=== PATIENT | male | born 1970 | race Caucasian/White ===

== ENCOUNTER 2023-01-18 18:29 | Outpatient (RCR) | payer OTHER, SELFPAY | END 2023-02-11 23:59 | disposition home or self-care (01) | LOC: MM 18:29 | PROVIDERS: PCP Internal Medicine; Visit Provider Internal Medicine | DX: Z51.81 Encounter for therapeutic drug level monitoring (principal); Z79.01 Long term (current) use of anticoagulants ==

== ENCOUNTER 2023-01-21 16:21 | Emergency (ER) | payer OTHER, SELFPAY ==
[2023-01-21 16:26] VITALS: BP 132/73; PULSE 80; RESP 20; TEMP 37.2; O2SAT 100; BMI 31.7
--- NOTE | 2023-01-21 16:44 | XR_ITS ---
The [address] [address] Patient Name: DAVID GRAVES MRN: [id number] date: 1970 Sex: M Assigned Patient Location: ER Current Patient Location: Accession/Order Number: [id number] Exam Date: 01/21/2023 16:50 Report Date: 01/21/2023 18:10 At the request of: RD SHELTON Procedure: XR chest 2V EXAM: XR chest 2V HISTORY: cough COMPARISON: None. TECHNIQUE: Chest X-ray, 2 views FINDINGS: Support devices: Median sternotomy wires are in place. Lungs/pleura: No consolidation, effusion, or pneumothorax. Heart and mediastinum: Normal contours. Aortic valve replacement. Bones: No acute abnormality identified. Impression: No radiographic evidence of acute cardiopulmonary process. Electronically authenticated by: ABBEY CLARK Date: 01/21/2023 18:10
[2023-01-21 16:59] LABS: Internal Control Within Normal Limits; Strep A Antigen Screen Positive
[2023-01-21] MEDS: IPRATROPIUM/ALBUTEROL SULFATE 3 ML AMPUL.NEB IH (17:12)
[2023-01-21 17:13] VITALS: O2SAT 95
[2023-01-21] MEDS: PREDNISONE 20 MG TABLET 60 MG PO (17:22)
--- NOTE | 2023-01-21 17:32 | ED.GENADUL1 ---
Documented by User: Juliane Morales 01/21/23 17:39 HPI - General Adult General Chief complaint: Upper Respiratory Infection Stated complaint: sore throat Time Seen by Provider: 01/21/23 16:44 Source: patient Mode of arrival: walk-in Limitations: no limitations History of Present Illness HPI narrative: 52-year-old male percents are chief complaint of sore throat cough congestion. He states his symptoms began yesterday. States is difficulty swallowing due to pain. Patient does not have hot potato voice. She will speak full sentences. Swallowing secretions well. He does have scattered expiratory wheezing. States she has a history of asthma and his asthma has been agitated over last several days. He does have an inhaler at home. Related Data Previous Rx's Medication Instructions Recorded albuterol sulfate 90 mcg/actuation 2 inh inhalation Q4H PRN shortness 01/21/23 aerosol inhaler of breath or wheezing #8.5 grams penicillin V potassium 500 mg 500 mg PO Q12H 10 days #20 tabs 01/21/23 tablet prednisone 50 mg tablet 50 mg PO DAILY #20 tabs 01/21/23 Allergies Allergy/AdvReac Type Severity Reaction Status Date / Time No Known Drug Allergies Allergy Verified 01/21/23 16:25 Review of Systems ROS Narrative All Systems are negative except as noted/marked.All systems reviewed and otherwise negative PFSH PFSH Social History Smoking status: Former smoker Exam Narrative Exam Narrative: P Nurses note and vital signs reviewed and patient is not hypoxic. General: The patient appears well and in no apparent distress. Patient is resting comfortably on cart. Skin: Warm, dry, no pallor noted. There is no rash noted. Head: Normocephalic, atraumatic Eye: Normal conjunctiva, no drainage, EOMI. PERRL Ears, Nose, Mouth, and Throat: oral mucosa is moist posterior oropharynx is red, no swelling, no peritonsillar abscess,. Nares patent. Mouth without vesicles. Ear canals patent. Tm's without Erythema Cardiovascular: Regular Rate and Rhythm Respiratory: Scattered expiratory wheezing Patient is in no distress, no accessory muscle use, no rales or rhonchi Back: non-tender, no CVA tenderness bilaterally to percussion. Musculoskeletal: The patient has no evidence of calf tenderness, no pitting edema, symmetrical pulses noted bilaterally Neurological: A&O x4, normal speech Psychiatric: Cooperative Constitutional Vital Signs - 24 hr 01/21/23 16:26 01/21/23 17:13 01/21/23 17:39 Temperature 98.9 F Pulse Rate [Monitor] 80 64 Respiratory Rate 20 20 Blood Pressure [Left Arm] 132/73 H 131/83 H Pulse Oximetry 100 95 94 L Oxygen Delivery Method Room Air Room Air Oxygen Delivery Flow Rate 79 Course Vital Signs Vital signs: Vital Signs Temperature 98.9 F 01/21/23 16:26 Pulse Rate 80 01/21/23 16:26 Respiratory Rate 20 01/21/23 16:26 Blood Pressure 132/73 H 01/21/23 16:26 Pulse Oximetry 100 01/21/23 16:26 Temperature 98.9 F 01/21/23 16:26 Pulse Rate 64 01/21/23 17:39 Respiratory Rate 20 01/21/23 17:39 Blood Pressure 131/83 H 01/21/23 17:39 Pulse Oximetry 94 L 01/21/23 17:39 Oxygen Delivery Method Room Air 01/21/23 17:39 Oxygen Delivery Flow Rate 79 01/21/23 17:13 Medical Decision Making MDM Narrative Medical decision making narrative: Patient presents with a chief complaint of cough congestion sore throat. Patient is positive for strep. Lab Data Labs: Lab Results 01/21/23 Range/Units 16:28 Streptococcus Screen Positive A Discharge Plan Discharge Chief Complaint: Upper Respiratory Infection Clinical Impression: Strep pharyngitis Patient Disposition: Home, Self-Care Time of Disposition Decision: 17:28 Condition: Good Prescriptions / Home Meds: New penicillin V potassium 500 mg tablet 500 mg PO Q12H 10 Days Qty: 20 0RF prednisone 50 mg tablet 50 mg PO DAILY Qty: 20 0RF albuterol sulfate 90 mcg/actuation HFA aerosol inhaler 2 inh inhalation Q4H PRN (Reason: shortness of breath or wheezing) Qty: 8.5 0RF Instructions: Strep Throat (ED) Stand Alone Forms: Portal Instructions Referrals: Shaikh Jeter MD [Primary Care Provider] - 1 week Discharge Date/Time: 01/21/23 17:41 Documented by User: Jarred Urban MD 01/21/23 19:41 HPI - General Adult General Chief complaint: Upper Respiratory Infection Stated complaint: sore throat Time Seen by Provider: 01/21/23 16:44 Related Data Previous Rx's Medication Instructions Recorded albuterol sulfate 90 mcg/actuation 2 inh inhalation Q4H PRN shortness 01/21/23 aerosol inhaler of breath or wheezing #8.5 grams penicillin V potassium 500 mg 500 mg PO Q12H 10 days #20 tabs 01/21/23 tablet prednisone 50 mg tablet 50 mg PO DAILY #20 tabs 01/21/23 Allergies Allergy/AdvReac Type Severity Reaction Status Date / Time No Known Drug Allergies Allergy Verified 01/21/23 16:25 PFSH PFSH Social History Smoking status: Former smoker Exam Constitutional Vital Signs - 24 hr 01/21/23 16:26 01/21/23 17:13 01/21/23 17:39 Temperature 98.9 F Pulse Rate [Monitor] 80 64 Respiratory Rate 20 20 Blood Pressure [Left Arm] 132/73 H 131/83 H Pulse Oximetry 100 95 94 L Oxygen Delivery Method Room Air Room Air Oxygen Delivery Flow Rate 79 Course Vital Signs Vital signs: Vital Signs Temperature 98.9 F 01/21/23 16:26 Pulse Rate 80 01/21/23 16:26 Respiratory Rate 20 01/21/23 16:26 Blood Pressure 132/73 H 01/21/23 16:26 Pulse Oximetry 100 01/21/23 16:26 Temperature 98.9 F 01/21/23 16:26 Pulse Rate 64 01/21/23 17:39 Respiratory Rate 20 01/21/23 17:39 Blood Pressure 131/83 H 01/21/23 17:39 Pulse Oximetry 94 L 01/21/23 17:39 Oxygen Delivery Method Room Air 01/21/23 17:39 Oxygen Delivery Flow Rate 79 01/21/23 17:13 Medical Decision Making Medical Records Medical records narrative: Chest x-ray shows no acute cardiopulmonary disease, no infiltrate, no effusion. Lab Data Labs: Lab Results 01/21/23 Range/Units 16:28 Streptococcus Screen Positive A Critical Care Time Critical Care Time Attestation: IDr Urban, have reviewed the above progress note and course of action in the ER; agree with the above. I have personally seen and evaluated this patient, gone over history and physical, and discussed disposition and treatment plan with the patient. Discharge Plan Discharge Chief Complaint: Upper Respiratory Infection Clinical Impression: Strep pharyngitis Patient Disposition: Home, Self-Care Time of Disposition Decision: 17:28 Condition: Good Prescriptions / Home Meds: New penicillin V potassium 500 mg tablet 500 mg PO Q12H 10 Days Qty: 20 0RF prednisone 50 mg tablet 50 mg PO DAILY Qty: 20 0RF albuterol sulfate 90 mcg/actuation HFA aerosol inhaler 2 inh inhalation Q4H PRN (Reason: shortness of breath or wheezing) Qty: 8.5 0RF Instructions: Strep Throat (ED) Stand Alone Forms: Portal Instructions Referrals: Shaikh Jeter MD [Primary Care Provider] - 1 week Discharge Date/Time: 01/21/23 17:41
[2023-01-21 17:39] VITALS: BP 131/83; PULSE 64; RESP 20; O2SAT 94
== END 2023-01-21 17:41 | disposition home or self-care (01) ==
PROVIDERS: Emergency Provider Emergency Medicine; PCP Internal Medicine
DX: J02.0 Streptococcal pharyngitis (principal)
CPT/HCPCS: 71046; 87880; 94640; 99284

== ENCOUNTER 2023-06-23 12:41 | Emergency (ER) | payer SELFPAY ==
[2023-06-23] VITALS (13 sets, daily range): BP systolic 124–154; BP diastolic 68–80; PULSE 86–108; RESP 12–24; TEMP 36.6; O2SAT 98–100; BMI 30.3
--- NOTE | 2023-06-23 13:00 | ECG_ITS ---
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
--- NOTE | 2023-06-23 13:00 | XR_ITS ---
The [address] [address] Patient Name: DAVID GRAVES MRN: [id number] date: 1970 Sex: M Assigned Patient Location: ER Current Patient Location: ED.MAIN Accession/Order Number: [id number] Exam Date: 06/23/2023 13:15 Report Date: 06/23/2023 13:52 At the request of: SANDHYA COTTON Procedure: XR chest 1V EXAMINATION: XR chest 1V 06/23/2023 10:48 AM PST HISTORY: cough, chest pain TECHNIQUE: Single frontal view of the chest acquired. COMPARISONS: Chest x-ray 01/21/2023. FINDINGS: Lines/tubes/other: None. Heart and mediastinum: Stable. Bones: No acute osseous abnormality. Lungs: The lungs are clear. There is no evidence of pneumonia or pulmonary edema. Pleura: There is no significant pleural effusion or pneumothorax. Other: None. XR/XR chest 1V IMPRESSION: No acute cardiopulmonary abnormality. Electronically authenticated by: HIEN OLIVEROS Date: 06/23/2023 13:52
--- NOTE | 2023-06-23 13:03 | ED_ITS ---
HPI - Chest Pain General Chief Complaint: Chest Pain Stated Complaint: CHEST PAIN Time Seen by Provider: 06/23/23 12:55 Source: patient Mode of arrival: walk-in History of Present Illness HPI narrative: 53-year-old male presents for two days of chest pain. He's had a dry cough for a week. He had been lifting some heavy items before this pain started and he points to the lateral pectoral area to indicate area of pain, just medial to the axilla. He didn't fall. No direct trauma. Cough is nonproductive and there is no hemoptysis and he has not had a fever. Related Data Previous Rx's Medication Instructions Recorded albuterol sulfate 90 mcg/actuation 2 inh inhalation Q4H PRN shortness 01/21/23 aerosol inhaler of breath or wheezing #8.5 grams penicillin V potassium 500 mg 500 mg PO Q12H 10 days #20 tabs 01/21/23 tablet prednisone 50 mg tablet 50 mg PO DAILY #20 tabs 01/21/23 Allergies Allergy/AdvReac Type Severity Reaction Status Date / Time No Known Drug Allergies Allergy Verified 01/21/23 16:25 Review of Systems ROS Narrative A ten point review of systems is negative except as noted above. PFSH PFSH Social History Smoking status: Former smoker Exam Narrative Exam Narrative: Nurses note and vital signs reviewed and patient is not hypoxic. General: The patient appears well and in no apparent distress. Patient is resting comfortably on cart. Skin: Warm, dry, no pallor noted. There is no rash noted. Head: Normocephalic, atraumatic Eye: Normal conjunctiva, no drainage Ears, Nose, Mouth, and Throat: oral mucosa is moist. Nares patent. Cardiovascular: Regular Rate and Rhythm Respiratory: Patient is in no distress, no accessory muscle use, lungs are clear to auscultation, no wheezing, rales or rhonchi Back: non-tender GI: soft and nontender Musculoskeletal: chest wall has no crepitus bruise or abrasions or rash. Neurological: A&O, normal speech Psychiatric: Cooperative Constitutional Vital Signs, click to edit/add: Last Vital Signs Temp 98 F 06/23/23 12:46 Pulse 88 06/23/23 14:20 Resp 15 06/23/23 14:20 BP 124/68 06/23/23 14:00 Pulse Ox 98 06/23/23 13:00 O2 Del Method Room Air 06/23/23 12:46 Course Vital Signs Vital signs: Vital Signs Temperature 98 F 06/23/23 12:46 Pulse Rate 106 H 06/23/23 12:46 Respiratory Rate 16 06/23/23 12:46 Blood Pressure 154/80 H 06/23/23 12:46 Pulse Oximetry 100 06/23/23 12:46 Oxygen Delivery Method Room Air 06/23/23 12:46 Temperature 98 F 06/23/23 12:46 Pulse Rate 88 06/23/23 14:20 Respiratory Rate 15 06/23/23 14:20 Blood Pressure 124/68 06/23/23 14:00 Pulse Oximetry 98 06/23/23 13:00 Oxygen Delivery Method Room Air 06/23/23 12:46 MDM - Chest Pain MDM Narrative Medical decision making narrative: the patient's workup including d-dimer and two troponins is negative. He has not had his INR checked in over a year and today at 2.25. He was encouraged to have his INR checked regularly and he'll follow-up with his family doctor. At this point I do not suspect acute coronary syndrome and the patient will be discharged home. No evidence of pulmonary embolism or pneumothorax. Treatment diagnosis and follow-up were discussed with the patient. Differential Diagnosis Differential diagnosis: Likely pneumothorax, unstable angina pectoris, atypical chest pain, st elevation myocardial infarction, costochondritis and chest pain Lab Data Attestation: I reviewed the patient's lab results. Labs: Lab Results 06/23/23 06/23/23 06/23/23 Range/Units 13:06 13:07 13:50 WBC 11.5 H (4.0-11.0) 10^3/uL RBC 4.39 L (4.70-6.10) 10^6/uL Hgb 13.2 L (14.0-18.0) g/dL Hct 40.7 L (42.0-54.0) % MCV 92.7 (80.0-94.0) fL MCH 30.1 (25.9-34.0) pg MCHC 32.4 (29.9-35.2) g/dL RDW 12.6 (11.0-15.0) % Plt Count 206 (150-450) 10^3/uL MPV 9.9 (9.5-13.5) fL Neut % (Auto) 71.4 (43.0-75.0) % Lymph % (Auto) 16.7 L (20.5-60.0) % [place] % (Auto) 6.8 (1.7-12.0) % Eos % (Auto) 4.1 (0.9-7.0) % Baso % (Auto) 0.7 (0.2-2.0) % Neut # (Auto) 8.2 H (1.4-6.5) 10^3/uL Lymph # (Auto) 1.9 (1.2-3.8) 10^3/uL [place] # (Auto) 0.8 (0.3-0.8) 10^3/uL Eos # (Auto) 0.5 (0.0-0.7) 10^3/uL Baso # (Auto) 0.1 (0.0-0.1) 10^3/uL Abs Immat Gran (auto) 0.04 H (0.00-0.03) 10^3/uL Imm/Tot Granulo (auto) 0.3 (0.0-0.5) % PT 22.8 H (9.0-11.6) sec INR 2.25 D-Dimer 0.50 (<=0.59) mg/L FEU Sodium 136 (136-145) mmol/L Potassium 3.9 (3.5-5.1) mmol/L Chloride 103 (98-107) mmol/L Carbon Dioxide 30.6 (21.0-32.0) mmol/L Anion Gap 6.3 BUN 17.0 (7.0-18.0) mg/dL Creatinine 0.98 (0.70-1.30) mg/dL Est GFR ( Amer) >60 (>=60) Est GFR (Non-Af Amer) >60 (>=60) BUN/Creatinine Ratio 17.3 Glucose 134 H (74-106) mg/dL Calcium 8.4 L (8.5-10.1) mg/dL Troponin I High Sens 6.2 6.5 (4.0-76.1) pg/mL SARS-CoV-2 (PCR) Negative (NEGATIVE) Imaging Data Chest x-ray: Radiologist's impression: Procedure: XR chest 1V EXAMINATION: XR chest 1V 06/23/2023 10:48 AM PST HISTORY: cough, chest pain TECHNIQUE: Single frontal view of the chest acquired. COMPARISONS: Chest x-ray 01/21/2023. FINDINGS: Lines/tubes/other: None. Heart and mediastinum: Stable. Bones: No acute osseous abnormality. Lungs: The lungs are clear. There is no evidence of pneumonia or pulmonary edema. Pleura: There is no significant pleural effusion or pneumothorax. Other: None. IMPRESSION: No acute cardiopulmonary abnormality. Electronically authenticated by: HIEN OLIVEROS Date: 06/23/2023 13 ECG Data Attestation: I personally reviewed and interpreted this ECG as follows: (EKG on my interpretation shows no acute findings) Heart Score History: Moderately Suspicious ECG: Normal Age: >45-<65 years Risk Factors: 1 or 2 Risk Factors Troponin: <Normal Limit Total Heart Score Recommendations & Risks:: 3 Discharge Plan Discharge Chief Complaint: Chest Pain Clinical Impression: Chest wall pain Patient Disposition: Home, Self-Care Time of Disposition Decision: 14:34 Condition: Good Mode of Transportation: Private Vehicle Prescriptions / Home Meds: No Action penicillin V potassium 500 mg tablet 500 mg PO Q12H 10 Days Qty: 20 0RF prednisone 50 mg tablet 50 mg PO DAILY Qty: 20 0RF albuterol sulfate 90 mcg/actuation HFA aerosol inhaler 2 inh inhalation Q4H PRN (Reason: shortness of breath or wheezing) Qty: 8.5 0RF Instructions: Chest Wall Pain (ED) Stand Alone Forms: Portal Instructions Referrals: Rod Peña MD [Primary Care Provider] - 1 week
[2023-06-23 13:15] LABS: Basophils Absolute Auto 0.1 10^3/uL (0.0-0.1); Basophils Percent Auto 0.7 % (0.2-2.0); Eosinophils Absolute Auto 0.5 10^3/uL (0.0-0.7); Eosinophils Percent Auto 4.1 % (0.9-7.0); Hematocrit 40.7 % (42.0-54.0); Hemoglobin 13.2 g/dL (14.0-18.0); Immature Granulocytes Abs Auto 0.04 10^3/uL (0.00-0.03); Immature Granulocytes Pct Auto 0.3 % (0.0-0.5); Lymphocytes Absolute Auto 1.9 10^3/uL (1.2-3.8); Lymphocytes Percent Auto 16.7 % (20.5-60.0); Mean Corpuscular HGB Conc 32.4 g/dL (29.9-35.2); Mean Corpuscular Hemoglobin 30.1 pg (25.9-34.0); Mean Corpuscular Volume 92.7 fL (80.0-94.0); Mean Platelet Volume 9.9 fL (9.5-13.5); Monocytes Absolute Auto 0.8 10^3/uL (0.3-0.8); Monocytes Percent Auto 6.8 % (1.7-12.0); Neutrophils Absolute Auto 8.2 10^3/uL (1.4-6.5); Neutrophils Percent Auto 71.4 % (43.0-75.0); Platelet Count 206 10^3/uL (150-450); Red Blood Count 4.39 10^6/uL (4.70-6.10); Red Cell Distribution Width 12.6 % (11.0-15.0); White Blood Count 11.5 10^3/uL (4.0-11.0)
[2023-06-23 13:26] LABS: SARS-CoV-2 Ag NEGATIVE (NEGATIVE)
[2023-06-23 13:35] LABS: Anion Gap 6.3; BUN Creatinine Ratio 17.3; Calcium 8.4 mg/dL (8.5-10.1); Carbon Dioxide 30.6 mmol/L (21.0-32.0); Chloride 103 mmol/L (98-107); Estimated GFR (African America >60 (>=60); Estimated GFR (Non-African Ame >60 (>=60); Glucose 134 mg/dL (74-106); Potassium 3.9 mmol/L (3.5-5.1); Sodium 136 mmol/L (136-145); Troponin I High Sensitivity 6.2 pg/mL (4.0-76.1)
[2023-06-23] MEDS: MORPHINE SULFATE 4 MG/ML VIAL IV (13:51)
[2023-06-23 13:58] LABS: INR 2.25; Prothrombin Time 22.8 sec (9.0-11.6)
[2023-06-23 14:14] LABS: Troponin I High Sensitivity 6.5 pg/mL (4.0-76.1)
[2023-06-23 15:29] LABS: SARS-CoV-2 NAA NOT DETECTED (NOT DETECTE)
== END 2023-06-23 14:42 | disposition home or self-care (01) ==
PROVIDERS: Emergency Provider Emergency Medicine; PCP Family Medicine
DX: R07.89 Other chest pain (principal); Z87.891 Personal history of nicotine dependence; Z20.822 Contact with and (suspected) exposure to COVID-19
CPT/HCPCS: 36415; 71045; 80048; 84484; 85025; 85378; 85610; 87635; 87811; 93005; 96374; 99285

== ENCOUNTER 2023-08-29 08:59 | Observation (INO) | payer SELFPAY ==
[2023-08-29] VITALS (24 sets, daily range): BP systolic 126–154; BP diastolic 80–99; PULSE 120–126; RESP 13–28; TEMP 36.4–36.7; O2SAT 92–99; BMI 31.7; BMI 33.2
--- NOTE | 2023-08-29 09:06 | ECG_ITS ---
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
--- NOTE | 2023-08-29 09:06 | XR_ITS ---
The [address] [address] Patient Name: DAVID GRAVES MRN: [id number] date: 1970 Sex: M Assigned Patient Location: ER Current Patient Location: ER Accession/Order Number: [id number] Exam Date: 08/29/2023 09:18 Report Date: 08/29/2023 09:33 At the request of: KARTHIK PERLA Procedure: XR chest 1V EXAM: XR chest 1V HISTORY: shortness of breath COMPARISON: None. TECHNIQUE: AP view of the chest. FINDINGS: The cardiomediastinal silhouette is enlarged. The lungs are clear. There is no pneumothorax. No pleural effusion is noted. The osseous structures are intact. XR/XR chest 1V IMPRESSION: Cardiomegaly without failure. Electronically authenticated by: HARVINDER VALDOVINOS Date: 08/29/2023 09:33
--- NOTE | 2023-08-29 09:06 | US_ITS ---
The [address] [address] Patient Name: DAVID GRAVES MRN: [id number] date: 1970 Sex: M Assigned Patient Location: ER Current Patient Location: ER Accession/Order Number: [id number] Exam Date: 08/29/2023 09:45 Report Date: 08/29/2023 10:17 At the request of: KARTHIK PERLA Procedure: US venous doppler LE LT EXAM: US venous doppler LE LT HISTORY: left LE swelling COMPARISON: Venous ultrasound study of the lower extremities dated 08/04/2021 TECHNIQUE: Utilizing color-flow duplex scanning and Doppler flow analysis, deep venous system of the left leg was evaluated. FINDINGS: There is normal compressibility seen throughout. There is gross patency identified. Augmentation is seen. There is no evidence of focal area of increased echogenicity within the deep venous system to suggest thrombosis. Visualized portions of the greater saphenous vein and lesser saphenous vein of the superficial venous system appear unremarkable. US/US venous doppler LE LT IMPRESSION: Grossly unremarkable imaging study of the deep venous system of the left leg as described, no definite evidence of deep venous thrombosis can be identified. Electronically authenticated by: PAULA ACUÑA Date: 08/29/2023 10:17
--- OUTSIDE RECORDS SUMMARY | 2023-08-29 09:07 | XMS_ITS | CCD ---
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 Rod Benitez Primary Care Ovidio Judge Referring Unavailable Evelyn, Ovidio Attending Unavailable Unavailable Unavailable Ovidio Rivas Attending Unavailable Neymarerepete, Dr. Rod Dao Primary Care Manda JUARESWWAD, FRY H Attending Unavailable NADERER, DR ROD Prater Primary Care Unavailable FAWWAD, FRY H Admitting Unavailable FAWWAD, FRY H Attending Unavailable NADERER, DR ROD Prater Primary Care Unavailable FAWWAD, FRY H Admitting Unavailable FAWWAD, FRY H Attending Unavailable NADERER, DR ROD Prater Primary Care Unavailable FAWWAD, FRY H Admitting Unavailable FAWWAD, FRY H Attending Unavailable NADERER, DR ROD Prater Primary Care Unavailable FAWWAD, FRY H Admitting Unavailable FAWWAD, FRY H Attending Unavailable NADERER, DR ROD Prater Primary Care Unavailable FAWWAD, FRY H Admitting Unavailable MANISH ., DR DURHAM Admitting Unavailable MANISH ., DR DURHAM Attending Unavailable NADERER, DR ROD Prater Primary Care Unavailable FAWWAD, FRY H Attending Unavailable NADERER, DR ROD Prater Primary Care Unavailable FAWWAD, FRY H Admitting Unavailable FAWWAD, FRY H Admitting Unavailable NADEREPete, DR ROD Prater Primary Care Unavailable FAWWAD, FRY H Attending Unavailable NADERER, DR ROD Prater Primary Care Unavailable FAWWAD, FRY H Admitting Unavailable FAWWAD, FRY H Attending Unavailable DR ROD BENITEZ Primary Care Unavailable SHAIKH Adrian PENA Attending Unavailable SHAIKH Adrian PENA Admitting Unavailable DR ROD BENITEZ Primary Care Unavailable SHAIKH Adrian EPNA Attending Unavailable SHAIKH Adrian PENA Admitting Unavailable Allergies Allergy Classification Reported Allergen(s) Allergy Type Date of Onset Reaction(s) Facility (12 sources) olmesartan; Translations: [Benicar] Drug Allergy Cough [facility] [employer] 250 DO Work Phone: (12 sources) Ramipril; Translations: [Altace CAPS] Drug Allergy Cough [facility] [employer] 250 DO Work Phone: Medications Completed/Discontinued Medications Medication Drug Class(es) Dates Sig (Normalized) Sig (Original) levothyroxine sodium 0.2 mg oral tablet (11 sources) l-Thyroxine Start: 10-23-2021 take 1 tablet by mouth once daily Levothyroxine Sodium 200 MCG Oral Tablet Take 1 tablet daily Quantity: 90 Refills: 3 Ordered: 25-Oct-2022 Ovidio Rivas MD Start : 23-Oct-2021 Active losartan potassium 50 mg oral tablet (9 sources) Angiotensin 2 Receptor La Start: 03-16-2021 take 1 tablet by mouth once daily Losartan Potassium 50 MG Oral Tablet Take 1 tablet daily Quantity: 90 Refills: 1 Ordered: 30-Mar-2023 Ovidio Rivas MD Start : 16-Mar-2021 Active metoprolol tartrate 100 mg oral tablet (7 sources) beta-Adrenergic La Start: 09-22-2022 take 1 tablet by mouth once daily Metoprolol Tartrate 100 MG Oral Tablet TAKE 1 TABLET EVERY 12 HOURS DAILY. Quantity: 180 Refills: 3 Ordered: 22-Sep-2022 Ovidio Rivas MD Start : 22-Sep-2022 Active 24 hr pramipexole dihydrochloride 1.5 mg extended release oral tablet (7 sources) Nonergot Dopamine Agonist take 1 tablet by mouth at bedtime Pramipexole Dihydrochloride ER 1.5 MG Oral Tablet Extended Release 24 Hour TAKE 1 TABLET Bedtime Quantity: 0 Refills: 0 Ordered: 22-Sep-2022 DO Active simvastatin 20 mg oral tablet (7 sources) HMG-CoA Reductase Inhibitor Start: 04-26-2022 take 1 tablet by mouth once daily Simvastatin 20 MG Oral Tablet Take 1 tablet daily Quantity: 90 Refills: 1 Ordered: 03-May-2023 Ovidio Rivas MD Start : 26-Apr-2022 Active spironolactone 25 mg oral tablet (7 sources) Aldosterone Antagonist Start: 04-26-2022 take 1 tablet by mouth once daily Spironolactone 25 MG Oral Tablet Take 1 tablet daily Quantity: 90 Refills: 1 Ordered: 03-May-2023 Ovidio Rivas MD Start : 26-Apr-2022 Active warfarin sodium 5 mg oral tablet (7 sources) Vitamin K Antagonist Warfarin Sodium 5 MG Oral Tablet TAKE 1 TABLET DAILY- Managed by [facility] Quantity: 30 Refills: 0 Ordered: 22-Sep-2022 DO Active Problems Problem Classification Problem Date Documented Da te Episodic/Chronic Aortic; peripheral; and visceral artery aneurysms (13 sources) Dissection of aorta; Translations: [Dissection of aorta, unspecified site] Onset: 07-16-2022 Chronic Disorders of lipid metabolism (12 sources) Hyperlipidemia; Translations: [Other and unspecified hyperlipidemia] Chronic Essential hypertension (12 sources) Hypertensive disorder; Translations: [Unspecified essential hypertension] Chronic Heart valve disorders (12 sources) History of aortic valve replacement; Translations: [Heart valve replaced by other means] Chronic Other aftercare (20 sources) Drug therapy finding; Translations: [Long-term (current) use of anticoagulants] Episodic Other aftercare (4 sources) Encounter for therapeutic drug level monitoring; Translations: [ENC THERAPEUTC DRUG LEVL MONITORING] Onset: 12-13-2022 Episodic Other aftercare (1 source) 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; Translations: [FDC CURRNT USE ANTICOAGULANTS] Onset: 01-12-2023 Episodic Other nutritional; endocrine; and metabolic disorders (10 sources) Body mass index 30+ - obesity; Translations: [Body Mass Index 30.0-30.9, adult] Chronic Other nutritional; endocrine; and metabolic disorders (7 sources) Obesity; Translations: [Obesity, unspecified] Chronic Other nutritional; endocrine; and metabolic disorders (5 sources) Overweight; Translations: [Overweight] Episodic Screening and history of mental health and substance abuse codes (12 sources) Ex-smoker; Translations: [Personal history of tobacco use] Episodic Comment on above: Quit 2006; Thyroid disorders (12 sources) Hypothyroidism; Translations: [Unspecified acquired hypothyroidism] Chronic Results Test Name Value Interpretation Reference Range Facil ity Office Visit (Cardiology)on 09-22-2022 Follow-up visit Diagnoses/Problems Assessed Dissecting aortic aneurysm (441.00) (I71.00) History of aortic valve replacement (V43.3) (Z95.2) HTN (hypertension) (401.9) (I10) Hyperlipemia (272.4) (E78.5) Hypothyroidism (244.9) (E03.9) Former smoker (V15.82) (Z87.891) Quit 2006 Class 1 obesity with body mass index (BMI) of 31.0 to 31.9 in adult (278.00,V85.31) (E66.9,Z68.31) High risk medication use (V58.69) (Z79.899) Orders Class 1 obesity with body mass index (BMI) of 31.0 to 31.9 in adult Healthy Weight Tips; Status:Complete; Done: 22Sep2022 Some eating tips that can help you lose weight.; Status:Complete; Done: 22Sep2022 Dissecting aortic aneurysm, History of aortic valve replacement Echocardiogram; Status:Hold For - Scheduling; Requested for:22Sep2022; HTN (hypertension), Hyperlipemia Start: Metoprolol Tartrate 100 MG Oral Tablet; TAKE 1 TABLET EVERY 12 HOURS DAILY ALT - Alanine Aminotransferase, Serum; Status:Active; Requested for:22Sep2022; AST; Status:Active; Requested for:22Sep2022; Basic Metabolic Panel; Status:Active; Requested for:22Sep2022; Complete Blood Count; Status:Active; Requested for:22Sep2022; Lipid Panel; Status:Active; Requested for:22Sep2022; TSH - Thyroid Stimulating Hormone, Serum; Status:Active; Requested for:22Sep2022; SocHx: Former smoker Tobacco Use Screening; Status:Complete; Done: 22Sep2022 Patient Instructions Please bring all medicines, vitamins, and herbal supplements with you when you come to the office. Prescriptions will not be filled unless you are compliant with your follow up appointments or have a follow up appointment scheduled as per instruction of your physician. Refills should be requested at the time of your visit. Follow up in 1 year. Chief Complaint DAVID GRAVES is being seen for an annual follow-up of. Patient is in the office for follow-up for the problems noted below. He was last seen in the office year and a half ago. In the interim he did not have any cardiac events. He ran out of his metoprolol recently and because of this his heart rate slightly increased. He has no dyspnea or chest pain and no syncope. He has not had any blood work that was done through his PCP. His examination is only remarkable for the normal clicking sound of mechanical aortic valve along with obesity. ASSESSMENT AND PLAN: 1. Mechanical aortic valve prosthesis paced in 2006. He is due for echocardiogram which is scheduled. Endocarditis prophylaxis for dental and GI procedures was discussed with the patient. 2. Ascending aortic aneurysm dissection repaired surgically and with no recurrences. 3. Chronic Coumadin therapy managed by the [facility] without any bleeding complications or thromboembolic events. CBC is ordered 4. Hypothyroidism, on replacement therapy thyroid testing is ordered. 5. Hyperlipidemia, on statin therapy. Lipid profile and liver function tests were ordered 6. Hypertension, presently under control. Basic metabolic profile is ordered. 7. Obesity, encouraged the patient continue to lose weight to bring his weight down to 170 pounds Ovidio Rivas MD, [facility] Surgical History Problems History of Aortic valve replacement Denied: History of Complete colonoscopy History of Coronary artery bypass graft Current Meds Medication NameInstruction Levothyroxine Sodium 200 MCG Oral Tablettake 1 tablet by mouth once daily Losartan Potassium 50 MG Oral Tablettake 1 tablet by mouth once daily Pramipexole Dihydrochloride ER 1.5 MG Oral Tablet Extended Release 24 HourTAKE 1 TABLET Bedtime Simvastatin 20 MG Oral Tablettake 1 tablet by mouth once daily Spironolactone 25 MG Oral Tablettake 1 tablet by mouth once daily Warfarin Sodium 5 MG Oral TabletTAKE 1 TABLET DAILY- Managed by [facility] Allergies Medication Altace CAPS Adverse Reaction; Cough; Recorded By: Ariella Estrada; 05/11/2021 11:06:39 AM Benicar Adverse Reaction; Cough; Recorded By: Ariella Estrada; 05/11/2021 11:06:39 AM Social History Problems Daily caffeine consumption, 4-5 servings a day Former smoker (V15.82) (Z87.891) Quit 2006 No illicit drug use Rarely consumes alcohol (V49.89) (Z78.9) Review of Systems Constitutional: not feeling tired. Cardiovascular: no intermittent leg claudication and as noted in HPI. Respiratory: no cough and no shortness of breath. Gastrointestinal: no change in bowel habits and no blood in stools. Integumentary: no skin rashes. Neurological: no seizures and no frequent falls. All other systems have been reviewed and are negative for complaint. Vitals Vital Signs Recorded: 22Sep2022 11:17AM Heart Rate88, L Radial Swkyytji904, LUE, Sitting Ohischqsp64, LUE, Sitting Height5 ft 9 in Hfsscu910 lb BMI Slfurenomn22.75 kg/m2 BSA Calculated2.13 Tobacco Useb) No PHQ-2 #1. Over the last 2 weeks have you felt down, depressed or hopeless? (If yes, answer PHQ-9 below)No PHQ-2 #2. Over the last 2 weeks have you felt little i (more content not included)... Normal [facility] Tobacco Screening.on 023 Adult depression screening assessment [facility] [employer] [facility] Work Phone: Fall risk assessment c) Not medically indicated [facility] [employer] DO Work Phone: Tobacco use status [facility]PH[facility] b) No [facility] [employer] 250 DO Work Phone: Vital Signs Date Time Vital Sign Value Performing Clinician Latosha maxwell 09-22-2022 11:17-0500 Body height 175.26 cm Rod Moi Chaser Work Phone: [facility] [employer] 250 DO Work Phone: 09-22-2022 11:17-0500 Body mass index (BMI) [Ratio] 31.75 kg/m2 Rod Prater Neymarerer Work Phone: [facility] [employer] 250 DO Work Phone: 09-22-2022 11:17-0500 Body surface area Derived from formula 2.13 m2 Rod Prater Neymarerer Work Phone: [facility] 250 DO Work Phone: 09-22-2022 11:17-0500 Body weight 97.52 kg Rod Benitez Work Phone: [facility] 250 DO Work Phone: 09-22-2022 11:17-0500 Diastolic blood pressure 82 mm[Hg] Rod Benitez Work Phone: [facility] 250 DO Work Phone: 09-22-2022 11:17-0500 Heart rate 88 /min Rod Benitez Work Phone: [facility] 250 DO Work Phone: 09-22-2022 11:17-0500 Systolic blood pressure 120 mm[Hg] [facility] Work Phone: Encounters Encounter Date Encounter Type Care Provider Facility Start: 05-02-2023 Rx Renewal Rod Benitez Work Phone: [facility] 250 DO Work Phone: Start: 03-28-2023 Rx Renewal [facility] Work Phone: Start: 12-13-2022 End: 01-12-[address] ROD BENITEZ Facility:[facility]1 Start: 11-15-2022 End: 12-10-[address] ROD BENITEZ Facility:[facility] Start: 11-10-2022 ambulatory Ovidio Rivas Facility :[id number] Start: 10-25-2022 Rx Renewal [facility] Work Phone: Start: 10-13-2022 End: 11-12-2022 ambulatory FRY H FAWWAD Facility:[facility]1 Start: 09-22-2022 Office outpatient vi sit 25 minutes Rod Benitez Work Phone: [facility] 250 DO Work Phone: Start: 09-22-[address] Rod Benitez Facility: Start: 09-15-2022 End: 10-13-2022 ambulatory FRY H FAWWAD Facility:H1 Start: 08-16-2022 End: 09-15-2022 ambulatory FRY H FAWWAD Facility:[facility]1 Start: 07-15-2022 End: 08-15-2022 ambulatory FRY H FAWWAD Facility:H1 Start: 06-15-2022 End: 07-14-2022 ambulatory FRY H FAWWAD Facility:[facility]1 Start: 05-16-2022 End: 06-14-[address] HERMINIO HAMMOND . Facility:[facility]1 Start: 04-26-2022 Rx Renewal Rod Benitez Work Phone: [place] [address] DO Work Phone: Start: 04-15-2022 End: 05-15-2022 ambulatory FRY FAWWAD Facility:H1 Start: 03-16-2022 AUDIT Rod Benitez Work Phone: [place] [address] DO Work Phone: Start: 03-15-2022 End: 04-14-2022 ambulatory FRY FAWWAD Facility:[facility]1 Start: 02-12-2022 End: 03-12-[address] ROD BENITEZ Facility:[facility]1 Start: 10-23-2021 Rx Renewal Rod Benitez Work Phone: [facility] 250 DO Work Phone: Procedures Date Procedure Procedure Detail Performing Clinician Coronary artery bypa ss graft Rod Benitez Work Phone: Replacement of aorti c valve Rod Benitez Work Phone: NEGATED: Highlighted row has not occurred! Total colonoscopy Rod Benitez Work Phone: Plan of Treatment Date Care Activity Detail Author Start: 09-22-2023 FUV, Provider: Ovidio Rivas, Status: Pen, Time: 10:00 AM FUV, Provider: Ovidio Rivas, Status: Pen, Time: 10:00 AM [facility] 250 DO Work Phone: Start: 11-10-2022 ECHO, Provider: SHVIANI GR [facility] ULTRASOUND 01,[id number], Status: Pen, Time: 10:45 AM ECHO, Provider: KIRSTY [facility] ULTRASOUND 01,[id number], Status: Pen, Time: 10:45 AM [facility] 250 DO Work Phone: Start: 09-22-2022 FUV, Provider: Ovidio Rivas, Status: Pen, Time: 10:50 AM FUV, Provider: Ovidio Rivas, Status: Pen, Time: 10:50 AM [facility] 250 DO Work Phone: Start: 03-16-2022 FUV, Provider: Ovidio Rivas, Status: Pen, Time: 8:50 AM FUV, Provider: Ovidio Rivas, Status: Pen, Time: 8:50 AM [facility] 250 DO Work Phone: Immunizations Immunization Date Immunization Notes Care Provider Stacie frances 08-15-2010 influenza virus vaccine, unspecified formulation Rod Stoner Work Phone: [facility] 250 DO Work Phone: influenza virus vaccine, unspecified formulation Rod Stoner Work Phone: [facility] 250 DO Work Phone: Comment on above: 2009 Payers Date Payer Category Payer Unknown [id number] [id number] 1969 Unknown [id number] 2.16.8 [id number] 1969 Unknown [id number] 2.16.84 [id number] 1969 Unknown [id number] 2.16.84 [id number] 1969 Unknown [id number] 2.16.84 [id number] 1969 Unknown [id number] 2.16.84 [id number] 1969 Unknown [id number] 2.16.84 [id number] 1969 Unknown [id number] 2.16.84 [id number] 1969 Unknown [id number] 2.16.84 [id number] 1969 Unknown [id number] 2.16.84 [id number] 1969 Unknown [id number] 2.16.84 [id number] 1969 Unknown [id number] 2.16.84 [id number] 1969 Unknown [id number] 2.16.84 [id number] 1959 Unknown [id number] 1959 Unknown [id number] 1959 Unknown [id number] Unknown Social History Date Type Detail Facility No illicit drug use No illicit drug use [place] [address] DO Work Phone: Comment on above: Quit 2006; Family History Unknown Family Member Name Dates Details Family history of arterioscl erotic cardiovascular disease: Mother, Father(V17.49, Z82.49) Status:Active Unknown Family Member Name Dates Details Family history of arterioscl erotic cardiovascular disease: Mother, Father(V17.49, Z82.49) Status:Active Unknown Family Member Name Dates Details Family history of arterioscl erotic cardiovascular disease: Mother, Father(V17.49, Z82.49) Status:Active Unknown Family Member Name Dates Details Family history of arterioscl erotic cardiovascular disease: Mother, Father(V17.49, Z82.49) Status:Active Unknown Family Member Name Dates Details Family history of arterioscl erotic cardiovascular disease: Mother, Father(V17.49, Z82.49) Status:Active Unknown Family Member Name Dates Details Family history of arterioscl erotic cardiovascular disease: Mother, Father(V17.49, Z82.49) Status:Active Unknown Family Member Name Dates Details Family history of arterioscl erotic cardiovascular disease: Mother, Father(V17.49, Z82.49) Status:Active Unknown Family Member Name Dates Details Family history of arterioscl erotic cardiovascular disease: Mother, Father(V17.49, Z82.49) Status:Active Unknown Family Member Name Dates Details Family history of arterioscl erotic cardiovascular disease: Mother, Father(V17.49, Z82.49) Status:Active Unknown Family Member Name Dates Details Family history of arterioscl erotic cardiovascular disease: Mother, Father(V17.49, Z82.49) Status:Active Unknown Family Member Name Dates Details Family history of arterioscl erotic cardiovascular disease: Mother, Father(V17.49, Z82.49) Status:Active Chief Complaint * DAVID GRAVES is being seen for an annual follow-up of. * Patient is in the office for follow-up for the problems noted below. He was last seen in the officeyear and a half ago. In the interim he did not have any cardiac events. He ran out of his metoprolol recently and because of this his heart rate slightly increased. He has no dyspnea or chest pain and no syncope. He has not had any blood work that was done through his PCP. His examination is only remarkable for the normal clicking sound of mechanical aortic valve along with obesity. * ASSESSMENT AND PLAN: * 1. Mechanical aortic valve prosthesis paced in 2006. He is due for echocardiogram which is scheduled. Endocarditis prophylaxis for dental and GI procedures was discussed with the patient. * 2. Ascending aortic aneurysm dissection repaired surgically and with no recurrences. * 3. Chronic Coumadin therapy managed by the [facility] without any bleeding complications or thromboembolic events. CBC is ordered * 4. Hypothyroidism, on replacement therapy thyroid testing is ordered. * 5. Hyperlipidemia, on statin therapy. Lipid profile and liver function tests were ordered * 6. Hypertension, presently under control. Basic metabolic profile is ordered. * 7. Obesity, encouraged the patient continue to lose weight to bring his weight down to 170 pounds * Ovidio Rivas MD, FACC * DAVID GRAVES is being seen for an annual follow-up of. * Patient is in the office for follow-up for the problems noted below. He was last seen in the officeyear and a half ago. In the interim he did not have any cardiac events. He ran out of his metoprolol recently and because of this his heart rate slightly increased. He has no dyspnea or chest pain and no syncope. He has not had any blood work that was done through his PCP. His examination is only remarkable for the normal clicking sound of mechanical aortic valve along with obesity. * ASSESSMENT AND PLAN: * 1. Mechanical aortic valve prosthesis paced in 2006. He is due for echocardiogram which is scheduled. Endocarditis prophylaxis for dental and GI procedures was discussed with the patient. * 2. Ascending aortic aneurysm dissection repaired surgically and with no recurrences. * 3. Chronic Coumadin therapy managed by the [facility] without any bleeding complications or thromboembolic events. CBC is ordered * 4. Hypothyroidism, on replacement therapy thyroid testing is ordered. * 5. Hyperlipidemia, on statin therapy. Lipid profile and liver function tests were ordered * 6. Hypertension, presently under control. Basic metabolic profile is ordered. * 7. Obesity, encouraged the patient continue to lose weight to bring his weight down to 170 pounds * Ovidio Rivas MD, FACC Summary Purpose Advance Directives No Advanced Directives Records FoundNo Advanced Directives Records FoundNo Advanced Directives Records FoundNo Advanced Directives Records Found Additional Source Comments (unrecognized sect ion and content) No Status Records FoundNo Status Records FoundNo Status Records FoundNo Status Records Found INFORMATION SOURCE (unrecogn ized section and content) DATE CREATED AUTHOR 09/23/2022 [facility] DATE CREATED AUTHOR AUTHOR'S ORGANIZ ATION 11/07/2022 [facility] DATE CREATED AUTHOR AUTHOR'S ORGANIZ ATION 11/14/2022 [facility] DATE CREATED AUTHOR AUTHOR'S ORGANJACKELIN ATION 01/21/2023 [facility] FOR RECORDS PERTAINING TO PATIENTS WHO ARE OR HAVE BEEN ENROLLED IN A CHEMICAL DEPENDENCY/SUBSTANCEABUSE PROGRAM, SOME INFORMATION MAY BE OMITTED. This clinical summary was aggregated from multiple sources. Caution should be exercised in using it in the provision of clinical care. This summary normalizes information from multiple sources, and as a consequence, information in this document may materially change the coding, format and clinical context of patient data. In addition, data may be omitted in some cases. CLINICAL DECISIONS SHOULD BE BASED ON THE PRIMARY CLINICAL RECORDS. [facility] [employer] [facility]. provides no warranty or guarantee of the accuracy or completeness of information in this document.
--- NOTE | 2023-08-29 09:15 | ED_ITS ---
HPI - SOB/Dyspnea General Chief Complaint: Shortness of Breath/Dyspnea Stated Complaint: SOB/COUGH Time Seen by Provider: 08/29/23 09:01 Source: patient Mode of arrival: walk-in Limitations: no limitations History of Present Illness HPI Narrative: Cough and shortness of breath started one week ago. He has asthma but has not noted any improvement despite using his albuterol MDI and steroids. Became concerned when he developed left leg swelling. No prior history of DVT or PE. PMHx includes asthma and chronic aortic dissection with prior aortic repair or descending aorta. Related Data Previous Rx's Medication Instructions Recorded albuterol sulfate 90 mcg/actuation 2 inh inhalation Q4H PRN shortness 01/21/23 aerosol inhaler of breath or wheezing #8.5 grams penicillin V potassium 500 mg 500 mg PO Q12H 10 days #20 tabs 01/21/23 tablet prednisone 50 mg tablet 50 mg PO DAILY #20 tabs 01/21/23 Allergies Allergy/AdvReac Type Severity Reaction Status Date / Time No Known Drug Allergies Allergy Verified 08/29/23 09:06 [facility] Social History Smoking status: Former smoker Exam Narrative Exam Narrative: Nurses notes and vital signs reviewed and patient is not hypoxic. afebrile General: Well-appearing and in no apparent distress. Skin: Warm, dry, no pallor noted. Head: Normocephalic, atraumatic. Neck: Supple, non-tender. Eye: Pupils are equal, round and EOMI. No scleral icterus. Cardiovascular: Tachcyardia. Respiratory: No accessory muscle use or respiratory distress. Lungs are clear to auscultation, no wheezing, rales or rhonchi Musculoskeletal: normal ROM, no calf or popliteal tenderness. Left LE slightly swollen when compared to the right. There is a shallow abrasion to the anterior left lower leg but no surrounding erythema and no drainage. GI: Abdomen is soft, non-distended. Normal bowel sounds. No tenderness to palpation. No rebound, guarding, or rigidity noted. Neurological: A&O x4. No cranial nerve dysfunction observed. No truncal ataxia. Moves all extremities. Sensation intact. Psychiatric: Cooperative and interactive. Normal mood and affect. Constitutional Vital Signs, click to edit/add: Last Vital Signs Temp 97.5 F L 08/29/23 09:03 Pulse 121 H 08/29/23 10:44 Resp 13 08/29/23 10:44 BP 141/99 H 08/29/23 10:30 Pulse Ox 97 08/29/23 10:30 O2 Del Method Room Air 08/29/23 09:03 Course Vital Signs Vital signs: Vital Signs Temperature 97.5 F L 08/29/23 09:03 Pulse Rate 123 H 08/29/23 09:03 Respiratory Rate 20 08/29/23 09:03 Blood Pressure 134/94 H 08/29/23 09:03 Pulse Oximetry 98 08/29/23 09:03 Oxygen Delivery Method Room Air 08/29/23 09:03 Temperature 97.5 F L 08/29/23 09:03 Pulse Rate 121 H 08/29/23 10:44 Respiratory Rate 13 08/29/23 10:44 Blood Pressure 141/99 H 08/29/23 10:30 Pulse Oximetry 97 08/29/23 10:30 Oxygen Delivery Method Room Air 08/29/23 09:03 MDM - SOB/Dyspnea MDM Narrative Medical decision making narrative: Patient was placed on monitoring tech and EKG obtained. Blood drawn and sent for evaluation. Chest x-ray ordered to be obtained. Ultrasound left lower extremity ordered to be obtained. Swabs for covid and influenza were negative. CXR revealed cardiomegaly but no sign of CHF. CBC unremarkable. BMP normal except Na 131. Troponin normal but BNP elevated at 2266. Left LE US = negative for DVT. Patient remains tachycardic with shortness of breath - was sent for CT angio chest, which was negative for PE and showed chronic tpe A aortic dissection with prior repair of descending aortic dissection. He remains tachcyardic and has asthma exacerbation with no improvement despite home treatment. Dr billings and i discussed the case and he agreed to admit the patient, observation, medsurg. Lab Data Attestation: I reviewed the patient's lab results. Labs: Lab Results 08/29/23 08/29/23 Range/Units 09:10 09:16 WBC 10.6 (4.0-11.0) 10^3/uL RBC 4.07 L (4.70-6.10) 10^6/uL Hgb 12.4 L (14.0-18.0) g/dL Hct 39.1 L (42.0-54.0) % MCV 96.1 H (80.0-94.0) fL MCH 30.5 (25.9-34.0) pg MCHC 31.7 (29.9-35.2) g/dL RDW 14.7 (11.0-15.0) % Plt Count 222 (150-450) 10^3/uL MPV 9.9 (9.5-13.5) fL Neut % (Auto) 73.5 (43.0-75.0) % Lymph % (Auto) 13.5 L (20.5-60.0) % [place] % (Auto) 10.2 (1.7-12.0) % Eos % (Auto) 1.3 (0.9-7.0) % Baso % (Auto) 0.7 (0.2-2.0) % Neut # (Auto) 7.8 H (1.4-6.5) 10^3/uL Lymph # (Auto) 1.4 (1.2-3.8) 10^3/uL [place] # (Auto) 1.1 H (0.3-0.8) 10^3/uL Eos # (Auto) 0.1 (0.0-0.7) 10^3/uL Baso # (Auto) 0.1 (0.0-0.1) 10^3/uL Abs Immat Gran (auto) 0.09 H (0.00-0.03) 10^3/uL Imm/Tot Granulo (auto) 0.8 H (0.0-0.5) % Sodium 131 L (136-145) mmol/L Potassium 5.0 (3.5-5.1) mmol/L Chloride 100 (98-107) mmol/L Carbon Dioxide 28.1 (21.0-32.0) mmol/L Anion Gap 7.9 BUN 20.0 H (7.0-18.0) mg/dL Creatinine 1.26 (0.70-1.30) mg/dL Est GFR ( Amer) >60 (>=60) Est GFR (Non-Af Amer) 60 (>=60) BUN/Creatinine Ratio 15.9 Glucose 102 (74-106) mg/dL Calcium 8.1 L (8.5-10.1) mg/dL Troponin I High Sens 14.2 (4.0-76.1) pg/mL NT-Pro-B Natriuret Pep 2266.0 H* (<=900.0) pg/mL Influenza Type A Ag Negative Influenza Type B Ag Negative SARS-CoV-2 Ag (CV2AG) Negative (NEGATIVE) Imaging Data Chest x-ray: Radiologist's impression: ITS Impressions Chest X-Ray 08/29/23 09:06 IMPRESSION: Cardiomegaly without failure. Electronically authenticated by: HARVINDER VALDOVINOS Date: 08/29/2023 09:33 Venous Doppler Study 08/29/23 09:06 IMPRESSION: Grossly unremarkable imaging study of the deep venous system of the left leg as described, no definite evidence of deep venous thrombosis can be identified. Electronically authenticated by: PAULA ACUÑA Date: 08/29/2023 10:17 Chest CTA 08/29/23 10:43 IMPRESSION: 1. No pulmonary embolus identified. 2. Chronic type-A dissection of the thoracic aorta. 3. Postoperative changes of a prosthetic aortic valve and possible proximal ascending aortic graft. Electronically authenticated by: PORSHA LANGE Date: 08/29/2023 11:13 CT scan - chest: Radiologist's impression: ITS Impressions Chest X-Ray 08/29/23 09:06 IMPRESSION: Cardiomegaly without failure. Electronically authenticated by: HARVINDER VALDOVINOS Date: 08/29/2023 09:33 Venous Doppler Study 08/29/23 09:06 IMPRESSION: Grossly unremarkable imaging study of the deep venous system of the left leg as described, no definite evidence of deep venous thrombosis can be identified. Electronically authenticated by: PAULA ACUÑA Date: 08/29/2023 10:17 Chest CTA 08/29/23 10:43 IMPRESSION: 1. No pulmonary embolus identified. 2. Chronic type-A dissection of the thoracic aorta. 3. Postoperative changes of a prosthetic aortic valve and possible proximal ascending aortic graft. Electronically authenticated by: PORSHA LANGE Date: 08/29/2023 11:13 Exam Date: 08/29/2023 10:37 Report Date: 08/29/2023 11:13 At the request of: KARTHIK PERLA Procedure: CT angio chest Cardiovascular: The heart is normal in size. Mild coronary artery calcifications are present. There is a prosthetic aortic valve and a possible graft of the ascending thoracic aorta. A chronic type-A dissection of the thoracic aorta is present with the proximal dissection flap originating just proximal to the origin of the brachiocephalic artery and the distal dissection flap extending beyond the field of view into the abdomen. The false and true lumens are opacified with contrast. Pericardium: No effusion. Mediastinum: Unremarkable. Lymph Nodes: No lymph node enlargement by CT size criteria. Bones: No acute osseous abnormality. Median sternotomy wires are present. Soft tissues: Unremarkable. Upper Abdomen: There is a small fat-containing hernia at the midline anterior upper abdominal wall. IMPRESSION: 1. No pulmonary embolus identified. 2. Chronic type-A dissection of the thoracic aorta. 3. Postoperative changes of a prosthetic aortic valve and possible proximal ascending aortic graft. ECG Data Attestation: I personally reviewed and interpreted this ECG as follows: Interpretation: EKG interpretation: Emergency Department physician interpretation. Rapid rhythm at 124bpm. Indeterminate axis, incomplete RBBB and non-specific ST changes without ST segment elevation or depression. No change from comparison EKG on 04/25/23 Discharge Plan Discharge Chief Complaint: Shortness of Breath/Dyspnea Clinical Impression: Asthma with acute exacerbation Patient Disposition: Admitted as Observation Time of Disposition Decision: 11:31 Prescriptions / Home Meds: No Action penicillin V potassium 500 mg tablet 500 mg PO Q12H 10 Days Qty: 20 0RF prednisone 50 mg tablet 50 mg PO DAILY Qty: 20 0RF albuterol sulfate 90 mcg/actuation HFA aerosol inhaler 2 inh inhalation Q4H PRN (Reason: shortness of breath or wheezing) Qty: 8.5 0RF Additional Instructions: anayeli morgan, dr billings Referrals: Rod Peña MD [Primary Care Provider] - 1 week
[2023-08-29 09:25] LABS: Basophils Absolute Auto 0.1 10^3/uL (0.0-0.1); Basophils Percent Auto 0.7 % (0.2-2.0); Eosinophils Absolute Auto 0.1 10^3/uL (0.0-0.7); Eosinophils Percent Auto 1.3 % (0.9-7.0); Hematocrit 39.1 % (42.0-54.0); Hemoglobin 12.4 g/dL (14.0-18.0); Immature Granulocytes Abs Auto 0.09 10^3/uL (0.00-0.03); Immature Granulocytes Pct Auto 0.8 % (0.0-0.5); Lymphocytes Absolute Auto 1.4 10^3/uL (1.2-3.8); Lymphocytes Percent Auto 13.5 % (20.5-60.0); Mean Corpuscular HGB Conc 31.7 g/dL (29.9-35.2); Mean Corpuscular Hemoglobin 30.5 pg (25.9-34.0); Mean Corpuscular Volume 96.1 fL (80.0-94.0); Mean Platelet Volume 9.9 fL (9.5-13.5); Monocytes Absolute Auto 1.1 10^3/uL (0.3-0.8); Monocytes Percent Auto 10.2 % (1.7-12.0); Neutrophils Absolute Auto 7.8 10^3/uL (1.4-6.5); Neutrophils Percent Auto 73.5 % (43.0-75.0); Platelet Count 222 10^3/uL (150-450); Red Blood Count 4.07 10^6/uL (4.70-6.10); Red Cell Distribution Width 14.7 % (11.0-15.0); White Blood Count 10.6 10^3/uL (4.0-11.0)
[2023-08-29 09:38] LABS: Influenza Virus A Antigen Negative; Influenza Virus B Antigen Negative; Internal Control Within Normal Limits; SARS-CoV-2 Ag NEGATIVE (NEGATIVE)
[2023-08-29 09:43] LABS: Anion Gap 7.9; BUN Creatinine Ratio 15.9; Calcium 8.1 mg/dL (8.5-10.1); Carbon Dioxide 28.1 mmol/L (21.0-32.0); Chloride 100 mmol/L (98-107); Estimated GFR (African America >60 (>=60); Estimated GFR (Non-African Ame 60 (>=60); Glucose 102 mg/dL (74-106); Sodium 131 mmol/L (136-145); Troponin I High Sensitivity 14.2 pg/mL (4.0-76.1)
[2023-08-29] MEDS: 0.9 % SODIUM CHLORIDE 1,000 ML 1000 ML IV (09:44)
[2023-08-29] MEDS: METHYLPREDNISOLONE SOD SUCC PF 125 MG/2 ML VIAL IVP (10:30)
--- NOTE | 2023-08-29 10:43 | CT_ITS ---
[address] [address] Patient Name: DAVID GRAVES MRN: [id number] date: 1970 Sex: M Assigned Patient Location: ER Current Patient Location: Accession/Order Number: [id number] Exam Date: 08/29/2023 10:37 Report Date: 08/29/2023 11:13 At the request of: KARTHIK PERLA Procedure: CT angio chest EXAM: CT angio chest HISTORY: shortness of breath COMPARISON: 03/16/2009 TECHNIQUE: Axial CT images were obtained of the chest with intravenous contrast in the pulmonary arterial phase. Multiplanar,MIP and 3D reconstructions were performed. CHEST FINDINGS: Lungs/Pleura: The lungs are clear. No pleural effusion or pneumothorax. Pulmonary Arteries: No evidence of pulmonary embolus. Cardiovascular: The heart is normal in size. Mild coronary artery calcifications are present. There is a prosthetic aortic valve and a possible graft of the ascending thoracic aorta. A chronic type-A dissection of the thoracic aorta is present with the proximal dissection flap originating just proximal to the origin of the brachiocephalic artery and the distal dissection flap extending beyond the field of view into the abdomen. The false and true lumens are opacified with contrast. Pericardium: No effusion. Mediastinum: Unremarkable. Lymph Nodes: No lymph node enlargement by CT size criteria. Bones: No acute osseous abnormality. Median sternotomy wires are present. Soft tissues: Unremarkable. Upper Abdomen: There is a small fat-containing hernia at the midline anterior upper abdominal wall. CT/CT angio chest IMPRESSION: 1. No pulmonary embolus identified. 2. Chronic type-A dissection of the thoracic aorta. 3. Postoperative changes of a prosthetic aortic valve and possible proximal ascending aortic graft. Electronically authenticated by: PORSHA LANGE Date: 08/29/2023 11:13
[2023-08-29] MEDS: LORAZEPAM 0.5 MG TABLET PO (11:14)
--- NOTE | 2023-08-29 11:25 | PC.NURSE ---
pulses present bilat pedal pulses
--- OUTSIDE RECORDS SUMMARY | 2023-08-29 11:43 | XMS_ITS | CCD ---
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 Over the last 2 weeks have you felt down, depressed or hopeless? (If yes, answer PHQ-9 below)No PHQ-2 #2. Over the last 2 weeks have you felt little i (more content not included)... Normal [employer] Tobacco Screening.on 023 Adult depression screening assessment No [facility] [employer] DO Work Phone: Fall risk assessment c) Not medically indicated [facility] [employer] DO Work Phone: Tobacco use status [facility]PH[facility] b) No [facility] [email or web address] 250 DO Work Phone: Vital Signs Date Time Vital Sign Value Performing Clinician Latosha maxwell 09-22-2022 11:17-0500 Body height 175.26 cm Rod Moi Chaser Work Phone: [facility] [email or web address] 250 DO Work Phone: 09-22-2022 11:17-0500 Body mass index (BMI) [Ratio] 31.75 kg/m2 Rod Prater Neymarerer Work Phone: [facility] [email or web address] 250 DO Work Phone: 09-22-2022 11:17-0500 Body surface area Derived from formula 2.13 m2 Rod Prater Neymarerer Work Phone: [facility] 250 DO Work Phone: 09-22-2022 11:17-0500 Body weight 97.52 kg Rod Benitez Work Phone: [facility] 250 DO Work Phone: 09-22-2022 11:17-0500 Diastolic blood pressure 82 mm[Hg] Rod eBnitez Work Phone: [facility] 250 DO Work Phone: 09-22-2022 11:17-0500 Heart rate 88 /min Rod Benitez Work Phone: [facility] 250 DO Work Phone: 09-22-2022 11:17-0500 Systolic blood pressure 120 mm[Hg] [facility]z [facility] Phone: [facility] Work Phone: Encounters Encounter Date Encounter Type Care Provider Facility Start: 05-02-2023 Rx Renewal Rod Benitez Work Phone: [facility] 250 DO Work Phone: Start: 03-28-2023 Rx Renewal [facility]itez [facility] Work Phone: Start: 12-13-2022 End: 01-12-[address] ROD BENITEZ Facility:[facility]1 Start: 11-15-2022 End: 12-10-[address] ROD BENITEZ Facility:[facility] Start: 11-10-2022 ambulatory Ovidio Rivas Facility :[id number] Start: 10-25-2022 Rx Renewal [facility] Benitez [facility] Work Phone: Start: 10-13-2022 End: 11-12-2022 ambulatory FRY H FAWWAD Facility:[facility]1 Start: 09-22-2022 Office outpatient vi sit 25 minutes Rod Benitez Work Phone: [facility] 250 DO Work Phone: Start: 09-22-2022 ambulatory [...] 04-26-2022 Rx Renewal Rod Benitez Work Phone: [place] [address] DO Work Phone: Start: 04-15-2022 End: 05-15-2022 ambulatory FRY FAWWAD Facility:[facility]1 Start: 03-16-2022 AUDIT Rod Benitez Work Phone: [place] [address] DO Work Phone: Start: 03-15-2022 End: 04-14-2022 ambulatory FRY FAWWAD Facility:[facility]1 Start: 02-12-2022 End: 03-12-[address] ROD BENITEZ Facility:[facility]1 Start: 10-23-2021 Rx Renewal Rod Benitez Work Phone: [facility] 250 DO Work Phone: Procedures Date Procedure [...] Ovidio Rivas, Status: Pen, Time: 10:00 AM [facility] 250 DO Work Phone: Start: 11-10-2022 ECHO, Provider: SHIVANI GR [facility] ULTRASOUND 01,[id number], Status: Pen, Time: 10:45 AM ECHO, Provider: KIRSTY [facility] ULTRASOUND 01,[id number], Status: Pen, Time: 10:45 AM [facility] 250 DO Work Phone: Start: 09-22-2022 FUV, Provider: Ovidio Rivas, Status: Pen, Time: 10:50 AM FUV, Provider: Ovidio Rivas, Status: Pen, Time: 10:50 AM [facility] DO Work Phone: Start: 03-16-2022 FUV, Provider: Ovidio Rivas, Status: Pen, Time: 8:50 AM FUV, Provider: Ovidio Rivas, Status: Pen, Time: 8:50 AM [facility] 250 DO Work Phone: Immunizations Immunization Date Immunization Notes Care Provider Stacie frances 08-15-2010 influenza virus vaccine, unspecified formulation Rod Stoner Work Phone: [facility] 250 DO Work Phone: influenza virus vaccine, unspecified formulation Rod Stoner Work Phone: [facility] 250 DO Work Phone: Comment on above: 2009 Payers Date Payer Category Payer Unknown [id number] [id number] 1970 Unknown [id number] 2.16.8 [id number] 1970 Unknown [id number] 2.16.84 [id number] 1970 Unknown [id number] 2.16.84 [id number] 1970 Unknown [id number] 2.16.84 [id number] 1969 Unknown [id number] 2.16.84 [id number] 1969 Unknown [id number] 2.16.84 [id number] 1969 Unknown [id number] 2.16.84 [id number] 1969 Unknown [id number] 2.16.84 [id number] 1970 Unknown [id number] 2.16.84 [id number] 1969 Unknown [id number] 2.16.84 [id number] 1969 Unknown [id number] 2.16.84 [id number] 1969 Unknown [id number] 2.16.84 [id number] 1959 Unknown [id number] 1959 Unknown [id number] 1960 Unknown [id number] Unknown Social History Date Type Detail Facility No illicit drug use No illicit drug use [place] [address] DO Work Phone: Comment on above: Quit [...] section and content) DATE CREATED AUTHOR 09/23/2022 [employer] DATE CREATED AUTHOR AUTHOR'S ORGANIZ ATION 11/07/2022 [facility] DATE CREATED AUTHOR AUTHOR'S ORGANIZ ATION 11/14/2022 [facility] DATE CREATED AUTHOR AUTHOR'S ORGANJACKELIN ATION 01/21/2023 [...] BE BASED ON THE PRIMARY CLINICAL RECORDS. [facility]. provides no warranty or guarantee of the accuracy or completeness of information in this document.
[2023-08-29] MEDS: IPRATROPIUM/ALBUTEROL SULFATE 3 ML AMPUL.NEB IH (11:53)
[2023-08-29] MEDS: LOSARTAN POTASSIUM 50 MG TABLET PO (14:53)
[2023-08-29] MEDS: METOPROLOL SUCCINATE 100 MG TAB.ER.24H PO (14:54)
[2023-08-29] MEDS: LEVOTHYROXINE SODIUM 100 MCG TABLET 200 MCG PO (14:54)
[2023-08-29] MEDS: SPIRONOLACTONE 25 MG TABLET PO (14:54)
[2023-08-29] MEDS: PRAMIPEXOLE 1 MG TABLET 1.5 MG PO (14:54)
[2023-08-29] MEDS: ATORVASTATIN CALCIUM 10 MG TABLET PO (14:54)
--- NOTE | 2023-08-29 15:26 | P.HP_ITS ---
<Statement entered by Shaikh Steffany MD - 08/29/23 19:25> This documentation has been reviewed and approved. Patient seen and examined. Presents with SOB, cough - likely from asthma exacerbation Exam: Laying in bed. was using neb treatment. Normal RR, appears bronchospastic with wheezing on expiration. No resp distress Assessment and Plan Asthma exacerbation Sinus tachycardia Chronic aortic dissection HTN Patient admitted for observation for asthma exacerbation. On IV steroids, inhaled bronchodilators. Monitor closely. H&P: HPI History of Present Illness Chief complaint: SOB/COUGH Narrative: 08/29/23 4845 This is a 53-year-old male patient with a past medical history as outlined below including chronic well-controlled asthma, hyperlipidemia, hypertension, restless leg syndrome, hypothyroidism, and history of mechanical aortic valve replacement and repair of thoracic aortic dissection; who presented to the ED today complaining of worsening shortness of breath over the last 3 days. The patient reports that he has never had an asthma exacerbation but has been wheezing more more over the last few days. He was prescribed an albuterol inhaler about 10 days ago and his nearly used it all because he has been using his albuterol so frequently. He is noted his shortness of breath is worse with bending over or with walking moderate distances. In addition he has noticed increased left lower extremity swelling. Workup in the ED revealed mild hyponatremia (131), poorly controlled hypertension and sinus tachycardia with heart rates from 120-145. Physical exam in the ED revealed significant wheezing and increased work of breathing. BNP was elevated (2266), but a chest x-ray revealed cardiomegaly without signs of heart failure. A CTA of the chest was also obtained due to the patient's aortic dissection history. No PE was noted. Chronic type a thoracic aortic dissection with repair was noted along with a prosthetic aortic valve. A venous Doppler study of the left lower extremity was negative for DVT. He was treated with DuoNebs and high-dose IV push steroid and admitted to observation to the hospitalist service. At the time of my exam the patient was resting comfortably in bed visiting with his family. He is able to complete 5 word sentences but is frequently coughing and clearing his throat and increased work of breathing is noted. He is unaware of any triggers for his acute asthma exacerbation. He does note that he was off his blood pressure medications for about 3 weeks but he has resumed taking all of them in the last 10 days. He reports taking his thyroid medication as prescribed but a TSH obtained in the ED reveals subtherapeutic control (TSH 20.64). Will not increase his levothyroxine at this time due to his sinus tachycardia but will defer this to his PCP after discharge. His lung sounds still reveal significant wheezing and very tight lung sounds w/ poor air exchange. He is being admitted to observation as he does not evidence hypoxia, but we have low threshold to change to a full admission pending clinical course. Review of Systems ROS Status of ROS 10 or more systems reviewed and unremark able except as noted in history and below [facility] Medical History (Updated 08/29/23 @ 17:05 by Mariana Parra NP) Restless leg syndrome ?G25.81 - Restless legs syndrome (ICD-10) Anticoagulant long-term use ?Z79.01 - sales closer (current) use of anticoagulants (ICD-10) Asthma ?J45.909 - Unspecified asthma, uncomplicated (ICD-10) Hypothyroid ?E03.9 - Hypothyroidism, unspecified (ICD-10) HTN (hypertension) ?I10 - Essential (primary) hypertension (ICD-10) Chronic thoracic aortic dissection ?I71.019 - Dissection of thoracic aorta, unspecified (ICD-10) Surgical History (Updated 08/29/23 @ 13:34 by Annabelle Almanzar LPN) History of ear surgery ?Z98.890 - Other specified postprocedural states (ICD-10) History of aortic valve replacement ?Z95.2 - Presence of prosthetic heart valve (ICD-10) Family History (Updated 08/29/23 @ 13:35 by Annabelle Almanzar LPN) Mother Family history of diabetes mellitus Family history of hypertension Father Family history of diabetes mellitus Family history of hypertension Social History (Updated 08/29/23 @ 13:37 by Annabelle Almanzar LPN) Within the past year, how often did you have a drink containing alcohol: monthly or less Within the past year, how often did you have six or more drinks on one occasion: never Smoking status: Former smoker Second hand tobacco smoke exposure: No Non-prescribed substance use: denies use Previous occupational history: [employer] in [place] Known occupational exposures/hazards: No Highest level of school completed/degree received: high school graduate Do you want help with school or training: No Are you now , , , , never or living with a partner: In a typical week, how many times do you talk on the telephone with family, friends, or neighbors: 3 or more times per week How often do you get together with friends or relatives: 3 or more times per week How often do you attend sabianism or pentecostalism services: never Do you belong to any clubs or organizations such as sabianism groups unions, [employer] or athletic groups, or school groups: no Total score: 2 Score interpretation: A score of greater than or equal to 2 indicates the lowest level of social isolation. Little interest or pleasure in doing things: not at all Feeling down, depressed, or hopeless: not at all Feel stressed/tense/nervous/anxious/difficulty sleeping: not at all Due to disability, difficulty making decisions: No Do you think of yourself as: straight/heterosexual Gender Identity: male Meds Home Medications and Allergies Home Medications Medication Instructions Recorded Confirmed Type albuterol sulfate 90 mcg/actuation 2 inh inhalation Q4H PRN shortness 01/21/23 08/29/23 Rx aerosol inhaler of breath or wheezing #8.5 grams levothyroxine 200 mcg tablet 200 mcg PO DAILY 08/29/23 08/29/23 History losartan 50 mg tablet 50 mg PO DAILY 08/29/23 08/29/23 History metoprolol tartrate 100 mg tablet 100 mg PO DAILY 08/29/23 08/29/23 History pramipexole 1.5 mg tablet 1.5 mg PO DAILY 08/29/23 08/29/23 History simvastatin 20 mg tablet 20 mg PO DAILY 08/29/23 08/29/23 History spironolactone 25 mg tablet 25 mg PO DAILY 08/29/23 08/29/23 History warfarin 5 mg tablet 5 mg PO DAILY 08/29/23 08/29/23 History Allergies Allergy/AdvReac Type Severity Reaction Status Date / Time No Known Drug Allergies Allergy Verified 08/29/23 09:06 Exam Constitutional Vital Signs, click to edit/add: Last Vital Signs Temp 97.5 F L 08/29/23 11:49 Pulse 123 H 08/29/23 14:00 Resp 18 08/29/23 11:49 BP 154/80 H 08/29/23 11:49 Pulse Ox 98 08/29/23 11:56 O2 Del Method Room Air 08/29/23 11:56 Common normals: no apparent distress, oriented x3, alert and well nourished General appearance: cooperative Orientation/consciousness: Yes awake HENMT Common normals: normocephalic, head/scalp atraumatic, hearing grossly normal bilaterally, external nose normal and moist oral mucous membranes Eye Common normals: PERRL, EOMs intact bilaterally, conjunctivae normal and no scleral icterus Alignment: alignment normal Eyelid: eyelids normal Neck & C-Spine Common normals: full ROM, supple and no JVD Chest Common normals: inspection of chest normal Chest: symmetrical chest wall rise Respiratory Common normals: no retractions Effort & inspection: actively coughing Auscultation: wheezes (I&E throughout. Very tight/diminished BLL) Cardio Common normals: no JVD, regular rhythm, S1 normal heart sound, no gallops, no m urmurs, no rub and peripheral pulses 2+ throughout Rate: tachycardic (regular) Heart sounds: S2 abnormal (Mechanical click) GI Common normals: Normal to inspection, nondistended, normoactive bowel sounds present, soft to palpation, non-tender, no hepatosplenomegaly, no masses and no bruits Bladder/kidney exam: bladder normal to palpation Back & Pelvis Common normals: thoracic and lumbar spine normal to inspection Extremity Common normals: normal capillary refill General: normal exam except as noted and edema (LLE Tr-1+ knees to insteps); no clubbing and no cyanosis Neuro Verna Coma Scale: GCS not evaluated Common normals: CN's II-XII intact bilaterally, moves all extremities, no focal motor deficits and no sensory deficits noted Speech: speech normal Motor exam: strength 5/5 throughout Psych Common normals: mental status grossly normal, thought process normal, affect normal and activity/motor behavior normal Mood and affect: anxious Results Labs Labs: Short CBC 08/29/23 Range/Units 09:10 WBC 10.6 (4.0-11.0) 10^3/uL Hgb 12.4 L (14.0-18.0) g/dL Hct 39.1 L (42.0-54.0) % Plt Count 222 (150-450) 10^3/uL BMP 08/29/23 09:10 Sodium 131 L Potassium 5.0 Chloride 100 Carbon Dioxide 28.1 BUN 20.0 H Creatinine 1.26 Glucose 102 Calcium 8.1 L Pulse Oximetry Attestation: I have reviewed the pertinent pulse oximetry results. ECG Interpretation: Rapid atrial rhythm Junctional ST depression, probably normal Indeterminate axis Abnormal rhythm ECG Compared to ECG 06/23/2023 at 12:[address] (T wave) deviation now present Indeterminate axis now present Sinus tachycardia no longer present Incomplete right bundle branch block no longer present Right axis deviation no longer present Imaging Chest x-ray: Attestation: I have reviewed the pertinent imaging results. Radiologist's impression: IMPRESSION: Cardiomegaly without failure. Venous US: Attestation: I have reviewed the pertinent imaging results. Radiologist's impression: IMPRESSION: Grossly unremarkable imaging study of the deep venous system of the left leg as described, no definite evidence of deep venous thrombosis can be identified. CTA Chest: Attestation: I have reviewed the pertinent imaging results. Radiologist's impression: IMPRESSION: 1. No pulmonary embolus identified. 2. Chronic type-A dissection of the thoracic aorta. 3. Postoperative changes of a prosthetic aortic valve and possible proximal ascending aortic graft. Assessment and Plan Assessment and Plan (1) Asthma with acute exacerbation: Assessment and Plan: ACUTE * Adm observation * Significant wheezing and increased work of breathing but no hypoxia * Low threshold to change to inpatient pending clinical course or if acute respiratory failure develops * Solumedrol 125 mg IVP x 1 in ED, continue with 40 mg q8h * Duonebs given in ED * Change to Xopenex/Ipratropium d/t persistent tachycardia scheduled q6h and PRN * Mag Sulfate 2gm IVPB x 1 for bronchial smooth muscle relaxation * No indication for antibiotics at this time * CBC, CMP, Mag lvl in AM (2) Sinus tachycardia: Assessment and Plan: ACUTE * Unclear etiology * Possibly d/t very frequent albuterol administration and concurrent anxiety about health * Pt also stopped taking his home metoprolol for about 3 weeks, but has resumed it about 10 days ago. Possible rebound tachycardia from abrupt BB cessation * Continue home metoprolol but switch to succinate as the pt was only taking it once daily * Low threshold to increase dose tomorrow pending clinical course * Tele monitoring * PRN IVP Lopressor for HR sustained above 120 * Monitor electrolytes daily (3) HTN (hypertension): Assessment and Plan: CHRONIC * Continue home metoprolol, change to succinate as pt will only take once daily * Consider increasing to 200 mg daily for improved HR and BP control pending clinical course * Continue home losartan and spironolactone (4) Hypothyroid: Assessment and Plan: CHRONIC * Pt reports taking levothyroxine daily as prescribed * TSH elevated at 20.64 in ED * Defer to PCP for med titration. Avoid increasing dose while tachycardic (5) History of aortic valve replacement: Assessment and Plan: CHRONIC * Continue home warfarin * Daily INR (6) Chronic thoracic aortic dissection: Assessment and Plan: CHRONIC * Apparently stable chronic dissection after repair per CTA report * No chest or abdominal pain noted (7) Restless leg syndrome: Assessment and Plan: CHRONIC * Continue home pramipexole
[2023-08-29] MEDS: IPRATROPIUM BROMIDE 0.5 MG/2.5 ML VIAL.NEB IH ×2 (16:34→22:51)
[2023-08-29] MEDS: LEVALBUTEROL HCL 1.25 MG/3 ML VIAL NEB IH ×2 (16:34→22:51)
[2023-08-29] MEDS: WARFARIN SODIUM 5 MG TABLET PO (17:04)
[2023-08-29] MEDS: MAGNESIUM SULFATE IN WATER 2 GM/50 ML PREMIX IV (17:04)
[2023-08-29] MEDS: METHYLPREDNISOLONE SOD SUCC PF 40 MG/ML VIAL IVP (17:04)
[2023-08-29] MEDS: METOPROLOL TARTRATE 5 MG/5 ML VIAL IVP (19:52)
[2023-08-30] VITALS (13 sets, daily range): BP systolic 128–145; BP diastolic 80–84; PULSE 122–129; RESP 18–22; TEMP 36.5–36.6; O2SAT 92–96
[2023-08-30] MEDS: METHYLPREDNISOLONE SOD SUCC PF 40 MG/ML VIAL IVP ×2 (01:09→10:41)
[2023-08-30] MEDS: LEVALBUTEROL HCL 1.25 MG/3 ML VIAL NEB IH ×2 (04:21→10:47)
[2023-08-30] MEDS: IPRATROPIUM BROMIDE 0.5 MG/2.5 ML VIAL.NEB IH ×2 (04:21→10:46)
[2023-08-30] MEDS: METOPROLOL TARTRATE 5 MG/5 ML VIAL IVP (04:52)
[2023-08-30 05:47] LABS: Basophils Percent Auto 0.1 % (0.2-2.0); Hematocrit 38.3 % (42.0-54.0); Hemoglobin 11.8 g/dL (14.0-18.0); Immature Granulocytes Abs Auto 0.05 10^3/uL (0.00-0.03); Immature Granulocytes Pct Auto 0.5 % (0.0-0.5); Lymphocytes Absolute Auto 0.9 10^3/uL (1.2-3.8); Lymphocytes Percent Auto 8.8 % (20.5-60.0); Mean Corpuscular HGB Conc 30.8 g/dL (29.9-35.2); Mean Corpuscular Hemoglobin 29.8 pg (25.9-34.0); Mean Corpuscular Volume 96.7 fL (80.0-94.0); Mean Platelet Volume 10.6 fL (9.5-13.5); Monocytes Absolute Auto 0.4 10^3/uL (0.3-0.8); Monocytes Percent Auto 3.6 % (1.7-12.0); Neutrophils Absolute Auto 8.5 10^3/uL (1.4-6.5); Platelet Count 211 10^3/uL (150-450); Red Blood Count 3.96 10^6/uL (4.70-6.10); Red Cell Distribution Width 14.7 % (11.0-15.0); White Blood Count 9.8 10^3/uL (4.0-11.0)
[2023-08-30 05:54] LABS: INR 2.57; Prothrombin Time 25.8 sec (9.0-11.6)
[2023-08-30 06:20] LABS: Alanine Aminotransferase 63 U/L (16-63); Albumin Globulin Ratio 0.9; Albumin Level 3.1 g/dL (3.4-5.0); Alkaline Phosphatase 109 U/L (46-116); Anion Gap 14.1; Aspartate Amino Transferase 38 U/L (15-37); BUN Creatinine Ratio 20.7; Bilirubin Total 0.6 mg/dL (0.2-1.0); Calcium 8.1 mg/dL (8.5-10.1); Chloride 100 mmol/L (98-107); Estimated GFR (African America >60 (>=60); Estimated GFR (Non-African Ame >60 (>=60); Globulin 3.5 g/dL; Glucose 155 mg/dL (74-106); Magnesium 2.3 mg/dL (1.8-2.4); Potassium 5.1 mmol/L (3.5-5.1); Sodium 137 mmol/L (136-145); Total Protein 6.6 g/dL (6.4-8.2)
--- NOTE | 2023-08-30 08:20 | CM.NOTE ---
Discussed with pt about insurance, pt is self pay. Notified Umm Nash (financial counselor), they will bring paperwork up for pt.
--- NOTE | 2023-08-30 10:15 | CM.NOTE ---
Rounds made with Dr. Jeter, pt to discharge to home today. No discharge needs identified.
--- NOTE | 2023-08-30 12:52 | P.DS_ITS ---
<Statement entered by Shaikh Steffany MD - 08/30/23 17:24> This documentation has been reviewed and approved. Seen and examined. Doing well. Breathing is better. Denies cough and SOB Exam; Laying in bed, comfortable Normal RR, Faint exp wheezing, improved air entry, no resp distress tachycardic, no murmur noted Assessment and plan Asthma exacerbation sinus tachycardia chronic aortic dissection on coumadin for ac s/p avr Stable for discharge on Prednisone taper. Patient asked to follow up with PCP in week. Increased Toprol to 200 mg daily. DS: Providers Provider Date of admission: 08/29/23 11:40 Primary care physician: Rod Peña MD Discharging clinician: Mariana Parra DS: Diagnosis Discharge Diagnosis (1) Asthma with acute exacerbation: (2) Sinus tachycardia: (3) HTN (hypertension): (4) Hypothyroid: (5) History of aortic valve replacement: (6) Chronic thoracic aortic dissection: (7) Restless leg syndrome: DS: Summary Hospital Course Hospital Course: The pt was admitted to observation with an acute asthma exacerbation with significant wheezing and increased WOB and cough, and an incidental finding of sinus tachycardia. He was not hypoxic during this admission. He was treated with high dose IVP solu-medrol, scheduled breathing treatments, and a one-time dose of magnesium sulfate IVPB. His symptoms significantly improved with these measures. His home metoprolol tartrate was prescribed at 100mg BID, but the pt had only been taking it once daily in error. This underdosing, in addition to repeated albuterol administration, was thought to be the source of his tachycardia. He remains asymptomatic of his HR in the low 120s. After education with the pt, he is agreeable to taking his metoprolol twice daily and this will be resumed at discharge. A Holter monitor was initially prescribed at discharge to continue close monitoring of his HR. Unfortunately, the pt is uninsured and cannot afford this test. We have instructed him to monitor his pulse twice daily and record the results and take that record to his next PCP appt for review. He was also found to be hypothyroid despite taking his levothyroxine as prescribed. We deferred increasing his levothyroxine dose to his PCP once his HR is better controlled. He is being discharged home in stable condition with prescriptions for a long prednisone taper, Advair discus, and Singulair. His home ventolin HFA inhaler was renewed as well. He should follow up with his PCP in 3-5 days. Time Spent with Patient Time attestation: Total time spent providing and/or coordinating discharge services: Time spent: greater than 30 minutes Specific discharge activities: Physical exam, discussion of discharge plan, questions answered. Exam Constitutional Vital Signs, click to edit/add: Last Vital Signs Temp 97.7 F 08/30/23 04:53 Pulse 126 H 08/30/23 10:48 Resp 22 08/30/23 04:53 BP 145/84 H 08/30/23 04:53 Pulse Ox 93 L 08/30/23 10:48 O2 Del Method Room Air 08/30/23 04:53 Common normals: no apparent distress, oriented x3 and alert General appearance: cooperative Orientation/consciousness: Yes awake HENMT Common normals: normocephalic and head/scalp atraumatic Eye Common normals: PERRL, EOMs intact bilaterally, conjunctivae normal and no scl eral icterus Respiratory Common normals: normal respiratory effort and no use of accessory muscles Effort & inspection: able to speak in complete sentences and symmetric chest movement Auscultation: wheezes (Faint EE. Much improved) Cardio Common normals: no JVD, regular rhythm, S1 normal heart sound, no murmurs and peripheral pulses 2+ throughout Rate: tachycardic (HR around 120) Heart sounds: click (S2) GI Common normals: Normal to inspection, nondistended, normoactive bowel sounds present, soft to palpation and non-tender Bladder/kidney exam: bladder normal to palpation Extremity Common normals: normal to inspection, full ROM, normal capillary refill and no pedal edema General: no clubbing and no cyanosis Neuro Common normals: moves all extremities, no focal motor deficits and no sensory deficits noted Speech: speech normal Psych Common normals: mental status grossly normal and activity/motor behavior normal DS: Data Data Completed and Pending Labs on day of discharge: Labs from last 24 hours 08/30/23 04:01 WBC 9.8 RBC 3.96 L Hgb 11.8 L Hct 38.3 L MCV 96.7 H MCH 29.8 MCHC 30.8 RDW 14.7 Plt Count 211 MPV 10.6 Neut % (Auto) 87.0 H Lymph % (Auto) 8.8 L [place] % (Auto) 3.6 Eos % (Auto) 0.0 L Baso % (Auto) 0.1 L Neut # (Auto) 8.5 H Lymph # (Auto) 0.9 L [place] # (Auto) 0.4 Eos # (Auto) 0.0 Baso # (Auto) 0.0 Abs Immat Gran (auto) 0.05 H Imm/Tot Granulo (auto) 0.5 PT 25.8 H INR 2.57 Sodium 137 Potassium 5.1 Chloride 100 Carbon Dioxide 28.0 Anion Gap 14.1 BUN 24.0 H Creatinine 1.16 Est GFR ( Amer) >60 Est GFR (Non-Af Amer) >60 BUN/Creatinine Ratio 20.7 Glucose 155 H Calcium 8.1 L Magnesium 2.3 Total Bilirubin 0.6 AST 38 H ALT 63 Alkaline Phosphatase 109 Total Protein 6.6 Albumin 3.1 L Globulin 3.5 Albumin/Globulin Ratio 0.9 Discharge Plan Discharge Disposition: Home, Self-Care Discharge Medications: New prednisone 10 mg tablet See Rx Instructions .ROUTE .COMPLEX 12 Days Qty: 42 0RF Rx Instructions: 6 tabs x 2 days, then 5 tabs x 2 days, then 4 tabs x 2 days, then 3 tabs x 2 days, then 2 tabs x 2 days, then 1 tab x 2 days, then STOP albuterol sulfate [Ventolin HFA] 90 mcg/actuation HFA aerosol inhaler 2 inh inhalation Q4H PRN (Reason: shortness of breath or wheezing) Qty: 8.5 0RF montelukast [Singulair] 10 mg tablet 10 mg PO DAILY Qty: 30 0RF fluticasone propion-salmeterol [Advair Diskus] 250-50 mcg/dose blister with device 1 inh inhalation BID Qty: 60 0RF Continued levothyroxine 200 mcg tablet 200 mcg PO DAILY losartan 50 mg tablet 50 mg PO DAILY pramipexole 1.5 mg tablet 1.5 mg PO DAILY simvastatin 20 mg tablet 20 mg PO DAILY spironolactone 25 mg tablet 25 mg PO DAILY warfarin 5 mg tablet 5 mg PO DAILY Changed metoprolol tartrate 100 mg tablet 100 mg PO BID Qty: 0 0RF Discontinued albuterol sulfate 90 mcg/actuation HFA aerosol inhaler 2 inh inhalation Q4H PRN (Reason: shortness of breath or wheezing) Qty: 8.5 0RF Diet: advance to your usual diet Activity Restrictions/Additional Instructions: - Discuss levothyroxine increase at next PCP visit - Discuss BP/HR management at next PCP visit - start taking metoprolol tartrate BID - Take your pulse twice daily and record. Bring that record to your next Dr appt Forms: Portal Instructions Follow Up Appointments: @ 11:30am with Dr. Peña [phone] *previous appt. for 09/08 has been cancelled*
--- NOTE | 2023-08-30 13:23 | CM.NOTE ---
Talked with KATHY Peña regarding Holter monitor and pt being self pay. KATHY Peña states pt can check pulse 2xday and record for f/u appt if refusing out of pocket cost for Holter. Discussed options with pt and pt would like to check pulse 2xday and record for f/u appt and not pay for Holter monitor.
[2023-08-30] MEDS: LEVOTHYROXINE SODIUM 100 MCG TABLET 200 MCG PO (15:01)
[2023-08-30] MEDS: METOPROLOL SUCCINATE 100 MG TAB.ER.24H 200 MG PO (15:02)
[2023-08-30] MEDS: WARFARIN SODIUM 5 MG TABLET PO (15:02)
[2023-08-30] MEDS: PRAMIPEXOLE 1 MG TABLET 1.5 MG PO (15:02)
[2023-08-30] MEDS: ATORVASTATIN CALCIUM 10 MG TABLET PO (15:02)
[2023-08-30] MEDS: LOSARTAN POTASSIUM 50 MG TABLET PO (15:02)
[2023-08-30] MEDS: SPIRONOLACTONE 25 MG TABLET PO (15:02)
--- NOTE | 2023-08-31 13:40 | CM.DCFOLLOWU ---
Person spoke with: patient How are you feeling? well How is your pain? no pain Did you understand your discharge instructions? yes Do you have any questions about your discharge instructions? no Were you given any prescriptions at discharge? yes Were you able to get your prescriptions filled? yes Do you understand how to take your medications as ordered? yes Do you have any questions about your follow up appointment and do you plan to keep your follow up appointment? no questions, follow up 09/01/23 Is there anything else that you would like to discuss? no Questions/Comments/Concerns/Other:
== END 2023-08-30 15:55 | disposition home or self-care (01) ==
LOC: ER 11:31 → MS 11:40
PROVIDERS: Admitting Provider Internal Medicine; Emergency Provider Emergency Medicine; PCP Family Medicine; Visit Provider Nurse Practitioner
DX: J45.901 Unspecified asthma with (acute) exacerbation (principal); R00.0 Tachycardia, unspecified; I10 Essential (primary) hypertension; E03.9 Hypothyroidism, unspecified; I71.019 Dissection of thoracic aorta, unspecified; G25.81 Restless legs syndrome; Z95.2 Presence of prosthetic heart valve; E78.5 Hyperlipidemia, unspecified; Z20.822 Contact with and (suspected) exposure to COVID-19; Z79.01 Long term (current) use of anticoagulants; Z98.890 Other specified postprocedural states; Z87.891 Personal history of nicotine dependence; Z79.899 Other long term (current) drug therapy; Z79.890 Hormone replacement therapy
CPT/HCPCS: 36415; 71045; 71275; 80048; 80053; 83735; 83880; 84443; 84484; 85025; 85610; 87635; 87804; 87811; 93005; 93971; 94640; 94761; 96365; 96375; 96376; 99285; G0378; J2920; J2930; J3475; Q9967

== ENCOUNTER 2023-09-01 16:24 | Emergency (ER) | payer SELFPAY ==
[2023-09-01 16:27] VITALS: BP 124/97; PULSE 133; RESP 24; TEMP 36.6; O2SAT 97; BMI 32.5
--- OUTSIDE RECORDS SUMMARY | 2023-09-01 16:32 | XMS_ITS | CCD ---
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 Rod Benitez Primary Care Ovidio Judge Referring Unavailable Evelyn, Ovidio Attending Unavailable Unavailable Unavailable Ovidio Rivas Attending Unavailable Casey, Dr. Rod Dao Primary Care Manda JUARESWWAD, FRY H Attending Unavailable NADEREPete, DR ROD Prater Primary Care [...] sources) olmesartan; Translations: [Benicar] Drug Allergy Cough [facility] [employer] 250 DO Work Phone: (12 sources) Ramipril; Translations: [Altace CAPS] Drug Allergy Cough [facility] [employer] 250 DO Work Phone: Medications Completed/Discontinued Medications [...] Tablet TAKE 1 TABLET DAILY- Managed by [facility] Quantity: 30 Refills: 0 Ordered: [...] Onset: 12-13-2022 Episodic Other aftercare (1 source) roasterman (current) use of anticoagulants; Translations: [PRISON CURRNT USE ANTICOAGULANTS] Onset: 01-12-2023 Episodic Other [...] down to 170 pounds Ovidio Rivas MD, [facility] Surgical History Problems History of Aortic valve [...] Oral TabletTAKE 1 TABLET DAILY- Managed by [facility] Allergies Medication Altace CAPS Adverse [...] Recorded: 22Sep2022 11:17AM Heart Rate88, L Radial Srdwnhin367, LUE, Sitting Ditesdvuv62, LUE, Sitting Height5 ft 9 in Vcbtte978 lb BMI Kejufjumgg20.75 kg/m2 BSA Calculated2.13 Tobacco Useb) No PHQ-2 #1. Over the last 2 weeks have you felt down, depressed or hopeless? (If yes, answer PHQ-9 below)No PHQ-2 #2. Over the last 2 weeks have you felt little i (more content not included)... Normal [facility] Tobacco Screening.on 023 Adult depression screening assessment No [facility] Work Phone: Fall risk assessment c) Not medically indicated [facility] Plivo DO Work Phone: Tobacco use status [facility]PHS b) No [facility] [employer] 250 DO Work Phone: Vital Signs Date Time Vital Sign Value Performing Clinician Latosha maxwell 09-22-2022 11:17-0500 Body height 175.26 cm Rod Moi Chaser Work Phone: [facility] [employer] 250 DO Work Phone: 09-22-2022 11:17-0500 Body mass index (BMI) [Ratio] 31.75 kg/m2 Rod Prater Neymarerer Work Phone: [facility] [employer] 250 DO Work Phone: 09-22-2022 11:17-0500 Body surface area Derived from formula 2.13 m2 Rod Prater Neymarerer Work Phone: [facility] 250 DO Work Phone: 09-22-2022 11:17-0500 Body weight 97.52 kg Rod Benitez Work Phone: [facility] 250 DO Work Phone: 09-22-2022 11:17-0500 Diastolic blood pressure 82 mm[Hg] Rod Benitez Work Phone: [facility] 250 DO Work Phone: 09-22-2022 11:17-0500 Heart rate 88 /min Rod Benitez Work Phone: [facility] 250 DO Work Phone: 09-22-2022 11:17-0500 Systolic blood pressure 120 mm[Hg] [facility] Work Phone: Encounters Encounter Date Encounter Type Care Provider Facility Start: 05-02-2023 Rx Renewal Rod Benitez Work Phone: [facility] 250 DO Work Phone: Start: 03-28-2023 Rx [facility] Work Phone: Start: 12-13-2022 End: 01-12-[address] ROD BENITEZ Facility:[facility]1 Start: 11-15-2022 End: 12-10-[address] ROD BENITEZ Facility:[facility] Start: 11-10-2022 ambulatory Ovidio Rivas Facility :[id number] Start: 10-25-2022 Rx [facility] Work Phone: Start: 10-13-2022 End: 11-12-2022 ambulatory FRY H FAWWAD Facility:[facility]1 Start: 09-22-2022 Office outpatient vi sit 25 minutes Rod Benitez Work Phone: [employer] 250 DO Work Phone: Start: 09-22-2022 ambulatory [...] 04-26-2022 Rx Renewal Rod Benitez Work Phone: [place] [address] DO Work Phone: Start: 04-15-2022 End: 05-15-2022 ambulatory FRY FAWWAD Facility:[facility]1 Start: 03-16-2022 AUDIT Rod Benitez Work Phone: [place] [address] DO Work Phone: Start: 03-15-2022 End: 04-14-2022 ambulatory FRY FAWWAD Facility:[facility]1 Start: 02-12-2022 End: 03-12-[address] ROD BENITEZ Facility:[facility]1 Start: 10-23-2021 Rx Renewal Rod Benitez Work Phone: [employer] 250 DO Work Phone: Procedures Date Procedure [...] Ovidio Rivas, Status: Pen, Time: 10:00 AM [facility] 250 DO Work Phone: Start: 11-10-2022 ECHO, Provider: SHIVANI GR [facility] 01,[id number], Status: Pen, Time: 10:45 AM ECHO, Provider: KIRSTY [facility] 01,[id number], Status: Pen, Time: 10:45 AM [facility] 250 DO Work Phone: Start: 09-22-2022 FUV, Provider: Ovidio Rivas, Status: Pen, Time: 10:50 AM FUV, Provider: Ovidio Rivas, Status: Pen, Time: 10:50 AM [facility] 250 DO Work Phone: Start: 03-16-2022 FUV, Provider: Ovidio Rivas, Status: Pen, Time: 8:50 AM FUV, Provider: Ovidio Rivas, Status: Pen, Time: 8:50 AM [facility] 250 DO Work Phone: Immunizations Immunization Date Immunization Notes Care Provider Stacie frances 08-15-2010 influenza virus vaccine, unspecified formulation Rod Stoner Work Phone: [facility] 250 DO Work Phone: influenza virus vaccine, unspecified formulation Rod Stoner Work Phone: [facility] 250 DO Work Phone: Comment on above: 2009 Payers Date Payer Category Payer Unknown [id number] 1970 Unknown [id number] 2.16.8 [id number] 1970 Unknown [id number] 2.16.84 [id number] 1969 Unknown [id number] 2.16.84 [id number] 1969 Unknown [id number] 2.16.84 [id number] 1969 Unknown [id number] 2.16.84 [id number] 1969 Unknown [id number] 2.16.84 [id number] 1969 Unknown [id number] 2.16.84 [id number] 1969 Unknown [id number] 2.16.84 [id number] 1969 Unknown [id number] 2.16.84 [id number] 1969 Unknown [id number] 2.16.84 [id number] 1969 Unknown [id number] 2.16.84 [id number] 1969 Unknown [id number] 2.16.84 [id number] 1959 Unknown [id number] 1959 Unknown [id number] 1959 Unknown [id number] Unknown Social History Date Type Detail Facility No illicit drug use No illicit drug use [place] [address] DO Work Phone: Comment on above: Quit [...] section and content) DATE CREATED AUTHOR 09/23/2022 [employer] DATE CREATED AUTHOR AUTHOR'S ORGANIZ ATION 11/07/2022 [facility] DATE CREATED AUTHOR AUTHOR'S ORGANIZ ATION 11/14/2022 [facility] DATE CREATED AUTHOR AUTHOR'S ORGANJACKELIN ATION [...] BE BASED ON THE PRIMARY CLINICAL RECORDS. [facility] [employer] [facility]. provides no warranty or guarantee of the accuracy or completeness of information in this document.
--- NOTE | 2023-09-01 16:35 | XR_ITS ---
The [address] [address] Patient Name: DAVID GRAVES MRN: [id number] date: 1970 Sex: M Assigned Patient Location: ER Current Patient Location: ER Accession/Order Number: [id number] Exam Date: 09/01/2023 16:38 Report Date: 09/01/2023 16:59 At the request of: KARTHIK PERLA Procedure: XR hand LT min 3V EXAM: XR hand LT min 3V HISTORY: c/o pain and swelling after injury. COMPARISON: None. TECHNIQUE: Three views of the left hand. FINDINGS: Suspected acute nondisplaced fracture of the neck of the fifth metacarpal, which is only visualized on one of the views. Mild subcutaneous tissue edema is present. Vascular calcifications are noted. XR/XR hand LT min 3V IMPRESSION: 1. Questionable nondisplaced fracture of the neck of the fifth metacarpal. Clinical correlation with point tenderness is necessary. A follow-up radiograph can be considered in one week. Electronically authenticated by: PORSHA LANGE Date: 09/01/2023 16:59
--- NOTE | 2023-09-01 17:05 | ED_ITS ---
HPI - Extremity Injury (Upper) General Chief Complaint: Extremity Injury, Upper Stated Complaint: Upper Extremity Injury Time Seen by Provider: 09/01/23 16:29 Source: patient Mode of arrival: walk-in Limitations: no limitations History of Present Illness HPI narrative: Patient was hitting wood in the garage with his son just screwing around when he was struck along the edge of the left hand - at the 5th metacarpal. This occurred around 11am. Pain and swelling worsened so he came to the ED for evaluation. Nothing taken for pain at home. Related Data Home Medications Medication Instructions Recorded Confirmed levothyroxine 200 mcg tablet 200 mcg PO DAILY 08/29/23 08/29/23 losartan 50 mg tablet 50 mg PO DAILY 08/29/23 08/29/23 pramipexole 1.5 mg tablet 1.5 mg PO DAILY 08/29/23 08/29/23 simvastatin 20 mg tablet 20 mg PO DAILY 08/29/23 08/29/23 spironolactone 25 mg tablet 25 mg PO DAILY 08/29/23 08/29/23 warfarin 5 mg tablet 5 mg PO DAILY 08/29/23 08/29/23 Previous Rx's Medication Instructions Recorded albuterol sulfate 90 mcg/actuation 2 inh inhalation Q4H PRN shortness 08/30/23 aerosol inhaler (Ventolin HFA) of breath or wheezing #8.5 grams fluticasone 250 mcg-salmeterol 50 1 inh inhalation BID #60 ea 08/30/23 mcg/dose blistr powdr for inhalation (Advair Diskus) metoprolol tartrate 100 mg tablet 100 mg PO BID #0 tabs 08/30/23 montelukast 10 mg tablet 10 mg PO DAILY #30 tabs 08/30/23 (Singulair) prednisone 10 mg tablet See Rx Instructions .Route 08/30/23 .COMPLEX 12 days #42 tabs hydrocodone 5 mg-acetaminophen 325 1 tab PO Q6H PRN pain 3 days #10 09/01/23 mg tablet tabs Allergies Allergy/AdvReac Type Severity Reaction Status Date / Time No Known Drug Allergies Allergy Verified 08/29/23 09:06 [facility] Medical History (Updated 09/01/23 @ 17:17 by You Sheikh) Restless leg syndrome ?G25.81 - Restless legs syndrome (ICD-10) Anticoagulant long-term use ?Z79.01 - intermediate (current) use of anticoagulants (ICD-10) Asthma ?J45.909 - Unspecified asthma, uncomplicated (ICD-10) Hypothyroid ?E03.9 - Hypothyroidism, unspecified (ICD-10) HTN (hypertension) ?I10 - Essential (primary) hypertension (ICD-10) Chronic thoracic aortic dissection ?I71.019 - Dissection of thoracic aorta, unspecified (ICD-10) Surgical History (Updated 08/29/23 @ 13:34 by Annabelle Almanzar LPN) History of ear surgery ?Z98.890 - Other specified postprocedural states (ICD-10) History of aortic valve replacement ?Z95.2 - Presence of prosthetic heart valve (ICD-10) Family History (Updated 08/29/23 @ 13:35 by Annabelle Almanzar LPN) Mother Family history of diabetes mellitus Family history of hypertension Father Family history of diabetes mellitus Family history of hypertension Social History (Updated 08/29/23 @ 13:37 by Annabelle Almanzar LPN) Within the past year, how often did you have a drink containing alcohol: monthly or less Within the past year, how often did you have six or more drinks on one occasion: never Smoking status: Former smoker Second hand tobacco smoke exposure: No Non-prescribed substance use: denies use 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 [place] Known occupational exposures/hazards: No Highest level of school completed/degree received: high school graduate Do you want help with school or training: No Are you now , , , , never or living with a partner: In a typical week, how many times do you talk on the telephone with family, friends, or neighbors: 3 or more times per week How often do you get together with friends or relatives: 3 or more times per we ek How often do you attend scientology or spiritism services: never Do you belong to any clubs or organizations such as scientology groups unions, fra terMomail or athletic groups, or school groups: no Total score: 2 Score interpretation: A score of greater than or equal to 2 indicates the lowest level of social isolation. Little interest or pleasure in doing things: not at all Feeling down, depressed, or hopeless: not at all Feel stressed/tense/nervous/anxious/difficulty sleeping: not at all Due to disability, difficulty making decisions: No Do you think of yourself as: straight/heterosexual Gender Identity: male Exam Narrative Exam Narrative: Nurses notes and vital signs reviewed and patient is not hypoxic. afebrile General: Well-appearing and in no apparent distress. Skin: Warm, dry, no pallor noted. Cardiovascular: Normal peripheral perfusion. Respiratory: No accessory muscle use or respiratory distress. Musculoskeletal: Soft tissue and bony tenderness along the left fifth metacarpal. He is able to move the fingers of the left hand with normal ROM. no left wrist or forearm tenderness, no upper extremity edema/swelling Neurological: A&O x4. No cranial nerve dysfunction observed. No truncal ataxia. Moves all extremities. Sensation intact. Psychiatric: Cooperative and interactive. Normal mood and affect. Constitutional Vital Signs, click to edit/add: Last Vital Signs Temp 97.9 F 09/01/23 16:27 Pulse 112 H 09/01/23 17:10 Resp 20 09/01/23 17:10 BP 129/92 H 09/01/23 17:10 Pulse Ox 95 09/01/23 17:10 O2 Del Method Room Air 09/01/23 16:27 Course Vital Signs Vital signs: Vital Signs Temperature 97.9 F 09/01/23 16:27 Pulse Rate 133 H 09/01/23 16:27 Respiratory Rate 24 09/01/23 16:27 Blood Pressure 124/97 H 09/01/23 16:27 Pulse Oximetry 97 09/01/23 16:27 Oxygen Delivery Method Room Air 09/01/23 16:27 Temperature 97.9 F 09/01/23 16:27 Pulse Rate 112 H 09/01/23 17:10 Respiratory Rate 20 09/01/23 17:10 Blood Pressure 129/92 H 09/01/23 17:10 Pulse Oximetry 95 09/01/23 17:10 Oxygen Delivery Method Room Air 09/01/23 16:27 MDM - Extremity Injury (Upper) MDM Narrative Medical decision making narrative: Xrays reveal fractured 5th metacarpal. I applied an ulnar gutter splint to the patient's left hand - he was neurovascularly intact distally afterward. he was given referral info for Dr Wagner to be seen this Tuesday at 9am. Discharged home with prescription for [place]. Imaging Data xr hand: Radiologist's impression: ITS Impressions Hand X-Ray 09/01/23 16:35 IMPRESSION: 1. Questionable nondisplaced fracture of the neck of the fifth metacarpal. Clinical correlation with point tenderness is necessary. A follow-up radiograph can be considered in one week. Electronically authenticated by: PORSHAAdrian DURANANISA Date: 09/01/2023 16:59 Discharge Plan Discharge Chief Complaint: Extremity Injury, Upper Clinical Impression: Fracture of fifth metacarpal bone of left hand Patient Disposition: Home, Self-Care Time of Disposition Decision: 17:17 Prescriptions / Home Meds: New hydrocodone-acetaminophen 5-325 mg tablet 1 tab PO Q6H PRN (Reason: pain) 3 Days Qty: 10 0RF Rx Instructions: ICD 10 S62 No Action levothyroxine 200 mcg tablet 200 mcg PO DAILY losartan 50 mg tablet 50 mg PO DAILY pramipexole 1.5 mg tablet 1.5 mg PO DAILY simvastatin 20 mg tablet 20 mg PO DAILY spironolactone 25 mg tablet 25 mg PO DAILY warfarin 5 mg tablet 5 mg PO DAILY prednisone 10 mg tablet See Rx Instructions .ROUTE .COMPLEX 12 Days Qty: 42 0RF Rx Instructions: 6 tabs x 2 days, then 5 tabs x 2 days, then 4 tabs x 2 days, then 3 tabs x 2 days, then 2 tabs x 2 days, then 1 tab x 2 days, then STOP albuterol sulfate [Ventolin HFA] 90 mcg/actuation HFA aerosol inhaler 2 inh inhalation Q4H PRN (Reason: shortness of breath or wheezing) Qty: 8.5 0RF montelukast [Singulair] 10 mg tablet 10 mg PO DAILY Qty: 30 0RF fluticasone propion-salmeterol [Advair Diskus] 250-50 mcg/dose blister with device 1 inh inhalation BID Qty: 60 0RF metoprolol tartrate 100 mg tablet 100 mg PO BID Qty: 0 0RF Instructions: Hand Fracture (ED) Stand Alone Forms: Portal Instructions Referrals: Larry Wagner MD [Physician] - 09/05/23 9:00 am
[2023-09-01 17:10] VITALS: BP 129/92; PULSE 112; RESP 20; O2SAT 95
--- NOTE | 2023-09-01 17:11 | PC.NURSE ---
Pain and swelling to left hand, skin pink and warm, pulses present, ice applied to site.
== END 2023-09-01 17:44 | disposition home or self-care (01) ==
PROVIDERS: Emergency Provider Emergency Medicine; PCP Family Medicine
DX: S62.367A Nondisplaced fracture of neck of fifth metacarpal bone, left hand, initial encounter for closed fracture (principal); W22.8XXA Striking against or struck by other objects, initial encounter; Z79.01 Long term (current) use of anticoagulants; Z79.899 Other long term (current) drug therapy; Z79.890 Hormone replacement therapy; G25.81 Restless legs syndrome; J45.909 Unspecified asthma, uncomplicated; E03.9 Hypothyroidism, unspecified; I10 Essential (primary) hypertension; I71.019 Dissection of thoracic aorta, unspecified; Z95.2 Presence of prosthetic heart valve; Z98.890 Other specified postprocedural states; Z87.891 Personal history of nicotine dependence
CPT/HCPCS: 29125; 73130; 99283

== ENCOUNTER 2023-09-19 11:37 | Outpatient (OUT) | payer SELFPAY ==
--- NOTE | 2023-09-19 | XR_ITS ---
The [address] [address] Patient Name: DAVID GRAVES MRN: [id number] date: 1970 Sex: M Assigned Patient Location: [facility] Current Patient Location: Accession/Order Number: [id number] Exam Date: 09/19/2023 12:09 Report Date: 09/20/2023 06:36 At the request of: LEO VILLA Procedure: XR hand LT min 3V PROCEDURE: XR hand LT min 3V HISTORY: LEFT HAND PAIN COMPARISON: XR hand left 09/01/2023 FINDINGS: BONES:Minimally displaced fracture involving the neck of the 5th metacarpal; no appreciable intra-articular extension or abnormal angulation. SOFT TISSUES:Mild dorsal medial soft tissue swelling. EFFUSION:None visible. OTHER: Negative. XR/XR hand LT min 3V IMPRESSION: 1. Left 5th metacarpal neck acute fracture with minimal displacement; more visible than on prior study. Electronically authenticated by: LEO GARRIDO Date: 09/20/2023 06:36
== END 2023-09-19 11:38 | disposition home or self-care (01) ==
LOC: RAD 11:37
PROVIDERS: PCP Family Medicine; Visit Provider Orthopaedic Surgery
DX: S62.367D Nondisplaced fracture of neck of fifth metacarpal bone, left hand, subsequent encounter for fracture with routine healing (principal)
CPT/HCPCS: 73130

== ENCOUNTER 2023-10-18 14:42 | Outpatient (RCR) | payer SELFPAY | END 2023-11-11 13:59 | disposition home or self-care (01) | LOC: MM 14:42 | PROVIDERS: PCP Family Medicine; Visit Provider Internal Medicine | DX: Z51.81 Encounter for therapeutic drug level monitoring (principal); Z79.01 Long term (current) use of anticoagulants; Z95.2 Presence of prosthetic heart valve | CPT/HCPCS: 85610; G0463 ==

== ENCOUNTER 2023-11-14 03:18 | Outpatient (RCR) | payer SELFPAY | END 2023-12-13 18:12 | disposition home or self-care (01) | LOC: MM 03:18 | PROVIDERS: PCP Family Medicine; Visit Provider Internal Medicine | DX: Z51.81 Encounter for therapeutic drug level monitoring (principal); Z79.01 Long term (current) use of anticoagulants; Z95.2 Presence of prosthetic heart valve ==

== ENCOUNTER 2023-12-14 00:28 | Outpatient (RCR) | payer SELFPAY | END 2024-01-13 11:29 | disposition home or self-care (01) | LOC: MM 00:28 | PROVIDERS: PCP Family Medicine; Visit Provider Internal Medicine | DX: Z51.81 Encounter for therapeutic drug level monitoring (principal); Z79.01 Long term (current) use of anticoagulants; Z95.2 Presence of prosthetic heart valve ==

== ENCOUNTER 2024-01-16 03:27 | Outpatient (RCR) | payer SELFPAY | END 2024-02-10 10:55 | disposition home or self-care (01) | LOC: MM 03:27 | PROVIDERS: PCP Family Medicine; Visit Provider Internal Medicine | DX: Z51.81 Encounter for therapeutic drug level monitoring (principal); Z79.01 Long term (current) use of anticoagulants; Z95.2 Presence of prosthetic heart valve ==

== ENCOUNTER 2024-02-13 00:34 | Outpatient (RCR) | payer SELFPAY | END 2024-03-14 10:16 | disposition home or self-care (01) | LOC: MM 00:34 | PROVIDERS: PCP Family Medicine; Visit Provider Internal Medicine | DX: Z51.81 Encounter for therapeutic drug level monitoring (principal); Z79.01 Long term (current) use of anticoagulants; Z95.2 Presence of prosthetic heart valve ==

== ENCOUNTER 2024-03-15 00:26 | Outpatient (RCR) | payer SELFPAY | END 2024-04-13 10:21 | disposition home or self-care (01) | LOC: MM 00:26 | PROVIDERS: PCP Family Medicine; Visit Provider Internal Medicine | DX: Z51.81 Encounter for therapeutic drug level monitoring (principal); Z79.01 Long term (current) use of anticoagulants; Z95.2 Presence of prosthetic heart valve ==

== ENCOUNTER 2024-04-16 01:47 | Outpatient (RCR) | payer SELFPAY | END 2024-05-14 23:59 | disposition home or self-care (01) | LOC: MM 01:47 | PROVIDERS: PCP Family Medicine; Visit Provider Internal Medicine | DX: Z51.81 Encounter for therapeutic drug level monitoring (principal); Z79.01 Long term (current) use of anticoagulants; Z95.2 Presence of prosthetic heart valve ==

== ENCOUNTER 2024-05-15 10:20 | Outpatient (RCR) | payer SELFPAY | END 2024-06-14 23:48 | disposition home or self-care (01) | LOC: MM 10:20 | PROVIDERS: PCP Family Medicine; Visit Provider Internal Medicine | DX: Z51.81 Encounter for therapeutic drug level monitoring (principal); Z79.01 Long term (current) use of anticoagulants; Z95.2 Presence of prosthetic heart valve | CPT/HCPCS: 85610; G0463 ==

== ENCOUNTER 2024-06-15 13:37 | Outpatient (RCR) | payer OTHER, SELFPAY | END 2024-07-14 23:59 | disposition home or self-care (01) | LOC: MM 13:37 | PROVIDERS: PCP Family Medicine; Visit Provider Internal Medicine | DX: Z51.81 Encounter for therapeutic drug level monitoring (principal); Z79.01 Long term (current) use of anticoagulants; Z95.2 Presence of prosthetic heart valve | CPT/HCPCS: 85610; G0463 ==

== ENCOUNTER 2024-07-16 06:19 | Outpatient (RCR) | payer OTHER, SELFPAY | END 2024-08-14 09:02 | disposition home or self-care (01) | LOC: MM 06:19 | PROVIDERS: PCP Family Medicine; Visit Provider Internal Medicine | DX: Z51.81 Encounter for therapeutic drug level monitoring (principal); Z79.01 Long term (current) use of anticoagulants; Z95.2 Presence of prosthetic heart valve ==

== ENCOUNTER 2024-08-16 01:55 | Outpatient (RCR) | payer OTHER, SELFPAY | END 2024-09-14 14:26 | disposition home or self-care (01) | LOC: MM 01:55 | PROVIDERS: PCP Family Medicine; Visit Provider Internal Medicine | DX: Z51.81 Encounter for therapeutic drug level monitoring (principal); Z79.01 Long term (current) use of anticoagulants; Z95.2 Presence of prosthetic heart valve ==

== ENCOUNTER 2024-09-15 20:44 | Emergency (ER) | payer OTHER, SELFPAY ==
[2024-09-15 20:46] VITALS: BP 106/79; PULSE 69; TEMP 36.7; O2SAT 96; BMI 36.3
--- OUTSIDE RECORDS SUMMARY | 2024-09-15 20:50 | XMS_ITS | CCD ---
Author Organization [facility] CliniSyin Care Team Providers Care Shuttle Buggy Operator Name Role Phone Rod Benitez Unavailable Unavailable Unavailable Dr. Rod Benitez Primary Care Ovidio Judge Referring Unavailable Ovidio Licona Attending Unavailable Unavailable Unavailable Ovidio Licona Attending Unavailable Dr. Rod Benitez Primary Care Manda watkinsle FAWWAD, FRY H Attending Unavailable NADEREPete, DR ROD Prater Primary Care Unavailable FAWWAD, FRY H Admitting Unavailable FAWWAD, FRY H Attending Unavailable NADERER, DR ROD Prater Primary Care Unavailable FAWWAD, FRY H Admitting Unavailable FAWWAD, FRY H Attending Unavailable NADEREPete, DR ROD [...] Admitting Unavailable FAWWAD, FRY H Admitting Unavailable NADERER, DR ROD Prater Primary Care Unavailable FAWWAD, FRY H Attending Unavailable NADERER, DR ROD Prater Primary Care Unavailable FAWWAD, FRY H Admitting Unavailable FAWWAD, FRY H Attending Unavailable NADERER, ROD A Primary Care Unavailable SHAIKH Adrian PENA Attending Unavailable SHAIKH Adrian PENA Admitting Unavailable DR ROD BENITEZ Primary Care Unavailable SHAIKH Adrian PENA Attending Unavailable SHAIKH Adrian PENA Admitting Unavailable Rod Benitez MD Primary Care Provider MD Ovidio Licona Attending Provider MD Rod Benitez Primary Care Provider MD Ovidio Licona Referring Provider Chelsea OPERATIONS TECH, Fabiola A Unavailable Rod Benitez MD Primary Care Provider MD Ovidio Licona Attending Provider MD Rod Benitez Primary Care Provider MD Ovidio Licona Referring Provider Rod Benitez MD Primary Care Provider MD Rod Benitez Primary Care Provider MD Ovidio Licona Attending Provider DO Shanel Steele Emergency Provider OVIDIO LICONA Referring Unavailable ROD BENITEZ Primary Care Unavailabl MD Rod Zuniga Primary Care Provider [phone] MD Rod Benitez Primary Care Provider MD Karla Shoemaker Attending Provider MD Rufino Kee Emergency Provider DO Rafa Mendez Admit Provider [phone] DO Rafa Mendez Attending Provider ROD BENITEZ Attending Unavailable ROD BENITEZ Attending Unavailable ROD BENITEZ Attending Unavailable ROD BENITEZ Primary Care Physician Nhung Pino Attending Unavailable KARLA SHOEMAKER Referring Unavailable Rod Benitez MD Primary Care Provider OVIDIO LICONA Referring Unavailable ELIROD JENNIFER Primary Care Unavailabl e LICONA, OVIDIO Barrett Attending Unavailable ROD BENITEZONY Primary Care Unavailabl e LICONA, OVIDIO M Referring Unavailable NADEREPeteROD JENNIFER Primary Care Unavailabl e LICONA, OVIDIO M Attending Unavailable LICONA, OVIDIO M Referring [facility]available [facility] JENN[facility] Primary Care Unavailabl e LICONA, OVIDIO M Attending Unavailable LICONA, OVIDIO M Referring Unavailable NADEREPeteROD JENNIFER Primary Care Unavailabl e LICONA, OVIDIO M Attending Unavailable NADEREPete ROD JENNIFER Primary Care Unavailabl e LICONA, OVIDIO M Referring Unavailable LICONA, OVIDIO Barrett Attending Unavailable ROD BENITEZ JENNIFER Primary Care Unavailabl e Eli GONCALVES, Rod Primary Care Provider [phone] Ovidio Licona MD Attending Provider Ovidio Licona Admitting Unavailable Rod Benitez [facility] Care Unavailable Ovidio Licona Attending Unavailable Rafa Mendez Attending Unavailable Rod Benitez Primary Care Unavailable Rafa Mendez Admitting Unavailable Mariana Leo Consulting Unavailable Kristen Sterling Consulting Unavailable Evelyn, Ovidio Consulting Unavailable Jacek Lopez Consulting Unavail able Liseth Carlson Consulting Unavailable Stevenson Ortiz Consulting Unavailab Laurie Morgan Consulting Unavailable Valerie Coronado Consulting Unavailable [place], Vanessa Mariano Consulting Unavailab Juancarlos Messer Consulting Unavailable Rowena Lizama Consulting Unavailable Licona, Nolan Admitting Unavailable Rod Benitez Primary Care Unavailable LiconaOvidio Attending Unavailable Karla Shoemaker Attending Unavailable Rod Benitez Primary Care Unavailable Karla Shoemaker Admitting Unavailable Licona, Ovidio Referring Unavailable Rod Benitez [facility] Care Unavailable Licona, Ovidio Admitting Unavailable Licona, Ovidio Attending Unavailable Shanel Steele Attending Unavailable Rod Benitez Primary Care Unavailable Shanel Steele Admitting Unavailable Rod Benitez Primary Care Unavailable Licona, Ovidio Admitting Unavailable Licona, Ovidio Attending Unavailable Licona, Ovidio Attending Unavailable Rod Benitez Primary Care Unavailable Ovidio Licona Admitting Unavailable Ovidio Licona Admitting Unavailable Rod Benitez Primary Care Unavailable Ovidio Licona Attending Unavailable Ovidio Licona Admitting Unavailable Rod Benitez Primary Care Unavailable Ovidio Licona Attending Unavailable Allergies Allergy Classification Reported Allergen(s) Allergy Type Date of Onset Reaction(s) Facility (19 sources) olmesartan; Translations: [Benicar] Drug Allergy 08-25-2023 [facility] (19 sources) Ramipril; Translations: [Altace CAPS] Drug Allergy 08-25-2023 [facility] 250 DO Work Phone: (2 sources) olmesartan; Translations: [OLMESARTAN] Drug Allergy 08-25-2023 [facility] (2 sources) Ramipril; Translations: [RAMIPRIL] Drug Allergy 08-25-2023 [facility] Medications Current Medications Medication Drug Class(es) Dates Sig (Normalized) Sig (Original) [id number] 200 actuat albuterol 0.09 mg/actuat metered dose inhaler (20 sources) beta2-Adrenergic Agonist Start: 04-19-2024 take 2 puff(s) by inhalation every four hours for wheezing albuterol HFA 90 mcg/act inhaler Indications: Mild intermittent asthma without complication (CMS/HCC) Inhale 2 puffs every 4 (four) hours if needed for wheezing 18 g 3 04/19/2024 Active Start: 09-28-2023 Albuterol Sulf ate 90 mcg/actuation HFA aerosol inhaler Active 1 INH INHALATION EVERY 4-6 HOURS as needed for wheezing September 28, 2023 12:00am albuterol sulfat e (Proair Digihaler) 90 mcg/actuation aero powdr breath act w/sensor inhaler Inhale. As [id number] Active albuterol sulfat e (Proair Digihaler) 90 mcg/actuation aero powdr breath act w/sensor inhaler Inhale. As [id number] 0 Active take 2 puff(s) by in halation every four hours for wheezing albuterol HFA 90 mcg/act inhaler Inhale 2 puffs every 4 (four) hours if needed for wheezing 0 Active amiodarone hydrochloride 200 mg oral tablet (20 sources) Antiarrhythmic Start: 06-15-2024 End: 06-15-2025 take 1.5 tablets by mouth once daily amiodarone (Pacerone) 200 mg tablet Indications: Persistent atrial fibrillation (Multi) Take 1.5 tablets (300 mg) by mouth once daily. 135 tablet 3 06/15/2024 06/15/2025 Active Start: 09-28-2023 End: 09-29-2023 take 1 tablet by mouth once daily Amiodarone 200 mg tablet Discontinued 200 MG PO Daily September 28, 2023 12:00am September 29, 2023 9:48am Start: 09-07-2023 End: 09-06-2024 take 1 tablet by mouth twice daily Amiodarone 200 mg tablet Active 200 MG PO Twice daily May 18, 2024 11:00pm Start: 09-07-2023 End: 05-19-2024 take 1 tablet by mouth every eight hours Amiodarone 200 mg tablet Discontinued 200 MG PO Every 8 hours 90 30 September 29, 2023 12:00am May 19, 2024 10:17pm hydrALAZINE hydrochloride 25 mg oral tablet (5 sources) Arteriolar Vasodilator Start: 05-22-2024 take 2 tablets by mouth in the morning hydrALAZINE (Apresoline) 25 MG tablet Take 50 mg by mouth in the morning and 50 mg before bedtime. 05/22/2024 Active Start: 05-22-2024 take 1 tablet by martina twice daily Hydralazine 25 mg tablet Active 25 MG PO Twice daily 60 May 21, 2024 11:00pm levothyroxine sodium 0.2 mg oral tablet (20 sources) l-Thyroxine Start: 10-23-2021 take 1 tablet by mouth once daily at bedtime Levothyroxine 200 mcg tablet Active 200 MCG PO Daily at bedtime September 28, 2023 12:00am LORazepam 0.5 mg oral tablet (8 sources) Benzodiazepine Start: 06-07-2024 take 1 tablet by mouth twice daily as needed Lorazepam 0.5 mg tablet Active 0.5 MG PO Twice daily as needed June 06, 2024 11:00pm Start: 09-01-2023 End: 06-19-2024 take 1 tablet by mouth three times daily as needed for anxiety LORazepam (Ativan) 0.5 MG tablet Indications: RANDELL (generalized anxiety disorder) ([facility]) Take 1 tablet (0.5 mg) by mouth 3 (three) times a day as needed for anxiety for up to 20 days 60 tablet 05/30/2024 06/19/2024 Active losartan potassium 50 mg oral tablet (20 sources) Angiotensin 2 Receptor Allie Start: 03-16-2021 End: 06-11-2025 take 1 tablet by mouth once daily losartan (Cozaar) 50 mg tablet Indications: Essential hypertension, benign Take 1 tablet (50 mg) by mouth once daily. 90 tablet 3 06/11/2024 06/11/2025 Active 24 hr metoprolol succinate 100 mg extended release oral tablet (20 sources) beta-Adrenergic Allie Start: 05-22-2024 take 1 tablet by mouth once daily Metoprolol Succinate 100 mg Tablet Extended Release 24 Hr Active 100 MG PO Daily May 21, 2024 11:00pm Start: 11-09-2023 take 1 tablet by martina th every twelve hours metoprolol tartrate (Lopressor) 100 mg tablet Indications: Typical atrial flutter (Multi) take 1 tablet by mouth every 12 hours 180 tablet 3 11/09/2023 Active Start: 09-28-2023 End: 05-22-2024 take 1 tablet by mouth twice daily Metoprolol Tartrate 100 mg tablet Discontinued 100 MG PO Twice daily September 28, 2023 12:00am May 22, 2024 2:39pm Start: 09-22-2022 take 1 tablet by martina once daily Metoprolol Tartrate 100 MG Oral Tablet TAKE 1 TABLET EVERY 12 HOURS DAILY. Quantity: 180 Refills: 3 Ordered: 22-Sep-2022 Ovidio Licona MD Start : 22-Sep-2022 Active potassium chloride 20 meq powder for oral solution (20 sources) Start: 10-03-2023 End: 10-02-2024 take 40 mEq by mouth once daily potassium chloride (Klor-Con) 20 mEq packet Indications: Essential hypertension, benign Take 40 mEq by mouth once daily. 180 packet 3 10/03/2023 10/12/2023 Discontinued (Dose adjustment) Start: 09-29-2023 End: 01-06-2024 take 1 tablet by mouth twice daily Potassium Chloride 20 mEq tablet extended release Discontinued 20 MEQ PO Twice daily 60 30 September 29, 2023 12:00am January 06, 2024 4:48pm Start: 09-28-2023 End: 09-29-2023 take 20 mEq by mouth once daily Potassium Chloride 20 mEq packet Discontinued 20 MEQ PO Daily September 28, 2023 12:00am September 29, 2023 9:48am Start: 09-22-2023 End: 10-03-2023 take 1 tablet by mouth once daily potassium chloride CR (Klor-Con M20) 20 mEq ER tablet Indications: Localized edema Take 1 tablet (20 mEq) by mouth once daily. Do not crush or chew. 90 tablet 3 09/22/2023 10/03/2023 Discontinued (Dose adjustment) take 1 tablet by martina th three times daily potassium chloride CR 20 mEq ER tablet Take 1 tablet (20 mEq) by mouth 3 times a day. Do not crush or chew. 0 Active rOPINIRole 3 mg oral tablet (4 sources) Nonergot Dopamine Agonist Start: 06-07-2024 take 1 tablet by mouth once daily at bedtime Ropinirole 3 mg tablet Active 3 MG PO Daily at bedtime June 06, 2024 11:00pm Start: 05-30-2024 take 1 tablet by martina th at bedtime rOPINIRole (Requip) 3 MG tablet Indications: RLS (restless legs syndrome) Take 1 tablet (3 mg) by mouth at bedtime 30 tablet 3 05/30/2024 Active Start: 05-30-2024 take 1 tablet by martina th at bedtime rOPINIRole (Requip) 3 MG tablet Indications: RLS (restless legs syndrome) Take 1 tablet (3 mg) by mouth at bedtime 30 tablet 3 05/30/2024 Active rosuvastatin 20 mg oral capsule (19 sources) HMG-CoA Reductase Inhibitor Start: 09-28-2023 take 1 capsule by mouth once daily at bedtime Rosuvastatin 20 mg capsule, sprinkle Active 20 MG PO Daily at bedtime September 28, 2023 12:00am Start: 09-22-2023 End: 09-21-2024 take 1 tablet by mouth once daily rosuvastatin (Crestor) 20 mg tablet Indications: Mixed hyperlipidemia Take 1 tablet (20 mg) by mouth once daily. 90 tablet 3 09/22/2023 09/21/2024 Active simvastatin 20 mg oral tablet (16 sources) HMG-CoA Reductase Inhibitor Start: 04-26-2022 End: 08-14-2024 take 1 tablet by mouth once daily simvastatin (Zocor) 20 mg tablet Indications: Mixed hyperlipidemia take 1 tablet by mouth once daily 90 tablet 3 11/09/2023 08/14/2024 Discontinued (Discontinued by another clinician) spironolactone 25 mg oral tablet (20 sources) Aldosterone Antagonist Start: 10-26-2023 End: 05-22-2025 take 0.5 tablet by mouth once daily spironolactone (Aldactone) 25 mg tablet Indications: Localized edema Take 0.5 tablets (12.5 mg) by mouth once daily. 45 tablet 3 05/22/2024 05/22/2025 Active Start: 04-26-2022 End: 05-22-2024 take 1 tablet by mouth once daily Spironolactone 25 mg tablet Discontinued 25 MG PO Daily September 28, 2023 12:00am May 22, 2024 2:38pm torsemide 20 mg oral tablet (20 sources) Loop Diuretic Start: 10-03-2023 End: 10-12-2023 take 1 tablet by mouth once daily torsemide 40 mg tablet Indications: Essential hypertension, benign Take 40 mg by mouth once daily. 90 tablet 3 10/03/2023 10/12/2023 Discontinued (Dose adjustment) Start: 10-03-2023 End: 10-02-2024 take 1 tablet by mouth once daily torsemide 40 mg tablet Indications: Essential hypertension, benign Take 40 mg by mouth once daily. 90 tablet 3 10/03/2023 10/02/2024 Active Start: 09-29-2023 End: 11-07-2024 take 2 tablets by mouth once daily torsemide (Demadex) 20 mg tablet Indications: Essential hypertension, benign , Localized edema Take 2 tablets (40 mg) by mouth once daily. 180 tablet 3 11/08/2023 11/07/2024 Active Start: 09-29-2023 take 40 mg by mouth once daily in the morning Torsemide Active 40 MG PO Every morning 60 September 29, 2023 1:00am Start: 09-22-2023 End: 10-03-2023 take 1 tablet by mouth once daily Torsemide 20 mg tablet Discontinued 20 MG PO Daily September 28, 2023 12:00am September 29, 2023 9:49am take 1 tablet by martina th once daily torsemide 60 mg tablet Take 60 mg by mouth once daily. 0 Active warfarin sodium 3 mg oral tablet (20 sources) Vitamin K Antagonist Start: 10-19-2023 End: 10-18-2024 take 1 tablet by mouth once daily warfarin (Coumadin) 5 MG tablet Indications: H/O aortic valve replacement Take 1 tablet (5 mg) by mouth 1 (one) time each day Take as directed per After Visit Summary. 30 tablet 5 10/19/2023 10/18/2024 Active Start: 09-26-2023 End: 05-22-2024 take 1 tablet by mouth once daily at bedtime Warfarin 3 mg tablet Discontinued 3 MG PO Daily at bedtime September 28, 2023 12:00am May 22, 2024 2:38pm take 1 tablet by martina th once daily warfarin (Coumadin) 5 MG tablet Take 5 mg by mouth 1 (one) time each day Take as directed per After Visit Summary. 0 Active take 1 tablet by martina th once daily warfarin (Coumadin) 4 mg tablet Take 1 tablet (4 mg) by mouth once daily. 0 Active Completed/Discontinued Medications Medication Drug Class(es) Dates Sig (Normalized) Sig (Original) 24 hr dilTIAZem hydrochloride 180 mg extended release oral capsule (14 sources) Calcium Channel Allie Start: 09-22-2023 End: 05-30-2024 take 1 capsule by mouth once daily, then take 1 capsule by mouth every twenty-four hours Diltiazem Hcl (Cardizem Cd) 180 mg capsule,extended release 24hr Discontinued 180 MG PO Daily September 28, 2023 12:00am January 06, 2024 4:48pm montelukast 10 mg oral tablet (14 sources) Leukotriene Receptor Antagonist Start: 09-28-2023 End: 01-06-2024 take 1 tablet by mouth once daily at bedtime Montelukast 10 mg tablet Discontinued 10 MG PO Daily at bedtime September 28, 2023 12:00am January 06, 2024 4:48pm perflutren protein A microsphere (Optison) injection 0.5 mL (1 source) Start: 02-15-2024 End: 02-15-2024 0.5 mL, intravenous, Once, On Tue02/15/24 at 1330, For 1 dose pramipexole dihydrochloride 1.5 mg oral tablet (20 sources) Nonergot Dopamine Agonist Start: 09-28-2023 End: 11-01-2024 take 1 tablet by mouth once daily at bedtime Pramipexole 1.5 mg tablet Discontinued 1.5 MG PO Daily at bedtime September 28, 2023 12:00am June 07, 2024 10:17am take 3 tablets by mo ut once daily at bedtime pramipexole (Mirapex) 0.5 mg tablet Take 3 tablets (1.5 mg) by mouth once daily at bedtime. Active take 1 tablet by mouth at bedtim e Pramipexole Dihydrochloride ER 1.5 MG Oral Tablet Extended Release 24 Hour TAKE 1 TABLET Bedtime Quantity: 0 Refills: 0 Ordered: 22-Sep-2022 DO Active Problems Active Problems Problem Classification Problem Date Documented Date Episodic/Chronic Anxiety disorders (6 sources) Generalized anxiety disorder; Translations: [Generalized anxiety disorder] Onset: 4 09-01-2023 Chronic Aortic; peripheral; and visceral artery aneurysms (20 sources) Dissection of aorta; Translations: [Dissection of aorta, unspecified site] Onset: 2 08-25-2023 Chronic Asthma (8 sources) Mild intermittent asthma; Translations: [Mild intermittent asthma, uncomplicated] Onset: 4 09-01-2023 Chronic Cardiac dysrhythmias (20 sources) Persistent atrial fibrillation; Translations: [Other persistent atrial fibrillation] Onset: 4 09-14-2023 Chronic Chronic kidney disease (20 sources) Chronic kidney disease stage 4; Translations: [Chronic kidney disease, stage 4 (severe)] Onset: 4 01-19-2024 Chronic Chronic kidney disease (3 sources) Chronic kidney disease; Translations: [Chronic kidney disease, stage 3a (Multi)] Onset: Congestive heart failure; nonhypertensive (20 sources) Heart failure with reduced ejection fraction; Translations: [Unspecified systolic (congestive) heart failure] Onset: 4 02-20-2024 Chronic Disorders of lipid metabolism (20 sources) Hyperlipidemia; Translations: [Other and unspecified hyperlipidemia] Onset: 4 Resolved: 4 08-25-2023 Chronic Essential hypertension (20 sources) Hypertensive disorder; Translations: [Unspecified essential hypertension] Onset: 4 Resolved: 4 09-07-2023 Chronic Heart valve disorders (20 sources) History of aortic valve replacement; Translations: [Heart valve replaced by other means] Onset: 4 08-25-2023 Chronic Hyperplasia of prostate (2 sources) Benign prostatic hyperplasia; Translations: [Benign prostatic hyperplasia without lower urinary tract symptoms] 06-07-2024 Chronic Hypertension with complications and secondary hypertension (13 sources) Chronic kidney disease due to hypertension; Translations: [Hypertensive chronic kidney disease with stage 1 through stage 4 chronic kidney disease, or unspecified chronic kidney disease] Onset: 4 02-20-2024 Chronic Malaise and fatigue (3 sources) Fatigue; Translations: [Other fatigue] Onset: 4 08-14-2024 Episodic Other aftercare (4 sources) Encounter for therapeutic drug level monitoring; Translations: [ENC THERAPEUTC DRUG LEVL MONITORING] Onset: 3 Episodic Other aftercare (10 sources) Taking high risk medication; Translations: [Other terminal system operator (current) drug therapy] Onset: 4 09-22-2023 Episodic Other diseases of kidney and ureters (8 sources) Secondary hyperparathyroidism; Translations: [Secondary hyperparathyroidism of renal origin] Onset: 4 02-20-2024 Chronic Other diseases of kidney and ureters (7 sources) Secondary hyperparathyroidism of renal origin; Translations: [Secondary hyperparathyroidism (of renal origin)] Onset: 4 03-08-2024 Chronic Other hereditary and degenerative nervous system conditions (6 sources) Restless legs; Translations: [Restless legs syndrome] Onset: 4 09-01-2023 Chronic Other male genital disorders (4 sources) Secondary erectile dysfunction; Translations: [Male erectile dysfunction, unspecified] Onset: 4 09-01-2023 Chronic Other nutritional; endocrine; and metabolic disorders (18 sources) Body mass index 30+ - obesity; Translations: [Body Mass Index 30.0-30.9, adult] Onset: 4 09-22-2023 Chronic Other nutritional; endocrine; and metabolic disorders (7 sources) Obesity; Translations: [Obesity, unspecified] Chronic Other nutritional; endocrine; and metabolic disorders (1 source) Obese class I; Translations: [Obesity, unspecified] 01-19-2024 Chronic Other nutritional; endocrine; and metabolic disorders (2 sources) Body mass index (BMI) 34.0-34.9, adult; Translations: [Body mass index (BMI) 34.0-34.9, adult] Onset: 4 Chronic Other nutritional; endocrine; and metabolic disorders (2 sources) Obesity, unspecified; Translations: [Obesity, unspecified] Onset: 4 Chronic Citlaly-; endo-; and myocarditis; cardiomyopathy (except that caused by tuberculosis or sexually transmitted disease) (2 sources) Cardiomyopathy; Translations: [Other cardiomyopathies] Onset: 4 01-19-2024 Chronic Residual codes; unclassified (4 sources) Hypersomnia; Translations: [Hypersomnia, unspecified] Onset: 4 05-30-2024 Chronic Residual codes; unclassified (1 source) Frequent night waking 08-14-2024 Chronic Residual codes; unclassified (1 source) Obstructive sleep apnea syndrome; Translations: [Obstructive sleep apnea (adult) (pediatric)] 08-14-2024 Chronic Residual codes; unclassified (2 sources) Obstructive sleep apnea (adult) (pediatric); Translations: [Obstructive sleep apnea (adult) (pediatric)] Onset: 4 Chronic Residual codes; unclassified (2 sources) Frequent night waking; Translations: [Insomnia, unspecified] Onset: 4 08-14-2024 Episodic Residual codes; unclassified (2 sources) Insomnia, unspecified; Translations: [Insomnia, unspecified] Onset: 4 Episodic Thyroid disorders (20 sources) Hypothyroidism; Translations: [Unspecified acquired hypothyroidism] Onset: 4 08-25-2023 Chronic Unclassified (2 sources) Other persistent atrial fibrillation; Translations: [Other persistent atrial fibrillation (CMS/HCC)] Onset: 4 Unclassified (1 source) Typical atrial flutter; Translations: [Typical atrial flutter] Onset: 4 Unclassified (1 source) Other terminal system operator (current) drug therapy; Translations: [Other terminal system operator (current) drug therapy] Onset: 4 Past or Other Problems Problem Classification Problem Date Documented Da te Episodic/Chronic Abdominal hernia (3 sources) Hernia of anterior abdominal wall; Translations: [Ventral hernia without obstruction or gangrene] Onset: 01-17-2024 01-17-2024 Episodic Abdominal pain (9 sources) Abdominal pain; Translations: [Unspecified abdominal pain] Onset: 01-06-2024 01-06-2024 Episodic Cardiac dysrhythmias (4 sources) Sinus tachycardia; Translations: [Tachycardia, unspecified] Onset: 09-01-2023 09-01-2023 Episodic Other aftercare (20 sources) Drug therapy finding; Translations: [Long-term (current) use of anticoagulants] Onset: 09-07-2023 Resolved: 01-19-2024 09-07-2023 Episodic Other aftercare (3 sources) terminal gauger supervisor (current) use of anticoagulants; Translations: [ORDER FILLER CURRNT USE ANTICOAGULANTS] Onset: 01-12-2023 Episodic Other aftercare (2 sources) Other residential (current) drug therapy; Translations: [Other residential (current) drug therapy] Onset: 09-22-2023 Episodic Other nutritional; endocrine; and metabolic disorders (12 sources) Overweight; Translations: [Overweight] Onset: 08-25-2023 Resolved: 09-22-2023 08-25-2023 Episodic Residual codes; unclassified (7 sources) Localized edema; Translations: [Localized edema] Onset: 09-22-2023 09-22-2023 Episodic Residual codes; unclassified (3 sources) Edema of lower extremity; Translations: [Localized edema] Onset: 01-17-2024 01-17-2024 Episodic Residual codes; unclassified (2 sources) Localized edema; Translations: [Localized edema] Onset: 09-22-2023 Episodic Screening and history of mental health and substance abuse codes (19 sources) Ex-smoker; Translations: [Personal history of tobacco use] Onset: 01-19-2024 01-19-2024 Episodic Comment on above: Quit 2006; Varicose veins of lower extremity (3 sources) Varicose veins of lower extremity; Translations: [Asymptomatic varicose veins of left lower extremity] Onset: 01-17-2024 01-17-2024 Episodic Results Test Name Value Interpretation Reference Range Facility ECG 12 [place] 08-14-2024 ECG revealed normal sinus rhythm with sinus bradycardia, first-degree AV block, right bundle branch block, abnormal ECG. [facility] Work Phone: Basic Metabolic Panelon Creatinine Clr Calc Pharmacy 75.57 Normal [facility] Comment on above: Performed By: #### C BC, HEPATIC, BMP, LIPASE #### [facility] [address] [place] [address] [place] GFR/1.73 sq M.predicted MDRD (S/P/Bld) [Vol rate/Area] mL/min/{1.73_m2} Normal [facility] [facility] Comment on above: Performed By: #### C BC, HEPATIC, BMP, LIPASE #### [facility] [address] [place] [address] [place] Calcium [Mass/volume] in Ser um or PlasmaOrdered By: Rafa Mendez on 05-22-2024 Calcium [Mass/Vol] 8.3 mg/dL Low 8.6-10.3 [facility] Comment on above: Performed By: #### C BC, HEPATIC, BMP, LIPASE #### [facility] [address] [place] [address] [place] Carbon dioxide, total [Moles /volume] in Serum or PlasmaOrdered By: Rafa Mendez on 05-22-2024 CO2 [Moles/Vol] 36.6 mmol/L High 21.0-31.0 [facility] Comment on above: Performed By: #### C BC, HEPATIC, BMP, LIPASE #### [facility] [address] [place] [id number] [place] Chloride [Moles/volume] in S avis or PlasmaOrdered By: Rafa Mendez on 05-22-2024 Chloride [Moles/Vol] 100 mmol/L Normal 98-107 [facility] Comment on above: Performed By: #### C BC, HEPATIC, BMP, LIPASE #### [facility] [address] [place] [id number] [place] Creatinine [Mass/volume] in Serum or PlasmaOrdered By: Rafa Mendez on 05-22-2024 Creatinine [Mass/Vol] 1.36 mg/dL High 0.70-1.30 [facility] Comment on above: Performed By: #### C BC, HEPATIC, BMP, LIPASE #### [facility] [address] [place] [id number] [place] Glucose [Mass/volume] in Ser um or PlasmaOrdered By: Rafa Mendez on 05-22-2024 Glucose [Mass/Vol] 101 mg/dL High 70-100 [facility] Comment on above: ADA recommended refe rence rangeRandom Glucose Reference Range is dependent on time and content of last meal. Glucose of more than 200 mg/dL in a nonstressed, ambulatory subject supports the diagnosis of Diabetes Mellitus. Result Comment: [place] Glucose Reference Range is dependent on time and content of last meal. Glucose of more than 200 mg/dL in a nonstressed, ambulatory subject supports the diagnosis of Diabetes Mellitus. ADA recommended reference range Performed By: #### C BC, HEPATIC, BMP, LIPASE #### [facility] [address] [place] [address] [place] INR in Platelet poor plasma by Coagulation assayOrdered By: Rafa Mendez on 05-22-2024 INR Coag (PPP) [Relative time] 2.8 {INR} Normal [facility] Comment on above: INR Therapeutic Rang e A) Pre- and Peroperative OAT started two weeks before surgery. NOT HIP SURGERY: 1.5 - 2.5 HIP SURGERY: 2 - 3B) Primary and secondary prevention of venous THROMBOSIS: 2 - 3C) Active venous thrombosis, pulmonary embolismand prevention of recurrent venous thrombosis: 2 - 3D) Prevention of arterial thromboembolismincluding patients with mechanical heart valves: 3 - 4.5 Result Comment: INR Therapeutic Range A) Pre- and Peroperative OAT started two weeks before surgery. NOT HIP SURGERY: 1.5 - 2.5 HIP SURGERY: 2 - 3 B) Primary and secondary prevention of venous THROMBOSIS: 2 - 3 C) Active venous thrombosis, pulmonary embolism and prevention of recurrent venous thrombosis: 2 - 3 D) Prevention of arterial thromboembolism including patients with mechanical heart valves: 3 - 4.5 PERFORMED BY: [place] [address] PATHOLOGIST [employer] CHING PAREDES M.D. Performed By: #### C BC, HEPATIC, BMP, LIPASE #### [address] Magnesium [Mass/volume] in S avis or PlasmaOrdered By: Rafa Mendez on 05-22-2024 Magnesium [Mass/Vol] 2.3 mg/dL Normal 1.9-2.7 [facility] Comment on above: Result Comment: PERF ORMED BY: [place] [address] PATHOLOGIST [employer] CHING PAREDES M.D. Performed By: #### C BC, HEPATIC, BMP, LIPASE #### [address] No Panel InformationOrdered By: Rafa Mendez on 05-22-2024 Estimated GFR (CKD-EPI) > 60.0 mL/Min [facility] Creatinine Clearance (Chem 75.57 [facility] Potassium [Moles/volume] in Serum or PlasmaOrdered By: Rafa Mendez on 05-22-2024 Potassium [Moles/Vol] 4.0 mmol/L Normal 3.5-5.1 [facility] Comment on above: Performed By: #### C BC, HEPATIC, BMP, LIPASE #### [facility] [address] [place] [address] Prothrombin time (PT)Ordered By: Rafa Mendez on 05-22-2024 PT Coag (PPP) [Time] 31.9 s High 9.0-12.9 [facility] Comment on above: A hematocrit value g reater than 55% may lead to inaccurate results in coagulation testing. Patients having hematocrit values >55% require a special collection tube for coagulation studies. Please contact the laboratory at [phone] for redraw instructions. Result Comment: A he matocrit value greater than 55% may lead to inaccurate results in coagulation testing. Patients having hematocrit values >55% require a special collection tube for coagulation studies. Please contact the laboratory at [phone] for redraw instructions. Performed By: #### C BC, HEPATIC, BMP, LIPASE #### [address] Serum or plasma anion gap de terminationOrdered By: Rafa Mendez on 05-22-2024 Anion gap [Moles/Vol] 7.4 mmol/L Normal 6.0-15.0 [facility] Comment on above: Performed By: #### C BC, HEPATIC, BMP, LIPASE #### [place] [address] [place] Sodium [Moles/volume] in Ser um or PlasmaOrdered By: Rafa Mendez on 05-22-2024 Sodium [Moles/Vol] 140 mmol/L Normal 136-145 [facility] Comment on above: Performed By: #### C BC, HEPATIC, BMP, LIPASE #### [address] Urea nitrogen [Mass/volume] in Serum or PlasmaOrdered By: Rafa Mendez on 05-22-2024 Urea nitrogen [Mass/Vol] 25 mg/dL Normal 7-25 [facility] Comment on above: Performed By: #### C BC, HEPATIC, BMP, LIPASE #### [address] XR chest 1V portableon 05-22 XR chest 1V portable [facility] [place] [address] [place] [address] XRay Report Signed Patient: Rehan Graves MR#: [id number] : 1970 Acct:[id number] Age/Sex: 54 / M ADM Date: 05/19/24 Loc: Room: [address] [place] [address] Type: ADM IN Attending Dr: Rafa Mendez DO Copies to: Rafa Mendez DO Ordering Provider: Rafa Mendez DO Date of Service: 05/22/24 XR/XR chest 1V portable: dyspnea Plain film chest Single view HISTORY: Dyspnea COMPARISON: 05/19/24 FINDINGS: SUPPORT DEVICES: None POSTSURGICAL CHANGES: Sternotomy. HEART: Within normal limits PULMONARY IAN: Within normal limits MEDIASTINUM: Unremarkable LUNGS AND PLEURA: No acute lung process, pleural effusion or pneumothorax identified. BONY STRUCTURES: Intact ADDITIONAL FINDINGS None XR/XR chest 1V portable IMPRESSION: No acute process. Impression dictated by: Jarred Anguiano M.D.05/22/2024 6:16 AM Dictation Location: [place] [address] Transcribed By: [facility] 05/22/24615 Dictated By: Jarred Anguiano DO 05/22/24614 Signed By: 05/22/24615 Normal [facility] Basic Metabolic Panelon Anion gap [Moles/Vol] 8.5 mmol/L Normal 6.0-15.0 [facility] Comment on above: Performed By: #### C BC, HEPATIC, BMP, LIPASE #### [facility] [address] [place] [id number] [place] Calcium [Mass/Vol] 8.6 mg/dL Normal 8.6-10.3 [facility] Comment on above: Performed By: #### C BC, HEPATIC, BMP, LIPASE #### [facility] [address] [place] [id number] [place] Chloride [Moles/Vol] 98 mmol/L Normal 98-107 [facility] Comment on above: Performed By: #### C BC, HEPATIC, BMP, LIPASE #### [facility] [address] [place] [address] [place] CO2 [Moles/Vol] 36.2 mmol/L High 21.0-31.0 [facility] Comment on above: Performed By: #### C BC, HEPATIC, BMP, LIPASE #### [facility] [address] [place] [address] [place] Creatinine [Mass/Vol] 1.57 mg/dL High 0.70-1.30 [facility] Comment on above: Performed By: #### C BC, HEPATIC, BMP, LIPASE #### [facility] [address] [place] [id number] [place] Creatinine Clr Calc Pharmacy 65.89 Normal [facility] Comment on above: Performed By: #### C BC, HEPATIC, BMP, LIPASE #### [facility] [address] [place] [address] [place] GFR/1.73 sq M.predicted MDRD (S/P/Bld) [Vol rate/Area] 51.729 mL/min/{1.73_m2} Normal [facility] Comment on above: Performed By: #### C BC, HEPATIC, BMP, LIPASE #### [facility] [address] Glucose [Mass/Vol] 99 mg/dL Normal 70-100 [facility] Comment on above: Result Comment: [facility] Glucose Reference Range is dependent on time and content of last meal. Glucose of more than 200 mg/dL in a nonstressed, ambulatory subject supports the diagnosis of Diabetes Mellitus. ADA recommended reference range Performed By: #### C BC, HEPATIC, BMP, LIPASE #### [facility] [address] Potassium [Moles/Vol] 3.7 mmol/L Normal 3.5-5.1 [facility] Comment on above: Performed By: #### C BC, HEPATIC, BMP, LIPASE #### [facility] [address] [place] [address] [place] Sodium [Moles/Vol] 139 mmol/L Normal 136-145 [facility] Comment on above: Performed By: #### C BC, HEPATIC, BMP, LIPASE #### [facility] [address] [place] [address] [place] Urea nitrogen [Mass/Vol] 31 mg/dL High 7-25 [facility] Comment on above: Performed By: #### C BC, HEPATIC, BMP, LIPASE #### [facility] [address] [facility] echo transthoracicon [facility] echo transthoracic [facility] [place] [address] [place] [address] Echocardiogram Signed Patient: Rehan Graves MR#: [id number] : 1970 Acct:[id number] Age/Sex: 54 / M ADM Date: 05/19/24 Loc: Room: [address] [place] [address] Type: ADM IN Attending Dr: Rafa Mendez DO Ordering Provider: Rafa Mendez DO Date of Service: 05/21/2403/07/2119 [facility] echo transthoracic: Shortness of Breath/Dyspnea Copies to: MD Rafa Landers DO BSA: 2.2 m2 BP: 140/71 mmHg HR: 57 Reason For Study: Shortness of Breath/Dyspnea History: AVR, HTN, former smoker asthma Interpretation Summary Ejection Fraction = 60-65%. Mild concentric left ventricular hypertrophy. There is mild tricuspid regurgitation. A variety of Doppler measurements indicate pseudonormalized left ventricular relaxation, which is associated with grade II/IV or mild to moderate diastolic dysfunction. Normal prosthetic aortic valve gradient. Mechanical prosthetic aortic valve. Septal bounce is seen. There is trace mitral regurgitation. The right atrium is severely dilated. The left atrium appears moderately dilated. Right ventricular systolic pressure is elevated at 40-50mmHg. Compared to the previous echo, LV function has improved. Procedure/Quality: A two-dimensional transthoracic echocardiogram with color flow, Doppler and injection of contrast agent Definity was performed. A two- dimensional transthoracic echocardiogram with color flow and Doppler was performed. The study was technically good in quality. Left Ventricle: The left ventricular size is normal. Mild concentric left ventricular hypertrophy. Ejection Fraction = 60-65%. A variety of Doppler measurements indicate pseudonormalized left ventricular relaxation, which is associated with grade II/IV or mild to moderate diastolic dysfunction. Septal bounce is seen. Left Atrium: The left atrium appears moderately dilated. Right Atrium: The right atrium is severely dilated. Right Ventricle: The right ventricle is normal size. The right ventricular systolic function is moderately reduced. Aortic Valve: Mechanical prosthetic aortic valve. Normal prosthetic aortic valve gradient. Mechanical aortic valve not well visualized due to acoustic shadowing. No prosthetic aortic valve insufficiency. Mitral Valve: There is moderate mitral annular calcification. No significant mitral valve stenosis. There is trace mitral regurgitation. Tricuspid Valve: The tricuspid valve is normal in structure. There is mild tricuspid regurgitation. Right ventricular systolic pressure is elevated at 40-50mmHg. Pulmonic Valve: The pulmonic valve is not well visualized. No significant pulmonic regurgitation. Arteries: The aortic root is normal size. Pericardium/Pleura: No pericardial effusion seen. There is no pleural effusion. IVC/Hepatic Veins: The IVC is dialted with an abnormal collapsibility index, this suggestive of increased right atrial pressure. Measurements with Normals IVSd: 1.5 cm (0.7-1.1 cm)LVIDd: 5.8 cm (3.7-5.4 cm) LVPWd: 1.3 cm (0.7-1.1 cm)LVIDs: 3.8 cm (2.3-3.6 cm) LA dimension: 5.0 cm (2.3-4.0 cm)Ao root diam: 3.0 cm(2.0-3.6 cm) asc Aorta Diam: 3.2 cm(2.1-3.4cm) Doppler with Normals RVSP(TR): 43.8 mmHg (18-35mmHg) LV V1 max: 99.4 cm/sec (0.7-1.7m/s)MV E max alicia: 113.0 cm/sec(0.8-1.3m/s) MV A max alicia: 81.9 cm/sec(0.0-0.0m/s) MV E/A: 1.4 (<1.5) MMode/2D Measurements Calculations RVDd: 3.6 cm FS: 34.5 % Ao root area: LVOT diam: 2.0 cm TAPSE: 1.6 cm EDV(Teich): 7.1 cm2 LVOT area: 3.1 cm2 RV S Alicia: 166.6 ml 6.9 cm/sec ESV(Teich): 62.0 ml EF(Teich): 62.8 % __ LVLd ap4: 7.4 cm SV(MOD-sp4): LAV(MOD-sp4): LA A2 area: 17.5 cm2 EDV(MOD-sp4): 54.9 ml 62.0 ml 86.7 ml LAV(MOD-sp2): LA A4 area: 22.2 cm2 LVLs ap4: 6.3 cm 42.3 ml LA length (vol): ESV(MOD-sp4): 6.3 cm 31.8 ml LA vol: 52.4 ml EF(MOD-sp4): 63.3 % LA vol index: 23.3 ml/m2 Doppler Measurements Calculations MV dec time: E/E' lat: 9.0 MV dec slope: Ao V2 max: 0.15 sec E/E' med: 19.3 218.0 cm/sec 729.0 cm/sec2 Ao max P.0 mmHg Ao mean P.0 mmHg Ao V2 mean: 154.0 cm/sec Ao V2 VTI: 49.3 cm KALEB(I,D): 1.5 cm2 KALEB(V,D): 1.4 cm2 __ LV V1 max PG: TV max PG: TR max alicia: 4.0 mmHg 36.0 mmHg 299.0 cm/sec LV V1 mean PG: TR max P.8 mmHg 2.0 mmHg RAP systole: 8.0 mmHg LV V1 mean: 73.9 cm/sec LV V1 VTI: 22.8 cm LV dP/dt: 757.0 mmHg/s Transcribed By: KEE Performed At: 05/21/24 1101 Signed By: Emelia Deshpande MD 05/21/24 2100 Normal [facility] Magnesiumon 05-21-2024 Magnesium [Mass/Vol] 2.3 mg/dL Normal 1.9-2.7 [facility] Comment on above: Result Comment: PERF ORMED BY: [place] [address] PATHOLOGIST [employer] CHING PAREDES M.D. Performed By: #### C BC, HEPATIC, BMP, LIPASE #### [address] Prothrombin Time INRon 05-21 INR Coag (PPP) [Relative time] 3.1 {INR} Normal [facility] Comment on above: Result Comment: INR Therapeutic Range A) Pre- and Peroperative OAT started two weeks before surgery. NOT HIP SURGERY: 1.5 - 2.5 HIP SURGERY: 2 - 3 B) Primary and secondary prevention of venous THROMBOSIS: 2 - 3 C) Active venous thrombosis, pulmonary embolism and prevention of recurrent venous thrombosis: 2 - 3 D) Prevention of arterial thromboembolism including patients with mechanical heart valves: 3 - 4.5 PERFORMED BY: [place] [address] PATHOLOGIST [employer] CHING PAREDES M.D. Performed By: #### C BC, HEPATIC, BMP, LIPASE #### [facility] [address] [place] [address] PT Coag (PPP) [Time] 35.1 s High 9.0-12.9 [facility] Comment on above: Result Comment: A he matocrit value greater than 55% may lead to inaccurate results in coagulation testing. Patients having hematocrit values >55% require a special collection tube for coagulation studies. Please contact the laboratory at [phone] for redraw instructions. Performed By: #### C BC, HEPATIC, BMP, LIPASE #### [facility] [address] [place] [address] Activated partial thrombopla stin time (aPTT) in platelet poor plasma by coagulation aOrdered By: Rafa Mendez on 05-20-2024 aPTT Coag (PPP) [Time] 35.5 s 25.1-36.[address] [facility] Comment on above: A hematocrit value g reater than 55% may lead to inaccurate results in coagulation testing. Patients having hematocrit values >55% require a special collection tube for coagulation studies. Please contact the laboratory at [phone] for redraw instructions. Automated basophil %Ordered By: Rafa Mendez on 05-20-2024 Basophils/100 WBC (Bld) 0.7 % Normal . [facility] Comment on above: Performed By: #### C BC, HEPATIC, BMP, LIPASE #### [facility] [address] [place] [address] Automated basophil countOrde red By: Rafa Mendez on 05-20-2024 Basophils (Bld) [#/Vol] 0.1 10*3/uL Normal 0.0-0.2 [facility] Comment on above: Result Comment: PERF ORMED BY: [place] [address] PATHOLOGIST [employer] CHING PAREDES M.D. Performed By: #### C BC, HEPATIC, BMP, LIPASE #### [address] Automated blood monocyte cou ntOrdered By: Rafa Mendez on 05-20-2024 Monocytes (Bld) [#/Vol] 0.8 10*3/uL Normal 0.0-0.8 [facility] Comment on above: Performed By: #### C BC, HEPATIC, BMP, LIPASE #### [address] Automated eosinophil %Ordere d By: Rafa Mendez on 05-20-2024 Eosinophils/100 WBC (Bld) 2.0 % Normal . [facility] Comment on above: Performed By: #### C BC, HEPATIC, BMP, LIPASE #### [address] Automated eosinophil countOr dered By: Rafa Mendez on 05-20-2024 Eosinophils (Bld) [#/Vol] 0.2 10*3/uL Normal 0.0-0.45 [facility] Comment on above: Performed By: #### C BC, HEPATIC, BMP, LIPASE #### [address] Automated monocyte %Ordered By: Rafa Mendez on 05-20-2024 Monocytes/100 WBC (Bld) 10.0 % Normal . [facility] Comment on above: Performed By: #### C BC, HEPATIC, BMP, LIPASE #### [address] Automated neutrophil %Ordere d By: Rafa Mendez on 05-20-2024 Neutrophils/100 WBC (Bld) 74.8 % Normal . [facility] Comment on above: Performed By: #### C BC, HEPATIC, BMP, LIPASE #### [address] Basic Metabolic Panelon 10-0 Anion gap [Moles/Vol] 9.2 mmol/L Normal 6.0-15.0 [facility] Comment on above: Performed By: #### C BC, HEPATIC, BMP, LIPASE #### [address] Calcium [Mass/Vol] 8.0 mg/dL Low 8.6-10.3 [facility] Comment on above: Performed By: #### C BC, HEPATIC, BMP, LIPASE #### [address] Chloride [Moles/Vol] 100 mmol/L Normal 98-107 [facility] Comment on above: Performed By: #### C BC, HEPATIC, BMP, LIPASE #### [address] CO2 [Moles/Vol] 34.3 mmol/L High 21.0-31.0 [facility] Comment on above: Performed By: #### C BC, HEPATIC, BMP, LIPASE #### [address] Creatinine [Mass/Vol] 1.53 mg/dL High 0.70-1.30 [facility] Comment on above: Performed By: #### C BC, HEPATIC, BMP, LIPASE #### [address] Creatinine Clr Calc Pharmacy 67.61 Normal [facility] Comment on above: Performed By: #### C BC, HEPATIC, BMP, LIPASE #### [address] GFR/1.73 sq M.predicted MDRD (S/P/Bld) [Vol rate/Area] 53.357 mL/min/{1.73_m2} Normal [facility] Comment on above: Performed By: #### C BC, HEPATIC, BMP, LIPASE #### [address] Glucose [Mass/Vol] 95 mg/dL Normal 70-100 [facility] Comment on above: Result Comment: [place] Glucose Reference Range is dependent on time and content of last meal. Glucose of more than 200 mg/dL in a nonstressed, ambulatory subject supports the diagnosis of Diabetes Mellitus. ADA recommended reference range Performed By: #### C BC, HEPATIC, BMP, LIPASE #### [address] Potassium [Moles/Vol] 3.5 mmol/L Normal 3.5-5.1 [facility] Comment on above: Performed By: #### C BC, HEPATIC, BMP, LIPASE #### [address] Sodium [Moles/Vol] 140 mmol/L Normal 136-145 [facility] Comment on above: Performed By: #### C BC, HEPATIC, BMP, LIPASE #### [address] Urea nitrogen [Mass/Vol] 38 mg/dL High 7-25 [facility] Comment on above: Performed By: #### C BC, HEPATIC, BMP, LIPASE #### [address] Complete Blood Count Auto Di ffon 05-20-2024 Mean Corpuscular HGB Conc 33.4 g/dL Normal 32.5-35.6 [facility] Comment on above: Performed By: #### C BC, HEPATIC, BMP, LIPASE #### [address] NRBC% 0.1 /100{WBC} Normal 0-0.5 [facility] Comment on above: Performed By: #### C BC, HEPATIC, BMP, LIPASE #### [address] Erythrocyte distribution wid th [Ratio] by Automated countOrdered By: Rafa Mendez on 05-20-2024 Erythrocyte distribution width (RBC) [Ratio] 14.4 % Normal 12.0-14.8 [facility] Comment on above: Performed By: #### C BC, HEPATIC, BMP, LIPASE #### [address] Erythrocytes [#/volume] in B lood by Automated countOrdered By: Rafa Mendez on 05-20-2024 RBC (Bld) [#/Vol] 3.59 10*6/uL Low 3.90-5.60 [facility] Comment on above: Performed By: #### C BC, HEPATIC, BMP, LIPASE #### [address] Hematocrit [Volume Fraction] of Blood by Automated countOrdered By: Rafa Mendez on 05-20-2024 Hematocrit (Bld) [Volume fraction] 34.2 % Low 38.8-50.0 [facility] Comment on above: Performed By: #### C BC, HEPATIC, BMP, LIPASE #### [address] Hemoglobin [Mass/volume] in BloodOrdered By: Rafa Mendez on 05-20-2024 Hemoglobin (Bld) [Mass/Vol] 11.4 g/dL Low 13.0-17.0 [facility] Comment on above: Performed By: #### C BC, HEPATIC, BMP, LIPASE #### [address] Leukocytes [#/volume] correc shayy for nucleated erythrocytes in Blood by Automated counOrdered By: Rafa Mendez on 05-20-2024 WBC corrected for nucl RBC Auto (Bld) [#/Vol] 7.7 10*3/uL 4.1-10.5 [facility] Leukocytes [#/volume] in Blo od by Automated countOrdered By: Rafa Mendez on 05-20-2024 WBC (Bld) [#/Vol] 7.7 10*3/uL Normal 4.1-10.5 [facility] Comment on above: Performed By: #### C BC, HEPATIC, BMP, LIPASE #### [address] Lymphocytes [#/volume] in Bl ood by Automated countOrdered By: Rafa Mendez on 05-20-2024 Lymphocytes (Bld) [#/Vol] 1.0 10*3/uL Normal 1.00-4.8 [facility] Comment on above: Performed By: #### C BC, HEPATIC, BMP, LIPASE #### [address] Lymphocytes/100 leukocytes i n Blood by Automated countOrdered By: Rafa Mendez on 05-20-2024 Lymphocytes/100 WBC (Bld) 12.5 % Normal . [facility] Comment on above: Performed By: #### C BC, HEPATIC, BMP, LIPASE #### [address] MCH [Entitic mass] by Automa shayy countOrdered By: Rafa Mendez on 05-20-2024 MCH (RBC) [Entitic mass] 31.8 pg Normal 27.5-35.2 [facility] Comment on above: Performed By: #### C BC, HEPATIC, BMP, LIPASE #### [address] MCHC Auto (RBC) [Mass/Vol]Or dered By: Rafa Mendez on 05-20-2024 MCHC (RBC) [Mass/Vol] 33.4 g/dL 32.5-35.6 [facility] MCV [Entitic volume] by Auto mated countOrdered By: Rafa Mendez on 05-20-2024 MCV (RBC) [Entitic vol] 95.2 fL Normal 83.5-101 [facility] Comment on above: Performed By: #### C BC, HEPATIC, BMP, LIPASE #### [address] Magnesiumon 05-20-2024 Magnesium [Mass/Vol] 2.2 mg/dL Normal 1.9-2.7 [facility] Comment on above: Result Comment: PERF ORMED BY: [place] [address] PATHOLOGIST [employer] CHING PAREDES M.D. Performed By: #### C BC, HEPATIC, BMP, LIPASE #### [address] Neutrophils [#/volume] in Bl ood by Automated countOrdered By: Rafa Mendez on 05-20-2024 Neutrophils (Bld) [#/Vol] 5.8 10*3/uL Normal 1.8-7.7 [facility] Comment on above: Performed By: #### C BC, HEPATIC, BMP, LIPASE #### [address] Nucleated erythrocytes [Pres ence] in Blood by Automated countOrdered By: Rafa Mendez on 05-20-2024 Nucleated RBC Auto Ql (Bld) 0.1 /100{WBC} 0-0.5 [facility] Partial Thromboplastin Timeo n 05-20-2024 aPTT Coag (Bld) [Time] 35.5 s Normal 25.1-36.5 [facility] Comment on above: Result Comment: A he matocrit value greater than 55% may lead to inaccurate results in coagulation testing. Patients having hematocrit values >55% require a special collection tube for coagulation studies. Please contact the laboratory at [phone] for redraw instructions. PERFORMED BY: [place] [address] PATHOLOGIST [employer] CHING PAREDES M.D. Performed By: #### C BC, HEPATIC, BMP, LIPASE #### [address] Platelet mean volume [Entiti c volume] in Blood by Automated countOrdered By: Rafa Mendez on 05-20-2024 Platelet mean volume (Bld) [Entitic vol] 8.8 fL Normal 6.6-10.1 [facility] Comment on above: Performed By: #### C BC, HEPATIC, BMP, LIPASE #### [address] Platelets [#/volume] in Bloo d by Automated countOrdered By: Rafa Mendez on 05-20-2024 Platelets (Bld) [#/Vol] 132 10*3/uL Low 150-450 [facility] Comment on above: Performed By: #### C BC, HEPATIC, BMP, LIPASE #### [address] Prothrombin Time INRon 05-20 INR Coag (PPP) [Relative time] 3.9 {INR} Normal [facility] Comment on above: Result Comment: INR Therapeutic Range A) Pre- and Peroperative OAT started two weeks before surgery. NOT HIP SURGERY: 1.5 - 2.5 HIP SURGERY: 2 - 3 B) Primary and secondary prevention of venous THROMBOSIS: 2 - 3 C) Active venous thrombosis, pulmonary embolism and prevention of recurrent venous thrombosis: 2 - 3 D) Prevention of arterial thromboembolism including patients with mechanical heart valves: 3 - 4.5 Performed By: #### C BC, HEPATIC, BMP, LIPASE #### [address] PT Coag (PPP) [Time] 43.8 s High 9.0-12.9 [facility] Comment on above: Result Comment: A he matocrit value greater than 55% may lead to inaccurate results in coagulation testing. Patients having hematocrit values >55% require a special collection tube for coagulation studies. Please contact the laboratory at [phone] for redraw instructions. Performed By: #### C BC, HEPATIC, BMP, LIPASE #### [facility] [address] [place] [address] Alanine aminotransferase [En zymatic activity/volume] in Serum or PlasmaOrdered By: Rufino Kee on 05-19-2024 ALT [Catalytic activity/Vol] 62 U/L High 7-52 [facility] Comment on above: Performed By: #### C BC, HEPATIC, BMP, LIPASE #### [facility] [address] [place] [address] [place] Albumin [Mass/volume] in Ser um or Plasma by Bromocresol green (BCG) dye binding methoOrdered By: Rufino Kee on 05-19-2024 Albumin BCG dye [Mass/Vol] 4.2 g/dL 3.5-5.7 [facility] Alkaline phosphatase [Enzyma tic activity/volume] in Serum or PlasmaOrdered By: Rufino Kee on 05-19-2024 ALP [Catalytic activity/Vol] 124 U/L High 34-104 [facility] Comment on above: Performed By: #### C BC, HEPATIC, BMP, LIPASE #### [facility] [address] [place] [address] Aspartate aminotransferase [ Enzymatic activity/volume] in Serum or PlasmaOrdered By: Rufino Kee on 05-19-2024 AST [Catalytic activity/Vol] 47 U/L High 13-39 [facility] Comment on above: Performed By: #### C BC, HEPATIC, BMP, LIPASE #### [address] Automated basophil %Ordered By: Rufino Kee on 05-19-2024 Basophils/100 WBC (Bld) 0.8 % Normal . [facility] Comment on above: Performed By: #### C BC, HEPATIC, BMP, LIPASE #### [address] Automated basophil countOrde red By: Rufino Kee on 05-19-2024 Basophils (Bld) [#/Vol] 0.1 10*3/uL Normal 0.0-0.2 [facility] Comment on above: Result Comment: PERF ORMED BY: [place] [address] PATHOLOGIST [employer] CHING PAREDES M.D. Performed By: #### C BC, HEPATIC, BMP, LIPASE #### [address] Automated blood monocyte cou ntOrdered By: Rufino Kee on 05-19-2024 Monocytes (Bld) [#/Vol] 1.0 10*3/uL High 0.0-0.8 [facility] Comment on above: Performed By: #### C BC, HEPATIC, BMP, LIPASE #### [address] Automated eosinophil %Ordere d By: Rufino Kee on 05-19-2024 Eosinophils/100 WBC (Bld) 2.1 % Normal . [facility] Comment on above: Performed By: #### C BC, HEPATIC, BMP, LIPASE #### [address] Automated eosinophil countOr dered By: Rufino Kee on 05-19-2024 Eosinophils (Bld) [#/Vol] 0.3 10*3/uL Normal 0.0-0.45 [facility] Comment on above: Performed By: #### C BC, HEPATIC, BMP, LIPASE #### [address] Automated monocyte %Ordered By: Rufino Kee on 05-19-2024 Monocytes/100 WBC (Bld) 8.5 % Normal . [facility] Comment on above: Performed By: #### C BC, HEPATIC, BMP, LIPASE #### [address] Automated neutrophil %Ordere d By: Rufino Kee on 05-19-2024 Neutrophils/100 WBC (Bld) 76.9 % Normal . [facility] Comment on above: Performed By: #### C BC, HEPATIC, BMP, LIPASE #### [address] BNP ser/plasOrdered By: Rufino Kee on 05-19-2024 Natriuretic peptide B (Bld) [Mass/Vol] 635.0 pg/mL High 5-100 [facility] Comment on above: Result Comment: PERF ORMED BY: [place] [address] PATHOLOGIST [employer] CHING PAREDES M.D. Performed By: #### C BC, HEPATIC, BMP, LIPASE #### [address] Bilirubin.total [Mass/volume ] in Serum or PlasmaOrdered By: Rufino Kee on 05-19-2024 Bilirubin [Mass/Vol] 1.2 mg/dL High 0.3-1.0 [facility] Comment on above: Performed By: #### C BC, HEPATIC, BMP, LIPASE #### [address] Calcium [Mass/volume] in Ser um or PlasmaOrdered By: Rufino Kee on 05-19-2024 Calcium [Mass/Vol] 8.9 mg/dL Normal 8.6-10.3 [facility] Comment on above: Performed By: #### C BC, HEPATIC, BMP, LIPASE #### [address] Carbon dioxide, total [Moles /volume] in Serum or PlasmaOrdered By: Rufino Kee on 05-19-2024 CO2 [Moles/Vol] 34.0 mmol/L High 21.0-31.0 [facility] Comment on above: Performed By: #### C BC, HEPATIC, BMP, LIPASE #### [address] Chloride [Moles/volume] in S avis or PlasmaOrdered By: Rufino Kee on 05-19-2024 Chloride [Moles/Vol] 100 mmol/L Normal 98-107 [facility] Comment on above: Performed By: #### C BC, HEPATIC, BMP, LIPASE #### [address] Complete Blood Count Auto Di ffon 05-19-2024 Mean Corpuscular HGB Conc 33.2 g/dL Normal 32.5-35.6 [facility] Comment on above: Performed By: #### C BC, HEPATIC, BMP, LIPASE #### [address] Monocytes/100 WBC (Bld) 17.72 % Normal 0.00-20.00 [facility] Comment on above: Performed By: #### C BC, HEPATIC, BMP, LIPASE #### [address] NRBC% 0.0 /100{WBC} Normal 0-0.5 [facility] Comment on above: Performed By: #### C BC, HEPATIC, BMP, LIPASE #### [address] Comprehensive Metabolic Pane brennan 05-19-2024 Albumin [Mass/Vol] 4.2 g/dL Normal 3.5-5.7 [facility] Comment on above: Performed By: #### C BC, HEPATIC, BMP, LIPASE #### [address] Creatinine Clr Calc Pharmacy 56.28 Normal [facility] Comment on above: Result Comment: PERF ORMED BY: [place] [address] PATHOLOGIST [employer] CHING PAREDES M.D. Performed By: #### C BC, HEPATIC, BMP, LIPASE #### [address] GFR/1.73 sq M.predicted MDRD (S/P/Bld) [Vol rate/Area] 44.496 mL/min/{1.73_m2} Normal [facility] Comment on above: Performed By: #### C BC, HEPATIC, BMP, LIPASE #### [address] Creatine kinase [Enzymatic a ctivity/volume] in Serum or PlasmaOrdered By: Rufino Kee on 05-19-2024 CK [Catalytic activity/Vol] 188 U/L Normal 30-223 [facility] Comment on above: Performed By: #### C BC, HEPATIC, BMP, LIPASE #### [address] Creatinine [Mass/volume] in Serum or PlasmaOrdered By: Rufino Kee on 05-19-2024 Creatinine [Mass/Vol] 1.78 mg/dL High 0.70-1.30 [facility] Comment on above: Performed By: #### C BC, HEPATIC, BMP, LIPASE #### [address] ECG 12 lead ECGon 05-19-2024 ECG 12 lead ECG [facility] [place] [address] Electrocardiograph Report Signed Patient: Rehan Graves MR#: [id number] : 1970 Acct:[id number] Age/Sex: 54 / M ADM Date: 05/19/24 Loc: Room: [address] [place] [address] Type: ADM IN Attending Dr: Rafa Mendez DO Ordering Provider: Rufino Kee MD Date of Service: 05/19/2401/06/1840 ECG/ECG 12 lead ECG: Shortness of Breath/Dyspnea Copies to: Test Reason : Blood Pressure : */* mmHG Vent. Rate : 60 BPM Atrial Rate : 60 BPM P-R Int : 190 ms QRS Dur : 130 ms QT Int : 518 ms P-R-T Axes : 61 95 49 degrees QTcB Int : 518 ms Normal sinus rhythm Right bundle branch block Abnormal ECG When compared with ECG of 19-May-2024 16:55, (Unconfirmed) No significant change was found Confirmed by RUFINO KEE MD ([id number]) on 05/19/2024 10:47:11 PM Referred By: Electronically Signed By: RUFINO KEE MD Transcribed By: MUS Signed By Rufino Kee MD 05/19/242246 Normal [facility] ECG 12 lead ECG [facility] [place] [address] [place] [address] Electrocardiograph Report Signed Patient: Rehan Graves MR#: [id number] : 1970 Acct:[id number] Age/Sex: 54 / M ADM Date: 05/19/24 Loc: Room: [address] [place] [address] Type: ADM IN Attending Dr: Rafa Mendez DO Ordering Provider: Rufino Kee MD Date of Service: 05/19/2401/06/1652 ECG/ECG 12 lead ECG: Shortness of Breath/Dyspnea Copies to: Test Reason : Blood Pressure : 179/81 mmHG Vent. Rate : 62 BPM Atrial Rate : 62 BPM P-R Int : 186 ms QRS Dur : 132 ms QT Int : 500 ms P-R-T Axes : 60 90 53 degrees QTcB Int : 507 ms Normal sinus rhythm Right bundle branch block Abnormal ECG When compared with ECG of 06-Jan-2024 16:30, No significant change was found Confirmed by RUFINO KEE MD ([id number]) on 05/19/2024 10:47:12 PM Referred By: Electronically Signed By: RUFINO KEE MD Transcribed By: MUS Signed By Rufino Kee MD 05/19/242246 Normal [facility] Erythrocyte distribution wid th [Ratio] by Automated countOrdered By: Rufino Kee on 05-19-2024 Erythrocyte distribution width (RBC) [Ratio] 14.7 % Normal 12.0-14.8 [facility] Comment on above: Performed By: #### C BC, HEPATIC, BMP, LIPASE #### [address] [place] [address] [place] Erythrocytes [#/volume] in B lood by Automated countOrdered By: Rufino Kee on 05-19-2024 RBC (Bld) [#/Vol] 4.10 10*6/uL Normal 3.90-5.60 [facility] Comment on above: Performed By: #### C BC, HEPATIC, BMP, LIPASE #### [address] Glucose [Mass/volume] in Ser um or PlasmaOrdered By: Rufino Kee on 05-19-2024 Glucose [Mass/Vol] 100 mg/dL Normal 70-100 [facility] Comment on above: ADA recommended refe rence rangeRandom Glucose Reference Range is dependent on time and content of last meal. Glucose of more than 200 mg/dL in a nonstressed, ambulatory subject supports the diagnosis of Diabetes Mellitus. Result Comment: [place] om Glucose Reference Range is dependent on time and content of last meal. Glucose of more than 200 mg/dL in a nonstressed, ambulatory subject supports the diagnosis of Diabetes Mellitus. ADA recommended reference range Performed By: #### C BC, HEPATIC, BMP, LIPASE #### [address] Hematocrit [Volume Fraction] of Blood by Automated countOrdered By: Rufino Kee on 05-19-2024 Hematocrit (Bld) [Volume fraction] 38.6 % Low 38.8-50.0 [facility] Comment on above: Performed By: #### C BC, HEPATIC, BMP, LIPASE #### [address] Hemoglobin [Mass/volume] in BloodOrdered By: Rufino Kee on 05-19-2024 Hemoglobin (Bld) [Mass/Vol] 12.8 g/dL Low 13.0-17.0 [facility] Comment on above: Performed By: #### C BC, HEPATIC, BMP, LIPASE #### [address] INR in Platelet poor plasma by Coagulation assayOrdered By: Rufino Kee on 05-19-2024 INR Coag (PPP) [Relative time] 4.1 {INR} Normal [facility] Comment on above: INR Therapeutic Rang e A) Pre- and Peroperative OAT started two weeks before surgery. NOT HIP SURGERY: 1.5 - 2.5 HIP SURGERY: 2 - 3B) Primary and secondary prevention of venous THROMBOSIS: 2 - 3C) Active venous thrombosis, pulmonary embolismand prevention of recurrent venous thrombosis: 2 - 3D) Prevention of arterial thromboembolismincluding patients with mechanical heart valves: 3 - 4.5 Result Comment: INR Therapeutic Range A) Pre- and Peroperative OAT started two weeks before surgery. NOT HIP SURGERY: 1.5 - 2.5 HIP SURGERY: 2 - 3 B) Primary and secondary prevention of venous THROMBOSIS: 2 - 3 C) Active venous thrombosis, pulmonary embolism and prevention of recurrent venous thrombosis: 2 - 3 D) Prevention of arterial thromboembolism including patients with mechanical heart valves: 3 - 4.5 PERFORMED BY: [place] [address] PATHOLOGIST [employer] CHING PAREDES M.D. Performed By: #### P T #### [address] Leukocytes [#/volume] correc shayy for nucleated erythrocytes in Blood by Automated counOrdered By: Rufino Kee on 05-19-2024 WBC corrected for nucl RBC Auto (Bld) [#/Vol] 11.9 10*3/uL High 4.1-10.5 [facility] Leukocytes [#/volume] in Blo od by Automated countOrdered By: Rufino Kee on 05-19-2024 WBC (Bld) [#/Vol] 11.9 10*3/uL High 4.1-10.5 [facility] Comment on above: Performed By: #### C BC, HEPATIC, BMP, LIPASE #### [address] Lymphocytes [#/volume] in Bl ood by Automated countOrdered By: Rufino Kee on 05-19-2024 Lymphocytes (Bld) [#/Vol] 1.4 10*3/uL Normal 1.00-4.8 [facility] Comment on above: Performed By: #### C BC, HEPATIC, BMP, LIPASE #### [address] Lymphocytes/100 leukocytes i n Blood by Automated countOrdered By: Rufino Kee on 05-19-2024 Lymphocytes/100 WBC (Bld) 11.7 % Normal . [facility] Comment on above: Performed By: #### C BC, HEPATIC, BMP, LIPASE #### [address] MCH [Entitic mass] by Automa shayy countOrdered By: Rufino Kee on 05-19-2024 MCH (RBC) [Entitic mass] 31.3 pg Normal 27.5-35.2 [facility] Comment on above: Performed By: #### C BC, HEPATIC, BMP, LIPASE #### [address] MCHC Auto (RBC) [Mass/Vol]Or dered By: Rufino Kee on 05-19-2024 MCHC (RBC) [Mass/Vol] 33.2 g/dL 32.5-35.6 [facility] MCV [Entitic volume] by Auto mated countOrdered By: Rufino Kee on 05-19-2024 MCV (RBC) [Entitic vol] 94.1 fL Normal 83.5-101 [facility] Comment on above: Performed By: #### C BC, HEPATIC, BMP, LIPASE #### [address] Monocyte distribution width [Entitic volume] in Blood by AutomatedOrdered By: Rufino Kee on 05-19-2024 Monocyte distribution width Auto (Bld) [Entitic vol] 17.72 % 0.00-20.00 [facility] Neutrophils [#/volume] in Bl ood by Automated countOrdered By: Rufino Kee on 05-19-2024 Neutrophils (Bld) [#/Vol] 9.1 10*3/uL High 1.8-7.7 [facility] Comment on above: Performed By: #### C BC, HEPATIC, BMP, LIPASE #### [address] No Panel InformationOrdered By: Rufino Kee on 05-19-2024 Estimated GFR (CKD-EPI) 44.496 mL/Min [facility] Creatinine Clearance (Chem 56.28 [facility] Nucleated erythrocytes [Pres ence] in Blood by Automated countOrdered By: Rufino Kee on 05-19-2024 Nucleated RBC Auto Ql (Bld) 0.0 /100{WBC} 0-0.5 [facility] Platelet mean volume [Entiti c volume] in Blood by Automated countOrdered By: Rufino Kee on 05-19-2024 Platelet mean volume (Bld) [Entitic vol] 8.3 fL Normal 6.6-10.1 [facility] Comment on above: Performed By: #### C BC, HEPATIC, BMP, LIPASE #### [facility] [address] [place] [address] Platelets [#/volume] in Bloo d by Automated countOrdered By: Rufino Kee on 05-19-2024 Platelets (Bld) [#/Vol] 173 10*3/uL Normal 150-450 [facility] Comment on above: Performed By: #### C BC, HEPATIC, BMP, LIPASE #### [address] Potassium [Moles/volume] in Serum or PlasmaOrdered By: Rufino Kee on 05-19-2024 Potassium [Moles/Vol] 3.7 mmol/L Normal 3.5-5.1 [facility] Comment on above: Performed By: #### C BC, HEPATIC, BMP, LIPASE #### [facility] [address] [place] [address] [place] Protein [Mass/volume] in Ser um or PlasmaOrdered By: Rufino Kee on 05-19-2024 Protein [Mass/Vol] 7.6 g/dL Normal 6.4-8.9 [facility] Comment on above: Performed By: #### C BC, HEPATIC, BMP, LIPASE #### [address] Prothrombin time (PT)Ordered By: Rufino Kee on 05-19-2024 PT Coag (PPP) [Time] 45.9 s High 9.0-12.9 [facility] Comment on above: A hematocrit value g reater than 55% may lead to inaccurate results in coagulation testing. Patients having hematocrit values >55% require a special collection tube for coagulation studies. Please contact the laboratory at [phone] for redraw instructions. Result Comment: A he matocrit value greater than 55% may lead to inaccurate results in coagulation testing. Patients having hematocrit values >55% require a special collection tube for coagulation studies. Please contact the laboratory at [phone] for redraw instructions. Performed By: #### P T #### [address] Serum globulin measurement b y calculation (mass/volume)Ordered By: Rufino Kee on 05-19-2024 Globulin (S) [Mass/Vol] 3.4 g/dL [facility] Comment on above: Performed By: #### C BC, HEPATIC, BMP, LIPASE #### [address] Serum or plasma albumin/glob ulin mass ratioOrdered By: Rufino Kee on 05-19-2024 Albumin/Globulin [Mass ratio] 1.2 {ratio} [facility] Comment on above: Performed By: #### C BC, HEPATIC, BMP, LIPASE #### [address] Serum or plasma anion gap de terminationOrdered By: Rufino Kee on 05-19-2024 Anion gap [Moles/Vol] 6.7 mmol/L Normal 6.0-15.0 [facility] Comment on above: Performed By: #### C BC, HEPATIC, BMP, LIPASE #### [address] Sodium [Moles/volume] in Ser um or PlasmaOrdered By: Rufino Kee on 05-19-2024 Sodium [Moles/Vol] 137 mmol/L Normal 136-145 [facility] Comment on above: Performed By: #### C BC, HEPATIC, BMP, LIPASE #### [address] Troponin I High Sensitivityo n 05-19-2024 Troponin I High Sensitivity 12.1 pg/mL Normal 0.0-20.0 [facility] Comment on above: Result Comment: PERF ORMED BY: [place] [address] PATHOLOGIST [employer] CHING PAREDES M.D. Performed By: #### C BC, HEPATIC, BMP, LIPASE #### [facility] [address] [place] [address] Troponin I.cardiac [Mass/vol ume] in Serum or Plasma by Detection limit <= 0.01 ng/Ordered By: Rufino Kee on 05-19-2024 Troponin I.cardiac DL <= 0.01 ng/mL [Mass/Vol] 12.1 pg/mL 0.0-20.0 [facility] Urea nitrogen [Mass/volume] in Serum or PlasmaOrdered By: Rufino Kee on 05-19-2024 Urea nitrogen [Mass/Vol] 40 mg/dL High 7-25 [facility] Comment on above: Performed By: #### C BC, HEPATIC, BMP, LIPASE #### [address] XR chest 1V portableon 05-19 XR chest 1V portable [facility] [place] [address] [place] [address] XRay Report Signed Patient: Rehan Graves MR#: [id number] : 1970 Acct:[id number] Age/Sex: 54 / M ADM Date: 05/19/24 Loc: ER Room: Type: [facility] ER Attending Dr: Copies to: Rufino Kee MD Ordering Provider: Rufino Kee MD Date of Service: 05/19/24 XR/XR chest 1V portable: Shortness of Breath/Dyspnea SINGLE VIEW CHEST CLINICAL HISTORY: Leg swelling dizziness weight gain for 2 weeks. Shortness of breath for 2 days COMPARISON: Chest 10/14/2023 FINDINGS: Sternotomy wires are noted. Heart is normal in size. The lung consolidation pneumothorax pleural effusion or free air. XR/XR chest 1V portable IMPRESSION: NO ACUTE FINDINGS Impression dictated by: Sam Ling Jr., D.OMychal05/19/2024 8:36 PM Dictation Location: [facility]-15 Transcribed By: LETICIA 05/19/242035 Dictated By: Sam Ling Jr, 05/19/242035 Signed By: 05/19/242035 Normal [facility] US renal BIon 05-10-2024 US renal BI [facility] [place] [address] Ultrasound Report Signed Patient: Rehan Graves MR#: [id number] : 1970 Acct:[id number] Age/Sex: 54 / M ADM Date: 05/10/24 Loc: Room: Type: [facility] Attending Dr: Karla Shoemaker MD Ordering Provider: Karla Shoemaker MD Date of Service: 05/10/24 US/US renal BI: I50.20 - Unspecified systolic (congestive) heart failure Copies to: Karla Shoemaker MD BILATERAL RENAL AND BLADDER ULTRASOUND CLINICAL HISTORY: Chronic kidney disease and heart failure COMPARISON: None Evaluation is limited on the left by body habitus and bowel gas. Estimation of renal size is approximately 7.8 cm on the right and 11.4 cm on the left. No shadowing calculi or hydronephrosis are identified. There is a potential cysts at the superior pole on the left measuring 2.2 x 1.6 x 2.2 cm.. There is no perinephric fluid. The urinary bladder is partially distended with a volume of 240 mL. There is a hypoechoic area projecting at the bladder trigone measuring 1.2 x 1.0 x 2.0 cm. It might be extension of an enlarged prostate. Bilateral ureteral jets are visualized. The post void bladder residual is 38 mL US/US renal BI IMPRESSION: NO OBSTRUCTIVE UROPATHY. POSSIBLE LEFT RENAL CYST. PROBABLE PROSTATE HYPERTROPHY WITH MASS EFFECT AT THE BLADDER TRIGONE THOUGH CLINICAL CORRELATION IS SUGGESTED TO EXCLUDE ANY POSSIBILITY OF BLADDER MASS. Impression dictated by: Kelsey Price M.D.05/10/2024 7:54 PM Dictation Location: [facility] Tech: Elisabet Shaikh Transcribed By: LETICIA 05/10/241953 Dictated By: Kelsey Price MD 05/10/241949 Signed By: 05/10/241953 Normal [facility] TRANSTHORACIC ECHO (TTE) JULIO ITED[place] 02-15-2024 TRANSTHORACIC ECHO (TTE) LIMITED [facility] [address] [place] [address], [address], [place] [address] TRANSTHORACIC ECHOCARDIOGRAM REPORT Patient Name: REHAN GRAVES Reading Physician: [id number] Ovidio Licona MD, [facility] Study Date: 02/15/2024 Ordering Provider: [id number] OVIDIO LICONA MRN/PID: [id number] Fellow: Nurse: Niki Gr RN Date of /Age: 6 1970 / 54 years Mainframe Analyst: Delores Beasley RD, T Gender: M Additional Staff: Height: 175.26 cm Admit Date: Weight: 106.14 kg Admission Status: BSA / BMI: 2.21 m2 / 34.56 kg/m2 Department Location: [facility] Blood Pressure: 114 /76 mmHg Study Type: TRANSTHORACIC ECHO (TTE) LIMITED Diagnosis/ICD: 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 Aortic Valve Replacement-2006, Atrial Fibrillation, Dyspnea, Edema, HTN, Hyperlipidemia, Obesity CPT Codes: Echo Limited-38919 Study Detail: The following Echo studies were performed: 2D and M-Mode. Optison used as a contrast agent for endocardial border definition. Total contrast used for this procedure was 0.5 mL via IV push. PHYSICIAN INTERPRETATION: Left Ventricle: The left ventricular systolic function is normal, with a visually estimated ejection fraction of 55%. There are no regional wall motion abnormalities. The left ventricular cavity size is normal. Left ventricular diastolic filling was not assessed. Left Atrium: The left atrium is mildly dilated. Right Ventricle: The right ventricle is normal in size. There is normal right ventricular global systolic function. Right Atrium: The right atrium is normal in size. Aortic Valve: The aortic valve appears abnormal. Aortic valve regurgitation was not assessed. Mechanical valve in the aortic position, the valve was not well visualized. Mitral Valve: The mitral valve is mildly thickened. Mitral valve regurgitation was not assessed. Tricuspid Valve: The tricuspid valve is structurally normal. Tricuspid regurgitation was not assessed. Pulmonic Valve: The pulmonic valve is not well visualized. The pulmonic valve regurgitation was not assessed. Pericardium: There is no pericardial effusion noted. Aorta: The aortic root is normal. Systemic Veins: The inferior vena cava appears to be of normal size. CONCLUSIONS: 1. The left ventricular systolic function is normal, with a visually estimated ejection fraction of 55%. 2. There is normal right ventricular global systolic function. 3. Aortic valve appears abnormal. 4. Mechanical valve in the aortic position, the valve was not well visualized. QUANTITATIVE DATA SUMMARY: 2D MEASUREMENTS: Normal Ranges: Ao Root d: 3.00 cm (2.0-3.7cm) LAs: 4.70 cm (2.7-4.0cm) RVIDd: 3.07 cm (0.9-3.6cm) IVSd: 1.45 cm (0.6-1.1cm) LVPWd: 1.22 cm (0.6-1.1cm) LVIDd: 5.79 cm (3.9-5.9cm) LVIDs: 4.57 cm LV Mass Index: 155.3 g/m2 LV % FS 21.1 % LV SYSTOLIC FUNCTION BY 2D PLANIMETRY (MOD): Normal Ranges: EF-A4C View: 44 % (>=55%) EF-A2C View: 52 % EF-Biplane: 49 % EF-Visual: 55 % LV EF Reported: 55 % AORTIC VALVE: Normal Ranges: LVOT Diameter: 2.30 cm (1.8-2.4cm) [id number] Ovidio Licona MD, [facility] Electronically signed on 02/16/2024 at 4:36:46 PM Final [facility] Activated partial thrombopla stin time (aPTT) in platelet poor plasma by coagulation aOrdered By: Shanel Steele on 01-06-2024 aPTT Coag (PPP) [Time] 37.1 s High 25.1-36.[address] [facility] Comment on above: A hematocrit value g reater than 55% may lead to inaccurate results in coagulation testing. Patients having hematocrit values >55% require a special collection tube for coagulation studies. Please contact the laboratory at [phone] for redraw instructions. Alanine aminotransferase [En zymatic activity/volume] in Serum or PlasmaOrdered By: Shanel Steele on 01-06-2024 ALT [Catalytic activity/Vol] 36 U/L Normal 7-52 [facility] Comment on above: Performed By: #### C BC, HEPATIC, BMP, LIPASE #### [address] Albumin [Mass/volume] in Ser um or Plasma by Bromocresol green (BCG) dye binding methoOrdered By: Shanel Steele on 01-06-2024 Albumin BCG dye [Mass/Vol] 4.3 g/dL 3.5-5.7 [facility] Alkaline phosphatase [Enzyma tic activity/volume] in Serum or PlasmaOrdered By: Shanel Steele on 01-06-2024 ALP [Catalytic activity/Vol] 77 U/L Normal 34-104 [facility] Comment on above: Performed By: #### C BC, HEPATIC, BMP, LIPASE #### [address] Aspartate aminotransferase [ Enzymatic activity/volume] in Serum or PlasmaOrdered By: Shanel Steele on 01-06-2024 AST [Catalytic activity/Vol] 29 U/L Normal 13-39 [facility] Comment on above: Performed By: #### C BC, HEPATIC, BMP, LIPASE #### [address] Automated basophil %Ordered By: Shanel Steele on 01-06-2024 Basophils/100 WBC (Bld) 0.9 % Normal . [facility] Comment on above: Performed By: #### C BC, HEPATIC, BMP, LIPASE #### [address] Automated basophil countOrde red By: Shanel Steele on 01-06-2024 Basophils (Bld) [#/Vol] 0.1 10*3/uL Normal 0.0-0.2 [facility] Comment on above: Result Comment: PERF ORMED BY: [place] [address] PATHOLOGIST [employer] CHING PAREDES M.D. Performed By: #### C BC, HEPATIC, BMP, LIPASE #### [address] Automated blood monocyte cou ntOrdered By: Shanel Steele on 01-06-2024 Monocytes (Bld) [#/Vol] 0.8 10*3/uL Normal 0.0-0.8 [facility] Comment on above: Performed By: #### C BC, HEPATIC, BMP, LIPASE #### [address] Automated eosinophil %Ordere d By: Shanel Steele on 01-06-2024 Eosinophils/100 WBC (Bld) 2.2 % Normal . [facility] Comment on above: Performed By: #### C BC, HEPATIC, BMP, LIPASE #### [address] Automated eosinophil countOr dered By: Shanel Steele on 01-06-2024 Eosinophils (Bld) [#/Vol] 0.2 10*3/uL Normal 0.0-0.45 [facility] Comment on above: Performed By: #### C BC, HEPATIC, BMP, LIPASE #### [address] Automated monocyte %Ordered By: Shanel Steele on 01-06-2024 Monocytes/100 WBC (Bld) 8.0 % Normal . [facility] Comment on above: Performed By: #### C BC, HEPATIC, BMP, LIPASE #### [address] Automated neutrophil %Ordere d By: Shanel Steele on 01-06-2024 Neutrophils/100 WBC (Bld) 71.5 % Normal . [facility] Comment on above: Performed By: #### C BC, HEPATIC, BMP, LIPASE #### [address] BNP ser/plasOrdered By: Nicanor Steele on 01-06-2024 Natriuretic peptide B (Bld) [Mass/Vol] 374.0 pg/mL High 5-100 [facility] Comment on above: Result Comment: PERF ORMED BY: [address] [place] [address] PATHOLOGIST [employer] CHING PAREDES M.D. Performed By: #### U A #### [address] Basic Metabolic Panelon 12-14 Creatinine Clr Calc Pharmacy 52.49 Normal [facility] Comment on above: Performed By: #### C BC, HEPATIC, BMP, LIPASE #### [address] GFR/1.73 sq M.predicted MDRD (S/P/Bld) [Vol rate/Area] 41.142 mL/min/{1.73_m2} Normal [facility] Comment on above: Performed By: #### C BC, HEPATIC, BMP, LIPASE #### [address] Bilirubin Test strip Ql (U)O rdered By: Shanel Steele on 01-06-2024 Bilirubin Ql (U) Negative Negative [facility] Bilirubin.direct [Mass/volum e] in Serum or PlasmaOrdered By: Shanel Steele on 01-06-2024 Bilirubin.direct [Mass/Vol] 0.20 mg/dL High 0.03-0.18 [facility] Bilirubin.total [Mass/volume ] in Serum or PlasmaOrdered By: Shanel Steele on 01-06-2024 Bilirubin [Mass/Vol] 1.1 mg/dL High 0.3-1.0 [facility] Comment on above: Performed By: #### C BC, HEPATIC, BMP, LIPASE #### [address] Calcium [Mass/volume] in Ser um or PlasmaOrdered By: Shanel Steele on 01-06-2024 Calcium [Mass/Vol] 9.0 mg/dL Normal 8.6-10.3 [facility] Comment on above: Performed By: #### C BC, HEPATIC, BMP, LIPASE #### [address] Carbon dioxide, total [Moles /volume] in Serum or PlasmaOrdered By: Shanel Steele on 01-06-2024 CO2 [Moles/Vol] 35.6 mmol/L High 21.0-31.0 [facility] Comment on above: Performed By: #### C BC, HEPATIC, BMP, LIPASE #### [address] Chloride [Moles/volume] in S avis or PlasmaOrdered By: Shanel Steele on 01-06-2024 Chloride [Moles/Vol] 95 mmol/L Low 98-107 [facility] Comment on above: Performed By: #### C BC, HEPATIC, BMP, LIPASE #### [address] Color of Urine by AutoOrdere d By: Shanel Steele on 01-06-2024 Color (U) Yellow Normal Yellow [facility] Comment on above: Order Comment: Name Collection Type:: Clean-Voided Midstream Performed By: #### U A #### [address] Complete Blood Count Auto Di ffon 01-06-2024 Mean Corpuscular HGB Conc 33.9 g/dL Normal 32.5-35.6 [facility] Comment on above: Performed By: #### C BC, HEPATIC, BMP, LIPASE #### [place] [address] [place] Monocytes/100 WBC (Bld) 18.32 % Normal 0.00-20.00 [facility] Comment on above: Performed By: #### C BC, HEPATIC, BMP, LIPASE #### [address] NRBC% 0.2 /100{WBC} Normal 0-0.5 [facility] Comment on above: Performed By: #### C BC, HEPATIC, BMP, LIPASE #### [address] Creatinine [Mass/volume] in Serum or PlasmaOrdered By: Shanel Steele on 01-06-2024 Creatinine [Mass/Vol] 1.91 mg/dL High 0.70-1.30 [facility] Comment on above: Performed By: #### C BC, HEPATIC, BMP, LIPASE #### [facility] [address] ECG 12 lead ECGon 01-06-2024 ECG 12 lead ECG [facility] [address] [place] [address] [place] [address] Electrocardiograph Report Signed Patient: Rehan Graves MR#: [id number] : 1970 Acct:[id number] Age/Sex: 53 / M ADM Date: 01/06/24 Loc: ER Room: Type: [facility] ER Attending Dr: Ordering Provider: Shanel Steele DO Date of Service: 01/06/24 ECG/ECG 12 lead ECG: Abdominal Pain Copies to: Test Reason : Blood Pressure : / mmHG Vent. Rate : 068 BPM Atrial Rate : 068 BPM P-R Int : 180 ms QRS Dur : 130 ms QT Int : 484 ms P-R-T Axes : 059 100 030 degrees QTc Int : 514 ms Normal sinus rhythm Rightward axis Nonspecific intraventricular block Abnormal ECG When compared with ECG of 29-SEP-2023 09:42, premature atrial complexes are no longer present QRS duration has increased Confirmed by SHANEL STEELE DO ([id number]) on 01/06/2024 7:20:32 PM Referred By: Electronically Signed By:SHANEL STEELE DO Transcribed By: MUS Signed By Shanel Steele DO 1919 Normal [facility] Erythrocyte distribution wid th [Ratio] by Automated countOrdered By: Shanel Steele on 01-06-2024 Erythrocyte distribution width (RBC) [Ratio] 15.3 % High 12.0-14.8 [facility] Comment on above: Performed By: #### C BC, HEPATIC, BMP, LIPASE #### [facility] [address] Erythrocytes [#/volume] in B lood by Automated countOrdered By: Shanel Steele on 01-06-2024 RBC (Bld) [#/Vol] 4.19 10*6/uL Normal 3.90-5.60 [facility] Comment on above: Performed By: #### C BC, HEPATIC, BMP, LIPASE #### [facility] [address] Glucose [Mass/volume] in Ser um or PlasmaOrdered By: Shanel Steele on 01-06-2024 Glucose [Mass/Vol] 99 mg/dL Normal 70-100 [facility] Comment on above: ADA recommended refe rence rangeRandom Glucose Reference Range is dependent on time and content of last meal. Glucose of more than 200 mg/dL in a nonstressed, ambulatory subject supports the diagnosis of Diabetes Mellitus. Result Comment: [place] Glucose Reference Range is dependent on time and content of last meal. Glucose of more than 200 mg/dL in a nonstressed, ambulatory subject supports the diagnosis of Diabetes Mellitus. ADA recommended reference range Performed By: #### C BC, HEPATIC, BMP, LIPASE #### [facility] [address] Hematocrit [Volume Fraction] of Blood by Automated countOrdered By: Shanel Steele on 01-06-2024 Hematocrit (Bld) [Volume fraction] 38.4 % Low 38.8-50.0 [facility] Comment on above: Performed By: #### C BC, HEPATIC, BMP, LIPASE #### [facility] [address] Hemoglobin [Mass/volume] in BloodOrdered By: Shanel Steele on 01-06-2024 Hemoglobin (Bld) [Mass/Vol] 13.0 g/dL Normal 13.0-17.0 [facility] Comment on above: Performed By: #### C BC, HEPATIC, BMP, LIPASE #### [facility] [address] Hepatic Panelon 01-06-2024 Albumin [Mass/Vol] 4.3 g/dL Normal 3.5-5.7 [facility] Comment on above: Performed By: #### C BC, HEPATIC, BMP, LIPASE #### [facility] [address] Bilirubin,Indirect 0.9 mg/dL Normal [facility] Comment on above: Performed By: #### C BC, HEPATIC, BMP, LIPASE #### [facility] [address] [place] [address] [place] Bilirubin.indirect [Mass/Vol] 0.20 mg/dL High 0.03-0.18 [facility] Comment on above: Performed By: #### C BC, HEPATIC, BMP, LIPASE #### [facility] [address] [place] [address] [place] INR in Platelet poor plasma by Coagulation assayOrdered By: Shanel Steele on 01-06-2024 INR Coag (PPP) [Relative time] 3.9 {INR} Normal [facility] Comment on above: INR Therapeutic Rang e A) Pre- and Peroperative OAT started two weeks before surgery. NOT HIP SURGERY: 1.5 - 2.5 HIP SURGERY: 2 - 3B) Primary and secondary prevention of venous THROMBOSIS: 2 - 3C) Active venous thrombosis, pulmonary embolismand prevention of recurrent venous thrombosis: 2 - 3D) Prevention of arterial thromboembolismincluding patients with mechanical heart valves: 3 - 4.5 Result Comment: INR Therapeutic Range A) Pre- and Peroperative OAT started two weeks before surgery. NOT HIP SURGERY: 1.5 - 2.5 HIP SURGERY: 2 - 3 B) Primary and secondary prevention of venous THROMBOSIS: 2 - 3 C) Active venous thrombosis, pulmonary embolism and prevention of recurrent venous thrombosis: 2 - 3 D) Prevention of arterial thromboembolism including patients with mechanical heart valves: 3 - 4.5 Performed By: #### C BC, HEPATIC, BMP, LIPASE #### [facility] [address] Ketones Auto test strip (U) [Mass/Vol]Ordered By: Shanel Steele on 01-06-2024 Ketones (U) [Mass/Vol] Negative Negative [facility] Leukocytes [#/volume] correc shayy for nucleated erythrocytes in Blood by Automated counOrdered By: Shanel Steele on 01-06-2024 WBC corrected for nucl RBC Auto (Bld) [#/Vol] 10.5 10*3/uL 4.1-10.5 [facility] Leukocytes [#/volume] in Blo od by Automated countOrdered By: Shanel Steele on 01-06-2024 WBC (Bld) [#/Vol] 10.5 10*3/uL Normal 4.1-10.5 [facility] Comment on above: Performed By: #### C BC, HEPATIC, BMP, LIPASE #### [address] Lipase [Enzymatic activity/v olume] in Serum or PlasmaOrdered By: Shanel Steele on 01-06-2024 Lipase [Catalytic activity/Vol] 9.0 U/L Low 11.0-82.0 [facility] Comment on above: Result Comment: PERF ORMED BY: [place] [address] PATHOLOGIST [employer] CHING PAREDES M.D. Performed By: #### C BC, HEPATIC, BMP, LIPASE #### [address] Lymphocytes [#/volume] in Bl ood by Automated countOrdered By: Shanel Steele on 01-06-2024 Lymphocytes (Bld) [#/Vol] 1.8 10*3/uL Normal 1.00-4.8 [facility] Comment on above: Performed By: #### C BC, HEPATIC, BMP, LIPASE #### [address] Lymphocytes/100 leukocytes i n Blood by Automated countOrdered By: Shanel Steele on 01-06-2024 Lymphocytes/100 WBC (Bld) 17.4 % Normal . [facility] Comment on above: Performed By: #### C BC, HEPATIC, BMP, LIPASE #### [address] MCH [Entitic mass] by Automa shayy countOrdered By: Shanel Steele on 01-06-2024 MCH (RBC) [Entitic mass] 31.1 pg Normal 27.5-35.2 [facility] Comment on above: Performed By: #### C BC, HEPATIC, BMP, LIPASE #### [address] MCHC Auto (RBC) [Mass/Vol]Or dered By: Shanel Steele on 01-06-2024 MCHC (RBC) [Mass/Vol] 33.9 g/dL 32.5-35.6 [facility] MCV [Entitic volume] by Auto mated countOrdered By: Shanel Steele on 01-06-2024 MCV (RBC) [Entitic vol] 91.8 fL Normal 83.5-101 [facility] Comment on above: Performed By: #### C BC, HEPATIC, BMP, LIPASE #### [facility] [address] Monocyte distribution width [Entitic volume] in Blood by AutomatedOrdered By: Shanel Steele on 01-06-2024 Monocyte distribution width Auto (Bld) [Entitic vol] 18.32 % 0.00-20.00 [facility] Neutrophils [#/volume] in Bl ood by Automated countOrdered By: Shanel Steele on 01-06-2024 Neutrophils (Bld) [#/Vol] 7.5 10*3/uL Normal 1.8-7.7 [facility] Comment on above: Performed By: #### C BC, HEPATIC, BMP, LIPASE #### [facility] [address] Nitrite Test strip Ql (U)Ord ered By: Shanel Steele on 01-06-2024 Nitrite Ql (U) Negative Negative [facility] No Panel InformationOrdered By: Shanel Steele on 01-06-2024 Estimated GFR (CKD-EPI) 41.142 mL/Min [facility] Creatinine Clearance (Chem 52.49 [facility] Nucleated erythrocytes [Pres ence] in Blood by Automated countOrdered By: Shanel Steele on 01-06-2024 Nucleated RBC Auto Ql (Bld) 0.2 /100{WBC} 0-0.5 [facility] Partial Thromboplastin Timeo n 01-06-2024 aPTT Coag (Bld) [Time] 37.1 s High 25.1-36.5 [facility] Comment on above: Result Comment: A he matocrit value greater than 55% may lead to inaccurate results in coagulation testing. Patients having hematocrit values >55% require a special collection tube for coagulation studies. Please contact the laboratory at [phone] for redraw instructions. PERFORMED BY: [place] [address] PATHOLOGIST [employer] CHING PAREDES M.D. Performed By: #### C BC, HEPATIC, BMP, LIPASE #### [address] Platelet mean volume [Entiti c volume] in Blood by Automated countOrdered By: Shanel Steele on 01-06-2024 Platelet mean volume (Bld) [Entitic vol] 8.3 fL Normal 6.6-10.1 [facility] Comment on above: Performed By: #### C BC, HEPATIC, BMP, LIPASE #### [address] Platelets [#/volume] in Bloo d by Automated countOrdered By: Shanel Steele on 01-06-2024 Platelets (Bld) [#/Vol] 196 10*3/uL Normal 150-450 [facility] Comment on above: Performed By: #### C BC, HEPATIC, BMP, LIPASE #### [address] Potassium [Moles/volume] in Serum or PlasmaOrdered By: Shanel Steele on 01-06-2024 Potassium [Moles/Vol] 3.7 mmol/L Normal 3.5-5.1 [facility] Comment on above: Performed By: #### C BC, HEPATIC, BMP, LIPASE #### [address] Protein Auto test strip (U) [Mass/Vol]Ordered By: Shanel Steele on 01-06-2024 Protein (U) [Mass/Vol] Negative Negative [facility] Protein [Mass/volume] in Ser um or PlasmaOrdered By: Shanel Steele on 01-06-2024 Protein [Mass/Vol] 7.3 g/dL Normal 6.4-8.9 [facility] Comment on above: Performed By: #### C BC, HEPATIC, BMP, LIPASE #### [address] Prothrombin time (PT)Ordered By: Shanel Steele on 01-06-2024 PT Coag (PPP) [Time] 42.3 s High 9.0-12.9 [facility] Comment on above: A hematocrit value g reater than 55% may lead to inaccurate results in coagulation testing. Patients having hematocrit values >55% require a special collection tube for coagulation studies. Please contact the laboratory at [phone] for redraw instructions. Result Comment: A he matocrit value greater than 55% may lead to inaccurate results in coagulation testing. Patients having hematocrit values >55% require a special collection tube for coagulation studies. Please contact the laboratory at [phone] for redraw instructions. Performed By: #### C BC, HEPATIC, BMP, LIPASE #### [address] Serum globulin measurement b y calculation (mass/volume)Ordered By: Shanel Steele on 01-06-2024 Globulin (S) [Mass/Vol] 3.0 g/dL [facility] Comment on above: Performed By: #### C BC, HEPATIC, BMP, LIPASE #### [address] Serum or plasma albumin/glob ulin mass ratioOrdered By: Shanel Steele on 01-06-2024 Albumin/Globulin [Mass ratio] 1.4 {ratio} [facility] Comment on above: Performed By: #### C BC, HEPATIC, BMP, LIPASE #### [address] Serum or plasma anion gap de terminationOrdered By: Shanel Steele on 01-06-2024 Anion gap [Moles/Vol] 10.1 mmol/L Normal 6.0-15.[address] [facility] Comment on above: Performed By: #### C BC, HEPATIC, BMP, LIPASE #### [address] Serum or plasma non-glucuron idated bilirubin measurement (mass/volume)Ordered By: Shanel Steele on 01-06-2024 Bilirubin.indirect [Mass/Vol] 0.9 mg/dL [facility] Sodium [Moles/volume] in Ser um or PlasmaOrdered By: Shanel Steele on 01-06-2024 Sodium [Moles/Vol] 137 mmol/L Normal 136-145 [facility] Comment on above: Performed By: #### C BC, HEPATIC, BMP, LIPASE #### [facility] [address] Specific gravity Auto test s trip (U) [Rel density]Ordered By: Shanel Steele on 01-06-2024 Specific gravity (U) [Rel density] 1.007 1.001-1.030 [facility] Troponin I High Sensitivityo n 01-06-2024 Troponin I High Sensitivity 6.6 pg/mL Normal 0.0-20.0 [facility] Comment on above: Result Comment: PERF ORMED BY: [address] [place] [address] PATHOLOGIST [employer] CHING PAREDES M.D. Performed By: #### C BC, HEPATIC, BMP, LIPASE #### [facility] [address] [place] [address] Troponin I.cardiac [Mass/vol ume] in Serum or Plasma by Detection limit <= 0.01 ng/Ordered By: Shanel Steele on 01-06-2024 Troponin I.cardiac DL <= 0.01 ng/mL [Mass/Vol] 6.6 pg/mL 0.0-20.0 [facility] US gall bladderon 01-06-2024 US gall bladder [facility] [place] [address] Ultrasound Report Signed Patient: Rehan Graves MR#: [id number] : 1970 Acct:[id number] Age/Sex: 53 / M ADM Date: 01/06/24 Loc: ER Room: Type: [facility] ER Attending Dr: Ordering Provider: Shanel Steele DO Date of Service: 01/06/24 US/US gall bladder: ruq pain Copies to: Shanel M Tupa, DO LIMITED ABDOMINAL ULTRASOUND: CLINICAL HISTORY: Right upper quadrant pain, shortness of breath. COMPARISON: None TECHNIQUE: Grayscale and color Doppler images of the right upper quadrant organs were obtained. FINDINGS: Pancreas: Visualized portions appear unremarkable. Liver: No focal mass or intrahepatic bile duct dilatation. Hepatopedal flow is seen within the portal vein. Gallbladder: Visualized portions are normal. CBD: 2.1 mm US/US gall bladder IMPRESSION: NO ACUTE PROCESS. . Impression dictated by: Sam Ling Jr., D.OMychal01/06/2024 6:44 PM Dictation Location: [place] [address] Tech: Elisabet Shaikh Transcribed By: [facility] 01/06/241843 Dictated By: Sam Ling Jr, DO 01/06/241841 Signed By: 01/06/241843 Normal [facility] Urea nitrogen [Mass/volume] in Serum or PlasmaOrdered By: Shanel Steele on 01-06-2024 Urea nitrogen [Mass/Vol] 38 mg/dL High 7-25 [facility] Comment on above: Performed By: #### C BC, HEPATIC, BMP, LIPASE #### [place] [address] [place] Urinalysison 01-06-2024 Appearance (U) Clear Normal Clear [facility] Comment on above: Order Comment: Name Collection Type:: Clean-Voided Midstream Performed By: #### U A #### [place] [id number] [place] Bilirubin,Urine Negative Normal Negative [facility] Comment on above: Order Comment: Name Collection Type:: Clean-Voided Midstream Performed By: #### U A #### [place] [id number] [place] Glucose Ql (U) Normal Normal Normal [facility] Comment on above: Order Comment: Name Collection Type:: Clean-Voided Midstream Performed By: #### U A #### [place] [id number] [place] Ketones Ql (U) Negative Normal Negative [facility] Comment on above: Order Comment: Name Collection Type:: Clean-Voided Midstream Performed By: #### U A #### [address] Leukocyte esterase Test strip Ql (U) Negative Normal Negative [facility] Comment on above: Order Comment: Name Collection Type:: Clean-Voided Midstream Performed By: #### U A #### [address] Nitrite,Urine Negative Normal Negative [facility] Comment on above: Order Comment: Name Collection Type:: Clean-Voided Midstream Performed By: #### U A #### [address] Occult Blood,Urine Negative Normal Negative [facility] Comment on above: Order Comment: Name Collection Type:: Clean-Voided Midstream Result Comment: PERF ORMED BY: [place] [address] PATHOLOGIST [employer] CHING PAREDES M.D. Performed By: #### U A #### [address] Protein,Urine Negative Normal Negative [facility] Comment on above: Order Comment: Name Collection Type:: Clean-Voided Midstream Performed By: #### U A #### [address] Specificy Bowlus,Urine 1.007 Normal 1.001-1.030 [facility] Comment on above: Order Comment: Name Collection Type:: Clean-Voided Midstream Performed By: #### U A #### [address] Urobilinogen,Urine Normal Normal Normal [facility] Comment on above: Order Comment: Name Collection Type:: Clean-Voided Midstream Performed By: #### U A #### [address] Urine clarity by refractomet ry automatedOrdered By: Shanel Steele on 01-06-2024 Clarity Refractometry automated (U) Clear Clear [facility] Urine glucose measurement by automated test strip (mass/volume)Ordered By: Shanel Steele on 01-06-2024 Glucose Auto test strip (U) [Mass/Vol] Normal mg/dL Normal [facility] Urine hemoglobin detection b y automated test stripOrdered By: Shanel Steele on 01-06-2024 Hemoglobin Auto test strip Ql (U) Negative Negative [facility] Urine leukocyte esterase det ection by automated test stripOrdered By: Shanel Steele on 01-06-2024 Leukocyte esterase Auto test strip Ql (U) Negative Negative [facility] Urine pH measurement by auto mated test stripOrdered By: Shanel Steele on 01-06-2024 pH (U) 6.0 [pH] Normal 5.0-9.0 [facility] Comment on above: Order Comment: Name Collection Type:: Clean-Voided Midstream Performed By: #### U A #### [address] Urobilinogen Auto test strip (U) [Mass/Vol]Ordered By: Shanel Steele on 01-06-2024 Urobilinogen (U) [Mass/Vol] Normal mg/dL Normal [facility] Basic Metabolic Panelon 10-13 GFR/1.73 sq M.predicted MDRD (S/P/Bld) [Vol rate/Area] mL/min/{1.73_m2} Normal [facility] Comment on above: Performed By: #### B MP #### [address] Calcium [Mass/volume] in Ser um or PlasmaOrdered By: Ovidio Licona on 10-31-2023 Calcium [Mass/Vol] 9.2 mg/dL Normal 8.6-10.3 [facility] Comment on above: Result Comment: PERF ORMED BY: [place] [address] PATHOLOGIST [employer] CHING PAREDES M.D. Performed By: #### B MP #### [address] Carbon dioxide, total [Moles /volume] in Serum or PlasmaOrdered By: Ovidio Licona on 10-31-2023 CO2 [Moles/Vol] 37.0 mmol/L High 21.0-31.0 [facility] Comment on above: Performed By: #### B MP #### [facility] [address] [place] [address] [place] Chloride [Moles/volume] in S avis or PlasmaOrdered By: Ovidio Licona on 10-31-2023 Chloride [Moles/Vol] 99 mmol/L Normal 98-107 [facility] Comment on above: Performed By: #### B MP #### [facility] [address] Creatinine [Mass/volume] in Serum or PlasmaOrdered By: Ovidio Licona on 10-31-2023 Creatinine [Mass/Vol] 1.33 mg/dL High 0.70-1.30 [facility] Comment on above: Performed By: #### B MP #### [facility] [address] [place] [address] [place] Glucose [Mass/volume] in Ser um or PlasmaOrdered By: Ovidio Licona on 10-31-2023 Glucose [Mass/Vol] 86 mg/dL Normal 70-100 [facility] Comment on above: ADA recommended refe rence rangeRandom Glucose Reference Range is dependent on time and content of last meal. Glucose of more than 200 mg/dL in a nonstressed, ambulatory subject supports the diagnosis of Diabetes Mellitus. Result Comment: [place] Glucose Reference Range is dependent on time and content of last meal. Glucose of more than 200 mg/dL in a nonstressed, ambulatory subject supports the diagnosis of Diabetes Mellitus. ADA recommended reference range Performed By: #### B MP #### [facility] [address] No Panel InformationOrdered By: Ovidio Licona on 10-31-2023 Estimated GFR (CKD-EPI) > 60.0 mL/Min [facility] Creatinine Clearance (Chem N/A [facility] Potassium [Moles/volume] in Serum or PlasmaOrdered By: Ovidio Licona on 10-31-2023 Potassium [Moles/Vol] 3.9 mmol/L Normal 3.5-5.1 [facility] Comment on above: Performed By: #### B MP #### [address] Serum or plasma anion gap de terminationOrdered By: Ovidio Licona on 10-31-2023 Anion gap [Moles/Vol] 7.9 mmol/L Normal 6.0-15.0 [facility] Comment on above: Performed By: #### B MP #### [address] Sodium [Moles/volume] in Ser um or PlasmaOrdered By: Ovidio Licona on 10-31-2023 Sodium [Moles/Vol] 140 mmol/L Normal 136-145 [facility] Comment on above: Performed By: #### B MP #### [address] Urea nitrogen [Mass/volume] in Serum or PlasmaOrdered By: Ovidio Licona on 10-31-2023 Urea nitrogen [Mass/Vol] 25 mg/dL Normal 7-25 [facility] Comment on above: Performed By: #### B MP #### [address] Alanine aminotransferase [En zymatic activity/volume] in Serum or PlasmaOrdered By: Ovidio Licona on 10-14-2023 ALT [Catalytic activity/Vol] 46 U/L Normal 7-52 [facility] Comment on above: Performed By: #### U A #### [address] Aspartate aminotransferase [ Enzymatic activity/volume] in Serum or PlasmaOrdered By: Ovidio Licona on 10-14-2023 AST [Catalytic activity/Vol] 28 U/L Normal 13-39 [facility] Comment on above: Performed By: #### U A #### [address] Basic Metabolic Panelon GFR/1.73 sq M.predicted MDRD (S/P/Bld) [Vol rate/Area] 34.914 mL/min/{1.73_m2} Normal [facility] Comment on above: Performed By: #### U A #### [facility] [address] [place] [address] [place] Calcium [Mass/volume] in Ser um or PlasmaOrdered By: Ovidio Licona on 10-14-2023 Calcium [Mass/Vol] 9.0 mg/dL Normal 8.6-10.3 [facility] Comment on above: Performed By: #### U A #### [place] [address] [place] Carbon dioxide, total [Moles /volume] in Serum or PlasmaOrdered By: Ovidio Licona on 10-14-2023 CO2 [Moles/Vol] 32.6 mmol/L High 21.0-31.0 [facility] Comment on above: Performed By: #### U A #### [facility] [address] [place] [address] [place] Chloride [Moles/volume] in S avis or PlasmaOrdered By: Ovidio Licona on 10-14-2023 Chloride [Moles/Vol] 98 mmol/L Normal 98-107 [facility] Comment on above: Performed By: #### U A #### [place] [address] [place] Creatinine [Mass/volume] in Serum or PlasmaOrdered By: Ovidio Licona on 10-14-2023 Creatinine [Mass/Vol] 2.19 mg/dL High 0.70-1.30 [facility] Comment on above: Performed By: #### U A #### [place] [address] [place] Glucose [Mass/volume] in Ser um or PlasmaOrdered By: Ovidio Licona on 10-14-2023 Glucose [Mass/Vol] 91 mg/dL Normal 70-100 [facility] Comment on above: ADA recommended refe rence rangeRandom Glucose Reference Range is dependent on time and content of last meal. Glucose of more than 200 mg/dL in a nonstressed, ambulatory subject supports the diagnosis of Diabetes Mellitus. Result Comment: [place] om Glucose Reference Range is dependent on time and content of last meal. Glucose of more than 200 mg/dL in a nonstressed, ambulatory subject supports the diagnosis of Diabetes Mellitus. ADA recommended reference range Performed By: #### U A #### [address] No Panel InformationOrdered By: Ovidio Licona on 10-14-2023 Estimated GFR (CKD-EPI) 34.914 mL/Min [facility] Creatinine Clearance (Chem N/A [facility] Potassium [Moles/volume] in Serum or PlasmaOrdered By: Ovidio Licona on 10-14-2023 Potassium [Moles/Vol] 5.2 mmol/L High 3.5-5.1 [facility] Comment on above: Performed By: #### U A #### [address] Serum or plasma anion gap de terminationOrdered By: Ovidio Licona on 10-14-2023 Anion gap [Moles/Vol] 9.6 mmol/L Normal 6.0-15.0 [facility] Comment on above: Performed By: #### U A #### [address] Sodium [Moles/volume] in Ser um or PlasmaOrdered By: Ovidio Licona on 10-14-2023 Sodium [Moles/Vol] 135 mmol/L Low 136-145 [facility] Comment on above: Performed By: #### U A #### [address] Thyrotropin [Units/volume] i n Serum or PlasmaOrdered By: Ovidio Licona on 10-14-2023 TSH Qn 4.69 m[IU]/L Normal 0.45-5.33 [facility] Comment on above: Result Comment: PERF ORMED BY: [place] [address] PATHOLOGIST [employer] CHING PAREDES M.D. Performed By: #### U A #### [place] [id number] [place] Urea nitrogen [Mass/volume] in Serum or PlasmaOrdered By: Ovidio Licona on 10-14-2023 Urea nitrogen [Mass/Vol] 58 mg/dL High 7 [facility] Comment on above: Performed By: #### U A #### [address] XR chest 2V*on 10-14-2023 XR chest 2V* [facility] [place] [address] [place] [address] XRay Report Signed Patient: Rehan Graves MR#: [id number] : 1970 Acct:[id number] Age/Sex: 53 / M ADM Date: 10/14/23 Loc: RT Room: Type: [facility] Attending Dr: Ovidio Licona MD Copies to: Ovidio Licona MD, [facility] Ordering Provider: Ovidio Licona MD, [facility] Date of Service: 10/14/23 XR/XR chest 2V*: Z79.899 Plain film chest 2 view HISTORY: Routine checkup for long-term medication usage COMPARISON: 09/22/23 FINDINGS: SUPPORT DEVICES: None POSTSURGICAL CHANGES: Aortic valve replacement. Sternal wires. RIGHT surgical clips. HEART: Within normal limits PULMONARY IAN: Within normal limits MEDIASTINUM: Unremarkable LUNGS AND PLEURA: No acute lung process, pleural effusion or pneumothorax identified. BONY STRUCTURES: Thoracic spondylosis ADDITIONAL FINDINGS None XR/XR chest 2V* IMPRESSION: No acute process. Impression dictated by: Jarred Anguiano M.D.10/14/2023 4:17 PM Dictation Location: [place] [address] Transcribed By: [facility] 10/14/23 1617 Dictated By: Jarred Anguiano DO 10/14/23 161 Signed By: 10/14/23 1617 Normal [facility] Basic Metabolic Panelon 09-15 GFR/1.73 sq M.predicted MDRD (S/P/Bld) [Vol rate/Area] 46.982 mL/min/{1.73_m2} Normal [facility] Comment on above: Performed By: #### B MP #### [facility] [address] Calcium [Mass/volume] in Ser um or PlasmaOrdered By: Ovidio Licona on 10-03-2023 Calcium [Mass/Vol] 9.0 mg/dL Normal 8.6-10.3 [facility] Comment on above: Result Comment: PERF ORMED BY: [place] [address] PATHOLOGIST [employer] CHING PAREDES M.D. Performed By: #### B MP #### [address] Carbon dioxide, total [Moles /volume] in Serum or PlasmaOrdered By: Ovidio Licona on 10-03-2023 CO2 [Moles/Vol] 38.4 mmol/L High 21.0-31.0 [facility] Comment on above: Performed By: #### B MP #### [address] Chloride [Moles/volume] in S avis or PlasmaOrdered By: Ovidio Licona on 10-03-2023 Chloride [Moles/Vol] 95 mmol/L Low 98-107 [facility] Comment on above: Performed By: #### B MP #### [address] Creatinine [Mass/volume] in Serum or PlasmaOrdered By: Ovidio Licona on 10-03-2023 Creatinine [Mass/Vol] 1.71 mg/dL High 0.70-1.30 [facility] Comment on above: Performed By: #### B MP #### [address] ECG 12 Leadon 10-03-2023 ECG revealed normal sinus rhythm with right bundle branch block [facility] Work Phone: [facility] Work Phone: Glucose [Mass/volume] in Ser um or PlasmaOrdered By: Ovidio Licona on 10-03-2023 Glucose [Mass/Vol] 109 mg/dL High 70-100 [facility] Comment on above: ADA recommended refe rence rangeRandom Glucose Reference Range is dependent on time and content of last meal. Glucose of more than 200 mg/dL in a nonstressed, ambulatory subject supports the diagnosis of Diabetes Mellitus. Result Comment: [place] om Glucose Reference Range is dependent on time and content of last meal. Glucose of more than 200 mg/dL in a nonstressed, ambulatory subject supports the diagnosis of Diabetes Mellitus. ADA recommended reference range Performed By: #### B MP #### [facility] [address] [place] [address] INR in Platelet poor plasma by Coagulation assayOrdered By: Ovidio Licona on 10-03-2023 INR Coag (PPP) [Relative time] 2.0 {INR} Normal [facility] Comment on above: INR Therapeutic Rang e A) Pre- and Peroperative OAT started two weeks before surgery. NOT HIP SURGERY: 1.5 - 2.5 HIP SURGERY: 2 - 3B) Primary and secondary prevention of venous THROMBOSIS: 2 - 3C) Active venous thrombosis, pulmonary embolismand prevention of recurrent venous thrombosis: 2 - 3D) Prevention of arterial thromboembolismincluding patients with mechanical heart valves: 3 - 4.5 Order Comment: List the anticoagulant: COUMADIN/WARFARIN Result Comment: INR Therapeutic Range A) Pre- and Peroperative OAT started two weeks before surgery. NOT HIP SURGERY: 1.5 - 2.5 HIP SURGERY: 2 - 3 B) Primary and secondary prevention of venous THROMBOSIS: 2 - 3 C) Active venous thrombosis, pulmonary embolism and prevention of recurrent venous thrombosis: 2 - 3 D) Prevention of arterial thromboembolism including patients with mechanical heart valves: 3 - 4.5 PERFORMED BY: [place] [address] PATHOLOGIST [employer] CHING PAREDES M.D. Performed By: #### B MP #### [facility] [address] [place] [address] No Panel InformationOrdered By: Ovidio Licona on 10-03-2023 Estimated GFR (CKD-EPI) 46.982 mL/Min [facility] Creatinine Clearance (Chem N/A [facility] Potassium [Moles/volume] in Serum or PlasmaOrdered By: Ovidio Licona on 10-03-2023 Potassium [Moles/Vol] 4.9 mmol/L Normal 3.5-5.1 [facility] Comment on above: Performed By: #### B MP #### [address] Prothrombin time (PT)Ordered By: Ovidio Licona on 10-03-2023 PT Coag (PPP) [Time] 23.1 s High 9.0-12.9 [facility] Comment on above: A hematocrit value g reater than 55% may lead to inaccurate results in coagulation testing. Patients having hematocrit values >55% require a special collection tube for coagulation studies. Please contact the laboratory at [phone] for redraw instructions. Order Comment: List the anticoagulant: COUMADIN/WARFARIN Result Comment: A he matocrit value greater than 55% may lead to inaccurate results in coagulation testing. Patients having hematocrit values >55% require a special collection tube for coagulation studies. Please contact the laboratory at [phone] for redraw instructions. Performed By: #### B MP #### [address] Serum or plasma anion gap de terminationOrdered By: Ovidio Licona on 10-03-2023 Anion gap [Moles/Vol] 9.5 mmol/L Normal 6.0-15.0 [facility] Comment on above: Performed By: #### B MP #### [place] [address] [place] Sodium [Moles/volume] in Ser um or PlasmaOrdered By: Ovidio Licona on 10-03-2023 Sodium [Moles/Vol] 138 mmol/L Normal 136-145 [facility] Comment on above: Performed By: #### B MP #### [place] [address] [place] Urea nitrogen [Mass/volume] in Serum or PlasmaOrdered By: Ovidio Licona on 10-03-2023 Urea nitrogen [Mass/Vol] 25 mg/dL Normal 7-25 [facility] Comment on above: Performed By: #### B MP #### [address] Carbon dioxide, total [Moles /volume] in Serum or PlasmaOrdered By: Ovidio Licona on 09-29-2023 CO2 [Moles/Vol] 34.3 mmol/L High 21.0-31.0 [facility] Comment on above: Performed By: #### L YTES #### [address] Chloride [Moles/volume] in S avis or PlasmaOrdered By: Ovidio Licona on 09-29-2023 Chloride [Moles/Vol] 99 mmol/L Normal 98-107 [facility] Comment on above: Performed By: #### L YTES #### [address] ECG 12 lead ECGon 09-29-2023 ECG 12 lead ECG [facility] [place] [address] Electrocardiograph Report Signed Patient: Rehan Graves MR#: [id number] : 1970 Acct:[id number] Age/Sex: 53 / M ADM Date: 09/29/23 Loc: Room: Type: [facility] Attending Dr: Ovidio Licona MD Ordering Provider: Ovidio Licona MD, [facility] Date of Service: 09/29/23 ECG/ECG 12 lead ECG: Pre-cardioversion rhythm assessment Copies to: Test Reason : Blood Pressure : / mmHG Vent. Rate : 109 BPM Atrial Rate : 109 BPM P-R Int : 198 ms QRS Dur : 122 ms QT Int : 348 ms P-R-T Axes : 110 074 050 degrees QTc Int : 468 ms Sinus tachycardia Indeterminate axis Right bundle branch block Abnormal ECG When compared with ECG of 02-FEB-2010 15:25, Right bundle branch block has replaced Incomplete right bundle branch block Confirmed by Frank Saba ([id number]) on 09/30/2023 6:31:19 PM Referred By: Ovidio Licona Electronically Signed By:Frank Saba Transcribed By: MAGDA Signed By Frank Saba MD 09/30/23 1831 Normal [facility] ECG post procedureon 024 ECG post procedure [facility] [place] [address] Electrocardiograph Report Signed Patient: Rehan Graves MR#: [id number] : 1970 Acct:[id number] Age/Sex: 53 / M ADM Date: 09/29/23 Loc: Room: Type: [facility] Attending Dr: Ovidio Licona MD Ordering Provider: Ovidio Licona MD, [facility] Date of Service: 09/29/23/ ECG/ECG post procedure: cv Copies to: Test Reason : Blood Pressure : 155/084 mmHG Vent. Rate : 081 BPM Atrial Rate : 081 BPM P-R Int : 200 ms QRS Dur : 106 ms QT Int : 410 ms P-R-T Axes : 066 073 057 degrees QTc Int : 476 ms Sinus rhythm with premature atrial complexes Incomplete right bundle branch block Borderline ECG When compared with ECG of 29-SEP-2023 07:55, (Unconfirmed) premature atrial complexes are now present Confirmed by Frank Saba ([id number]) on 09/30/2023 6:31:48 PM Referred By: Ovidio Licona Electronically Signed By:Frank Saba Transcribed By: MAGDA Signed By Frank Saba MD 09/30/23 1831 Normal [facility] INR in Platelet poor plasma by Coagulation assayOrdered By: Rod Benitez on 09-29-2023 INR Coag (PPP) [Relative time] 2.4 {INR} Normal [facility] Comment on above: INR Therapeutic Rang e A) Pre- and Peroperative OAT started two weeks before surgery. NOT HIP SURGERY: 1.5 - 2.5 HIP SURGERY: 2 - 3B) Primary and secondary prevention of venous THROMBOSIS: 2 - 3C) Active venous thrombosis, pulmonary embolismand prevention of recurrent venous thrombosis: 2 - 3D) Prevention of arterial thromboembolismincluding patients with mechanical heart valves: 3 - 4.5 Order Comment: REDRA W Result Comment: INR Therapeutic Range A) Pre- and Peroperative OAT started two weeks before surgery. NOT HIP SURGERY: 1.5 - 2.5 HIP SURGERY: 2 - 3 B) Primary and secondary prevention of venous THROMBOSIS: 2 - 3 C) Active venous thrombosis, pulmonary embolism and prevention of recurrent venous thrombosis: 2 - 3 D) Prevention of arterial thromboembolism including patients with mechanical heart valves: 3 - 4.5 PERFORMED BY: [place] [address] PATHOLOGIST [employer] CHING PAREDES M.D. Performed By: #### P T #### [facility] [address] [place], [place] [id number] [facility] PT Coag (Bld) [Time]on 09-29 INR Coag (PPP) [Relative time] 2.4 {INR} [facility] Comment on above: INR Therapeutic Rang e A) Pre- and Peroperative OAT started two weeks before surgery. NOT HIP SURGERY: 1.5 - 2.5 HIP SURGERY: 2 - 3 B) Primary and secondary prevention of venous THROMBOSIS: 2 - 3 C) Active venous thrombosis, pulmonary embolism and prevention of recurrent venous thrombosis: 2 - 3 D) Prevention of arterial thromboembolism including patients with mechanical heart valves: 3 - 4.5 Interpretation and review of laboratory results Abnormal [facility] PT Coag (PPP) [Time] 26.6 s High 9.0 - 1 2.9 s [facility] Comment on above: A hematocrit value g reater than 55% may lead to inaccurate results in coagulation testing. Patients having hematocrit values >55% require a special collection tube for coagulation studies. Please contact the laboratory at [phone] for redraw instructions. REDRAW [facility] Potassium [Moles/volume] in Serum or PlasmaOrdered By: Ovidio Licona on 09-29-2023 Potassium [Moles/Vol] 4.7 mmol/L Normal 3.5-5.1 [facility] Comment on above: Performed By: #### L YTES #### [facility] [address] [place] [address] [place] Prothrombin time (PT)Ordered By: Rod Benitez on 09-29-2023 PT Coag (PPP) [Time] 26.6 s High 9.0-12.9 [facility] Comment on above: A hematocrit value g reater than 55% may lead to inaccurate results in coagulation testing. Patients having hematocrit values >55% require a special collection tube for coagulation studies. Please contact the laboratory at [phone] for redraw instructions. Order Comment: REDRA W Result Comment: A he matocrit value greater than 55% may lead to inaccurate results in coagulation testing. Patients having hematocrit values >55% require a special collection tube for coagulation studies. Please contact the laboratory at [phone] for redraw instructions. Performed By: #### P T #### [address] Serum or plasma anion gap de terminationOrdered By: Ovidio Licona on 09-29-2023 Anion gap [Moles/Vol] 10.4 mmol/L Normal 6.0-15.[address] [facility] Comment on above: Result Comment: PERF ORMED BY: [place] [address] PATHOLOGIST [employer] CHING PAREDES M.D. Performed By: #### L YTES #### [address] Sodium [Moles/volume] in Ser um or PlasmaOrdered By: Ovidio Licona on 09-29-2023 Sodium [Moles/Vol] 139 mmol/L Normal 136-145 [facility] Comment on above: Performed By: #### L YTES #### [place] [address] [place] INR in Platelet poor plasma by Coagulation assayOrdered By: Ovidio Licona on 09-26-2023 INR Coag (PPP) [Relative time] 2.1 {INR} Normal [facility] Comment on above: INR Therapeutic Rang e A) Pre- and Peroperative OAT started two weeks before surgery. NOT HIP SURGERY: 1.5 - 2.5 HIP SURGERY: 2 - 3B) Primary and secondary prevention of venous THROMBOSIS: 2 - 3C) Active venous thrombosis, pulmonary embolismand prevention of recurrent venous thrombosis: 2 - 3D) Prevention of arterial thromboembolismincluding patients with mechanical heart valves: 3 - 4.5 Order Comment: List the anticoagulant: COUMADIN/WARFARIN Result Comment: INR Therapeutic Range A) Pre- and Peroperative OAT started two weeks before surgery. NOT HIP SURGERY: 1.5 - 2.5 HIP SURGERY: 2 - 3 B) Primary and secondary prevention of venous THROMBOSIS: 2 - 3 C) Active venous thrombosis, pulmonary embolism and prevention of recurrent venous thrombosis: 2 - 3 D) Prevention of arterial thromboembolism including patients with mechanical heart valves: 3 - 4.5 PERFORMED BY: [place] [address] PATHOLOGIST [employer] CHING PAREDES M.D. Performed By: #### P T #### [address] Prothrombin time (PT)Ordered By: Ovidio Licona on 09-26-2023 PT Coag (PPP) [Time] 24.1 s High 9.0-12.9 [facility] Comment on above: A hematocrit value g reater than 55% may lead to inaccurate results in coagulation testing. Patients having hematocrit values >55% require a special collection tube for coagulation studies. Please contact the laboratory at [phone] for redraw instructions. Order Comment: List the anticoagulant: COUMADIN/WARFARIN Result Comment: A he matocrit value greater than 55% may lead to inaccurate results in coagulation testing. Patients having hematocrit values >55% require a special collection tube for coagulation studies. Please contact the laboratory at [phone] for redraw instructions. Performed By: #### P T #### [address] Automated basophil %Ordered By: Ovidio Licona on 09-22-2023 Basophils/100 WBC (Bld) 0.5 % Normal . [facility] Comment on above: Performed By: #### C BC, HEPATIC, BMP, LIPASE #### [address] Automated basophil countOrde red By: Ovidio Licona on 09-22-2023 Basophils (Bld) [#/Vol] 0.1 10*3/uL Normal 0.0-0.2 [facility] Comment on above: Result Comment: PERF ORMED BY: [place] [address] PATHOLOGIST [employer] CHING PAREDES M.D. Performed By: #### C BC, HEPATIC, BMP, LIPASE #### [address] Automated blood monocyte cou ntOrdered By: Ovidio Licona on 09-22-2023 Monocytes (Bld) [#/Vol] 1.0 10*3/uL High 0.0-0.8 [facility] Comment on above: Performed By: #### C BC, HEPATIC, BMP, LIPASE #### [address] Automated eosinophil %Ordere d By: Ovidio Licona on 09-22-2023 Eosinophils/100 WBC (Bld) 1.2 % Normal . [facility] Comment on above: Performed By: #### C BC, HEPATIC, BMP, LIPASE #### [address] Automated eosinophil countOr dered By: Ovidio Licona on 09-22-2023 Eosinophils (Bld) [#/Vol] 0.1 10*3/uL Normal 0.0-0.45 [facility] Comment on above: Performed By: #### C BC, HEPATIC, BMP, LIPASE #### [address] Automated monocyte %Ordered By: Ovidio Licona on 09-22-2023 Monocytes/100 WBC (Bld) 8.5 % Normal . [facility] Comment on above: Performed By: #### C BC, HEPATIC, BMP, LIPASE #### [address] Automated neutrophil %Ordere d By: Ovidio Licona on 09-22-2023 Neutrophils/100 WBC (Bld) 79.9 % Normal . [facility] Comment on above: Performed By: #### C BC, HEPATIC, BMP, LIPASE #### [address] Basic Metabolic Panelon GFR/1.73 sq M.predicted MDRD (S/P/Bld) [Vol rate/Area] mL/min/{1.73_m2} Normal [facility] Comment on above: Performed By: #### C BC, HEPATIC, BMP, LIPASE #### [address] Calcium [Mass/volume] in Ser um or PlasmaOrdered By: Ovidio Licona on 09-22-2023 Calcium [Mass/Vol] 7.9 mg/dL Low 8.6-10.3 [facility] Comment on above: Result Comment: PERF ORMED BY: [place] [address] PATHOLOGIST [employer] CHING PAREDES M.D. Performed By: #### C BC, HEPATIC, BMP, LIPASE #### [address] Carbon dioxide, total [Moles /volume] in Serum or PlasmaOrdered By: Ovidio Licona on 09-22-2023 CO2 [Moles/Vol] 29.1 mmol/L Normal 21.0-31.0 [facility] Comment on above: Performed By: #### C BC, HEPATIC, BMP, LIPASE #### [address] Chloride [Moles/volume] in S avis or PlasmaOrdered By: Ovidio Licona on 09-22-2023 Chloride [Moles/Vol] 107 mmol/L Normal 98-107 [facility] Comment on above: Performed By: #### C BC, HEPATIC, BMP, LIPASE #### [address] Complete Blood Count Auto Di ffon 09-22-2023 Mean Corpuscular HGB Conc 32.6 g/dL Normal 32.5-35.6 [facility] Comment on above: Performed By: #### C BC, HEPATIC, BMP, LIPASE #### [address] NRBC% 0.2 /100{WBC} Normal 0-0.5 [facility] Comment on above: Performed By: #### C BC, HEPATIC, BMP, LIPASE #### [facility] [address] Creatinine [Mass/volume] in Serum or PlasmaOrdered By: Ovidio Licona on 09-22-2023 Creatinine [Mass/Vol] 1.17 mg/dL Normal 0.70-1.30 [facility] Comment on above: Performed By: #### C BC, HEPATIC, BMP, LIPASE #### [facility] [address] echo transthoracicon [facility] echo transthoracic [facility] Main [place] [address] [place] [address] Echocardiogram Signed Patient: Rehan Graves MR#: [id number] : 1970 Acct:[id number] Age/Sex: 53 / M ADM Date: 09/22/23 Loc: Room: Type: [facility] Attending Dr: Ovidio Licona MD Ordering Provider: Ovidio Licona MD, [facility] Date of Service: 09/22/23/ ECH/ECH echo transthoracic: AFLUTTER,HISTORY OF AVR, HTN Copies to: Ovidio Licona MD, [facility] Liseth Carlson MD Weight: 240 lb Performed By: Holly Amos [facility] BSA: 2.2 m2 BP: 139/93 mmHg HR: 119 Reason For Study: AFLUTTER,HISTORY OF AVR, HTN History: AVR, HTN, former smoker asthma Interpretation Summary Mild concentric left ventricular hypertrophy. Difficult to assess LV systolic function. Patient was in atrial flutter with rapid ventricular rate throughout the study. LV systolic dysfunction appeared depressed and in the range of 35-40% The left atrium appears moderately dilated. The right atrium is moderately dilated. The right ventricular systolic function is moderately reduced. Mechanical aortic valve. Not well-seen due to requesting shadowing Normal prosthetic aortic valve gradient. There is mild mitral regurgitation. There is mild tricuspid regurgitation. Right ventricular systolic pressure is elevated at 40-50mmHg. Right ventricular systolic pressure is consistent with moderate pulmonary hypertension. Patient in atrial flutter with rapid ventricular rate throughout the study The aortic root has increase echogenicity and appears borderline dilated. 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 Procedure/Quality: A two-dimensional transthoracic echocardiogram with color flow, Doppler and injection of contrast agent Definity was performed. A two- dimensional transthoracic echocardiogram with color flow and Doppler was performed. The study was technically fair in quality. Left Ventricle: The left ventricular size is normal. Mild concentric left ventricular hypertrophy. Difficult to assess LV systolic function. Patient was in atrial flutter with rapid ventricular rate throughout the study. LV systolic dysfunction appeared depressed and in the range of 35-40%. Left Atrium: The left atrium appears moderately dilated. Right Atrium: The right atrium is moderately dilated. Right Ventricle: The right ventricle is normal size. The right ventricular systolic function is moderately reduced. Aortic Valve: Mechanical aortic valve. Not well-seen due to requesting shadowing. Normal prosthetic aortic valve gradient. No aortic regurgitation is present. Mitral Valve: The mitral valve is normal in structure and function. There is mild mitral regurgitation. Tricuspid Valve: The tricuspid valve is normal in structure and function. There is mild tricuspid regurgitation. Right ventricular systolic pressure is elevated at 40-50mmHg. Right ventricular systolic pressure is consistent with moderate pulmonary hypertension. Pulmonic Valve: The pulmonic valve is normal in structure and function. Arteries: The aortic root has increase echogenicity and appears borderline dilated. I suspect post aortic root repair. Pericardium/Pleura: No pericardial effusion seen. There is no pleural effusion. IVC/Hepatic Veins: The inferior vena cava is normal in size, with a normal collapsibility index. Miscellaneous: Patient in atrial flutter with rapid ventricular rate throughout the study. Measurements with Normals IVSd: 1.4 cm (0.7-1.1 cm)LVIDd: 5.3 cm (3.7-5.4 cm) LVPWd: 1.4 cm (0.7-1.1 cm)LVIDs: 4.3 cm (2.3-3.6 cm) LA dimension: 5.1 cm (2.3-4.0 cm)Ao root diam: 3.6 cm(2.0-3.6 cm) asc Aorta Diam: 3.7 cm(2.1-3.4cm) Doppler with Normals RVSP(TR): 45.5 mmHg (18-35mmHg) LV V1 max: 89.2 cm/sec(0.7-1.7m/s)MV E max alicia: 162.0 cm/sec(0.8-1.3m/s) MMode/2D Measurements Calculations TAPSE: 1.6 cm FS: 18.6 % Ao root area: LVOT diam: 2.1 cm RV S Alicia: EDV(Teich): 10.3 cm2 LVOT area: 3.4 cm2 7.9 cm/sec 135.7 ml ESV(Teich): 83.9 ml EF(Teich): 38.2 % __ LVLd ap4: 7.9 cm SV(MOD-sp4): LAV(MOD-sp4): LA A2 area: 15.6 cm2 EDV(MOD-sp4): 57.3 ml 38.6 ml 118.0 ml LAV(MOD-sp2): LA A4 area: 16.4 cm2 LVLs ap4: 6.8 cm 37.1 ml LA length (vol): ESV(MOD-sp4): 5.5 cm 60.7 ml LA vol: 39.8 ml EF(MOD-sp4): 48.6 % LA vol index: 17.9 ml/m2 Doppler Measurements Calculations MV dec time: MV max PG: MV dec slope: Ao V2 max: 0.12 sec 69.0 mmHg 164.1 cm/sec 1366 cm/sec2 Ao max P.8 mmHg Ao mean P.7 mmHg Ao V2 mean: 123.5 cm/sec Ao V2 VTI: 23.5 cm KALEB(I,D): 2.1 cm2 KALEB(V,D): 1.8 cm2 __ LV V1 max PG: MR max alicia: TV max P.0 mmHg TR max alicia: 3.2 mmHg 414.5 cm/sec 276.0 cm/sec LV V1 mean PG: MR max PG: TR max P.0 mmHg 70.2 mmHg 30.5 mmHg LV V1 mean: RAP systole: 68.2 cm/sec 15.0 mmHg LV V1 VTI: 14.4 cm (more content not included)... Normal [facility] Erythrocyte distribution wid th [Ratio] by Automated countOrdered By: Ovidio Licona on 09-22-2023 Erythrocyte distribution width (RBC) [Ratio] 15.6 % High 12.0-14.8 [facility] Comment on above: Performed By: #### C BC, HEPATIC, BMP, LIPASE #### [facility] [address] Erythrocytes [#/volume] in B lood by Automated countOrdered By: Ovidio Licona on 09-22-2023 RBC (Bld) [#/Vol] 3.98 10*6/uL Normal 3.90-5.60 [facility] Comment on above: Performed By: #### C BC, HEPATIC, BMP, LIPASE #### [facility] [address] Glucose [Mass/volume] in Ser um or PlasmaOrdered By: Ovidio Licona on 09-22-2023 Glucose [Mass/Vol] 98 mg/dL Normal 70-100 [facility] Comment on above: ADA recommended refe rence rangeRandom Glucose Reference Range is dependent on time and content of last meal. Glucose of more than 200 mg/dL in a nonstressed, ambulatory subject supports the diagnosis of Diabetes Mellitus. Result Comment: [place] om Glucose Reference Range is dependent on time and content of last meal. Glucose of more than 200 mg/dL in a nonstressed, ambulatory subject supports the diagnosis of Diabetes Mellitus. ADA recommended reference range Performed By: #### C BC, HEPATIC, BMP, LIPASE #### [facility] [address] Hematocrit [Volume Fraction] of Blood by Automated countOrdered By: Ovidio Licona on 09-22-2023 Hematocrit (Bld) [Volume fraction] 37.0 % Low 38.8-50.0 [facility] Comment on above: Performed By: #### C BC, HEPATIC, BMP, LIPASE #### [facility] [address] Hemoglobin [Mass/volume] in BloodOrdered By: Ovidio Licona on 09-22-2023 Hemoglobin (Bld) [Mass/Vol] 12.1 g/dL Low 13.0-17.0 [facility] Comment on above: Performed By: #### C BC, HEPATIC, BMP, LIPASE #### [facility] [address] INR in Platelet poor plasma by Coagulation assayOrdered By: Ovidio Licona on 09-22-2023 INR Coag (PPP) [Relative time] 13.1 {INR} Off scale high [facility] Comment on above: Critical valueresult calledat 1635 on 09/22/23INR Therapeutic Range A) Pre- and Peroperative OAT started two weeks before surgery. NOT HIP SURGERY: 1.5 - 2.5 HIP SURGERY: 2 - 3B) Primary and secondary prevention of venous THROMBOSIS: 2 - 3C) Active venous thrombosis, pulmonary embolismand prevention of recurrent venous thrombosis: 2 - 3D) Prevention of arterial thromboembolismincluding patients with mechanical heart valves: 3 - 4.5 Order Comment: List the anticoagulant: COUMADIN/WARFARIN Result Comment: Crit ical value result called at 1635 on 09/22/23 INR Therapeutic Range A) Pre- and Peroperative OAT started two weeks before surgery. NOT HIP SURGERY: 1.5 - 2.5 HIP SURGERY: 2 - 3 B) Primary and secondary prevention of venous THROMBOSIS: 2 - 3 C) Active venous thrombosis, pulmonary embolism and prevention of recurrent venous thrombosis: 2 - 3 D) Prevention of arterial thromboembolism including patients with mechanical heart valves: 3 - 4.5 PERFORMED BY: [place] [address] PATHOLOGIST [employer] CHING PAREDES M.D. Performed By: #### C BC, HEPATIC, BMP, LIPASE #### [facility] [address] [place] [address] Leukocytes [#/volume] correc shayy for nucleated erythrocytes in Blood by Automated counOrdered By: Ovidio Licona on 09-22-2023 WBC corrected for nucl RBC Auto (Bld) [#/Vol] 11.9 10*3/uL 4.1-10.5 [facility] Leukocytes [#/volume] in Blo od by Automated countOrdered By: Ovidio Licona on 09-22-2023 WBC (Bld) [#/Vol] 11.9 10*3/uL [facility] 4.1-10.5 [facility] Comment on above: Performed By: #### C BC, HEPATIC, BMP, LIPASE #### [facility] [address] Lymphocytes [#/volume] in Bl ood by Automated countOrdered By: Ovidio Licona on 09-22-2023 Lymphocytes (Bld) [#/Vol] 1.2 10*3/uL Normal 1.00-4.8 [facility] Comment on above: Performed By: #### C BC, HEPATIC, BMP, LIPASE #### [address] Lymphocytes/100 leukocytes i n Blood by Automated countOrdered By: Ovidio Licona on 09-22-2023 Lymphocytes/100 WBC (Bld) 9.9 % Normal . [facility] Comment on above: Performed By: #### C BC, HEPATIC, BMP, LIPASE #### [address] MCH [Entitic mass] by Automa shayy countOrdered By: Ovidio Licona on 09-22-2023 MCH (RBC) [Entitic mass] 30.3 pg Normal 27.5-35.2 [facility] Comment on above: Performed By: #### C BC, HEPATIC, BMP, LIPASE #### [address] MCHC Auto (RBC) [Mass/Vol]Or dered By: Ovidio Licona on 09-22-2023 MCHC (RBC) [Mass/Vol] 32.6 g/dL 32.5-35.6 [facility] MCV [Entitic volume] by Auto mated countOrdered By: Ovidio Licona on 09-22-2023 MCV (RBC) [Entitic vol] 93.0 fL Normal 83.5-101 [facility] Comment on above: Performed By: #### C BC, HEPATIC, BMP, LIPASE #### [address] Neutrophils [#/volume] in Bl ood by Automated countOrdered By: Ovidio Licona on 09-22-2023 Neutrophils (Bld) [#/Vol] 9.5 10*3/uL High 1.8-7.7 [facility] Comment on above: Performed By: #### C BC, HEPATIC, BMP, LIPASE #### [facility] [address] [place] [address] No Panel InformationOrdered By: Ovidio Licona on 09-22-2023 Estimated GFR (CKD-EPI) > 60.0 mL/Min [facility] Creatinine Clearance (Chem N/A [facility] Nucleated erythrocytes [Pres ence] in Blood by Automated countOrdered By: Ovidio Licona on 09-22-2023 Nucleated RBC Auto Ql (Bld) 0.2 /100{WBC} 0-0.5 [facility] Platelet mean volume [Entiti c volume] in Blood by Automated countOrdered By: Ovidio Licona on 09-22-2023 Platelet mean volume (Bld) [Entitic vol] 8.7 fL Normal 6.6-10.1 [facility] Comment on above: Performed By: #### C BC, HEPATIC, BMP, LIPASE #### [facility] [address] [place] [address] Platelets [#/volume] in Bloo d by Automated countOrdered By: Ovidio Licona on 09-22-2023 Platelets (Bld) [#/Vol] 203 10*3/uL Normal 150-450 [facility] Comment on above: Performed By: #### C BC, HEPATIC, BMP, LIPASE #### [facility] [address] [place] [address] Potassium [Moles/volume] in Serum or PlasmaOrdered By: Ovidio Licona on 09-22-2023 Potassium [Moles/Vol] 4.0 mmol/L Normal 3.5-5.1 [facility] Comment on above: Performed By: #### C BC, HEPATIC, BMP, LIPASE #### [facility] [address] [place] [address] Prothrombin time (PT)Ordered By: Ovidio Licona on 09-22-2023 PT Coag (PPP) [Time] 141.5 s High 9.0-12.9 [facility] Comment on above: A hematocrit value g reater than 55% may lead to inaccurate results in coagulation testing. Patients having hematocrit values >55% require a special collection tube for coagulation studies. Please contact the laboratory at [phone] for redraw instructions. Order Comment: List the anticoagulant: COUMADIN/WARFARIN Result Comment: A he matocrit value greater than 55% may lead to inaccurate results in coagulation testing. Patients having hematocrit values >55% require a special collection tube for coagulation studies. Please contact the laboratory at [phone] for redraw instructions. Performed By: #### C BC, HEPATIC, BMP, LIPASE #### [address] Serum or plasma anion gap de terminationOrdered By: Ovidio Licona on 09-22-2023 Anion gap [Moles/Vol] 5.9 mmol/L Low 6.0-15.0 [facility] Comment on above: Performed By: #### C BC, HEPATIC, BMP, LIPASE #### [address] Sodium [Moles/volume] in Ser um or PlasmaOrdered By: Ovidio Licona on 09-22-2023 Sodium [Moles/Vol] 138 mmol/L Normal 136-145 [facility] Comment on above: Performed By: #### C BC, HEPATIC, BMP, LIPASE #### [place] [id number] [facility] Urea nitrogen [Mass/volume] in Serum or PlasmaOrdered By: Ovidio Licona on 09-22-2023 Urea nitrogen [Mass/Vol] 21 mg/dL Normal 7-25 [facility] Comment on above: Performed By: #### C BC, HEPATIC, BMP, LIPASE #### [place] [id number] [place] XR chest 2V*on 09-22-2023 XR chest 2V* [facility] Main [place] [address] [place] [address] XRay Report Signed Patient: Rehan Graves MR#: [id number] : 1970 Acct:[id number] Age/Sex: 53 / M ADM Date: 09/22/23 Loc: Room: Type: [facility] Attending Dr: Ovidio Licona MD Copies to: Ovidio Licona MD, [facility] Ordering Provider: Ovidio Licona MD, [facility] Date of Service: 09/22/23 XR/XR chest 2V*: I48.3,Z79.899,R60.0 PA AND LATERAL CHEST: CLINICAL HISTORY: High risk medication for atrial fibrillation COMPARISON: CT 09/19/2012 Median sternotomy wires and a prosthetic heart valve are visualized. No parenchymal consolidation is present though there could be minimal basilar atelectasis or scarring. There is blunting of the left posterior costophrenic angle which is new. It could be pleural fluid however pleural thickening or focal consolidation is also possible. There is no pneumothorax. The heart is borderline prominent. There is no vascular congestion. There is endplate spurring at the spine. Hemostasis clips are noted at the right axilla. XR/XR chest 2V* IMPRESSION: BORDERLINE CARDIOMEGALY. MILD PLEURAL AND/OR PARENCHYMAL CHANGE AT THE POSTERIOR LEFT BASE. NO ADDITIONAL ACUTE FINDINGS. Impression dictated by: Kelsey Price M.D.09/22/2023 4:15 PM Dictation Location: [place] [address] Transcribed By: [facility] 09/22/23 1615 Dictated By: Kelsey Price MD 09/22/23 1611 Signed By: 09/22/23 1615 Normal [facility] Office Visit (Cardiology)on 09-22-2022 Follow-up visit Diagnoses/Problems [...] Follow up in 1 year. Chief Complaint REHAN GRAVES is being seen for an annual [...] his weight down to 170 pounds Ovidio Licona MD, [facility] Surgical History Problems History of Aortic valve [...] Oral TabletTAKE 1 TABLET DAILY- Managed by [facility] Allergies Medication Altace CAPS Adverse [...] negative for complaint. Vitals Vital Signs Recorded: [id number] 11:17AM Heart Rate88, L Radial Cctodymh600, LUE, Sitting Fztekiemi11, LUE, Sitting Height5 ft 9 in Qoxuhg288 lb BMI Smzgykhfpg17.75 kg/m2 BSA Calculated2.13 Tobacco Useb) No PHQ-2 #1. Over the last 2 weeks have you felt down, depressed or hopeless? (If yes, answer PHQ-9 below)No PHQ-2 #2. Over the last 2 weeks have you felt little i (more content not included)... Normal [facility] Tobacco Screening.on 023 Adult depression screening assessment No [facility] [employer] 250 DO Work Phone: Fall risk assessment c) Not medically indicated [facility] [employer] 250 DO Work Phone: Tobacco use status [facility] b) No [facility] [employer] 250 DO Work Phone: Vital Signs Date Time Vital Sign Value Performing Clinician Facility 08-14-2024 11:16-0500 Body height 175.3 cm Ovidio Licona MD Work Phone: [facility] 08-14-2024 11:16-0500 Body mass index (BMI) [Ratio] 34.56 kg/m2 Ovidio Licona MD Work Phone: [facility] 08-14-2024 11:16-0500 Body weight 106.14 kg Ovidio Licona MD Work Phone: [facility] 08-14-2024 11:16-0500 Diastolic blood pressure 60 mm[Hg] Ovidio Licona MD Work Phone: [facility] 08-14-2024 11:16-0500 Heart rate 60 /min Ovidio Licona MD Work Phone: [facility] 08-14-2024 11:16-0500 Systolic blood pressure 108 mm[Hg] Ovidio Licona MD Work Phone: [facility] 06-07-2024 09:29-0400 Body height 175.26 cm MD Rod Benitez Work Phone: [facility] 06-07-2024 09:29-0400 Body mass index (BMI) [Ratio] 36.3 kg/m2 MD Rod Benitez Work Phone: [facility] 06-07-2024 09:29-0400 Body temperature 97.2 [degF] MD Rod Benitez Work Phone: [facility] 06-07-2024 09:29-0400 Body weight 111.58 kg MD Rod Benitez Work Phone: [facility] 06-07-2024 09:29-0400 Diastolic blood pressure 59 mm[Hg] MD Rod Benitez Work Phone: [facility] 06-07-2024 09:29-0400 Heart rate 58 /min MD Rod Benitez Work Phone: [facility] 06-07-2024 09:29-0400 Respiratory rate 16 /min MD Rod Benitez Work Phone: [facility] 06-07-2024 09:29-0400 SaO2% (BldA) [Mass fraction] 99 % MD Rod Benitez Work Phone: [facility] 06-07-2024 09:29-0400 Systolic blood pressure 110 mm[Hg] MD Rod Benitez Work Phone: [facility] 05-30-2024 10:58-0400 Body height 175.3 cm Rod Benitez MD Work Phone: [facility] 05-30-2024 10:58-0400 Body mass index (BMI) [Ratio] 36.62 kg/m2 Rod Benitez MD Work Phone: [facility] 05-30-2024 10:58-0400 Body temperature 97.5 [degF] Rod Benitez MD Work Phone: [facility] 05-30-2024 10:58-0400 Body weight 112.49 kg Rod Benitez MD Work Phone: [facility] 05-30-2024 10:58-0400 Diastolic blood pressure 64 mm[Hg] Rod Benitez MD Work Phone: [facility] 05-30-2024 10:58-0400 Heart rate 40 /min Rod Benitez MD Work Phone: [facility] 05-30-2024 10:58-0400 Respiratory rate 20 /min Rod Benitez MD Work Phone: [facility] 05-30-2024 10:58-0400 SaO2% (BldA) [Mass fraction] 99 % Rod Benitez MD Work Phone: [facility] 05-30-2024 10:58-0400 Systolic blood pressure 122 mm[Hg] Rod Benitez MD Work Phone: [facility] 05-22-2024 07:23-0400 Body temperature 97.5 [degF] MD Rod Benitez Work Phone: [facility] 05-22-2024 07:23-0400 Diastolic blood pressure 87 mm[Hg] MD Rod Benitez Work Phone: [facility] 05-22-2024 07:23-0400 Heart rate 56 /min MD Rod Benitez Work Phone: [facility] 05-22-2024 07:23-0400 Respiratory rate 18 /min MD Rod Benitez Work Phone: [facility] 05-22-2024 07:23-0400 SaO2% (BldA) [Mass fraction] 96 % MD Rod Benitez Work Phone: [facility] 05-22-2024 07:23-0400 Systolic blood pressure 157 mm[Hg] MD Rod Benitez Work Phone: [facility] 05-22-2024 05:44-0400 Body weight 111.6 kg MD Rod Benitez Work Phone: [facility] 05-21-2024 15:41-0400 Body height 175.26 cm MD Rod Benitez Work Phone: [facility] 05-19-2024 21:30-0400 Diastolic blood pressure 64 mm[Hg] MD Rod Benitez Work Phone: [facility] 05-19-2024 21:30-0400 Heart rate 62 /min MD Rod Benitez Work Phone: [facility] 05-19-2024 21:30-0400 Respiratory rate 20 /min MD Rod Benitez Work Phone: [facility] 05-19-2024 21:30-0400 SaO2% (BldA) [Mass fraction] 97 % MD Rod Benitez Work Phone: [facility] 05-19-2024 21:30-0400 Systolic blood pressure 130 mm[Hg] MD Rod Benitez Work Phone: [facility] 05-19-2024 18:44-0400 Body temperature 98 [degF] MD Rod Benitez Work Phone: [facility] 05-19-2024 16:54-0400 Body height 171.45 cm MD Rod Benitez Work Phone: [facility] 05-19-2024 16:54-0400 Body weight 113 kg MD Rod Benitez Work Phone: [facility] 03-08-2024 13:07-0400 Body height 175.26 cm MD Rod Benitez Work Phone: [facility] 03-08-2024 13:07-0400 Body mass index (BMI) [Ratio] 35.2 kg/m2 MD Rod Benitez Work Phone: [facility] 03-08-2024 13:07-0400 Body temperature 96.9 [degF] MD Rod Benitez Work Phone: [facility] 03-08-2024 13:07-0400 Body weight 108.01 kg MD Rod Benitez Work Phone: [facility] 03-08-2024 13:07-0400 Diastolic blood pressure 60 mm[Hg] MD Rod Benitez Work Phone: [facility] 03-08-2024 13:07-0400 Heart rate 67 /min MD Rod Benitez Work Phone: [facility] 03-08-2024 13:07-0400 Respiratory rate 18 /min MD Rod Benitez Work Phone: [facility] 03-08-2024 13:07-0400 SaO2% (BldA) [Mass fraction] 97 % MD Rod Benitez Work Phone: [facility] 03-08-2024 13:07-0400 Systolic blood pressure 110 mm[Hg] MD Rod Benitez Work Phone: [facility] 02-15-2024 12:28-0400 Body height 175.[address] 02-15-2024 12:28-0400 Body mass index (BMI) [Ratio] 34.56 kg/m2 [address] 02-15-2024 12:28-0400 Body weight 106.[address] 02-15-2024 12:28-0400 Diastolic blood pressure 76 mm[Hg] [address] 02-15-2024 12:28-0400 Systolic blood pressure 114 mm[Hg] [address] 01-19-2024 09:51-0400 Body height 175.3 cm Ovidio Licona MD Work Phone: [facility] 01-19-2024 09:51-0400 Body mass index (BMI) [Ratio] 34.56 kg/m2 Ovidio Licona MD Work Phone: [facility] 01-19-2024 09:51-0400 Body weight 106.14 kg Ovidio Licona MD Work Phone: [facility] 01-19-2024 09:51-0400 Diastolic blood pressure 78 mm[Hg] Ovidio Licona MD Work Phone: [facility] 01-19-2024 09:51-0400 Heart rate 60 /min Oivdio Licona MD Work Phone: [facility] 01-19-2024 09:51-0400 Systolic blood pressure 110 mm[Hg] Ovidio Licona MD Work Phone: [facility] 01-06-2024 18:30-0400 Diastolic blood pressure 72 mm[Hg] MD Rod Benitez Work Phone: [facility] 01-06-2024 18:30-0400 Heart rate 63 /min MD Rod Benitez Work Phone: [facility] 01-06-2024 18:30-0400 Respiratory rate 16 /min MD Rod Benitez Work Phone: [facility] 01-06-2024 18:30-0400 SaO2% (BldA) [Mass fraction] 96 % MD Rod Benitez Work Phone: [facility] 01-06-2024 18:30-0400 Systolic blood pressure 162 mm[Hg] MD Rod Benitez Work Phone: [facility] 01-06-2024 16:26-0400 Body temperature 97.4 [degF] MD Rod Benitez Work Phone: [facility] 01-06-2024 16:23-0400 Body height 175.26 cm MD Rod Benitez Work Phone: [facility] 01-06-2024 16:23-0400 Body weight 103.8 kg MD Rod Benitez Work Phone: [facility] 01-05-2024 15:26-0400 Body height 175.3 cm [facility] 01-05-2024 15:26-0400 Body mass index (BMI) [Ratio] 34.26 kg/m2 [facility] 01-05-2024 15:26-0400 Body weight 105.23 kg [facility] 01-05-2024 15:26-0400 Diastolic blood pressure 78 mm[Hg] [facility] 01-05-2024 15:26-0400 Heart rate 63 /min Angie [facility] 01-05-2024 15:26-0400 Systolic blood pressure 110 mm[Hg] Angie [facility] 10-12-2023 09:41-0500 Body height 175.3 cm Ovidio Licona MD Work Phone: [facility] 10-12-2023 09:41-0500 Body mass index (BMI) [Ratio] 30.57 kg/m2 Ovidio Licona MD Work Phone: [facility] 10-12-2023 09:41-0500 Body weight 93.89 kg Ovidio Licona MD Work Phone: [facility] 10-12-2023 09:41-0500 Diastolic blood pressure 62 mm[Hg] Ovidio Licona MD Work Phone: [facility] 10-12-2023 09:41-0500 Heart rate 64 /min Ovidio Licona MD Work Phone: [facility] 10-12-2023 09:41-0500 Systolic blood pressure 138 mm[Hg] Ovidio Licona MD Work Phone: [facility] 10-03-2023 14:19-0500 Body height 175.3 cm Ovidio Licona MD Work Phone: [facility] 10-03-2023 14:19-0500 Body mass index (BMI) [Ratio] 31.75 kg/m2 Ovidio Licona MD Work Phone: [facility] 10-03-2023 14:19-0500 Body weight 97.52 kg Ovidio Licona MD Work Phone: [facility] 10-03-2023 14:19-0500 Diastolic blood pressure 64 mm[Hg] Ovidio Licona MD Work Phone: [facility] 10-03-2023 14:19-0500 Heart rate 72 /min Ovidio Licona MD Work Phone: [facility] 10-03-2023 14:19-0500 Systolic blood pressure 96 mm[Hg] Ovidio Licona MD Work Phone: [facility] 09-29-2023 08:21-0500 Body height 175.26 cm MD Rod Benitez Work Phone: [facility] 09-29-2023 08:21-0500 Body weight 102.05 kg MD Rod Benitez Work Phone: [facility] 09-14-2023 14:14-0500 Body height 175.3 cm [facility] 09-14-2023 14:14-0500 Body mass index (BMI) [Ratio] 33.08 kg/m2 [facility] 09-14-2023 14:14-0500 Body weight 101.61 kg [facility] 09-14-2023 14:14-0500 Diastolic blood pressure 86 mm[Hg] [facility] 09-14-2023 14:14-0500 Heart rate 132 /min [facility] 09-14-2023 14:14-0500 Systolic blood pressure 136 mm[Hg] [facility] 09-22-2022 11:17-0500 Body height 175.26 cm Rod Benitez Work Phone: [facility] [address] DO Work Phone: 09-22-2022 11:17-0500 Body mass index (BMI) [Ratio] 31.75 kg/m2 Rod Benitez Work Phone: [facility] 250 DO Work Phone: 09-22-2022 11:17-0500 Body surface area Derived from formula 2.13 m2 Rod Moi Benitez Work Phone: [facility] 250 DO Work Phone: 09-22-2022 11:17-0500 Body weight 97.52 kg Rod Stonepete Work Phone: [facility] [address] DO Work Phone: 09-22-2022 11:17-0500 Diastolic blood pressure 82 mm[Hg] Rod Blackmonrenay Work Phone: [facility] [address] DO Work Phone: 09-22-2022 11:17-0500 Heart rate 88 /min Rod Benitez Work Phone: [facility] [address] DO Work Phone: 09-22-2022 11:17-0500 Systolic blood pressure 120 mm[Hg] Rod Moi Benitez Work Phone: [facility] [address] DO Work Phone: Encounters Encounter Date Encounter Type Care Provider Facility Start: 08-28-2024 Non-patient / Non-visit Rod roper MD Work Phone: [facility] Work Phone: Start: 08-28-2024 End: 08-28-2024 Patient encounter procedure Rod Benitez MD Work Phone: [facility]Res[facility] Work Phone: Start: 08-28-2024 End: 08-28-2024 ambulatory Rod Benitez MD Work Phone: [facility] Work Phone: Start: 08-14-2024 End: 08-14-2024 Office outpatient visit 25 minutes Ovidio Licona MD Work Phone: [facility] Comment on above: Typical atrial flutt er (Multi) (Primary Dx); High risk medication use; History of aortic valve replacement; Essential hypertension, benign; Dissecting aortic aneurysm (Multi); Mixed hyperlipidemia; Stage 3a chronic kidney disease (Multi); Frequent nocturnal awakening; BMI 34.0-34.9,adult; Former smoker; Obstructive sleep apnea; Other fatigue Start: 08-14-2024 End: 08-14-2024 ambulatory [facility] Start: 07-04-2024 End: 07-04-2024 ambulatory Nhung Pino Facility:[facility] [place] Start: 07-04-2024 End: 07-04-2024 Patient encounter procedure Nhung Pino [facility] Start: 06-12-2024 ambulatory Nhung Alvarez Facility:[facility] [place] Start: 06-07-2024 End: 06-07-2024 ambulatory MD Rod Benitez Work Phone: [facility] Work Phone: Start: 06-07-2024 End: 06-07-2024 Patient encounter procedure MD Rod Benitez Work Phone: [facility] Ne[facility] [place] Work Phone: Start: 05-30-2024 End: 05-30-2024 Bamboo flowsheet Rod Benitez MD Work Phone: [facility] Start: 05-30-2024 End: 05-30-2024 Bamboo flowsheet Rod Benitez MD Work Phone: [facility] Start: 05-30-2024 End: 05-30-2024 ambulatory ROD BENITEZ Not Available Start: 05-30-2024 End: 05-30-2024 Transitional care manage srvc 14 day discharge Rod Benitez MD Work Phone: [facility] Comment on above: Chronic heart failur e with preserved ejection fraction (HFpEF) (CMS/HCC) (Primary Dx); Essential hypertension, benign (CMS/HCC); Hypersomnia; RLS (restless legs syndrome); RANDELL (generalized anxiety disorder) (CMS/HCC) Start: 05-20-2024 Non-patient / Non-visit MD Ute Benitez Work Phone: [facility] Work Phone: Start: 05-19-2024 End: 05-22-2024 Evaluation and management of inpatient MD Rod Benitez Work Phone: [facility] [place] [facility] Work Phone: Start: 05-10-2024 End: 05-10-2024 Patient encounter procedure MD Rod Benitez Work Phone: [facility]-Ultrasound Main [place] Work Phone: Start: 05-10-2024 End: 05-10-2024 ambulatory MD Rod Benitez Work Phone: [facility] Work Phone: Start: 03-08-2024 End: 03-08-2024 ambulatory MD Rod Benitez Work Phone: [facility] Work Phone: Start: 03-08-2024 End: 03-08-2024 Patient encounter procedure MD Rod Benitez Work Phone: [facility] Work Phone: Start: 02-15-2024 End: 02-15-2024 Subsequent hospital visit by physician Vicki Lofton Echo/Vasc Room 2 [facility] Comment on above: History of aortic va lve replacement Start: 02-15-2024 End: 02-15-[address] [facility] Start: 01-19-2024 End: 01-19-2024 Office outpatient visit 25 minutes Ovidio Licona MD Work Phone: [facility] Comment on above: Typical atrial flutt er (Multi) (Primary Dx); Atrial fibrillation, unspecified type (Multi); Essential hypertension, benign; History of aortic valve replacement; High risk medication use; Mixed hyperlipidemia; Stage 4 chronic kidney disease (Multi); BMI 34.0-34.9,adult; Former smoker; Nonischemic cardiomyopathy (Multi); Obesity, Class I, BMI 30-34.9; Right upper quadrant abdominal pain Start: 01-19-2024 End: 01-19-2024 ambulatory [facility] Start: 01-17-2024 End: 01-17-2024 ambulatory ROD BENITEZ Not Available Start: 01-06-2024 End: 01-06-2024 Emergency department patient visit MD Rod Benitez Work Phone: [facility]-Emergency Room Work Phone: Start: 01-05-2024 End: 01-05-2024 Professional / ancillary services management Angie Camp MA [facility] Comment on above: Typical atrial flutt er ([facility]) Start: 01-05-2024 End: 01-05-2024 ambulatory [facility] Start: 10-31-2023 End: 10-31-2023 Patient encounter procedure MD Rod Benitez Work Phone: [facility]-Lab [facility] [place] Work Phone: Start: 10-31-2023 End: 10-31-2023 ambulatory MD Rod Benitez Work Phone: [facility] Work Phone: Start: 10-16-2023 Non-patient / Non-visit MD Ute Benitez Work Phone: [facility] Work Phone: Start: 10-14-2023 End: 10-14-2023 Patient encounter procedure MD Rod Benitez Work Phone: [facility]-Respiratory Therapy Work Phone: Start: 10-14-2023 End: 10-14-2023 ambulatory [facility] Facility:[facility] Start: 10-12-2023 End: 10-12-2023 Office outpatient visit 10 minutes Ovidio Licona MD Work Phone: [facility] Comment on above: Atrial fibrillation, unspecified type (CMS/HCC); Atrial fibrillation status post cardioversion (CMS/HCC); Essential hypertension, benign; Typical atrial flutter (CMS/HCC); High risk medication use; History of aortic valve replacement Start: 10-12-2023 End: 10-12-2023 ambulatory [facility] Start: 10-03-2023 End: 10-03-2023 ambulatory [facility] Start: 10-03-2023 End: 10-03-2023 Office outpatient visit 10 minutes Ovidio Licona MD Work Phone: [facility] Comment on above: Atrial fibrillation, unspecified type (CMS/HCC); Atrial fibrillation status post cardioversion (CMS/HCC); Essential hypertension, benign; Typical atrial flutter (CMS/HCC) Start: 10-03-2023 End: 10-03-2023 Patient encounter procedure MD Rod Benitez Work Phone: [facility]Lab [facility] [place] Work Phone: Start: 10-03-2023 End: 10-03-2023 ambulatory MD Rod Benitez Work Phone: [facility] Work Phone: Start: 09-29-2023 External Result Encounter Rod Benitez MD Work Phone: [facility] Unsolicited Start: 09-29-2023 External Result Encounter Rod Benitez MD Work Phone: [facility] Unsolicited Start: 09-29-2023 End: 09-29-2023 Admission to same day surgery center MD Rod Benitez Work Phone: [facility]-Electrodiagnostics Work Phone: Start: 09-29-2023 End: 09-29-2023 ambulatory MD Rod Benitez Work Phone: [facility] Work Phone: Start: 09-26-2023 End: 09-26-2023 Patient encounter procedure MD Rod Benitez Work Phone: [facility]-Lab Main [place] Work Phone: Start: 09-26-2023 End: 09-26-2023 ambulatory MD Rod Benitez Work Phone: [facility] Work Phone: Start: 09-22-2023 End: 09-22-2023 Patient encounter procedure MD Rod Benitez Work Phone: [facility]Electro[facility]ostics Work Phone: Start: 09-22-2023 End: 09-22-2023 ambulatory MD Rod Benitez Work Phone: [facility] Work Phone: Start: 09-22-2023 End: 09-22-2023 ambulatory [facility] Start: 09-14-2023 End: 09-14-2023 Professional / ancillary services management Lindsey Desai LPN [facility] Comment on above: Persistent atrial fi brillation (CMS/HCC) Start: 09-14-2023 End: 09-14-2023 ambulatory [facility] Start: 09-01-2023 End: 09-01-2023 ambulatory ROD BENITEZ Not Available Start: 05-02-2023 Rx [facility] Work Phone: Start: 03-28-2023 Rx Renewal [facility] Work Phone: Start: 12-13-2022 End: 01-12-[address] ROD BENITEZ Facility:[facility] Start: 11-15-2022 End: 12-10-[address] ROD BENITEZ Facility:[facility] Start: 11-10-2022 ambulatory Ovidio Licona Facility :[id number] Start: 10-25-2022 Rx Renewal Rod Benitez Work Phone: [facility] 250 DO Work Phone: Start: 10-13-2022 End: 11-12-2022 ambulatory FRY H FAWWAD Facility:[facility] Start: 09-22-2022 Office outpatient vi sit 25 minutes Rod Benitez Work Phone: [facility] 250 DO Work Phone: Start: 09-22-[address] Rod Benitez Facility:[id number] Start: 09-15-2022 End: 10-13-2022 ambulatory FRY H FAWWAD Facility:[facility] Start: 08-16-2022 End: 09-15-2022 ambulatory FRY H FAWWAD Facility:[facility] Start: 07-15-2022 End: 08-15-2022 ambulatory FRY H FAWWAD Facility:[facility] Start: 06-15-2022 End: 07-14-2022 ambulatory FRY H FAWWAD Facility:[facility] Start: 05-16-2022 End: 06-14-[address] HERMINIO HAMMOND . Facility:[facility] Start: 04-26-2022 Rx Renewal Rod Benitez Work Phone: [facility] 250 DO Work Phone: Start: 04-15-2022 End: 05-15-2022 ambulatory FRY H FAWWAD Facility:[facility] Start: 03-16-2022 AUDIT Rod Benitez Work Phone: [facility] 250 DO Work Phone: Start: 03-15-2022 End: 04-14-2022 ambulatory FRY H FAWWAD Facility:[facility] Start: 02-12-2022 End: 03-12-[address] ROD BENITEZ Facility:[facility] Start: 10-23-2021 Rx Renewal Rod Benitez Work Phone: [facility] 250 DO Work Phone: Procedures Date Procedure Procedure Detail Performing Clinician Start: 08-14-2024 Ecg routine ecg w/le ast 12 lds w/i&r Ovidio Licona MD Work Phone: Start: 05-22-2024 Plain chest X-ray MD Neal oakley Neymarrenay Work Phone: Start: 05-19-2024 Plain chest X-ray MD Neal Benitez Work Phone: Start: 05-10-2024 Ultrasonography of bilateral kidneys MD Rod Benitez Work Phone: Start: 01-06-2024 US scan of gallbladder MD Rod Benitez Work Phone: Start: 10-14-2023 Plain chest X-ray MD Neal oakley Chasepete Work Phone: Start: 10-12-2023 FOLLOW UP IN CARDIOLOGY NOLAN LICONA Start: 10-03-2023 FOLLOW UP IN CARDIOLOGY NOLAN LICONA Start: 10-03-2023 Ecg routine ecg w/le ast 12 lds w/i&r Ovidio Licona MD Work Phone: Start: 09-29-2023 Prothrombin time Rod roper MD Work Phone: Start: 09-22-2023 Basic metabolic 2000 panel - Serum or Plasma OVIDIO LICONA Start: 09-22-2023 CBC panel - Blood by Automated count NOLAN LICONA Start: 09-22-2023 PROTIME-INR NOLAN IBR AHIM Start: 09-22-2023 Plain chest X-ray MD Neal Benitez Work Phone: Start: 09-22-2023 ECG 12-LEAD NOLAN IBR AHIM Start: 09-14-2023 ECG 12-LEAD NOLAN IBR AHIM Start: 11-26-2021 Colonoscopy Rod traore MD Work Phone: Coronary artery bypa ss graft Rod Benitez Work Phone: Replacement of aorti c valve Rod Benitez Work Phone: NEGATED: Highlighted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 Moderate to severe COPD by PFT testing October 2023 10. Transaminitis 11. Hyperbilirubinemia 12. Restless leg syndrome Patient has stable kidney function and IV diuresis has now been converted to p.o. Will reassess in the morning with a chest x-ray as she is compared to prior ER film. Generally this was perhaps more congested compared to prior films but is reported as normal. He is on oral amiodarone chronically that he feels has perhaps precipitated his shortness of breath. BNP elevation and peripheral edema certainly suggest a component of acute heart failure however I cannot exclude worsening pulmonary disease at the moment. He is getting appropriate screening PFTs as recent as october this year showing obstructive disease. Exam Physical Exam Vital Signs: Temp Pulse Resp BP Pulse Ox O2 Del Method 97.3 F L 59 L 20 158/80 H 95 Room Air 05/21/24 07:58 05/21/24 17:12 05/21/24 17:12 05/21/24 17:12 05/21/24 17:12 05/21/24 17:12 Objective Lab Results 05/20/24 05:58 05/21/24 06:11 Meds Allergies and Active Meds Allergies No Known Allergies Allergy (Verified 05/19/24 16:53) Active Meds: Active Medications Generic Name Dose Route Start Last Admin Trade Name Freq PRN Reason Stop Dose Admin Acetaminophen 650 mg 05/21/24 00:25 05/21/24 17:04 Acetaminophen 325 Mg Tablet PO 05/21/25 00:24 650 mg Q6H PRN Administration Pain Albuterol 1 puff 05/20/24 00:22 Albuterol Hfa 60 Puff/8 Gram Inhaler INHALATION 05/20/25 00:21 Q4HR PRN wheezing Amiodarone HCl 200 mg 05/20/24 09:00 05/21/24 20:23 Amiodarone 200 Mg Tablet PO 05/20/25 08:59 200 mg BID CEE Administration Atorvastatin Calcium 40 mg 05/20/24 22:00 05/21/24 20:23 Atorvastatin 40 Mg Tablet PO 05/20/25 21:59 40 mg QHS CEE Administration Furosemide 40 mg 05/22/24 08:00 Furosemide 40 Mg Tablet PO 05/22/25 07:59 DAILY.8A CEE Levothyroxine Sodium 200 mcg 05/20/24 00:55 05/21/24 20:23 Levothyroxine 200 Mcg Tablet PO 05/20/25 00:54 200 mcg QHS CEE Administration Metoprolol Succinate 100 mg 05/22/24 09:00 Metoprolol Succinate 100 Mg Tab.Er.24h PO 05/22/25 08:59 DAILY CEE Pramipexole Dihydrochloride 1.5 mg 05/20/24 00:30 05/21/24 20:23 Pramipexole 0.5 Mg Tablet PO 05/20/25 00:29 1.5 mg QHS CEE Administration Sodium Chloride 0 ml 05/19/24 16:52 05/19/24 20:57 Sodium Chloride 0.9 % 10 Ml Syringe IV-PUSH 05/19/25 16:51 10 ml PRN PRN Administration Flush Spironolactone 25 mg 05/20/24 09:00 05/21/24 09:42 Spironolactone 25 Mg Tablet PO 05/20/25 08:59 Not Given DAILY CEE Warfarin Sodium 1 each 05/20/24 03:08 Warfarin - Pharmacy Dosing MISCELLANE 05/20/25 03:07 ONCE PRN ZZ.Pharmacy Consult Protocol A&P - Hospitalist Assessment/Plan (1) Acute systolic heart failure due to valvular disease: Plan . Documented By: Rafa Mendez DO 05/21/24 20 45 Signed By: <Electronically signed by Rafa Mendez DO> 05/21/242049 [facility] Work Phone: 1(493) 794-338910-07-2024 Progress note Author W Asher [facility] May 21, 2024 12:42pm Note Date/Time May 21, 2024 12 :42pm [facility] [address] [place] [address] Cardiology Progress Note Signed Patient: Rehan Graves MR#: [id number] : 1970 Acct:[id number] Age/Sex: 54 / M Adm Date: 4 Loc: Room: [address] [place] [address] Type: ADM IN Attending Dr: Rafa Frings DO Copies to: ~ Date of Service: 05/21/2024 Subjective Principal diagnosis: Acute on chronic left ventricular systolic heart failure Interval history: Mr. Graves is a 54 year old male with a known history of mechanical aortic valve replacement and chronic left ventricular systolic dysfunction baseline ejection fraction 35 to 40% who presented to the emergency department early this morning after several days worth of progressive dyspnea. The patient denies any chest pain chest pressure or other anginal symptoms. However he states that over the last several days he has been becoming more progressively short of breath particularly with exertion. The night prior to presentation he did relate some resting dyspnea and orthopnea. He has noted some swelling in the lower extremities. He denies any noncompliance with his current guideline directed medical therapy. He states strict compliance with his Coumadin anticoagulation. He denies any recent dietary sodium indiscretion. In the emergency department the patient was felt to be in mild decompensated congestive heart failure. This was based on clinical and radiographic findings. Laboratory evaluation also showed an elevated BN P at 635. Initial troponins were negative. EKG showed no acute ischemic changes. The patient was started on IV diuretic therapy with 40 mg IV Lasix and admitted to the inpatient hospital medicine service for further management. Patient has been diuresing well over the course of this morning. He states his breathing is already feeling close to baseline. He is resting comfortably. He continues to deny any anginal symptoms. He denies any stroke or TIA-like symptoms. Given this episode of what appears to be clinically mild decompensated heart failure in the setting of chronic left ventricular systolic dysfunction and history of aortic valve replacement (mechanical), I am now consulted for furthercardiac evaluation and management. Interim evaluation 05/21/2024: Patient is feeling greatly improved after diuresis. He is now able to recline without orthopnea and able to ambulate to the restroom without any exertional dyspnea. Plan at this time is discontinue metoprolol tartrate and switch to metoprolol XL100 daily, will switch out his furosemide tomorrow morning to oral furosemide atwhich point he can likely be discharged Exam Physical Exam Vital Signs: Temp Pulse Resp BP Pulse Ox O2 Del Method 97.3 F L 61 22 130/71 97 Room Air 05/21/24 07:58 05/21/24 12:19 05/21/24 12:19 05/21/24 12:19 05/21/24 12:19 05/21/24 07:58 Const General: cooperative, comfortable and no acute distress Nutritional Appearance: obese Orientation: alert, awake and oriented x3 HEENT Head: normal to inspection Resp Effort & Inspection: normal respiratory effort Auscultation: clear to auscultation bilaterally Cardio Palpation: normal PMI Rate: regular rate Rhythm: regular rhythm Heart Sounds: S1 normal, S2 normal and murmur (Mechanical prosthetic aortic valve) GI Inspection: obesity Palpation: soft Skin General: no rashes or lesions noted Neuro General: patient alert, patient awake and patient oriented x3 Cognition: normal cognition Speech: speech normal Gait: normal gait Extrem General: no clubbing, cyanosis or edema Objective Labs 05/20/24 05:58 05/21/24 06:11 Labs: Laboratory Results - last 24 hr 05/21/24 06:11 PT 35.1 H INR 3.1 PHA Creatinine Clear 65.89 Sodium 139 Potassium 3.7 Chloride 98 Carbon Dioxide 36.2 H Anion Gap 8.5 BUN 31 H Creatinine 1.57 H Est GFR (CKD-EPI) 51.729 Glucose 99 Calcium 8.6 Magnesium 2.3 A&P - Cardiology (1) HFrEF (heart failure with reduced ejection fraction): Assessment/Problem Details: Patient with a known history of chronic mild to moderate resting left ventricular systolic dysfunction baseline ejection fraction 35 to 40%. Now withepisode of mild decompensated systolic heart failure. No clinical or physical exam suggestion that this represents any sort of dysfunction with the patient's mechanical aortic valve prosthesis. Plan: 1. Agree with admit to school lunch monitor 2. Continue diuresis with Lasix 40 mg IV twice daily 3. Will add preload reduction with topical nitrate 1 inch to the chest wall twice daily 4. Will decrease beta-allie dose by 50% until compensated 5. Spironolactone 25 mg p.o. every morning 6. Will maintain current dosing of oral amiodarone for maintenance of normal sinus mechanism: 200 mg twice daily 7. Strict low-sodium diet. Goal daily sodium intake less than 2000 mg Code(s): I50.20 - Unspecified systolic (congestive) heart failure (2) Mechanical heart valve present: Code(s): Z95.2 - Presence of prosthetic heart valve (3) HTN (hypertension): Code(s): I10 - Essential (primary) hypertension Plan See above Documented By: Kristen Sterling DO 05/21/24 1238 Signed By: <Electronically signed by Kristen Sterling DO> 05/21/24 1242 [facility] Work Phone: 1(281) 430-844410-06-2024 Progress note Author Rafa Mendez [facility] May 20, 2024 2:27pm Note Date/Time May 20, 2024 2: 27pm [facility] [address] [place] [address] Hospitalist Progress Note Signed Patient: Rehan Graevs MR#: [id number] : 1970 Acct:[id number] Age/Sex: 54 / M Adm Date: 4 Loc: Room: [address] [place] [address] Type: ADM IN Attending Dr: Rafa Mendez DO Copies to: ~ Date of Service: 05/20/2024 Subjective Subjective Narrative: Patient was seen in exam at the bedside. Cardiology consult appreciated and reviewed. The patient is feeling better but does have some visible work of breathing still. Physical Examination: GENERAL APPEARANCE: Alert, up in bed AAOx3 HEENT: NCAT, MMM CARDIAC: Normal S1 and S2. Audible mechanical valve LUNGS: Clear to auscultation bilaterally. no wheeze/rhonchi/rales ABDOMEN: Positive bowel sounds. Soft, nontender. No guarding or signs of an acute abdomen MUSCULOSKELETAL: No joint erythema or tenderness. EXTREMITIES: No clubbing, cyanosis. 2-3+ pitting edema bilateral lower extremities NEUROLOGICAL: No focal deficits SKIN: Skin normal color, texture and turgor with no lesions or eruptions. PSYCHIATRIC: Appropriate mood and affect. Assessment and plan: 1. Acute exacerbation of chronic systolic congestive heart failure 2. Volume overload 3. Hypertensive emergency 4. Aortic valve disease status post aortic valve replacement on chronic anticoagulation with Coumadin 5. Atrial fibrillation 6. Hypothyroidism 7. Chronic kidney disease stage III 8. Moderate pulmonary hypertension 9. Moderate to severe COPD by PFT testing October 2023' 10. Transaminitis 11. Hyperbilirubinemia 12. Restless leg syndrome Appreciate cardiology consultation. Clinically he is volume overloaded and willneed at minimum an additional night likely to at minimum of ongoing diuresis. Kidney function improved after a dose of Lasix yesterday and will be monitored along with electrolytes daily. He is not hypoxic but his work of breathing and relative congestion on chest x-ray indicate volume overload despite lack of O2 requirement. He has central and peripheral edema of the abdomen and lower extremities respectively. Subsequently he may have large amount of weight to lose and will track I's and Os. Exam Physical Exam Vital Signs: Temp Pulse Resp BP Pulse Ox O2 Del Method 97.5 F L 62 18 152/81 H 96 Room Air 05/20/24 04:00 05/20/24 08:56 05/20/24 08:56 05/20/24 08:56 05/20/24 08:56 05/20/24 08:56 Objective Lab Results 05/20/24 05:58 05/20/24 05:58 Meds Allergies and Active Meds Allergies No Known Allergies Allergy (Verified 05/19/24 16:53) Active Meds: Active Medications Generic Name Dose Route Start Last Admin Trade Name Freq PRN Reason Stop Dose Admin Albuterol 1 puff 05/20/24 00:22 Albuterol Hfa 60 Puff/8 Gram Inhaler INHALATION 05/20/25 00:21 Q4HR PRN wheezing Amiodarone HCl 200 mg 05/20/24 09:00 05/20/24 08:49 Amiodarone 200 Mg Tablet PO 05/20/25 08:59 200 mg BID CEE Administration Atorvastatin Calcium 40 mg 05/20/24 22:00 Atorvastatin 40 Mg Tablet PO 05/20/25 21:59 QHS CEE Furosemide 40 mg 05/20/24 08:00 05/20/24 08:49 Furosemide 40 Mg/4 Ml Vial IV-PUSH 05/20/25 07:59 40 mg BID@0800,1600 CEE Administration Levothyroxine Sodium 200 mcg 05/20/24 00:55 05/20/24 01:07 Levothyroxine 200 Mcg Tablet PO 05/20/25 00:54 200 mcg QHS CEE Administration Metoprolol Tartrate 50 mg 05/20/24 21:00 Metoprolol Tartrate 50 Mg Tablet PO 05/20/25 20:59 BID [facility] Nitroglycerin 1 inch 05/20/24 21:00 Nitroglycerin 2% Oint Packet TRANSDERML 05/20/25 20:59 BID [facility] Pramipexole Dihydrochloride 1.5 mg 05/20/24 00:30 05/20/24 01:07 Pramipexole 0.5 Mg Tablet PO 05/20/25 00:29 1.5 mg QHS CEE Administration Sodium Chloride 0 ml 05/19/24 16:52 05/19/24 20:57 Sodium Chloride 0.9 % 10 Ml Syringe IV-PUSH 05/19/25 16:51 10 ml PRN PRN Administration Flush Spironolactone 25 mg 05/20/24 09:00 05/20/24 08:50 Spironolactone 25 Mg Tablet PO 05/20/25 08:59 25 mg DAILY CEE Administration Warfarin Sodium 1 each 05/20/24 03:08 Warfarin - Pharmacy Dosing MISCELLANE 05/20/25 03:07 ONCE PRN ZZ.Pharmacy Consult Protocol A&P - Hospitalist Assessment/Plan (1) Acute systolic heart failure due to valvular disease: Plan . Documented By: Rafa Mendez DO 05/20/24 14 23 Signed By: <Electronically signed by Rafa Mendez DO> 05/20/[address] [place] [address] Ctr Work Phone: [phone] 232-745910-06-2024 Consult note Author Kolton Bhakta [facility] May 20, 2024 12:29pm Note Date/Time May 20, 2024 12 :18pm [facility] [address] [place] [address] Cardiology Consult Note Signed Patient: Rehan Graves MR#: [id number] : 1970 Acct:[id number] Age/Sex: 54 / M Adm Date: 4 Loc: Room: [address] [place] [address] Type: ADM IN Attending Dr: Rafa Mendez DO Copies to: MD Rafa Lopez DO Stephen M Tann, MD~ Cardiology HPI History of Present Illness Consult Date: 05/20/24 Reason for Consult: Progressive dyspnea, history of mechanical aortic valve replacement, history of chronic mild to moderate left ventricular systolic dysfunction HPI: Mr. Graves is a 54 year old male with a known history of mechanical aortic valve replacement and chronic left ventricular systolic dysfunction baseline ejection fraction 35 to 40% who presented to the emergency department early this morning after several days worth of progressive dyspnea. The patient denies any chest pain chest pressure or other anginal symptoms. However he states that over the last several days he has been becoming more progressively short of breath particularly with exertion. The night prior to presentation he did relate some resting dyspnea and orthopnea. He has noted some swelling in the lower extremities. He denies any noncompliance with his current guideline directed medical therapy. He states strict compliance with his Coumadin anticoagulation. He denies any recent dietary sodium indiscretion. In the emergency department the patient was felt to be in mild decompensated congestive heart failure. This was based on clinical and radiographic findings. Laboratory evaluation also showed an elevated BN P at 635. Initial troponins were negative. EKG showed no acute ischemic changes. The patient was started on IV diuretic therapy with 40 mg IV Lasix and admitted to the inpatient hospital medicine service for further management. Patient has been diuresing well over the course of this morning. He states his breathing is already feeling close to baseline. He is resting comfortably. He continues to deny any anginal symptoms. He denies any stroke or TIA-like symptoms. Given this episode of what appears to be clinically mild decompensated heart failure in the setting of chronic left ventricular systolic dysfunction and history of aortic valve replacement (mechanical), I am now consulted for furthercardiac evaluation and management. Review of Systems Review of Systems All other systems reviewed & are negative unless noted below or in HPI [facility] Medical History (Updated 05/20/24 @ 03:01 by Rafa Mendez DO) Congestive heart failure (CHF) HTN (hypertension) Afib Surgical History (Updated 05/19/24 @ 23:17 by Rufino Robbins RN) Mechanical heart valve present History of ear surgery Hx of heart surgery Family History (Updated 05/19/24 @ 22:54 by Rufino Robbins RN) Father Diabetes Afib Hypertension Mother Aortic valve regurgitation due to aortic dissection 2017 Social History Smoking Status: Never smoker Tobacco Type: cigarettes Substance Use Type: None Meds Medications and Allergies Allergies No Known Allergies Allergy (Verified 05/19/24 16:53) Home Medications albuterol sulfate 90 mcg/actuation aerosol inhaler 1 inh inhalation Q4-6H PRN wheezing 09/28/23 [History Confirmed 05/19/24] levothyroxine 200 mcg tablet 200 mcg PO QHS 09/28/23 [History Confirmed 05/19/24] losartan 50 mg tablet 50 mg PO QHS 09/28/23 [History Confirmed 05/19/24] metoprolol tartrate 100 mg tablet 100 mg PO BID 09/28/23 [History Confirmed 05/19/24] pramipexole 1.5 mg tablet 1.5 mg PO QHS 09/28/23 [History Confirmed 05/19/24] rosuvastatin 20 mg sprinkle capsule 20 mg PO QHS 09/28/23 [History Confirmed 05/19/24] spironolactone 25 mg tablet 25 mg PO DAILY 09/28/23 [History Confirmed 05/19/24] warfarin 3 mg tablet 3 mg PO QHS 09/28/23 [History Confirmed 05/19/24] torsemide 20 mg tablet 40 mg (2 x 20 mg) PO QAM 30 days #60 tabs 09/29/23 [Rx Confirmed 05/19/24] amiodarone 200 mg tablet 200 mg PO BID 05/19/24 [History Confirmed 05/19/24] Exam Physical Exam Vital Signs: Temp Pulse Resp BP Pulse Ox O2 Del Method 97.5 F L 62 18 152/81 H 96 Room Air 05/20/24 04:00 05/20/24 08:56 05/20/24 08:56 05/20/24 08:56 05/20/24 08:56 05/20/24 08:56 Const General: comfortable and no acute distress Nutritional Appearance: overweight Orientation: alert, awake and oriented x3 HEENT Head: normocephalic and atraumatic Mouth: moist mucous membranes Eyes Pupils: PERRL and accommodation normal EOM: EOM intact bilaterally Neck Neck: no lymphadenopathy and supple Neck mass: No Carotids: normal carotid upstroke Lymphatic: no lymphadenopathy noted Chest Chest palpation & inspection: normal inspection of the chest Resp Effort & Inspection: normal respiratory effort, able to speak in complete sentences and symmetric chest movement Auscultation: crackles Cardio Jugular venous pressure: JVD Palpation: abnormal PMI and palpable S4 Rate: regular rate Rhythm: regular rhythm Heart Sounds: S1 normal, S2 normal, click and murmur systolic Pulses: radial pulses present and femoral pulses present GI Palpation: soft and no hepatosplenomegaly Auscultation: normal bowel sounds Skin General: no rashes or lesions noted Wounds: no wounds Neuro General: patient alert, patient awake and patient oriented x3 Cranial Nerves: CN's II-XII intact bilaterally Cognition: normal cognition Speech: speech normal Motor: muscle tone normal throughout Sensory Exam: no sensory deficits noted Extrem General: edema Psych Appearance: grossly normal Mental Status: mental status grossly normal Mood: congruent mood Affect: normal affect Speech and Movement: speech and movement normal Attitude: cooperative Thought Process: normal Thought Content: normal Insight: fair Judgment: fair Results - Cardiology Labs 05/20/24 05:58 05/20/24 05:58 Lab results: Cardiac Enzymes 05/19/24 Range/Units 19:32 AST 47 H (13-39) U/L Total Creatine Kinase 188 (30-223) U/L B-Natriuretic Peptide 635.0 H (5-100) pg/mL CBC 05/19/24 05/20/24 Range/Units 19:32 05:58 RBC 4.10 3.59 L (3.90-5.60) X10E6/uL Hgb 12.8 L 11.4 L (13.0-17.0) g/dL Hct 38.6 L 34.2 L (38.8-50.0) % Plt Count 173 132 L (150-450) x10E3/uL Neut # (Auto) 9.1 H 5.8 (1.8-7.7) x10E3/uL Lymph # (Auto) 1.4 1.0 (1.00-4.8) x10E3/uL [place] # (Auto) 1.0 H 0.8 (0.0-0.8) x10E3/uL Eos # (Auto) 0.3 0.2 (0.0-0.45) x10E3/uL Baso # (Auto) 0.1 0.1 (0.0-0.2) x10E3/uL Comprehensive Metabolic Panel 05/19/24 05/20/24 Range/Units 19:32 05:58 Sodium 137 140 (136-145) mmol/L Potassium 3.7 3.5 (3.5-5.1) mmol/L Chloride 100 100 (98-107) mmol/L Carbon Dioxide 34.0 H 34.3 H (21.0-31.0) mmol/L BUN 40 H 38 H (7-25) mg/dL Creatinine 1.78 H 1.53 H (0.70-1.30) mg/dL Glucose 100 95 (70-100) mg/dL Calcium 8.9 8.0 L (8.6-10.3) mg/dL AST 47 H (13-39) U/L ALT 62 H (7-52) U/L Alkaline Phosphatase 124 H (34-104) U/L Total Protein 7.6 (6.4-8.9) gm/dL Albumin 4.2 (3.5-5.7) gm/dL Intake and Output 05/19/24 05/20/24 05/20/24 23:59 07:59 15:59 Intake Total 650 / 650 Balance 650 / 650 Intake: Oral 650 / 650 Other: # Voids 1 # Unmeasured Voids 5 # Bowel Movements 0 Weight 114 kg 113 kg Date of Last Bowel Movement 05/19/24 05/19/24 05/19/24 Patient Weight 05/20/24 23:59 Weight 113 kg Lab 05/19/24 05/20/24 19:32 05:58 PT 45.9 H 43.8 H INR 4.1 3.9 APTT 35.5 EKG Interpretations EKG Attestation EKG: I reviewed this ECG and interpreted as documented below: Dysrhythmias Sinus rhythms and dysrhythmias: sinus rhythm Blocks, axis, hypertrophy, ST abn AV and intraventricular conduction: right bundle branch block (fixed/intermittent, complete/incomplete) Repolarization changes or abnormalities: nonspecific abnormality, ST segment, and/or T wave [place], pacemaker, normal Normal tracing: no change compared to previous tracing A&P - Cardiology (1) HFrEF (heart failure with reduced ejection fraction): Assessment/Problem Details: Patient with a known history of chronic mild to moderate resting left ventricular systolic dysfunction baseline ejection fraction 35 to 40%. Now withepisode of mild decompensated systolic heart failure. No clinical or physical exam suggestion that this represents any sort of dysfunction with the patient's mechanical aortic valve prosthesis. Plan: 1. Agree with admit to school lunch monitor 2. Continue diuresis with Lasix 40 mg IV twice daily 3. Will add preload reduction with topical nitrate 1 inch to the chest wall twice daily 4. Will decrease beta-allie dose by 50% until compensated 5. Spironolactone 25 mg p.o. every morning 6. Will maintain current dosing of oral amiodarone for maintenance of normal sinus mechanism: 200 mg twice daily 7. Strict low-sodium diet. Goal daily sodium intake less than 2000 mg Code(s): I50.20 - Unspecified systolic (congestive) heart failure Plan Moderate complexity medical decision making as primarily relates to the episode of mild decompensated heart failure with reduced ejection fraction as outlined above Thank you very much for this kind consultation and for allowing to participate in the care of this very pleasant patient. Of note Mr. Graves's primary cleaning custodian is Dr. Licona with [facility]. Documented By: Kolton Bhakta MD 05/20/24 1214 Signed By: <Electronically signed by Kolton Bhakta MD> 05/20/24 1229 [facility] Work Phone: [phone]) 688-504610-06-2024 History and physical note Author Rafa Mendez [facility] May 20, 2024 3:03am Note Date/Time May 19, 2024 9: 21pm [facility] [address] [place] [address] Hospitalist H&P Signed Patient: Rehan Graves MR#: [id number] : 1970 Acct:[id number] Age/Sex: 54 / M Adm Date: 4 Loc: Room: [address] [place] [address] Type: ADM IN Attending Dr: Rafa Mendez DO Copies to: MD Rafa Lopez DO~ HPI DATE OF EXAMINATION: 05/20/24 CHIEF COMPLAINT: Shortness of breath HISTORY OF PRESENT ILLNESS: This patient is a 54-year-old male who presented to the emergency department earlier this afternoon with progressive shortness of breath. This had been getting gradually worse for the prior 2 weeks and intensified over the last 48 hours to the point of inability to lie flat without severe shortness of breath. He states gained weight over this 2-week. Endorses some dizziness as well past couple of days as his breathing symptoms intensified. His vital signs on arrival stable without hypoxia rate 60s, tachypnea 22 respirations per minute and elevated blood pressure 179/81 mmHg. Laboratory evaluation included a CBC showing mild neutrophilic leukocytosis, slight monocyte elevation 1.09. Slight anemia H&H 12.8/38.6% with normal MCV 94.1. Platelets 173. His INR is supratherapeutic at 4.1. Chemistries reveal alow normal potassium at 3.7, contraction alkalosis serum bicarbonate 34.0. BUN/creatinine 40/1.78 and diffuse mild elevation of LFTs total bili 1.2, AST ALT 47 and 62 respectively, alkaline phosphatase 124. His high-sensitivity troponin level is within normal limits at 12.1 BNP is notably elevated 635.0. His chest x-ray shows clear costophrenic angles and radiology report reports no acute findings or cardiomegaly. Comparing this 1 view film to his previous 2 view chest x-rays I cannot definitively say there is a change in vascular edema or heart size however in the clinical scenario he presents with today the overall vascular haziness and comparison [id number] seems to indicate CHF. The patient was subsequently given 40 mg IV Lasix x 1 and admitted for acute exacerbation of congestive heart failure. On arrival to the [facility] floor she does feel this Lasix is helping but is visibly still dyspneic although not requiring any supplemental O2. He is not distressed he feels his edema and weight gain diffusely with swelling of the legs as well as abdomen reported in addition to cardiopulmonary symptoms. Physical Examination: GENERAL APPEARANCE: Alert, up in bed AAOx3 HEENT: NCAT, MMM CARDIAC: Normal S1 and S2. Audible mechanical valve LUNGS: Clear to auscultation bilaterally. no wheeze/rhonchi/rales ABDOMEN: Positive bowel sounds. Soft, nontender. No guarding or signs of an acute abdomen MUSCULOSKELETAL: No joint erythema or tenderness. EXTREMITIES: No clubbing, cyanosis. 2-3+ pitting edema bilateral lower extremities NEUROLOGICAL: No focal deficits SKIN: Skin normal color, texture and turgor with no lesions or eruptions. PSYCHIATRIC: Appropriate mood and affect. Assessment and plan: 1. Acute exacerbation of chronic systolic congestive heart failure 2. Volume overload 3. Hypertensive emergency 4. Aortic valve disease status post aortic valve replacement on chronic anticoagulation with Coumadin 5. Atrial fibrillation 6. Hypothyroidism 7. Chronic kidney disease stage III 8. Moderate pulmonary hypertension 9. Moderate to severe COPD by PFT testing October 2023 10. Transaminitis 11. Hyperbilirubinemia 12. Restless leg syndrome Patient is clinically volume overloaded and will need multiple days of IV diuresis with daily labs and continuous telemetry monitoring in light of his kidney disease and arrhythmia, valvular heart disease and cardiac complexity. He will need consultation with specialists including cardiology if not also nephrology. He is thus admitted as an inpatient for stay that will surpass greater than 2 midnights. Will consult cardiology. The patient feels he had an echocardiogram more recently and saw his [facility] cleaning custodian as recently as January. I will hold off on echocardiogram and consult cardiology to see if they have record of this. His 40 mg daily torsemide will be held and IV Lasix 40 mg twice daily will be continued. Continue Aldactone 25 mg. Strict I's and O's. Patient has PFTs suggesting obstructive disease and prior smoking history. His as needed albuterol inhaler can be continued. Monitor for exacerbation and symptomatic wheeze. I suspect a congestive hepatopathy accounts for his diffusemild LFT elevation based on previously noted pulmonary hypertension on September echocardiogram of this year, no IVC/hepatic vein dilation was noted at that time. Atrial fibrillation is well-controlled on current regimen including amiodarone 200 mg twice daily and metoprolol tartrate 100 mg twice daily. These will be continued as prescribed. Currently sinus rhythm rate controlled. Chronic kidney disease is near baseline stage III and will monitor with intensified diuretics. Certainly is at risk for worsening with diuresis or varying degree of cardiorenal syndrome chronically. INR is supratherapeutic at the moment and presumably is on Coumadin for mechanical valve which concomitantly treats his A-fib. Hold Coumadin this evening, consult pharmacy to dose. Patient requests his nighttime meds most importantly to him is pramipexole whichhas now been ordered. He additionally takes levothyroxine 200 mcg in the evening which is atypical but not problematic and this too has been ordered. [facility] Medical History (Updated 05/20/24 @ 03:01 by Rafa Mendez DO) Congestive heart failure (CHF) HTN (hypertension) Afib Surgical History (Updated 05/19/24 @ 23:17 by Rufino Robbins RN) Mechanical heart valve present History of ear surgery Hx of heart surgery Family History (Updated 05/19/24 @ 22:54 by Rufino Robbins RN) Father Diabetes Afib Hypertension Mother Aortic valve regurgitation due to aortic dissection 2017 Social History Smoking Status: Former smoker Tobacco Type: cigarettes Substance Use Type: Alcohol Meds Medications and Allergies Allergies No Known Allergies Allergy (Verified 05/19/24 16:53) Home Medications albuterol sulfate 90 mcg/actuation aerosol inhaler 1 inh inhalation Q4-6H PRN wheezing 09/28/23 [History Confirmed 05/19/24] levothyroxine 200 mcg tablet 200 mcg PO QHS 09/28/23 [History Confirmed 05/19/24] losartan 50 mg tablet 50 mg PO QHS 09/28/23 [History Confirmed 05/19/24] metoprolol tartrate 100 mg tablet 100 mg PO BID 09/28/23 [History Confirmed 05/19/24] pramipexole 1.5 mg tablet 1.5 mg PO QHS 09/28/23 [History Confirmed 05/19/24] rosuvastatin 20 mg sprinkle capsule 20 mg PO QHS 09/28/23 [History Confirmed 05/19/24] spironolactone 25 mg tablet 25 mg PO DAILY 09/28/23 [History Confirmed 05/19/24] warfarin 3 mg tablet 3 mg PO QHS 09/28/23 [History Confirmed 05/19/24] torsemide 20 mg tablet 40 mg (2 x 20 mg) PO QAM 30 days #60 tabs 09/29/23 [Rx Confirmed 05/19/24] amiodarone 200 mg tablet 200 mg PO BID 05/19/24 [History Confirmed 05/19/24] Exam Physical Exam Vital Signs: Temp Pulse Resp BP Pulse Ox O2 Del Method 98 F 62 18 150/77 H 100 Room Air 05/19/24 18:44 05/19/24 20:30 05/19/24 20:30 05/19/24 20:30 05/19/24 20:30 05/19/24 20:30 Results - Hospitalist H&P Lab Results Labs: Laboratory Last Values Corrected WBC 11.9 X10E3/uL (4.1-10.5) H 05/19/24 19:32 Uncorrected WBC Count 11.9 x10E3/uL (4.1-10.5) H 05/19/24 19:32 RBC 4.10 X10E6/uL (3.90-5.60) 05/19/24 19:32 Hgb 12.8 g/dL (13.0-17.0) L 05/19/24 19:32 Hct 38.6 % (38.8-50.0) L 05/19/24 19:32 MCV 94.1 fl (83.5-101) 05/19/24 19:32 MCH 31.3 pg (27.5-35.2) 05/19/24 19:32 MCHC 33.2 g/dL (32.5-35.6) 05/19/24 19:32 RDW 14.7 % (12.0-14.8) 05/19/24 19:32 Plt Count 173 x10E3/uL (150-450) 05/19/24 19:32 MPV 8.3 fl (6.6-10.1) 05/19/24 19:32 Neut % (Auto) 76.9 % (.) 05/19/24 19:32 Lymph % (Auto) 11.7 % (.) 05/19/24 19:32 [place] % (Auto) 8.5 % (.) 05/19/24 19:32 Eos % (Auto) 2.1 % (.) 05/19/24:32 Baso % (Auto) 0.8 % (.) 05/19/24 19:32 Nucleat RBC Rel Count 0.0 /100 WBC (0-0.5) 05/19/24 19:32 Neut # (Auto) 9.1 x10E3/uL (1.8-7.7) H 05/19/24 19:32 Lymph # (Auto) 1.4 x10E3/uL (1.00-4.8) 05/19/24 19:32 [place] # (Auto) 1.0 x10E3/uL (0.0-0.8) H 05/19/24 19:32 Eos # (Auto) 0.3 x10E3/uL (0.0-0.45) 05/19/24 19:32 Baso # (Auto) 0.1 x10E3/uL (0.0-0.2) 05/19/24 19:32 Monocyte Dist Width 17.72 % (0.00-20.00) 05/19/24 19:32 PT 45.9 Seconds (9.0-12.9) H 05/19/24 19:32 INR 4.1 05/19/24 19:32 PHA Creatinine Clear 56.28 05/19/24 19:32 Sodium 137 mmol/L (136-145) 05/19/24 19:32 Potassium 3.7 mmol/L (3.5-5.1) 05/19/24 19:32 Chloride 100 mmol/L (98-107) 05/19/24 19:32 Carbon Dioxide 34.0 mmol/L (21.0-31.0) H 05/19/24 19:32 Anion Gap 6.7 mEq/L (6.0-15.0) 05/19/24 19:32 BUN 40 mg/dL (7-25) H 05/19/24 19:32 Creatinine 1.78 mg/dL (0.70-1.30) H 05/19/24 19:32 Est GFR (CKD-EPI) 44.496 mL/Min 05/19/24 19:32 Glucose 100 mg/dL (70-100) 05/19/24 19:32 Calcium 8.9 mg/dL (8.6-10.3) 05/19/24 19:32 Total Bilirubin 1.2 mg/dl (0.3-1.0) H 05/19/24 19:32 AST 47 U/L (13-39) H 05/19/24 19:32 ALT 62 U/L (7-52) H 05/19/24 19:32 Alkaline Phosphatase 124 U/L (34-104) H 05/19/24 19:32 Total Creatine Kinase 188 U/L (30-223) 05/19/24 19:32 Troponin I High Sens 12.1 pg/mL (0.0-20.0) 05/19/24 19:32 B-Natriuretic Peptide 635.0 pg/mL (5-100) H 05/19/24 19:32 Total Protein 7.6 gm/dL (6.4-8.9) 05/19/24 19:32 Albumin 4.2 gm/dL (3.5-5.7) 05/19/24 19:32 Globulin 3.4 gm/dL 05/19/24 19:32 Albumin/Globulin Ratio 1.2 05/19/24 19:32 Assessment & Plan Assessment/Plan (1) Acute systolic heart failure due to valvular disease: Plan . IP vs OBS Justification Based on differential dx, clinical care plan, and risk of adverse events, if untreated, in my clinical judgement this patient requires an acute care setting as: INPATIENT because of an expectation of an over 2 midnight stay. Estimated length of stay (# of days): 3 Documented By: Rafa Mendez DO 05/19/24 21 21 Signed By: <Electronically signed by Rafa Mendez DO> 05/20/24 0303 [facility] Work Phone: 1([phone] 150-382106-06-2024 History of Present illness Narrative* Ovidio Licona MD - 01/19/2024 9:40 AM EDT Subjective Rehan Graves is a 53 y.o. male Chief Complaint Follow-up HPI Patient is in the office for follow-up for the problems noted below. He was in the ER last week with right upper quadrant pain, gallbladder workup was negative. He is rendering equipment tender in the right upper quadrant which could be passive liver congestion, echocardiogram and September 2023 demonstrated normal mechanical aortic valve function with reduced ejection fraction at 35% and moderate pulmonary hypertension. He has advanced kidney disease creatinine around 1.9 mg/dL. He will be referred to nephrology for evaluation and management. He is on standard therapy for systolic heart failure and presently seems to be compensated. His rhythm is regular and his ER visit recently showed normal sinus rhythm he is on amiodarone and Coumadin. His lungs sounded normal and he has no lower extremity edema. His heart rate was normal as well. ASSESSMENT AND PLAN: 1. Mechanical aortic valve prosthesis paced in 2006. Last echocardiogram September 2023 demonstratednormal valve function 2. Ascending aortic aneurysm dissection repaired surgically and with no recurrences. 3. Chronic Coumadin therapy managed by [facility] without any bleeding complications or thromboembolic events. 4. Hypothyroidism, on replacement therapy thyroid testing is ordered. 5. Hyperlipidemia, on statin therapy 6. Essential hypertension, presently under control. 7. Class I obesity, lifestyle changes with low-calorie diet was recommended 8. Near severe left ventricular systolic dysfunction, ejection fraction 35% echo September 2023. Currently on guideline directed medical therapy. 9. Paroxysmal atrial flutter status post voodoo of sinus rhythm with cardioversion and currently on amiodarone and Coumadin. He has been in sinus rhythm lately. 10. High risk medication with anticoagulation and antiarrhythmic therapy. Will monitor that closely 11. Stage IV chronic kidney disease. The patient will be referred to nephrology for evaluation 12. Right upper quadrant pain with tenderness and with negative ultrasound of the gallbladder. Thisis probably passive liver congestion, current medical therapy does not need to be adjusted Ovidio Licona MD, [facility] Review of Systems Respiratory: Positive for shortness of breath. All other systems reviewed and are negative. Vitals: 01/19/24 0951 BP: 110/78 BP Location: Left arm Patient Position: Sitting Pulse: 60 Weight: 106 kg (234 lb) Height: 1.753 m (5' 9 ) Objective Physical Exam Constitutional: Appearance: Normal appearance. HENT: Nose: Nose normal. Neck: Vascular: No carotid bruit. Cardiovascular: Rate and Rhythm: Normal rate. Pulses: Normal pulses. Heart sounds: Normal heart sounds. Comments: Soft Mitral valve murmur Pulmonary: Effort: Pulmonary effort is normal. Abdominal: General: Bowel sounds are normal. Palpations: Abdomen is soft. Comments: Tender right upper quadrant Musculoskeletal: General: Normal range of motion. Cervical back: Normal range of motion. Right lower leg: No edema. Left lower leg: No edema. Skin: General: Skin is warm and dry. Neurological: General: No focal deficit present. Mental Status: He is alert. Psychiatric: Mood and Affect: Mood normal. Behavior: Behavior normal. Thought Content: Thought content normal. Judgment: Judgment normal. Allergies Olmesartan and Ramipril Current Medications Current Outpatient Medications: albuterol sulfate (Proair Digihaler) 90 mcg/actuation aero powdr breath act w/sensor inhaler, Inhale. As [id number], Disp: , Rfl: amiodarone (Pacerone) 200 mg tablet, Take 1 tablet (200 mg) by mouth 2 times a day. (Patient takingdifferently: Take 1 tablet (200 mg) by mouth 3 times a day.), Disp: 180 tablet, Rfl: 1 levothyroxine (Synthroid, Levoxyl) 200 mcg tablet, take 1 tablet by mouth once daily, Disp: 90 tablet, Rfl: 3 losartan (Cozaar) 50 mg tablet, take 1 tablet by mouth once daily, Disp: 90 tablet, Rfl: 1 metoprolol tartrate (Lopressor) 100 mg tablet, take 1 tablet by mouth every 12 hours, Disp: 180 tablet, Rfl: 3 pramipexole (Mirapex) 0.5 mg tablet, Take 3 tablets (1.5 mg) by mouth once daily at bedtime., Disp:, Rfl: rosuvastatin (Crestor) 20 mg tablet, Take 1 tablet (20 mg) by mouth once daily., Disp: 90 tablet, Rfl: 3 spironolactone (Aldactone) 25 mg tablet, Take 0.5 tablets (12.5 mg) by mouth once daily., Disp: 45 tablet, Rfl: 3 torsemide (Demadex) 20 mg tablet, Take 2 tablets (40 mg) by mouth once daily., Disp: 180 tablet, Rfl: 3 warfarin (Coumadin) 3 mg tablet, Take 1 tablet (3 mg) by mouth once daily at bedtime. Take as directed per After Visit Summary., Disp: 30 tablet, Rfl: 0 simvastatin (Zocor) 20 mg tablet, take 1 tablet by mouth once daily, Disp: 90 tablet, Rfl: 3 Assessment/Plan 1. Atrial fibrillation, unspecified type (Multi) Follow Up In Cardiology 2. Typical atrial flutter (Multi) Follow Up In Cardiology 3. Essential hypertension, benign 4. History of aortic valve replacement 5. High risk medication use 6. Mixed hyperlipidemia 7. Stage 4 chronic kidney disease (Multi) Referral to Nephrology 8. BMI 34.0-34.9,adult 9. Former smoker Scribe Attestation By signing my name below, I, Kayla Loyd LPN attest that this documentation has been prepared under the direction and in the presence of Ovidio Licona MD. Provider Attestation - Scribe documentation All medical record entries made by the Scribe were at my direction and personally dictated by me. Ihave reviewed the chart and agree that the record accurately reflects my personal performance of the history, physical exam, discussion and plan. documented in this [facility] Work Phone: [phone]) 147-142806-06-2024 Instructions* Patient Instructions* Erma Castrejon LPN - 01/19/2024 9:40 AM EDT Please bring all medicines, vitamins, and herbal supplements with you when you come to the office. Prescriptions will not be filled unless you are compliant with your follow up appointments or have a follow up appointment scheduled as per instruction of your physician. Refills should be requested at the time of your visit. Amiodarone follow up per routine BMI was above normal measurement. Current weight: 106 kg (234 lb) Weight change since last visit (-) denotes wt loss 2 lbs Weight loss needed to achieve BMI 25: 65.1 Lbs Weight loss needed to achieve BMI 30: 31.3 Lbs Provided instructions on dietary changes. * Attachments The following attachments cannot be sent through Care Everywhere. * Heart Healthy Diet (Sami) [facility] Work Phone: [phone]) 301-160105-23-2024 History of Present illness Narrative* Angie Camp MA - 01/05/2024 1:00 PM EDT Patient here for at EKG visit ordered by Dr. Licona due to ekg. Dr. Licona in suite. Patient heredue to afib. Medication list Updated with bottles.pt has cardiac complaints of wieght gain,swellingin ankles and abdominal fullness, and also sob. Discussed with Heike prior to discharge. To Dr. Licona for review Vitals: 01/05/24 1526 BP: 110/78 BP Location: Left arm Patient Position: Sitting Pulse: 63 Weight: 105 kg (232 lb) Height: 1.753 m (5' 9 ) [facility] Work Phone: [phone] 574-587302-28-2024 History of Present illness Narrative* Ovidio Licona MD - 10/12/2023 9:30 AM EST Subjective Rehan Graves is a 53 y.o. male Chief Complaint Hypertension; Blood Pressure Check HPI Patient is in the office for follow-up for hypertension management since adjustment of medications were made recently. His weight is down 7 pounds and the lower extremity edema has improved. His pressure is now on target. No change in medical therapy was recommended for the time being. Will bring him back in 3 months and do a limited echocardiogram to reassess ejection fraction since he was restored back to normal sinus rhythm. Meanwhile his amiodarone dose will be left unchanged for now. Amiodarone testing will be initiated ROS Vitals: 10/12/23 0941 BP: 138/62 BP Location: Left arm Patient Position: Sitting Pulse: 64 Weight: 93.9 kg (207 lb) Height: 1.753 m (5' 9 ) Objective Physical Exam Allergies Olmesartan and Ramipril Current Medications Current Outpatient Medications: albuterol sulfate (Proair Digihaler) 90 mcg/actuation aero powdr breath act w/sensor inhaler, Inhale. As [id number], Disp: , Rfl: amiodarone (Pacerone) 200 mg tablet, Take 1 tablet (200 mg) by mouth 2 times a day. (Patient takingdifferently: Take 1 tablet (200 mg) by mouth 3 times a day.), Disp: 180 tablet, Rfl: 1 levothyroxine (Synthroid, Levoxyl) 200 mcg tablet, Take 1 tablet (200 mcg) by mouth once daily., Disp: , Rfl: losartan (Cozaar) 50 mg tablet, take 1 tablet by mouth once daily, Disp: 90 tablet, Rfl: 1 metoprolol tartrate (Lopressor) 100 mg tablet, Take 1 tablet (100 mg) by mouth twice a day., Disp: , Rfl: montelukast (Singulair) 10 mg tablet, Take 1 tablet (10 mg) by mouth once daily at bedtime., Disp: , Rfl: potassium chloride CR 20 mEq ER tablet, Take 1 tablet (20 mEq) by mouth 3 times a day. Do not crushor chew., Disp: , Rfl: pramipexole (Mirapex) 0.5 mg tablet, Take 3 tablets (1.5 mg) by mouth once daily at bedtime., Disp:, Rfl: rosuvastatin (Crestor) 20 mg tablet, Take 1 tablet (20 mg) by mouth once daily., Disp: 90 tablet, Rfl: 3 spironolactone (Aldactone) 25 mg tablet, Take 1 tablet (25 mg) by mouth once daily., Disp: , Rfl: torsemide 60 mg tablet, Take 60 mg by mouth once daily., Disp: , Rfl: warfarin (Coumadin) 3 mg tablet, Take 1 tablet (3 mg) by mouth once daily at bedtime. Take as directed per After Visit Summary., Disp: 30 tablet, Rfl: 0 Assessment/Plan 1. Atrial fibrillation, unspecified type (CMS/HCC) Follow Up In Cardiology Follow Up In Cardiology 2. Atrial fibrillation status post cardioversion (CMS/HCC) Follow Up In Cardiology 3. Essential hypertension, benign Follow Up In Cardiology 4. Typical atrial flutter (CMS/HCC) Follow Up In Cardiology 5. High risk medication use Thyroid Stimulating Hormone Alanine Aminotransferase Aspartate Aminotransferase Basic Metabolic Panel XR chest 2 views Thyroid Stimulating Hormone Alanine Aminotransferase Aspartate Aminotransferase Basic Metabolic Panel 6. History of aortic valve replacement Transthoracic Echo Limited Scribe Attestation By signing my name below, IAriana LPN Scribrogelio attest that this documentation has been prepared under the direction and in the presence of Ovidio Licona MD. Provider Attestation - Scribe documentation All medical record entries made by the Scribe were at my direction and personally dictated by me. Ihave reviewed the chart and agree that the record accurately reflects my personal performance of the history, physical exam, discussion and plan. [facility] Work Phone: [phone]) 394-671902-28-2024 Instructions* Patient Instructions* Ariana Rodriguez LPN - 10/12/2023 9:30 AM EST Please bring all medicines, vitamins, and herbal supplements with you when you come to the office. Prescriptions will not be filled unless you are compliant with your follow up appointments or have a follow up appointment scheduled as per instruction of your physician. Refills should be requested at the time of your visit. [facility] Work Phone: [phone] 128-320202-19-2024 History of Present illness Narrative* Ovidio Licona MD - 10/03/2023 2:00 PM EST Gonzalo Graves is a 53 y.o. male Chief Complaint Hypertension Hypertension Patient is in the office for atrial fibrillation/flutter with cardioversion last week. He remains in sinus rhythm on amiodarone. His blood pressure is on the low side and he continues to have lower extremity edema. We will discontinue diltiazem and increase Demadex along with higher dose of potassium and follow his blood pressure and lab in the next few days. Review of Systems All other systems reviewed and are negative. Vitals: 10/03/23 1419 BP: 96/64 BP Location: Left arm Patient Position: Sitting Pulse: 72 Weight: 97.5 kg (215 lb) Height: 1.753 m (5' 9 ) EKG done in office today Objective Physical Exam Allergies Olmesartan and Ramipril Current Medications Current Outpatient Medications: albuterol sulfate (Proair Digihaler) 90 mcg/actuation aero powdr breath act w/sensor inhaler, Inhale. As [id number], Disp: , Rfl: amiodarone (Pacerone) 200 mg tablet, Take 1 tablet (200 mg) by mouth 2 times a day., Disp: 180 tablet, Rfl: 1 levothyroxine (Synthroid, Levoxyl) 200 mcg tablet, Take 1 tablet (200 mcg) by mouth once daily., Disp: , Rfl: losartan (Cozaar) 50 mg tablet, take 1 tablet by mouth once daily, Disp: 90 tablet, Rfl: 1 metoprolol tartrate (Lopressor) 100 mg tablet, Take 1 tablet (100 mg) by mouth twice a day., Disp: , Rfl: montelukast (Singulair) 10 mg tablet, Take 1 tablet (10 mg) by mouth once daily at bedtime., Disp: , Rfl: pramipexole (Mirapex) 0.5 mg tablet, Take 3 tablets (1.5 mg) by mouth once daily at bedtime., Disp:, Rfl: rosuvastatin (Crestor) 20 mg tablet, Take 1 tablet (20 mg) by mouth once daily., Disp: 90 tablet, Rfl: 3 spironolactone (Aldactone) 25 mg tablet, Take 1 tablet (25 mg) by mouth once daily., Disp: , Rfl: warfarin (Coumadin) 3 mg tablet, Take 1 tablet (3 mg) by mouth once daily at bedtime. Take as directed per After Visit Summary., Disp: 30 tablet, Rfl: 0 potassium chloride (Klor-Con) 20 mEq packet, Take 40 mEq by mouth once daily., Disp: 180 packet, Rfl: 3 torsemide 40 mg tablet, Take 40 mg by mouth once daily., Disp: 90 tablet, Rfl: 3 Assessment/Plan 1. Atrial fibrillation, unspecified type (CMS/HCC) Follow Up In Cardiology Follow Up In Cardiology 2. Atrial fibrillation status post cardioversion (CMS/HCC) Follow Up In Cardiology Follow Up In Cardiology 3. Essential hypertension, benign torsemide 40 mg tablet Follow Up In Cardiology potassium chloride (Klor-Con) 20 mEq packet Basic Metabolic Panel Basic Metabolic Panel 4. Typical atrial flutter (CMS/HCC) Follow Up In Cardiology Scribe Attestation By signing my name below, Ariana iMshraMychal YUNG, Kayla attest that this documentation has been prepared under the direction and in the presence of Ovidio Licona MD. Provider Attestation - Scribe documentation All medical record entries made by the Scribe were at my direction and personally dictated by me. Ihave reviewed the chart and agree that the record accurately reflects my personal performance of the history, physical exam, discussion and plan. [facility] Work Phone: [phone]) 209-149302-19-2024 Instructions* Patient Instructions* Lindsey Desai LPN - 10/03/2023 2:00 PM EST Please bring all medicines, vitamins, and herbal supplements with you when you come to the office. Prescriptions will not be filled unless you are compliant with your follow up appointments or have a follow up appointment scheduled as per instruction of your physician. Refills should be requested at the time of your visit. [facility] Work Phone: [phone]) [phone] [facility]-31-2024 History of Present illness Narrative* Lindsey Desai LPN - 09/14/2023 1:00 PM EST Patient here for at EKG visit ordered by Dr. Licona due to Atrial Fibrillation. Dr. Carlson in suite physician. Patient here due to Medication Changes . Medication list Updated verbally. Shortness of breathe cardiac complaints. Discussed with Franco Silva RN prior to discharge. Patient states while in office stopped taking Amiodarone as of last 09/08/23 due to havingcoughing fits every time he breathed, states phoned into office and let nursing know through telephone call. Patient states he has been taking metoprolol tartrate 100 mg bid. Upon review with patientper Dr. Ovidio Licona MD/ Heike Silva RN. Patient to go back to original plan to start Amiodarone 200 mg bid along with current medication and to keep follow up appointment with Dr. Ovidio Licona MD on 09/22/23 will do 1 week EKG for medication changes. To Dr. Licona for review Vitals: 09/14/23 1414 BP: 136/86 BP Location: Right arm Patient Position: Sitting Pulse: (!) 132 Weight: 102 kg (224 lb) Height: 1.753 m (5' 9 ) documented in this [facility] Work Phone: Discharge summary Author Ovidio Licona [facility] September 29, 2023 9:53am Note Date/Time September 29, 2023 9:53am [facility] [address] [place] [address] Discharge Summary Signed Patient: Rehan Graves MR#: [id number] : 1970 Acct:[id number] Age/Sex: 53 / M Adm Date: 4 Loc: EL Room: Attending Dr: Ovidio Licona MD Copies to: Ovidio Licona MD, [facility] Rod Benitez MD~ Providers Date of Discharge: 09/29/23 Discharging Provider: Ovidio Licona Primary Care Provider: Rod Benitez Discharge Diagnosis Final Diagnosis Final Discharge Diagnosis: Successful cardioversion from atrial flutter to sinus rhythm Summary Hospital Course Hospital course: Outpatient procedure Time Spent with Patient Time spent providing/coordinating discharge services (# min): 30 Diagnostic Studies Completed and Pending Studies Labs on day of discharge: 09/29/23 09:09: PT 26.6 H, INR 2.4 09/29/23 08:09: PT Cancelled, INR Cancelled, Sodium 139, Potassium 4.7, [id number], Carbon Dioxide 34.3 H, Anion Gap 10.4 Discharge Plan Discharge Plan Patient Disposition: Home Activity: Ambulate as Tolerated Comment: Do not drive a car for 24 hours Diet: Low-Sodium and Low-Cholesterol Prescriptions: New amiodarone 200 mg tablet 200 mg PO Q8HR 30 Days Qty: 90 2RF torsemide 20 mg tablet 40 mg PO QAM 30 Days Qty: 60 3RF potassium chloride 20 mEq tablet extended release 20 meq PO BID 30 Days Qty: 60 3RF Continued albuterol sulfate 90 mcg/actuation HFA aerosol inhaler 1 inh inhalation Q4-6H PRN (Reason: wheezing) diltiazem HCl [Cardizem CD] 180 mg capsule,extended release 24hr 180 mg PO DAILY levothyroxine 200 mcg tablet 200 mcg PO DAILY losartan 50 mg tablet 50 mg PO DAILY metoprolol tartrate 100 mg tablet 100 mg PO BID montelukast 10 mg tablet 10 mg PO QHS pramipexole 1.5 mg tablet 1.5 mg PO DAILY rosuvastatin 20 mg capsule, sprinkle 20 mg PO DAILY spironolactone 25 mg tablet 25 mg PO DAILY warfarin 3 mg tablet 3 mg PO DAILY Discontinued amiodarone 200 mg tablet 200 mg PO DAILY potassium chloride 20 mEq packet 20 meq PO DAILY torsemide 20 mg tablet 20 mg PO DAILY Documented By: Ovidio Licona MD, [facility] [phone] Signed By: <Electronically signed by PEACEHEALTHDeirdre Licona> 09/29/23 0953 [facility] Work Phone: Evaluation + Plan note No data available for this section [facility] evaluation note* Diagnosis Persistent atrial fibrillation (CMS/HCC) Atrial fibrillation documented in this encounter [facility] Work Phone: Evaluation noteNo assessment information available [facility] Work Phone: Evaluation note* Diagnosis Atrial fibrillation, unspecified type (CMS/HCC) Essential hypertension, benign Typical atrial flutter (CMS/HCC) documented in this encounter [facility] Work Phone: Evaluation note* Diagnosis Atrial fibrillation, unspecified type (CMS/HCC) Essential hypertension, benign Typical atrial flutter (CMS/HCC) High risk medication use History of aortic valve replacement Heart valve replaced by other means documented in this encounter [facility] Work Phone: Evaluation note* Diagnosis Typical atrial flutter (Multi) documented in this encounter [facility] Work Phone: Evaluation note* Diagnosis Typical atrial flutter (Multi)- Primary Atrial fibrillation, unspecified type (Multi) Essential hypertension, benign History of aortic valve replacement Heart valve replaced by other means High risk medication use Mixed hyperlipidemia Stage 4 chronic kidney disease (Multi) BMI 34.0-34.9,adult Former smoker Personal history of tobacco use, presenting hazards to health Nonischemic cardiomyopathy (Multi) Other primary cardiomyopathies Obesity, Class I, BMI 30-34.9 Right upper quadrant abdominal pain documented in this encounter [facility] Work Phone: Evaluation note* Diagnosis Onset Date Resolution Status Afib acute CKD (chronic kidney disease) stage 3, GFR 30-59 ml/min acute HFrEF (heart failure with reduced ejection fraction) acute Hyperlipidemia acute [id number] acute Secondary hyperparathyroidism acute [facility] Work Phone: Evaluation note* Diagnosis Onset Date Resolution Status Afib acute CKD (chronic kidney disease) stage 3, GFR 30-59 ml/min acute HFrEF (heart failure with reduced ejection fraction) acute Hyperlipidemia acute [id number] acute Secondary hyperparathyroidism acute Acute exacerbation of CHF (congestive heart failure) acute [facility] Work Phone: Evaluation note* Diagnosis Onset Date Resolution Status Afib acute CKD (chronic kidney disease) stage 3, GFR 30-59 ml/min acute HFrEF (heart failure with reduced ejection fraction) acute Hyperlipidemia acute [id number] acute Secondary hyperparathyroidism acute Acute exacerbation of CHF (congestive heart failure) acute Acute systolic heart failure due to valvular disease acute HFrEF (heart failure with reduced ejection fraction) acute HTN (hypertension) acute Mechanical heart valve present acute [facility] Work Phone: Evaluation note* Diagnosis Mild intermittent asthma with acute exacerbation (CMS/HCC)- Primary Sinus tachycardia Other specified cardiac dysrhythmias RANDELL (generalized anxiety disorder) ([facility]) Generalized anxiety disorder Leg edema- Primary Edema H/O aortic valve replacement Asymptomatic varicose veins of left lower extremity Ventral hernia without obstruction or gangrene Unspecified ventral hernia without mention of obstruction or gangrene Essential hypertension, benign (CMS/HCC) Essential hypertension, benign Chronic heart failure with preserved ejection fraction (HFpEF) ([facility])- Primary Essential hypertension, benign ([facility]/HCC) Essential hypertension, benign Hypersomnia Hypersomnia, unspecified RLS (restless legs syndrome) Restless legs syndrome (RLS) RANDELL (generalized anxiety disorder) ([facility]) Generalized anxiety disorder documented in this encounter [facility] HealthcareEvaluation note* Diagnosis Onset Date Resolution Status HFrEF (heart failure with reduced ejection fraction) acute HTN (hypertension) acute Mechanical heart valve present acute Afib acute CKD (chronic kidney disease) stage 3, GFR 30-59 ml/min acute HFrEF (heart failure with reduced ejection fraction) acute Hyperlipidemia acute [id number] acute Secondary hyperparathyroidism acute [facility] Work Phone: Evaluation note* Diagnosis History of aortic valve replacement Heart valve replaced by other means documented in this encounter [facility] Work Phone: Evaluation note* Diagnosis Typical atrial flutter (Multi)- Primary High risk medication use History of aortic valve replacement Heart valve replaced by other means Essential hypertension, benign Dissecting aortic aneurysm (Multi) Dissection of aorta, unspecified site Mixed hyperlipidemia Stage 3a chronic kidney disease (Multi) Frequent nocturnal awakening BMI 34.0-34.9,adult Former smoker Personal history of tobacco use, presenting hazards to health Obstructive sleep apnea Obstructive sleep apnea (adult) (pediatric) Other fatigue documented in this encounter [facility] Work Phone: Hospital Discharge instructions No data available for this section [facility] progress note Author Kristen Sterling [facility] May 22, 2024 4:34pm Note Date/Time May 22, 2024 4: 34pm [facility] [address] [place] [address] Cardiology Progress Note Signed Patient: Rehan Graves MR#: [id number] : 1970 Acct:[id number] Age/Sex: 54 / M Adm Date: 4 Loc: Room: [address] [place] [address] Type: ADM IN Attending Dr: Rafa Mendez DO Copies to: ~ Date of Service: 05/22/2024 Subjective Principal diagnosis: Acute on chronic left ventricular systolic heart failure Interval history: Mr. Graves is a 54 year old male with a known history of mechanical aortic valve replacement and chronic left ventricular systolic dysfunction baseline ejection fraction 35 to 40% who presented to the emergency department early this morning after several days worth of progressive dyspnea. The patient denies any chest pain chest pressure or other anginal symptoms. However he states that over the last several days he has been becoming more progressively short of breath particularly with exertion. The night prior to presentation he did relate some resting dyspnea and orthopnea. He has noted some swelling in the lower extremities. He denies any noncompliance with his current guideline directed medical therapy. He states strict compliance with his Coumadin anticoagulation. He denies any recent dietary sodium indiscretion. In the emergency department the patient was felt to be in mild decompensated congestive heart failure. This was based on clinical and radiographic findings. Laboratory evaluation also showed an elevated BN P at 635. Initial troponins were negative. EKG showed no acute ischemic changes. The patient was started on IV diuretic therapy with 40 mg IV Lasix and admitted to the inpatient hospital medicine service for further management. Patient has been diuresing well over the course of this morning. He states his breathing is already feeling close to baseline. He is resting comfortably. He continues to deny any anginal symptoms. He denies any stroke or TIA-like symptoms. Given this episode of what appears to be clinically mild decompensated heart failure in the setting of chronic left ventricular systolic dysfunction and history of aortic valve replacement (mechanical), I am now consulted for furthercardiac evaluation and management. Interim evaluation 05/21/2024: Patient is feeling greatly improved after diuresis. He is now able to recline without orthopnea and able to ambulate to the restroom without any exertional dyspnea. Plan at this time is discontinue metoprolol tartrate and switch to metoprolol XL100 daily, will switch out his furosemide tomorrow morning to oral furosemide atwhich point he can likely be discharged Interim evaluation 05/22/2024: Patient is doing well, greatly improved, ambulating without orthopnea or dyspnea. Review of echo from yesterday reveals normal left ventricular function with evidence of concentric left ventricular hypertrophy and dilated right atrium and moderately elevated right ventricular systolic pressure of 40 to 50 mmHg. Gradients across the aortic valve 218 cm/s with peak and mean gradients of 19 and 11 mmHg respectively. Recommendations: Patient be discharged on metoprolol succinate 100 daily (we discontinued metoprolol titrate), continue amiodarone 200 twice daily, losartan 50 daily, rosuvastatin 20 daily, spironolactone 25 daily, torsemide 40 mg daily and warfarin 3 mg daily for his mechanical valve prosthesis and follow-up with Dr. Renteria Exam Physical Exam Vital Signs: Temp Pulse Resp BP Pulse Ox O2 Del Method 97.5 F L 56 L 18 157/87 H 96 Room Air 05/22/24 07:23 05/22/24 07:23 05/22/24 07:23 05/22/24 07:23 05/22/24 07:23 05/22/24 07:23 Const General: cooperative, comfortable and no acute distress Nutritional Appearance: obese Orientation: alert, awake and oriented x3 HEENT Head: normal to inspection Resp Effort & Inspection: normal respiratory effort Auscultation: clear to auscultation bilaterally Cardio Palpation: normal PMI Rate: regular rate Rhythm: regular rhythm Heart Sounds: S1 normal, S2 normal and murmur (Mechanical prosthetic aortic valve) GI Inspection: obesity Palpation: soft Skin General: no rashes or lesions noted Neuro General: patient alert, patient awake and patient oriented x3 Cognition: normal cognition Speech: speech normal Gait: normal gait Extrem General: no clubbing, cyanosis or edema Objective Labs 05/20/24 05:58 05/22/24 07:06 Labs: Laboratory Results - last 24 hr 05/22/24 07:06 PT 31.9 H INR 2.8 PHA Creatinine Clear 75.57 Sodium 140 Potassium 4.0 Chloride 100 Carbon Dioxide 36.6 H Anion Gap 7.4 BUN 25 Creatinine 1.36 H Est GFR (CKD-EPI) > 60.0 Glucose 101 H Calcium 8.3 L Magnesium 2.3 A&P - Cardiology (1) HFrEF (heart failure with reduced ejection fraction): Assessment/Problem Details: Patient with a known history of chronic mild to moderate resting left ventricular systolic dysfunction baseline ejection fraction 35 to 40%. Now withepisode of mild decompensated systolic heart failure. No clinical or physical exam suggestion that this represents any sort of dysfunction with the patient's mechanical aortic valve prosthesis. Plan: 1. Agree with admit to school lunch monitor 2. Continue diuresis with Lasix 40 mg IV twice daily 3. Will add preload reduction with topical nitrate 1 inch to the chest wall twice daily 4. Will decrease beta-allie dose by 50% until compensated 5. Spironolactone 25 mg p.o. every morning 6. Will maintain current dosing of oral amiodarone for maintenance of normal sinus mechanism: 200 mg twice daily 7. Strict low-sodium diet. Goal daily sodium intake less than 2000 mg Code(s): I50.20 - Unspecified systolic (congestive) heart failure (2) Mechanical heart valve present: Code(s): Z95.2 - Presence of prosthetic heart valve (3) HTN (hypertension): Code(s): I10 - Essential (primary) hypertension Plan See above Documented By: Kristen Sterling DO 05/22/24 1631 Signed By: <Electronically signed by Kristen Sterling DO> 05/22/24 1634 [facility] Work Phone: Progress note No data available for this section [facility] reason for referral (narrative)* Consultation (Routine) - Authorized Specialty Diagnoses / Procedures Referred By Daniel harding Referred To Contact Nephrology Diagnoses Stage 4 chronic kidney disease (Multi) Ovidio Licona MD [address] [facility] 2, [address] [address] Referral ID Status Reason Start Date Expiration Date Visits Requested Visits Authorized [id number] Authorized Specialty Services Required 01/19/2024 01/18/2025 [address] Romo * Consultation (Routine) - Authorized Specialty Diagnoses / Procedures Referred By Contlindsay t Referred To Contact Cardiology Diagnoses Typical atrial flutter (Multi) Procedures Follow Up In Cardiology Ovidio Licona MD [facility] [facility] 2, [place] [address] [place] [address] Ovidio Licona MD [address] [place] [address] 2, [address] [address] Referral ID Status Reason Start Date Expiration Date V isits Requested Visits Authorized [id number] Authorized 01/19/2024 01/18/2025 1 1 [facility] Work Phone: Family History No Family History Records FoundUnknown Family Member Name Dates Details Family history [...] erotic cardiovascular disease: Mother, Father(V17.49, Z82.49) Status:Active Relationship Condition Age at Onset Recorded Date/T kira father Diabetes mellitus Unknown Atrial fibrillation Unknown Hypertension Unknown mother Aortic valve regurgi tation due to aortic dissection Unknown Unknown Chief Complaint * REHAN GRAVES is being seen for an annual [...] weight down to 170 pounds * Ovidio Licona MD, [facility] * REHAN GRAVES is being seen for an annual [...] weight down to 170 pounds * Ovidio Licona MD, [facility] Summary Purpose Advance Directives No Advanced Directives Records Found Advance Directive Response Recorded Date/ Time Advance Directives No September 22, 2023 11:44am Advance Directive Response Recorded Date/ Time Advance Directives No September 22, 2023 12:44pm Chief Complaint and Reason for Visit Chief Complaint I48.3 I10 Z95.2 Chief Complaint I48.3 I10 Z95.2 z79.899 z79.01 Chief Complaint I48.3 I10 Z95.2 z79.899 z79.01 I48.3 Z79.899 Z79.01 Chief Complaint I48.3 I10 Z95.2 z79.899 z79.01 I48.3 Z79.899 Z79.01 i48.91 Chief Complaint I48.3 I10 Z95.2 z79.899 z79.01 I48.3 Z79.899 Z79.01 i48.91 atrial flutter, z79.899 atrial flutter, z79.899 r60.0 Chief Complaint atrial flutter, z79. 899 atrial flutter, z79.899 r60.0 R sd abd pain, Retaining fluid Chief Complaint R sd abd pain, Retai flaquita fluid RENAL Reason for Visit Afib CKD (chronic kidney disease) stage 3, GFR 30-59 ml/min HFrEF (heart failure with reduced ejection fraction) Hyperlipidemia [id number] Secondary hyperparathyroidism Chief Complaint RENAL I50.20 I48.91 E78.5 N25.81 I12.9 N18.30 Reason for Visit Afib CKD (chronic kidney disease) stage 3, GFR 30-59 ml/min HFrEF (heart failure with reduced ejection fraction) Hyperlipidemia [id number] Secondary hyperparathyroidism Chief Complaint RENAL I50.20 I48.91 E78.5 N25.81 I12.9 N18.30 sob, dizzy Reason for Visit Afib CKD (chronic kidney disease) stage 3, GFR 30-59 ml/min HFrEF (heart failure with reduced ejection fraction) Hyperlipidemia [id number] Secondary hyperparathyroidism Acute exacerbation of CHF (congestive heart failure) Chief Complaint RENAL I50.20 I48.91 E78.5 N25.81 I12.9 N18.30 sob, dizzy sob, dizzy Reason for Visit Afib CKD (chronic kidney disease) stage 3, GFR 30-59 ml/min HFrEF (heart failure with reduced ejection fraction) Hyperlipidemia [id number] Secondary hyperparathyroidism Acute exacerbation of CHF (congestive heart failure) Acute systolic heart failure due to valvular disease HFrEF (heart failure with reduced ejection fraction) HTN (hypertension) Mechanical heart valve present Chief Complaint I50.20 I48.91 E78.5 N25.81 I12.9 N18.30 sob, dizzy sob, dizzy RENAL F/U Reason for Visit HFrEF (heart failure with reduced ejection fraction) HTN (hypertension) Mechanical heart valve present Afib CKD (chronic kidney disease) stage 3, GFR 30-59 ml/min HFrEF (heart failure with reduced ejection fraction) Hyperlipidemia [id number] Secondary hyperparathyroidism Chief Complaint Admit Date RENAL F/U June 07, 2024 1 1:00am atrial flutter i48.3 z79.899 August 9:19am atrial flutter i48.3 z79.899 August 4:17pm Reason for Visit Admit Date Afib June 07, 2024 1 1:00am BPH (benign prostatic hyperplasia) Octob 2023 11:00am CKD (chronic kidney disease) stage 3, GF R 30-59 ml/min June 07, 2024 11:00am Congestive heart failure (CHF) May 162023 11:00am Hyperlipidemia June 07, 2024 1 1:00am Hypertensive chronic kidney disease with stage 1 through stage 4 chronic ki June 07, 2024 11:00am Secondary hyperparathyroidism June 072023 11:00am Reason for Referral Specialty Diagnoses / Procedures Referred By Contac t Referred To Contact Diagnoses Atrial fibrillation, unspecified type (CMS/HCC) Procedures ECG 12 Lead Ovidio Licona MD [address] [place] [address] 2, [place] [address] [place] [id number] Referral ID Status Reason Start Date Expiration Date V isits Requested Visits Authorized [id number] Authorized 10/03/2023 10/02/2024 1 1 Specialty Diagnoses / Procedures Referred By Contac t Referred To Contact Cardiology Diagnoses Atrial fibrillation, unspecified type (CMS/HCC) Atrial fibrillation status post cardioversion (CMS/HCC) Essential hypertension, benign Typical atrial flutter (CMS/HCC) Procedures Follow Up In Cardiology Ovidio Licona MD [address] [place] [address] 2, [address] [address] Referral ID Status Reason Start Date Expiration Date V isits Requested Visits Authorized [id number] Authorized 10/03/2023 10/02/2024 1 1 Specialty Diagnoses / Procedures Referred By Contac t Referred To Contact Radiology Diagnoses High risk medication use Procedures XR chest 2 views Ovidio Licona MD [facility] 2, [address] [address] Referral ID Status Reason Start Date Expiration Date Visits Requested Visits Authorized [id number] Authorized Perform Procedure 10/12/2023 10/11/2024 1 1 Specialty Diagnoses / Procedures Referred By Contac t Referred To Contact Cardiology Diagnoses History of aortic valve replacement Procedures Transthoracic Echo Limited GA ECHO TRANSTHORC R-T 2D W/WO M-MODE REC F-UP/LMTD GA DOP ECHOCARD COLOR FLOW VELOCITY MAPPING GA DOP ECHOCARD PULSE WAVE W/SPECTRAL F-UP/LMTD STD Ovidio Licona MD [facility] [facility] 2, [place] [address] [place] [address] Referral ID Status Reason Start Date Expiration Date Visits Requested Visits Authorized [id number] Pending Review Perform Procedure 10/12/2023 10/11/2024 1 1 Specialty Diagnoses / Procedures Referred By Contac t Referred To Contact Cardiology Diagnoses Atrial fibrillation, unspecified type (CMS/HCC) Procedures Follow Up In Cardiology Ovidio Licona MD [facility] [facility] 2, [address] [place] [address] Ovidio Licona MD [facility] [facility] 2, [address] [address] Referral ID Status Reason Start Date Expiration Date V isits Requested Visits Authorized [id number] Authorized 10/12/2023 10/11/2024 1 1 Additional Source Comments (unrecognized sect ion and content) No Status Records FoundNo Status Records FoundNo Status Records FoundNo Status Records FoundNo Status Records FoundNo Status Records FoundNo Status Records FoundNo Status Records FoundNo Status Records Found INFORMATION SOURCE (unrecogn ized section and content) DATE CREATED AUTHOR 09/23/2022 [facility] DATE CREATED AUTHOR AUTHOR'S ORGANIZ ATION 11/07/2022 [facility] DATE CREATED AUTHOR AUTHOR'S ORGANIZ ATION 11/14/2022 [facility] DATE CREATED AUTHOR AUTHOR'S ORGANIZ ATION 01/21/2023 [facility] DATE CREATED AUTHOR AUTHOR'S ORGANIZ ATION 03/07/2024 [facility] DATE CREATED AUTHOR AUTHOR'S ORGANIZ ATION 06/01/2024 [facility] DATE CREATED AUTHOR AUTHOR'S ORGANIZ ATION 07/07/2024 [facility] DATE CREATED AUTHOR AUTHOR'S ORGANIZ ATION 08/26/2024 [facility] DATE CREATED AUTHOR AUTHOR'S ORGANIZ ATION 08/31/2024 [facility] Reason for Visit (unrecogniz ed section and content) Reason Comments ekg visit Specialty Diagnoses / Procedures Referred By Contac t Referred To Contact Diagnoses Persistent atrial fibrillation (CMS/HCC) Procedures ECG 12 Lead Ovidio Licona MD [address] [facility] [address], [place] [address] [place] [id number] Referral ID Status Reason Start Date Expiration Date V isits Requested Visits Authorized [id number] Authorized 09/07/2023 09/06/2024 1 1 Reason Comments Hypertension Bp check with EKG, p ost Dcc Specialty Diagnoses / Procedures Referred By Contac t Referred To Contact Cardiology Diagnoses Atrial fibrillation, unspecified type (CMS/HCC) Atrial fibrillation status post cardioversion (CMS/HCC) Procedures Follow Up In Cardiology Ovidio Licona MD [address] [place] [address] 2, [address] [address] Referral ID Status Reason Start Date Expiration Date V isits Requested Visits Authorized [id number] Authorized 09/29/2023 09/28/2024 1 1 Reason Comments Hypertension Blood Pressure Check Specialty Diagnoses / Procedures Referred By Contac t Referred To Contact Cardiology Diagnoses Atrial fibrillation, unspecified type (CMS/HCC) Atrial fibrillation status post cardioversion (CMS/HCC) Essential hypertension, benign Typical atrial flutter (CMS/HCC) Procedures Follow Up In Cardiology Ovidio Licona MD [address] [place] [address] 2, [address] [address] Referral ID Status Reason Start Date Expiration Date V isits Requested Visits Authorized [id number] Authorized 10/03/2023 10/02/2024 1 1 Reason Comments Follow-up ekg Specialty Diagnoses / Procedures Referred By Contac t Referred To Contact Diagnoses Typical atrial flutter (Multi) Procedures ECG 12 Lead Ovidio Licona MD [address] [facility] 2, [address] [address] Referral ID Status Reason Start Date Expiration Date V isits Requested Visits Authorized [id number] Authorized 01/02/2024 01/01/2025 1 1 Reason Comments Follow-up 3m echo results Specialty Diagnoses / Procedures Referred By Contac t Referred To Contact Cardiology Diagnoses Atrial fibrillation, unspecified type (Multi) Procedures Follow Up In Cardiology Ovidio Licona MD [address] [place] [address] 2, [address] [address] Ovidio Licona MD [address] [place] [address] 2, [address] [address] Referral ID Status Reason Start Date Expiration Date V isits Requested Visits Authorized [id number] Authorized 10/12/2023 10/11/2024 1 1 Reason Comments [place] [facility] [place] Specialty Diagnoses / Procedures Referred By Daniel t Referred To Contact Cardiology Diagnoses History of aortic valve replacement Procedures Transthoracic Echo Limited GA ECHO TRANSTHORC R-T 2D W/WO M-MODE REC F-UP/LMTD GA DOP ECHOCARD COLOR FLOW VELOCITY MAPPING GA DOP ECHOCARD PULSE WAVE W/SPECTRAL F-UP/LMTD STD Ovidio Licona MD [address] [place] [address] 2, [address] [address] Referral ID Status Reason Start Date Expiration Date Visits Requested Visits Authorized [id number] Pending Review Perform Procedure 10/12/2023 10/11/2024 1 1 Reason Comments Follow-up 4m Specialty Diagnoses / Procedures Referred By Balac t Referred To Contact Diagnoses Typical atrial flutter (Multi) Procedures ECG 12 Lead Ovidio Licona MD [address] [place] [address] 2, [address] [address] Phone: tel: fax: Referral ID Status Reason Start Date Expiration Date V isits Requested Visits Authorized [id number] Authorized 08/14/2024 08/14/2025 1 1 Care Teams (unrecognized sec tion and content) 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 Specialty Start Date End Date Rod Benitez MD [address] [place] [address] PCP - General Family Medicine 09/14/23 Team Status: Active Member Role Status Dates Rod Benitez MD Primary Care Provider Active Team Status: Inactive Member Role Status Dates Ovidio Licona MD Attending Provider Active St [place]: September 22, 2023 End: September 22, 2023 Rod Benitez MD Primary Care Provider Active S tart: September 22, 2023 End: September 22, 2023 Team Status: Inactive Member Role Status Dates Rod Benitez MD Primary Care Provider Active S tart: September 26, 2023 End: September 26, 2023 Ovidio Licona MD Attending Provider Active St [place]: September 26, 2023 End: September 26, 2023 Team Status: Inactive Member Role Status Dates Rod Benitez MD Primary Care Provider Active S tart: September 29, 2023 End: September 29, 2023 Ovidio Licona MD Attending Provider, Referring Provider Active Start: September 29, 2023 End: September 29, 2023 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 Specialty Start Date End Date Fabiola Tran NP [address] [place] [address] PCP - [facility] 11/13/22 Rod Benitez MD [address] [place] [phone] PCP - General [facility] 09/01/23 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 Specialty Start Date End Date Rod Benitez MD [address] [place] [phone] PCP - General Family Medicine 09/14/23 Team Status: Inactive Member Role Status Dates Rod Benitez MD Primary Care Provider Active S tart: October 03, 2023 End: October 03, 2023 Ovidio Licona MD Attending Provider Active St [place]: October 03, 2023 End: October 03, 2023 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 Specialty Start Date End Date Rod Benitez MD [address] [place] [address] PCP - General Family Medicine 09/14/23 Team Status: Inactive Member Role Status Dates Rod Benitez MD Primary Care Provider Active S tart: October 14, 2023 End: October 14, 2023 Ovidio Licona MD Attending Provider Active St [place]: October 14, 2023 End: October 14, 2023 Team Status: Active Member Role Status Dates Rod Benitez MD Primary Care Provider Active S tart: October 16, 2023 Ovidio Licona MD Other Provider Active Start: October 16, 2023 Moris De Souza MD Attending Provider Active Start: October 16, 2023 Team Status: Inactive Member Role Status Dates Rod Benitez MD Primary Care Provider Active S tart: October 31, 2023 End: October 31, 2023 Ovidio Licona MD Attending Provider Active St [place]: October 31, 2023 End: October 31, 2023 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 Specialty Start Date End Date Rod Benitez MD PCP - General Family Medicine 09/14/23 Team Status: Inactive Member Role Status Dates Rod Benitez MD Primary Care Provider Active S tart: January 06, 2024 End: January 06, 2024 Shanel Steele DO Emergency Provider Active St [place]: January 06, 2024 End: January 06, 2024 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 Specialty Start Date End Date Rod Benitez MD PCP - General Family Medicine 09/14/23 Team Status: Inactive Member Role Status Dates Rod Benitez MD Primary Care Provider Active S tart: March 08, 2024 End: March 08, 2024 Karla Shoemaker MD Attending Provider Active Start : March 08, 2024 End: March 08, 2024 Team Status: Inactive Member Role Status Dates Rod Benitez MD Primary Care Provider Active S tart: May 10, 2024 End: May 10, 2024 Karla Shoemaker MD Attending Provider Active Start : May 10, 2024 End: May 10, 2024 Team Status: Active Member Role Status Dates Rod Benitez MD Primary Care Provider Active S tart: May 19, 2024 Rufino Kee MD Emergency Provider Active Star t: May 19, 2024 Rafa Mendez , DO Admit Provider, Atte nding Provider Active Start: May 19, 2024 Team Status: Inactive Member Role Status Dates Rod Benitez MD Primary Care Provider Active S tart: May 19, 2024 End: May 22, 2024 Rufino Kee MD Emergency Provider Active Star t: May 19, 2024 End: May 22, 2024 Rafa Mendez DO Admit Provider, Atte nding Provider Active Start: May 19, 2024 End: May 22, 2024 Team Status: Active Member Role Status Dates Rod Benitez MD Primary Care Provider Active S tart: May 20, 2024 Rufino Kee MD Emergency Provider Active Star t: May 20, 2024 Rafa Mendez DO Admit Provider, Other Provider Act cecy Start: May 20, 2024 Kolton Bhakta MD Attending Provider, Other Provider Active Start: May 20, 2024 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 Specialty Start Date End Date Rod Benitez MD [address] [place] [address] PCP - General Family Medicine 09/01/23 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 Specialty Start Date End Date Rod Benitez MD [address] [place] [address] PCP - General Family Medicine 09/01/23 Team Status: Inactive Member Role Status Dates Rod Benitez MD Primary Care Provider Active S tart: June 07, 2024 End: June 07, 2024 Karla Shoemaker MD Attending Provider Active Start : June 07, 2024 End: June 07, 2024 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 Specialty Start Date End Date Rod Benitez MD [address] [place] [address] PCP - General Family Medicine 02/02/24 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 Specialty Start Date End Date Rod Benitez MD [address] [place] [address] PCP - General Family Medicine 02/02/24 Team Status: Inactive Member Role Status Dates Rod Benitez MD Primary Care Provider Active S tart: August 28, 2024 End: August 28, 2024 Ovidio Licona MD Attending Provider Active St art: August 28, 2024 End: August 28, 2024 Team Status: Active Member Role Status Dates Rod Benitez MD Primary Care Provider Active S tart: August 28, 2024 Ovidio Licona MD Other Provider Active Start: August 28, 2024 Moris De Souza MD Attending Provider Active Start: August 28, 2024 Goals (unrecognized section and content) Goals may be documented in a n alternate sectionGoals may be documented in an alternate sectionGoals may be documented in an alternate sectionGoals may be documented in an alternate sectionGoals may be documented in an alternate sectionGoals may be documented in an alternate sectionGoals may be documented in an alternate sectionGoals may be documented in an alternate sectionGoals may be documented in an alternate section No data available for this sectionGoals may be documented in an alternate section FOR RECORDS PERTAINING TO PATIENTS WHO ARE [...] BE BASED ON THE PRIMARY CLINICAL RECORDS. [facility] [employer] [facility]. provides no warranty or guarantee of the accuracy or completeness of information in this document.
--- NOTE | 2024-09-15 20:57 | XR_ITS ---
The [address] [address] Patient Name: DAVID GRAVES MRN: [id number] date: 1970 Sex: M Assigned Patient Location: ER Current Patient Location: ED.MAIN Accession/Order Number: [id number] Exam Date: 09/15/2024 21:15 Report Date: 09/15/2024 21:57 At the request of: BUTCH HUDSON Procedure: XR ankle LT min 3V EXAM: XR ankle LT min 3V HISTORY: pain s/p fall COMPARISON: None. TECHNIQUE: 3 views of the left ankle were obtained FINDINGS: There is an oblique fracture through the distal shaft and metaphysis of the fibula, with approximately 1 mm overriding of the fracture fragments and 1 mm lateral displacement of the distal fracture fragment. This results in slight widening of the joint space between the talus and the medial malleolus. No osteochondral injury is identified. There is no other evidence of an acute fracture or dislocation. Diffuse soft tissue swelling is noted at the ankle with faint arteriovascular calcifications. XR/XR ankle LT min 3V IMPRESSION: There is an oblique fracture through the distal shaft and metaphysis of the fibula, with slight overriding and displacement of the distal fracture fragment. There is no other evidence of an acute fracture or dislocation. Diffuse soft tissue swelling is noted. Electronically authenticated by: KAYLIE BLAS Date: 09/15/2024 21:57
--- NOTE | 2024-09-15 20:57 | XR_ITS ---
The [address] [address] Patient Name: DAVID GRAVES MRN: [id number] date: 1970 Sex: M Assigned Patient Location: ER Current Patient Location: ER Accession/Order Number: [id number] Exam Date: 09/15/2024 21:15 Report Date: 09/15/2024 21:59 At the request of: BUTCH HUDSON Procedure: XR foot LT min 3V EXAM: XR foot LT min 3V HISTORY: pain s/p fall COMPARISON: None. TECHNIQUE: 3 views of the left foot were obtained. FINDINGS: There is a minimally displaced oblique fracture through the distal fibula, and please see the report for the x-ray study of the ankle performed today for details. There is no other evidence of an acute fracture or dislocation. The joint spaces are intact throughout. A tiny osteophyte arises from the plantar aspect of the calcaneus. XR/XR foot LT min 3V IMPRESSION: Fracture of the distal fibula. There is no other evidence of a fracture or dislocation involving the foot. The joint spaces are intact. Electronically authenticated by: KAYLIE BLAS Date: 09/15/2024 21:59
--- NOTE | 2024-09-15 21:00 | ED_ITS ---
HPI HPI - Extremity Injury (Lower) General Chief Complaint: Extremity Injury, Lower Stated Complaint: Lower Injury Time Seen by Provider: 09/15/24 20:54 Source: patient Mode of arrival: walk-in Limitations: no limitations History of Present Illness HPI Narrative: Patient is a 54-year-old male presents to the ER with concerns of left ankle pain. Patient states he was outside around 7:30 PM when he slipped on ice and folded his left ankle under his right thigh. Patient states he caught himself with his arms but noticed pain in his ankle he has had difficulty bearing weight on it since and notes swelling in his lower leg. He reports a history of chronic edema has a history of taking Coumadin and a mechanical heart valve. Patient states he did not hit his head or his neck I caught myself. Patient appears in no acute distress but notes discomfort with left ankle requesting oral pill for pain medication. MD complaint: Reports ankle injury Type of Injury: Reports inversion Place: Reports home (sheet of ice) Severity: moderate Exacerbating factors: Reports nothing Associated symptoms: Reports snap/pop sensation and swelling Related Data Home Medications ?Medication ?Instructions ?Recorded ?Confirmed levothyroxine 200 mcg tablet 200 mcg PO DAILY 08/29/23 09/15/24 losartan 50 mg tablet 50 mg PO DAILY 08/29/23 09/15/24 pramipexole 1.5 mg tablet 1.5 mg PO DAILY 08/29/23 09/15/24 spironolactone 25 mg tablet 25 mg PO DAILY 08/29/23 09/15/24 warfarin 5 mg tablet 5 mg PO DAILY 08/29/23 09/15/24 amiodarone 200 mg tablet 300 mg PO Q24H 09/15/24 09/15/24 rosuvastatin 20 mg tablet 20 mg PO DAILY 09/15/24 09/15/24 Previous Rx's ?Medication ?Instructions ?Recorded albuterol sulfate 90 mcg/actuation 2 inh inhalation Q4H PRN shortness 08/30/23 aerosol inhaler (Ventolin HFA) of breath or wheezing #8.5 grams fluticasone 250 mcg-salmeterol 50 1 inh inhalation BID #60 ea 08/30/23 mcg/dose blistr powdr for inhalation (Advair Diskus) metoprolol tartrate 100 mg tablet 100 mg PO BID #0 tabs 08/30/23 hydrocodone 5 mg-acetaminophen 325 1 tab PO Q6H PRN pain 3 days #12 09/15/24 mg tablet tabs Allergies Allergy/AdvReac Type Severity Reaction Status Date / Time No Known Drug Allergies Allergy Verified 09/15/24 20:50 Opioid HPI Opioid Management Most Recent Pain and Opioid Data: Last Pain Scale 9 09/15/24 21:37 09/15/24 Last ED Pain Assessment 09/15/24 20:58 Review of Systems ROS Constitutional Denies: fever or chills Eyes Denies: change in vision Ears, nose, mouth, and throat Denies: throat pain, neck pain or throat swelling Respiratory Denies: shortness of breath or cough Gastrointestinal Denies: abdominal pain or nausea Genitourinary Denies: painful urination Musculoskeletal Reports: extremity pain (left ankle) and extremity swelling (left ankle); Denies: back pain or neck pain Integumentary/Breast Denies: rash Neurological Denies: headache, numbness in extremities, lack of coordination, dizziness or confusion Psychiatric Denies: anxiety Hematologic/Lymphatic Denies: easy bruising PFSH PFS Medical History (Updated 09/15/24 @ 21:30 by DENNYS Underwood) Restless leg syndrome ?G25.81 - Restless legs syndrome (ICD-10) Anticoagulant long-term use ?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 (ICD-10) Asthma ?J45.909 - Unspecified asthma, uncomplicated (ICD-10) Hypothyroid ?E03.9 - Hypothyroidism, unspecified (ICD-10) HTN (hypertension) ?I10 - Essential (primary) hypertension (ICD-10) Chronic thoracic aortic dissection ?I71.019 - Dissection of thoracic aorta, unspecified (ICD-10) Surgical History (Updated 08/29/23 @ 13:34 by Annabelle Almanzar LPN) History of ear surgery ?Z98.890 - Other specified postprocedural states (ICD-10) History of aortic valve replacement ?Z95.2 - Presence of prosthetic heart valve (ICD-10) Family History (Updated 08/29/23 @ 13:35 by Annabelle Almanzar LPN) Mother Family history of diabetes mellitus Family history of hypertension Father Family history of diabetes mellitus Family history of hypertension Social History (Updated 08/29/23 @ 13:37 by Annabelle Almanzar LPN) Within the past year, how often did you have a drink containing alcohol: monthly or less Within the past year, how often did you have six or more drinks on one occasion: never Smoking status: Former smoker Second hand tobacco smoke exposure: No Non-prescribed substance use: denies use Previous occupational history: [employer] in [place] Known occupational exposures/hazards: No Highest level of school completed/degree received: high school graduate Do you want help with school or training: No Are you now , , , , never or living with a partner: In a typical week, how many times do you talk on the telephone with family, friends, or neighbors: 3 or more times per week How often do you get together with friends or relatives: 3 or more times per week How often do you attend jehovah's witness or samaritan services: never Do you belong to any clubs or organizations such as jehovah's witness groups unions, fraternal or athletic groups, or school groups: no Total score: 2 Score interpretation: A score of greater than or equal to 2 indicates the lowest level of social isolation. Little interest or pleasure in doing things: not at all Feeling down, depressed, or hopeless: not at all Feel stressed/tense/nervous/anxious/difficulty sleeping: not at all Due to disability, difficulty making decisions: No Do you think of yourself as: straight/heterosexual Gender Identity: male Exam Narrative Exam Narrative: Vital signs reviewed and nurse's notes. The patient is not hypoxic. General: Alert, no acute distress, patient resting comfortably Skin: warm, intact, no pallor noted Head: Normocephalic, atraumatic Eye: Normal conjunctiva, no exudates Respiratory: No acute distress, lungs CTA Cardiac: regular. + click with history of mechanical valve replacement. Musculoskeletal: No evidence of deformity to the left knee. There is mild to moderate amount of swelling to left ankle compartments soft. no skin injury. There is no ecchymosis. No erythema or warmth noted. DP and PT pulses are intact 2+. Normal sensation, normal capillary refill less than 2 seconds. There is no cyanosis or mottling noted. The patient has tenderness to distal fibula of the left ankle and mild pain into the left foot but nonspecific. Denies any proximal fibular pain or knee pain no pain with syndesmotic compression of the tib-fib proximally. The patient has no laxity with varus or valgus stressing of knee. The patient was able to flex and extend although with pain. No evidence of foot drop. Patient was able to extend leg/ SLR easily off the cart without difficulty. No tenderness noted to the 5th MT, or midfoot,. There is no pain with calcaneal squeeze, achilles tendon is intact and no defect is palpated. The patient has no pelvic instability. The patient has no shortening or rotation noted to the bilateral lower extremities. Neurological: alert and orient x4, normal sensory and motor observed. Psychiatric: Cooperative Constitutional Vital Signs, click to edit/add: Last Vital Signs Temp 98.1 F 09/15/24 20:46 Pulse 69 09/15/24 20:46 Resp 18 09/15/24 20:46 BP 106/79 09/15/24 20:46 Pulse Ox 96 09/15/24 20:46 O2 Del Method Room Air 09/15/24 20:46 Course Vital Signs Vital signs: Vital Signs Temperature 98.1 F 09/15/24 20:46 Pulse Rate 69 09/15/24 20:46 Respiratory Rate 18 09/15/24 20:46 Blood Pressure 106/79 09/15/24 20:46 Pulse Oximetry 96 09/15/24 20:46 Oxygen Delivery Method Room Air 09/15/24 20:46 Temperature 98.1 F 09/15/24 20:46 Pulse Rate 69 09/15/24 20:46 Respiratory Rate 18 09/15/24 20:46 Blood Pressure 106/79 09/15/24 20:46 Pulse Oximetry 96 09/15/24 20:46 Oxygen Delivery Method Room Air 09/15/24 20:46 MDM - Extremity Injury (Lower) MDM Narrative Medical decision making narrative: Patient presents with left ankle injury states he slipped on ice folded ankle underneath his right leg he denies hitting his head or neck. We discussed the concerns of potential head injury with his blood thinner use and patient is adamant that he did not hit his head and presents to the ER almost 2 hours after incident. He is agreeable to x-ray and request pain pill, ice was applied. X-rays reviewed 3 view left foot no acute fracture there is a distal shaft fibula fracture noted Left ankle 3 view ankle mortise preserved patient has a oblique distal shaft fibular fracture Placed in a cam boot neurovascular intact status post application with good alignment, neurovascularly intact by the nurse. We discussed patient's x-rays at the bedside patient reports a history of chronic leg edema calf is nontender given the swelling that is associated with his legs Coumadin use, recommend strict ice and elevation patient is to be nonweightbearing using crutches or a walker. He will follow-up with Ortho Dr. Wagner on Tuesday at 12:00pm and verbalized that he must be nonweightbearing pending that follow-up for reevaluation. Patient aware we are not putting him in a posterior splint given the potential for swelling in his leg and to avoid a potential compartment syndrome and he is to focus on strict ice and elevation to rest of the weekend. He is not to be ambulating in the cam boot The patient is to followup with Orthopedics on Tuesday or to return to the emergency department should any of the signs or symptoms worsen or new symptoms develop. Patient had questions answered. The patient agrees with the following Diagnosis and Treatment plan and the patient will be discharged home. Differential Diagnosis Differential diagnosis: Likely ankle sprain and strain and ankle fracture Discharge Plan Discharge Chief Complaint: Extremity Injury, Lower Clinical Impression: Fracture of distal end of left fibula Qualifiers: Encounter type: initial encounter Fracture type: closed Fracture morphology: other fracture Qualified Code(s): S82.832A - Other fracture of upper and lower end of left fibula, initial encounter for closed fracture Patient Disposition: Home, Self-Care Time of Disposition Decision: 21:30 Condition: Good Mode of Transportation: Private Vehicle Prescriptions / Home Meds: New hydrocodone-acetaminophen 5-325 mg tablet 1 tab PO Q6H PRN (Reason: pain) 3 Days Qty: 12 0RF No Action amiodarone 200 mg tablet 300 mg PO Q24H rosuvastatin 20 mg tablet 20 mg PO DAILY levothyroxine 200 mcg tablet 200 mcg PO DAILY losartan 50 mg tablet 50 mg PO DAILY pramipexole 1.5 mg tablet 1.5 mg PO DAILY spironolactone 25 mg tablet 25 mg PO DAILY warfarin 5 mg tablet 5 mg PO DAILY albuterol sulfate [Ventolin HFA] 90 mcg/actuation HFA aerosol inhaler 2 inh inhalation Q4H PRN (Reason: shortness of breath or wheezing) Qty: 8.5 0RF fluticasone propion-salmeterol [Advair Diskus] 250-50 mcg/dose blister with device 1 inh inhalation BID Qty: 60 0RF metoprolol tartrate 100 mg tablet 100 mg PO BID Qty: 0 0RF Print Language: Pashto Instructions: Leg Fracture (ED) Additional Instructions: Please be non weight bearing on left leg.. use crutches or walker if needed Strict Ice and elevation through the weekend.. Follow up made for Dr. Wagner Orthopedist at 12pm ( noon) on 09/17/24 Please show up 15 mins early with insurance cards. Referrals: Rod Peña MD [Primary Care Provider] - 1 week Larry Wagner MD [Physician] - 09/17/24 12:00 pm Discharge Date/Time: 09/15/24 22:17
[2024-09-15 21:18] LABS: Basophils Percent Auto 0.3 % (0.2-2.0); Eosinophils Absolute Auto 1.2 10^3/uL (0.0-0.7); Eosinophils Percent Auto 9.9 % (0.9-7.0); Hematocrit 34.1 % (42.0-54.0); Immature Granulocytes Abs Auto 0.15 10^3/uL (0.00-0.03); Immature Granulocytes Pct Auto 1.2 % (0.0-0.5); Lymphocytes Absolute Auto 1.4 10^3/uL (1.2-3.8); Lymphocytes Percent Auto 11.7 % (20.5-60.0); Mean Corpuscular HGB Conc 32.3 g/dL (29.9-35.2); Mean Corpuscular Hemoglobin 30.9 pg (25.9-34.0); Mean Corpuscular Volume 95.8 fL (80.0-94.0); Monocytes Percent Auto 7.9 % (1.7-12.0); Neutrophils Absolute Auto 8.3 10^3/uL (1.4-6.5); Platelet Count 226 10^3/uL (150-450); Red Blood Count 3.56 10^6/uL (4.70-6.10); Red Cell Distribution Width 14.1 % (11.0-15.0)
[2024-09-15] MEDS: OXYCODONE HCL/ACETAMINOPHEN 5MG/325MG 2 TAB PO (21:37)
[2024-09-15] MEDS: OXYCODONE HCL/ACETAMINOPHEN 5MG/325MG 1 TAB PO (21:37)
[2024-09-15 21:39] LABS: Alanine Aminotransferase 53 U/L (16-63); Albumin Globulin Ratio 0.9; Albumin Level 3.3 g/dL (3.4-5.0); Alkaline Phosphatase 176 U/L (46-116); Aspartate Amino Transferase 42 U/L (15-37); BUN Creatinine Ratio 15.1; Bilirubin Total 0.7 mg/dL (0.2-1.0); Calcium 7.9 mg/dL (8.5-10.1); Carbon Dioxide 31.4 mmol/L (21.0-32.0); Chloride 98 mmol/L (98-107); Estimated GFR (African America 38 (>=60 mL/min/1.73m^2); Estimated GFR (Non-African Ame 31 (>=60 mL/min/1.73m^2); Globulin 3.7 g/dL; Glucose 117 mg/dL (74-106); INR 2.11; Partial Thromboplastin Time 33.6 sec (22.3-36.2); Potassium 3.4 mmol/L (3.5-5.1); Prothrombin Time 20.8 sec (9.0-11.6); Sodium 137 mmol/L (136-145)
== END 2024-09-15 22:17 | disposition home or self-care (01) ==
PROVIDERS: Personal Emergency Response Attendant; Emergency Provider Emergency Medicine; PCP Family Medicine
DX: S82.832A Other fracture of upper and lower end of left fibula, initial encounter for closed fracture (principal); W01.0XXA Fall on same level from slipping, tripping and stumbling without subsequent striking against object, initial encounter; Z79.01 Long term (current) use of anticoagulants; Z95.2 Presence of prosthetic heart valve; Z87.891 Personal history of nicotine dependence; R60.0 Localized edema
CPT/HCPCS: 36415; 73610; 73630; 80053; 85025; 85610; 85730; 99284

== ENCOUNTER 2024-09-17 02:22 | Outpatient (RCR) | payer OTHER, SELFPAY | END 2024-10-12 13:16 | disposition home or self-care (01) | LOC: MM 02:22 | PROVIDERS: PCP Family Medicine; Visit Provider Internal Medicine | DX: Z51.81 Encounter for therapeutic drug level monitoring (principal); Z79.01 Long term (current) use of anticoagulants; Z95.2 Presence of prosthetic heart valve | CPT/HCPCS: 85610; G0463 ==

== ENCOUNTER 2024-09-24 10:44 | Outpatient (OUT) | payer OTHER, SELFPAY ==
--- NOTE | 2024-09-24 | XR_ITS ---
The [address] [address] Patient Name: DAVID GRAVES MRN: [id number] date: 1970 Sex: M Assigned Patient Location: Current Patient Location: Accession/Order Number: [id number] Exam Date: 09/24/2024 10:53 Report Date: 09/25/2024 09:32 At the request of: LEO VILLA Procedure: XR ankle LT min 3V PROCEDURE: XR ankle LT min 3V COMPARISON: 09/15/2024 HISTORY: LEFT ANKLE PAIN FINDINGS: BONES:Oblique fracture through the distal fibular with slight increase in distraction now measuring 2.4 mm. No significant periosteal reaction or bony bridging. No additional fracture. No dislocation. SOFT TISSUES:Mild diffuse soft tissue swelling. Vascular calcifications EFFUSION:None visible. OTHER: Negative. XR/XR ankle LT min 3V IMPRESSION: Slight increase in distraction of a distal fibular fracture with no interval bony bridging Electronically authenticated by: KAYLYN BALDWIN Date: 09/25/2024 09:32
--- OUTSIDE RECORDS SUMMARY | 2024-09-24 11:06 | XMS_ITS | CCD ---
Author Organization [facility] CliniSyin Care Team Providers Care Sales Order Coordinator Name Role Phone Rod Benitez Unavailable Unavailable [...] Unavailable SHAIKH Adrian PENA Admitting Unavailable DR RDO BENITEZ Primary Care Unavailable SHAIKH Adrian PENA Attending Unavailable SHAIKH Adrian PENA Admitting Unavailable Rod Benitez MD Primary Care Provider MD Ovidio Licona Attending Provider MD Rod Benitez Primary Care Provider MD Ovidio Licona Referring Provider Chelsea OIL FIELD TECHNICIAN, Fabiola A Unavailable Rod Benitez MD Primary Care Provider MD Ovidio Licona Attending Provider MD Rod Benitez Primary Care Provider MD Ovidio Licona Referring Provider Rod Benitez MD Primary Care Provider MD Rod Benitez Primary Care Provider MD Ovidio Licona Attending Provider DO Shanel Steele Emergency Provider OVIDIO LICONA Referring Unavailable ROD BENITEZ Primary Care Unavailabl MD Rod Zuniga Primary Care Provider MD Rod Benitez Primary Care Provider [phone] MD Karla Shoemaker Attending Provider [phone] MD Rufino Kee Emergency Provider DO Rafa Mendez Admit Provider DO Rafa Mendez Attending Provider ROD BENITEZ Attending Unavailable ROD BENIETZ Attending Unavailable ROD BENITEZ Attending Unavailable ROD BENITEZ Primary Care Physician Nhung Pino Attending Unavailable KARLA SHOEMAKER Referring Unavailable Rod Benitez MD Primary Care Provider Rod Benitez MD Primary Care Provider [phone] Ovidio Licona MD Attending Provider Licona, Nolan Admitting Unavailable Rod Benitez Primary Care Unavailable Licona, Ovidio Attending Unavailable Rafa Mendez Attending Unavailable Rod Benitez Primary Care Unavailable Rafa Mendez Admitting Unavailable Mariana Leo Consulting Unavailable Kristen Sterlign Consulting Unavailable Licona, Ovidio Consulting Unavailable Jacek Lopez Consulting Unavail able Liseth Carlson Consulting Unavailable Stevenson Ortiz Consulting Unavailab Laurie Morgan Consulting Unavailable Valerie Coronado Consulting Unavailable Vanessa Eisenberg Consulting Unavailab Juancarlos Messer Consulting Unavailable Rowena Lizama Consulting Unavailable Licona, Nolan Admitting Unavailable Rod Benitez Primary Care Unavailable Evelyn, Ovidio Attending Unavailable Karla Shoemaker Attending Unavailable Rod Benitez Primary Care Unavailable Karla Shoemaker Admitting Unavailable Licona, Nolan Referring Unavailable Rod Benitez Primary Care Unavailable Licona, Nolan Admitting Unavailable Licona, Ovidio Attending Unavailable Shanel Steele Attending Unavailable Rod Benitez Primary Care Unavailable Shanel Steele Admitting Unavailable Rod Benitez Primary Care Unavailable Licona, Nolan Admitting Unavailable Ovidio Licona Attending Unavailable Ovidio Licona Attending Unavailable Rod Benitez Primary Care Unavailable Licona, Nolan Admitting Unavailable Licona, Nolan Admitting Unavailable Rod Benitez Primary Care Unavailable LiconaOvidio Attending Unavailable Licona, Nolan Admitting Unavailable Rod Benitez Primary Care Unavailable Ovidio Licona Attending Unavailable OVIDIO LICONA Attending Unavailable ROD BENITEZ Primary Care Unavailabl e OVIDIO LICONA Referring Unavailable ROD BENITEZ Primary Care Unavailabl e OVIDIO LICONA Attending Unavailable OVIDIO LICONA M Referring Unavailable ROD BENITEZ Primary Care Unavailabl e OVIDIO LICONA Attending Unavailable OVIDIO LICONA Referring Unavailable ROD BENITEZ Primary Care Unavailabl e OVIDIO LICONA Attending Unavailable NADERER, ROD JENNIFER Primary Care Unavailabl e OVIDIO LICONA Referring Unavailable OVIDIO LICONA Attending Unavailable ROD BENITEZ Primary Care Unavailabl e Allergies Allergy Classification Reported Allergen(s) Allergy Type Date of Onset Reaction(s) Facility (19 sources) olmesartan; Translations: [Benicar] Drug Allergy 08-25-2023 Cough [facility] (19 sources) Ramipril; Translations: [Altace CAPS] Drug Allergy 08-25-2023 [facility] Work Phone: (2 sources) olmesartan; Translations: [OLMESARTAN] Drug Allergy 08-25-2023 [facility] (2 sources) Ramipril; Translations: [RAMIPRIL] Drug Allergy 08-25-2023 [facility] Medications Current Medications Medication Drug Class(es) Dates Sig (Normalized) Sig (Original) [id number] 200 actuat albuterol 0.09 mg/actuat metered dose inhaler (20 sources) beta2-Adrenergic Agonist Start: 04-19-2024 take 2 puff(s) by inhalation every four hours for wheezing albuterol HFA 90 mcg/act inhaler Indications: Mild intermittent asthma without complication (CMS/[facility]) Inhale 2 puffs every 4 (four) hours if needed for wheezing 18 g 3 04/19/2024 Active Start: 09-28-2023 Albuterol Sulf ate 90 mcg/actuation HFA aerosol inhaler Active 1 INH INHALATION EVERY 4-6 HOURS as needed for wheezing September 28, 2023 12:00am albuterol sulfat e (Proair Digihaler) 90 mcg/actuation aero powdr breath act w/sensor inhaler Inhale. As [id number] Active albuterol sulfat e (Proair Digihaler) 90 mcg/actuation aero powdr breath act w/sensor inhaler Inhale. As [id number] 0 Active take 2 puff(s) by in [...] Start: 05-22-2024 take 1 tablet by martina th twice daily Hydralazine 25 mg tablet Active [...] MG tablet Indications: RANDELL (generalized anxiety disorder) ([facility]) Take 1 tablet (0.5 mg) by mouth [...] Start: 09-22-2022 take 1 tablet by martina th once daily Metoprolol Tartrate 100 MG Oral [...] Discontinued 20 MEQ PO Twice daily 60 September 29, 2023 12:00am January 06, 2024 [...] End: 02-15-2024 0.5 mL, intravenous, Once, On 7/3/24 at 1330, For 1 dose pramipexole dihydrochloride [...] kidney disease; Translations: [Chronic kidney disease, stage 3 unspecified] Onset: 4 Congestive heart failure; nonhypertensive (20 sources) Heart [...] sources) Taking high risk medication; Translations: [Other intermediate (current) drug therapy] Onset: 4 09-22-2023 Episodic [...] Translations: [Obstructive sleep apnea (adult) (pediatric)] Onset: Chronic Residual codes; unclassified (2 sources) Frequent night waking; Translations: [Insomnia, unspecified] Onset: 4 08-14-2024 Episodic Residual codes; unclassified (2 sources) Insomnia, unspecified; Translations: [Insomnia, unspecified] Onset: Episodic Thyroid disorders (20 sources) Hypothyroidism; Translations: [Unspecified acquired hypothyroidism] Onset: 4 08-25-2023 Chronic Unclassified (1 source) Typical atrial flutter; Translations: [Typical atrial flutter] Onset: 4 Unclassified (1 source) Other intermediate (current) drug therapy; Translations: [Other reliability technicians (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 [facility] Work Phone: Basic Metabolic Panelon Creatinine Clr Calc Pharmacy 75.57 Normal [facility] Comment on above: Performed By: #### C BC, HEPATIC, BMP, LIPASE #### [facility] [address] [place] [address] [place] GFR/1.73 sq M.predicted MDRD (S/P/Bld) [Vol rate/Area] mL/min/{1.73_m2} Normal [facility] Comment on above: Performed By: #### C BC, HEPATIC, BMP, LIPASE #### [facility] [address] [place] [address] [place] Calcium [Mass/volume] in Ser um or PlasmaOrdered By: Rafa Mendez on 05-22-2024 Calcium [Mass/Vol] 8.3 mg/dL Low 8.6-10.3 [facility] Comment on above: Performed By: #### C BC, HEPATIC, BMP, LIPASE #### [place] [address] [place] Carbon dioxide, total [Moles /volume] in Serum or PlasmaOrdered By: Rafa Mendez on 05-22-2024 CO2 [Moles/Vol] 36.6 mmol/L High 21.0-31.0 [facility] Comment on above: Performed By: #### C BC, HEPATIC, BMP, LIPASE #### [facility] [address] [place] [address] [place] Chloride [Moles/volume] in S avis or PlasmaOrdered By: Rafa Mendez on 05-22-2024 Chloride [Moles/Vol] 100 mmol/L Normal 98-107 [facility] Comment on above: Performed By: #### C BC, HEPATIC, BMP, LIPASE #### [place] [address] [place] Creatinine [Mass/volume] in Serum or PlasmaOrdered By: Rafa Mendez on 05-22-2024 Creatinine [Mass/Vol] 1.36 mg/dL High 0.70-1.30 [facility] Comment on above: Performed By: #### C BC, HEPATIC, BMP, LIPASE #### [facility] [address] [place] [id number] [facility] Glucose [Mass/volume] in Ser um or PlasmaOrdered By: Rafa Mendez on 05-22-2024 Glucose [Mass/Vol] 101 mg/dL High 70-100 [facility] Comment on above: ADA recommended refe rence rangeRandom Glucose Reference Range is dependent on time and content of last meal. Glucose of more than 200 mg/dL in a nonstressed, ambulatory subject supports the diagnosis of Diabetes Mellitus. Result Comment: [place] [facility] Glucose Reference Range is dependent on time and content of last meal. Glucose of more than 200 mg/dL in a nonstressed, ambulatory subject supports the diagnosis of Diabetes Mellitus. ADA recommended reference range Performed By: #### C BC, HEPATIC, BMP, LIPASE #### [facility] [address] [place] [id number] [place] INR in Platelet poor plasma by Coagulation assayOrdered By: Rafa Mendez on 05-22-2024 INR Coag (PPP) [Relative time] 2.8 {INR} Normal [facility] Comment on above: INR Therapeutic Rang [...] heart valves: 3 - 4.5 PERFORMED BY: [facility] [address] [place] [address] PATHOLOGIST ENVIRONMENT COORDINATOR CHING PAREDES M.D. Performed By: #### C BC, HEPATIC, BMP, LIPASE #### [facility] [address] [place] [address] Magnesium [Mass/volume] in S avis or PlasmaOrdered By: Rafa Mendez on 05-22-2024 Magnesium [Mass/Vol] 2.3 mg/dL Normal 1.9-2.7 [facility] Comment on above: Result Comment: PERF ORMED BY: [place] [address] PATHOLOGIST ENVIRONMENT COORDINATOR CHING PAREDES M.D. Performed By: #### C BC, HEPATIC, BMP, LIPASE #### [address] No Panel InformationOrdered By: Rafa Mendez on 05-22-2024 Estimated GFR (CKD-EPI) > 60.0 mL/Min [facility] Creatinine Clearance (Chem 75.57 [facility] Potassium [Moles/volume] in Serum or PlasmaOrdered By: Rafa Mendez on 05-22-2024 Potassium [Moles/Vol] 4.0 mmol/L Normal 3.5-5.1 [facility] Comment on above: Performed By: #### C BC, HEPATIC, BMP, LIPASE #### [address] Prothrombin time (PT)Ordered By: Rafa Mendez on 05-22-2024 PT Coag (PPP) [Time] 31.9 s High 9.0-12.9 [facility] Comment on above: A hematocrit value g reater than 55% may lead to inaccurate results in coagulation testing. Patients having hematocrit values >55% require a special collection tube for coagulation studies. Please contact the laboratory at [phone] for redraw instructions. Result Comment: A he matocrit value greater than 55% may lead to inaccurate results in coagulation testing. Patients having hematocrit values >55% require a special collection tube for coagulation studies. Please contact the laboratory at [phone] for redraw instructions. Performed By: #### C BC, HEPATIC, BMP, LIPASE #### [address] Serum or plasma anion gap de terminationOrdered By: Rafa Mendez on 05-22-2024 Anion gap [Moles/Vol] 7.4 mmol/L Normal 6.0-15.0 [facility] Comment on above: Performed By: #### C BC, HEPATIC, BMP, LIPASE #### [facility] [address] [place] [address] [place] Sodium [Moles/volume] in Ser um or PlasmaOrdered By: Rafa Mendez on 05-22-2024 Sodium [Moles/Vol] 140 mmol/L Normal 136-145 [facility] Comment on above: Performed By: #### C BC, HEPATIC, BMP, LIPASE #### [facility] [address] [place] [address] Urea nitrogen [Mass/volume] in Serum or PlasmaOrdered By: Rafa Mendez on 05-22-2024 Urea nitrogen [Mass/Vol] 25 mg/dL Normal 7-25 [facility] Comment on above: Performed By: #### C BC, HEPATIC, BMP, LIPASE #### [place] [address] [place] XR chest 1V portableon 05-22 XR chest 1V portable [facility] Main [place] [address] [place] [address] XRay Report Signed Patient: Rehan Graves MR#: [id number] : 1970 Acct:[id number] Age/Sex: 54 / M ADM Date: 05/19/24 Loc: Room: [address] [place] [address] Type: ADM IN Attending Dr: Raaf Mendez DO Copies to: Rafa Mendez DO [...] Jarred Anguiano M.D.05/22/2024 6:16 AM Dictation Location: [place] [address] Transcribed By: [place] 05/22/24615 Dictated By: Jarred Anguiano DO 05/22/24614 Signed By: 05/22/24615 Normal [facility] Basic Metabolic Panelon 10-0 Anion gap [Moles/Vol] 8.5 mmol/L Normal 6.0-15.0 [facility] Comment on above: Performed By: #### C BC, HEPATIC, BMP, LIPASE #### [facility] [address] Calcium [Mass/Vol] 8.6 mg/dL Normal 8.6-10.3 [facility] Comment on above: Performed By: #### C BC, HEPATIC, BMP, LIPASE #### [facility] [address] [place] [address] [place] Chloride [Moles/Vol] 98 mmol/L Normal 98-107 [facility] Comment on above: Performed By: #### C BC, HEPATIC, BMP, LIPASE #### [facility] [address] [place] [address] [place] CO2 [Moles/Vol] 36.2 mmol/L High 21.0-31.0 [facility] Comment on above: Performed By: #### C BC, HEPATIC, BMP, LIPASE #### [facility] [address] [place] [address] [place] Creatinine [Mass/Vol] 1.57 mg/dL High 0.70-1.30 [facility] Comment on above: Performed By: #### C BC, HEPATIC, BMP, LIPASE #### [facility] [address] [place] [address] [place] Creatinine Clr Calc Pharmacy 65.89 Normal [facility] Comment on above: Performed By: #### C BC, HEPATIC, BMP, LIPASE #### [facility] [address] [place] [address] [place] GFR/1.73 sq M.predicted MDRD (S/P/Bld) [Vol rate/Area] 51.729 mL/min/{1.73_m2} Normal [facility] Comment on above: Performed By: #### C BC, HEPATIC, BMP, LIPASE #### [facility] [address] Glucose [Mass/Vol] 99 mg/dL Normal 70-100 [facility] Comment on above: Result Comment: [facility] Glucose Reference Range is dependent on time and content of last meal. Glucose of more than 200 mg/dL in a nonstressed, ambulatory subject supports the diagnosis of Diabetes Mellitus. ADA recommended reference range Performed By: #### C BC, HEPATIC, BMP, LIPASE #### [facility] [address] Potassium [Moles/Vol] 3.7 mmol/L Normal 3.5-5.1 [facility] Comment on above: Performed By: #### C BC, HEPATIC, BMP, LIPASE #### [facility] [address] [place] [address] [place] Sodium [Moles/Vol] 139 mmol/L Normal 136-145 [facility] Comment on above: Performed By: #### C BC, HEPATIC, BMP, LIPASE #### [facility] [address] Urea nitrogen [Mass/Vol] 31 mg/dL High 7-25 [facility] Comment on above: Performed By: #### C BC, HEPATIC, BMP, LIPASE #### [facility] [address] ECH echo transthoracicon ECH echo transthoracic [facility] Main [place] [address] [place] [address] Echocardiogram Signed Patient: Rehan Graves MR#: [id number] : 1970 Acct:[id number] Age/Sex: 54 / M ADM Date: 05/19/24 Loc: Room: [address] [place] [address] Type: ADM IN Attending Dr: Rafa Mendez DO Ordering Provider: Rafa Mendez DO Date of Service: 05/21/2403/07/2119 ECH/ECH echo transthoracic: Shortness of Breath/Dyspnea Copies to: MD Rafa Landers, DO BSA: 2.2 m2 BP: 140/71 mmHg [...] Emelia Deshpande MD 05/21/24 2100 Normal [facility] Magnesiumon 05-21-2024 Magnesium [Mass/Vol] 2.3 mg/dL Normal 1.9-2.7 [facility] Comment on above: Result Comment: PERF ORMED BY: [place] [address] PATHOLOGIST ENVIRONMENT COORDINATOR CHING PAREDES M.D. Performed By: #### C BC, HEPATIC, BMP, LIPASE #### [address] Prothrombin Time INRon 05-21 INR Coag (PPP) [Relative time] 3.1 {INR} Normal [facility] Comment on above: [...] heart valves: 3 - 4.5 PERFORMED BY: [place] [address] PATHOLOGIST ENVIRONMENT COORDINATOR CHING PAREDES M.D. Performed By: #### C BC, HEPATIC, BMP, LIPASE #### [address] PT Coag (PPP) [Time] 35.1 s High 9.0-12.9 [facility] Comment on above: Result Comment: A matocrit value greater than 55% may lead to inaccurate results in coagulation testing. Patients having hematocrit values >55% require a special collection tube for coagulation studies. Please contact the laboratory at [phone] for redraw instructions. Performed By: #### C BC, HEPATIC, BMP, LIPASE #### [address] Activated partial thrombopla stin time (aPTT) in platelet poor plasma by coagulation aOrdered By: Rafa Mendez on 05-20-2024 aPTT Coag (PPP) [Time] 35.5 s 25.1-36.[address] [facility] Comment on above: A hematocrit value g reater than 55% may lead to inaccurate results in coagulation testing. Patients having hematocrit values >55% require a special collection tube for coagulation studies. Please contact the laboratory at [phone] for redraw instructions. Automated basophil %Ordered By: Rafa Mendez on 05-20-2024 Basophils/100 WBC (Bld) 0.7 % Normal . [facility] Comment on above: Performed By: #### C BC, HEPATIC, BMP, LIPASE #### [address] Automated basophil countOrde red By: Rafa Mendez on 05-20-2024 Basophils (Bld) [#/Vol] 0.1 10*3/uL Normal 0.0-0.2 [facility] Comment on above: Result Comment: PERF ORMED BY: [place] [address] PATHOLOGIST ENVIRONMENT COORDINATOR CHING PAREDES M.D. Performed By: #### C BC, HEPATIC, BMP, LIPASE #### [address] Automated blood monocyte cou ntOrdered By: Rafa Mendez on 05-20-2024 Monocytes (Bld) [#/Vol] 0.8 10*3/uL Normal 0.0-0.8 [facility] Comment on above: Performed By: #### C BC, HEPATIC, BMP, LIPASE #### [address] Automated eosinophil %Ordere d By: Rafa Mendez on 05-20-2024 Eosinophils/100 WBC (Bld) 2.0 % Normal . [facility] Comment on above: Performed By: #### C BC, HEPATIC, BMP, LIPASE #### [address] Automated eosinophil countOr dered By: Rafa Mendez on 05-20-2024 Eosinophils (Bld) [#/Vol] 0.2 10*3/uL Normal 0.0-0.45 [facility] Comment on above: Performed By: #### C BC, HEPATIC, BMP, LIPASE #### [address] Automated monocyte %Ordered By: Rafa Mendez on 05-20-2024 Monocytes/100 WBC (Bld) 10.0 % Normal . [facility] Comment on above: Performed By: #### C BC, HEPATIC, BMP, LIPASE #### [address] Automated neutrophil %Ordere d By: Rafa Mendez on 05-20-2024 Neutrophils/100 WBC (Bld) 74.8 % Normal . [facility] Comment on above: Performed By: #### C BC, HEPATIC, BMP, LIPASE #### [address] Basic Metabolic Panelon Anion gap [Moles/Vol] 9.2 mmol/L Normal 6.0-15.0 [facility] Comment on above: Performed By: #### C BC, HEPATIC, BMP, LIPASE #### [place] [address] Calcium [Mass/Vol] 8.0 mg/dL Low 8.6-10.3 [facility] Comment on above: Performed By: #### C BC, HEPATIC, BMP, LIPASE #### [place] [address] [place] Chloride [Moles/Vol] 100 mmol/L Normal 98-107 [facility] Comment on above: Performed By: #### C BC, HEPATIC, BMP, LIPASE #### [address] CO2 [Moles/Vol] 34.3 mmol/L High 21.0-31.0 [facility] Comment on above: Performed By: #### C BC, HEPATIC, BMP, LIPASE #### [place] [address] [place] Creatinine [Mass/Vol] 1.53 mg/dL High 0.70-1.30 [facility] Comment on above: Performed By: #### C BC, HEPATIC, BMP, LIPASE #### [place] [address] [place] Creatinine Clr Calc Pharmacy 67.61 Normal [facility] Comment on above: Performed By: #### C BC, HEPATIC, BMP, LIPASE #### [place] [address] [place] GFR/1.73 sq M.predicted MDRD (S/P/Bld) [Vol rate/Area] 53.357 mL/min/{1.73_m2} Normal [facility] Comment on above: Performed By: #### C BC, HEPATIC, BMP, LIPASE #### [place] [address] [place] Glucose [Mass/Vol] 95 mg/dL Normal 70-100 [facility] Comment on above: Result Comment: [facility] Glucose Reference Range is dependent on time and content of last meal. Glucose of more than 200 mg/dL in a nonstressed, ambulatory subject supports the diagnosis of Diabetes Mellitus. ADA recommended reference range Performed By: #### C BC, HEPATIC, BMP, LIPASE #### [address] [place] [address] [place] Potassium [Moles/Vol] 3.5 mmol/L Normal 3.5-5.1 [facility] Comment on above: Performed By: #### C BC, HEPATIC, BMP, LIPASE #### [address] Sodium [Moles/Vol] 140 mmol/L Normal 136-145 [facility] Comment on above: Performed By: #### C BC, HEPATIC, BMP, LIPASE #### [address] Urea nitrogen [Mass/Vol] 38 mg/dL High 7-25 [facility] Comment on above: Performed By: #### C BC, HEPATIC, BMP, LIPASE #### [address] Complete Blood Count Auto Di ffon 05-20-2024 Mean Corpuscular HGB Conc 33.4 g/dL Normal 32.5-35.6 [facility] Comment on above: Performed By: #### C BC, HEPATIC, BMP, LIPASE #### [address] NRBC% 0.1 /100{WBC} Normal 0-0.5 [facility] Comment on above: Performed By: #### C BC, HEPATIC, BMP, LIPASE #### [address] Erythrocyte distribution wid th [Ratio] by Automated countOrdered By: Rafa Mendez on 05-20-2024 Erythrocyte distribution width (RBC) [Ratio] 14.4 % Normal 12.0-14.8 [facility] Comment on above: Performed By: #### C BC, HEPATIC, BMP, LIPASE #### [address] Erythrocytes [#/volume] in B lood by Automated countOrdered By: Rafa Mendez on 05-20-2024 RBC (Bld) [#/Vol] 3.59 10*6/uL Low 3.90-5.[address] [facility] Comment on above: Performed By: #### C BC, HEPATIC, BMP, LIPASE #### [address] Hematocrit [Volume Fraction] of Blood by Automated countOrdered By: Rafa Mendez on 05-20-2024 Hematocrit (Bld) [Volume fraction] 34.2 % Low 38.8-50.0 [facility] Comment on above: Performed By: #### C BC, HEPATIC, BMP, LIPASE #### [address] Hemoglobin [Mass/volume] in BloodOrdered By: Rafa Mendez on 05-20-2024 Hemoglobin (Bld) [Mass/Vol] 11.4 g/dL Low 13.0-17.0 [facility] Comment on above: Performed By: #### C BC, HEPATIC, BMP, LIPASE #### [address] Leukocytes [#/volume] correc shayy for nucleated erythrocytes in Blood by Automated counOrdered By: Rafa Mendez on 05-20-2024 WBC corrected for nucl RBC Auto (Bld) [#/Vol] 7.7 10*3/uL 4.1-10.5 [facility] Leukocytes [#/volume] in Blo od by Automated countOrdered By: Rafa Mendez on 05-20-2024 WBC (Bld) [#/Vol] 7.7 10*3/uL Normal 4.1-10.5 [facility] Comment on above: Performed By: #### C BC, HEPATIC, BMP, LIPASE #### [address] Lymphocytes [#/volume] in Bl ood by Automated countOrdered By: Rafa Mendez on 05-20-2024 Lymphocytes (Bld) [#/Vol] 1.0 10*3/uL Normal 1.00-4.8 [facility] Comment on above: Performed By: #### C BC, HEPATIC, BMP, LIPASE #### [address] Lymphocytes/100 leukocytes i n Blood by Automated countOrdered By: Rafa Mendez on 05-20-2024 Lymphocytes/100 WBC (Bld) 12.5 % Normal . [facility] Comment on above: Performed By: #### C BC, HEPATIC, BMP, LIPASE #### [address] MCH [Entitic mass] by Automa shayy countOrdered By: Rafa Mendez on 05-20-2024 MCH (RBC) [Entitic mass] 31.8 pg Normal 27.5-35.2 [facility] Comment on above: Performed By: #### C BC, HEPATIC, BMP, LIPASE #### [address] MCHC Auto (RBC) [Mass/Vol]Or dered By: Rafa Mendez on 05-20-2024 MCHC (RBC) [Mass/Vol] 33.4 g/dL 32.5-35.6 [facility] MCV [Entitic volume] by Auto mated countOrdered By: Rafa Mendez on 05-20-2024 MCV (RBC) [Entitic vol] 95.2 fL Normal 83.5-101 [facility] Comment on above: Performed By: #### C BC, HEPATIC, BMP, LIPASE #### [address] Magnesiumon 05-20-2024 Magnesium [Mass/Vol] 2.2 mg/dL Normal 1.9-2.7 [facility] Comment on above: Result Comment: PERF ORMED BY: [address] [place] [address] PATHOLOGIST ENVIRONMENT COORDINATOR CHING PAREDES M.D. Performed By: #### C BC, HEPATIC, BMP, LIPASE #### [address] Neutrophils [#/volume] in Bl ood by Automated countOrdered By: Rafa Mendez on 05-20-2024 Neutrophils (Bld) [#/Vol] 5.8 10*3/uL Normal 1.8-7.7 [facility] Comment on above: Performed By: #### C BC, HEPATIC, BMP, LIPASE #### [address] Nucleated erythrocytes [Pres ence] in Blood by Automated countOrdered By: Rafa Mendez on 05-20-2024 Nucleated RBC Auto Ql (Bld) 0.1 /100{WBC} 0-0.5 [facility] Partial Thromboplastin Timeo n 05-20-2024 aPTT Coag (Bld) [Time] 35.5 s Normal 25.1-36.5 [facility] Comment on above: Result Comment: A he matocrit value greater than 55% may lead to inaccurate results in coagulation testing. Patients having hematocrit values >55% require a special collection tube for coagulation studies. Please contact the laboratory at [phone] for redraw instructions. PERFORMED BY: [place] [address] PATHOLOGIST ENVIRONMENT COORDINATOR CHING PAREDES M.D. Performed By: #### C BC, HEPATIC, BMP, LIPASE #### [address] Platelet mean volume [Entiti c volume] in Blood by Automated countOrdered By: Rafa Mendez on 05-20-2024 Platelet mean volume (Bld) [Entitic vol] 8.8 fL Normal 6.6-10.1 [facility] Comment on above: Performed By: #### C BC, HEPATIC, BMP, LIPASE #### [address] Platelets [#/volume] in Bloo d by Automated countOrdered By: Rafa Mendez on 05-20-2024 Platelets (Bld) [#/Vol] 132 10*3/uL Low 150-450 [facility] Comment on above: Performed By: #### C BC, HEPATIC, BMP, LIPASE #### [address] Prothrombin Time INRon 05-20 INR Coag (PPP) [Relative time] 3.9 {INR} Normal [facility] Comment on above: [...] #### C BC, HEPATIC, BMP, LIPASE #### [address] PT Coag (PPP) [Time] 43.8 s High 9.0-12.9 [facility] Comment on above: Result Comment: A he matocrit value greater than 55% may lead to inaccurate results in coagulation testing. Patients having hematocrit values >55% require a special collection tube for coagulation studies. Please contact the laboratory at [phone] for redraw instructions. Performed By: #### C BC, HEPATIC, BMP, LIPASE #### [address] Alanine aminotransferase [En zymatic activity/volume] in Serum or PlasmaOrdered By: Rufino Kee on 05-19-2024 ALT [Catalytic activity/Vol] 62 U/L High 7-52 [facility] Comment on above: Performed By: #### C BC, HEPATIC, BMP, LIPASE #### [place] [address] [place] Albumin [Mass/volume] in Ser um or Plasma by Bromocresol green (BCG) dye binding methoOrdered By: Rufino Kee on 05-19-2024 Albumin BCG dye [Mass/Vol] 4.2 g/dL 3.5-5.7 [facility] Alkaline phosphatase [Enzyma tic activity/volume] in Serum or PlasmaOrdered By: Rufino Kee on 05-19-2024 ALP [Catalytic activity/Vol] 124 U/L High 34-104 [facility] Comment on above: Performed By: #### C BC, HEPATIC, BMP, LIPASE #### [address] Aspartate aminotransferase [ Enzymatic activity/volume] in Serum or PlasmaOrdered By: Rufino Kee on 05-19-2024 AST [Catalytic activity/Vol] 47 U/L High 13-39 [facility] Comment on above: Performed By: #### C BC, HEPATIC, BMP, LIPASE #### [address] Automated basophil %Ordered By: Rufino Kee on 05-19-2024 Basophils/100 WBC (Bld) 0.8 % Normal . [facility] Comment on above: Performed By: #### C BC, HEPATIC, BMP, LIPASE #### [address] Automated basophil countOrde red By: Rufino Kee on 05-19-2024 Basophils (Bld) [#/Vol] 0.1 10*3/uL Normal 0.0-0.2 [facility] Comment on above: Result Comment: PERF ORMED BY: [place] [address] PATHOLOGIST ENVIRONMENT COORDINATOR CHING PAREDES M.D. Performed By: #### C BC, HEPATIC, BMP, LIPASE #### [address] Automated blood monocyte cou ntOrdered By: Rufino Kee on 05-19-2024 Monocytes (Bld) [#/Vol] 1.0 10*3/uL High 0.0-0.8 [facility] Comment on above: Performed By: #### C BC, HEPATIC, BMP, LIPASE #### [address] Automated eosinophil %Ordere d By: Rufino Kee on 05-19-2024 Eosinophils/100 WBC (Bld) 2.1 % Normal . [facility] Comment on above: Performed By: #### C BC, HEPATIC, BMP, LIPASE #### [address] Automated eosinophil countOr dered By: Rufino Kee on 05-19-2024 Eosinophils (Bld) [#/Vol] 0.3 10*3/uL Normal 0.0-0.45 [facility] Comment on above: Performed By: #### C BC, HEPATIC, BMP, LIPASE #### [address] Automated monocyte %Ordered By: Rufino Kee on 05-19-2024 Monocytes/100 WBC (Bld) 8.5 % Normal . [facility] Comment on above: Performed By: #### C BC, HEPATIC, BMP, LIPASE #### [address] Automated neutrophil %Ordere d By: Rufino Kee on 05-19-2024 Neutrophils/100 WBC (Bld) 76.9 % Normal . [facility] Comment on above: Performed By: #### C BC, HEPATIC, BMP, LIPASE #### [address] BNP ser/plasOrdered By: Rufino Kee on 05-19-2024 Natriuretic peptide B (Bld) [Mass/Vol] 635.0 pg/mL High 5-100 [facility] Comment on above: Result Comment: PERF ORMED BY: [place] [address] PATHOLOGIST ENVIRONMENT COORDINATOR CHING PAREDES M.D. Performed By: #### C BC, HEPATIC, BMP, LIPASE #### [address] Bilirubin.total [Mass/volume ] in Serum or PlasmaOrdered By: Rufino Kee on 05-19-2024 Bilirubin [Mass/Vol] 1.2 mg/dL High 0.3-1.0 [facility] Comment on above: Performed By: #### C BC, HEPATIC, BMP, LIPASE #### [address] Calcium [Mass/volume] in Ser um or PlasmaOrdered By: Rufino Kee on 05-19-2024 Calcium [Mass/Vol] 8.9 mg/dL Normal 8.6-10.3 [facility] Comment on above: Performed By: #### C BC, HEPATIC, BMP, LIPASE #### [address] Carbon dioxide, total [Moles /volume] in Serum or PlasmaOrdered By: Rufino Kee on 05-19-2024 CO2 [Moles/Vol] 34.0 mmol/L High 21.0-31.0 [facility] Comment on above: Performed By: #### C BC, HEPATIC, BMP, LIPASE #### [address] Chloride [Moles/volume] in S avis or PlasmaOrdered By: Rufino Kee on 05-19-2024 Chloride [Moles/Vol] 100 mmol/L Normal 98-107 [facility] Comment on above: Performed By: #### C BC, HEPATIC, BMP, LIPASE #### [address] Complete Blood Count Auto Di ffon 05-19-2024 Mean Corpuscular HGB Conc 33.2 g/dL Normal 32.5-35.6 [facility] Comment on above: Performed By: #### C BC, HEPATIC, BMP, LIPASE #### [address] Monocytes/100 WBC (Bld) 17.72 % Normal 0.00-20.00 [facility] Comment on above: Performed By: #### C BC, HEPATIC, BMP, LIPASE #### [address] NRBC% 0.0 /100{WBC} Normal 0-0.5 [facility] Comment on above: Performed By: #### C BC, HEPATIC, BMP, LIPASE #### [address] Comprehensive Metabolic Pane brennan 05-19-2024 Albumin [Mass/Vol] 4.2 g/dL Normal 3.5-5.7 [facility] Comment on above: Performed By: #### C BC, HEPATIC, BMP, LIPASE #### [address] Creatinine Clr Calc Pharmacy 56.28 Normal [facility] Comment on above: Result Comment: PERF ORMED BY: [place] [address] PATHOLOGIST ENVIRONMENT COORDINATOR CHING PAREDES M.D. Performed By: #### C BC, HEPATIC, BMP, LIPASE #### [address] GFR/1.73 sq M.predicted MDRD (S/P/Bld) [Vol rate/Area] 44.496 mL/min/{1.73_m2} Normal [facility] Comment on above: Performed By: #### C BC, HEPATIC, BMP, LIPASE #### [address] Creatine kinase [Enzymatic a ctivity/volume] in Serum or PlasmaOrdered By: Rufino Kee on 05-19-2024 CK [Catalytic activity/Vol] 188 U/L Normal 30-223 [facility] Comment on above: Performed By: #### C BC, HEPATIC, BMP, LIPASE #### [address] Creatinine [Mass/volume] in Serum or PlasmaOrdered By: Rufino Kee on 05-19-2024 Creatinine [Mass/Vol] 1.78 mg/dL High 0.70-1.30 [facility] Comment on above: Performed By: #### C BC, HEPATIC, BMP, LIPASE #### [address] ECG 12 lead ECGon 05-19-2024 ECG 12 lead ECG [facility] [place] [address] [place] [address] Electrocardiograph Report Signed Patient: Rehan Graves MR#: [id number] : 1970 Acct:[id number] Age/Sex: 54 / M ADM Date: 05/19/24 Loc: Room: [address] [place] [address] Type: ADM IN Attending Dr: Rafa Mendez [...] Signed By Rufino Kee MD 05/19/242246 Normal [facility] ECG 12 lead ECG [facility] [place] [address] [place] [address] Electrocardiograph Report Signed Patient: Rehan Graves MR#: [id number] : 1970 Acct:[id number] Age/Sex: 54 / M ADM Date: 05/19/24 Loc: Room: [address] [place] [address] Type: ADM IN Attending Dr: Rafa Mendez [...] By Rufino Kee MD 05/19/242246 Normal [facility] Erythrocyte distribution wid th [Ratio] by Automated countOrdered By: Rufino Kee on 05-19-2024 Erythrocyte distribution width (RBC) [Ratio] 14.7 % Normal 12.0-14.8 [facility] Comment on above: Performed By: #### C BC, HEPATIC, BMP, LIPASE #### [place] [address] [place] Erythrocytes [#/volume] in B lood by Automated countOrdered By: Rufino Kee on 05-19-2024 RBC (Bld) [#/Vol] 4.10 10*6/uL Normal 3.90-5.[address] [facility] Comment on above: Performed By: #### C BC, HEPATIC, BMP, LIPASE #### [facility] [address] Glucose [Mass/volume] in Ser um or PlasmaOrdered By: Rufino Kee on 05-19-2024 Glucose [Mass/Vol] 100 mg/dL Normal 70-100 [facility] Comment on above: ADA recommended refe rence rangeRandom Glucose Reference Range is dependent on time and content of last meal. Glucose of more than 200 mg/dL in a nonstressed, ambulatory subject supports the diagnosis of Diabetes Mellitus. Result Comment: [place] om Glucose Reference Range is dependent on time and content of last meal. Glucose of more than 200 mg/dL in a nonstressed, ambulatory subject supports the diagnosis of Diabetes Mellitus. ADA recommended reference range Performed By: #### C BC, HEPATIC, BMP, LIPASE #### [address] Hematocrit [Volume Fraction] of Blood by Automated countOrdered By: Rufino Kee on 05-19-2024 Hematocrit (Bld) [Volume fraction] 38.6 % Low 38.8-50.0 [facility] Comment on above: Performed By: #### C BC, HEPATIC, BMP, LIPASE #### [address] Hemoglobin [Mass/volume] in BloodOrdered By: Rufino Kee on 05-19-2024 Hemoglobin (Bld) [Mass/Vol] 12.8 g/dL Low 13.0-17.0 [facility] Comment on above: Performed By: #### C BC, HEPATIC, BMP, LIPASE #### [address] INR in Platelet poor plasma by Coagulation assayOrdered By: Rufino Kee on 05-19-2024 INR Coag (PPP) [Relative time] 4.1 {INR} Normal [facility] Comment on above: INR Therapeutic Rang [...] heart valves: 3 - 4.5 PERFORMED BY: [place] [address] PATHOLOGIST ENVIRONMENT COORDINATOR CHING PAREDES M.D. Performed By: #### P T #### [address] Leukocytes [#/volume] correc shayy for nucleated erythrocytes in Blood by Automated counOrdered By: Rufino Kee on 05-19-2024 WBC corrected for nucl RBC Auto (Bld) [#/Vol] 11.9 10*3/uL High 4.1-10.5 [facility] Leukocytes [#/volume] in Blo od by Automated countOrdered By: Rufino Kee on 05-19-2024 WBC (Bld) [#/Vol] 11.9 10*3/uL High 4.1-10.[address] [facility] Comment on above: Performed By: #### C BC, HEPATIC, BMP, LIPASE #### [facility] [address] [place] [address] [place] Lymphocytes [#/volume] in Bl ood by Automated countOrdered By: Rufino Kee on 05-19-2024 Lymphocytes (Bld) [#/Vol] 1.4 10*3/uL Normal 1.00-4.8 [facility] Comment on above: Performed By: #### C BC, HEPATIC, BMP, LIPASE #### [place] [address] [place] Lymphocytes/100 leukocytes i n Blood by Automated countOrdered By: Rufino Kee on 05-19-2024 Lymphocytes/100 WBC (Bld) 11.7 % Normal . [facility] Comment on above: Performed By: #### C BC, HEPATIC, BMP, LIPASE #### [facility] [address] [place] [address] MCH [Entitic mass] by Automa shayy countOrdered By: Rufino Kee on 05-19-2024 MCH (RBC) [Entitic mass] 31.3 pg Normal 27.5-35.2 [facility] Comment on above: Performed By: #### C BC, HEPATIC, BMP, LIPASE #### [facility] [address] [place] [address] MCHC Auto (RBC) [Mass/Vol]Or dered By: Rufino Kee on 05-19-2024 MCHC (RBC) [Mass/Vol] 33.2 g/dL 32.5-35.6 [facility] MCV [Entitic volume] by Auto mated countOrdered By: Rufino Kee on 05-19-2024 MCV (RBC) [Entitic vol] 94.1 fL Normal 83.5-101 [facility] Comment on above: Performed By: #### C BC, HEPATIC, BMP, LIPASE #### [facility] [address] [place] [address] Monocyte distribution width [Entitic volume] in Blood by AutomatedOrdered By: Rufino Kee on 05-19-2024 Monocyte distribution width Auto (Bld) [Entitic vol] 17.72 % 0.00-20.00 [facility] Neutrophils [#/volume] in Bl ood by Automated countOrdered By: Rufino Kee on 05-19-2024 Neutrophils (Bld) [#/Vol] 9.1 10*3/uL High 1.8-7.7 [facility] Comment on above: Performed By: #### C BC, HEPATIC, BMP, LIPASE #### [facility] [address] [place] [address] No Panel InformationOrdered By: Rufino Kee on 05-19-2024 Estimated GFR (CKD-EPI) 44.496 mL/Min [facility] Creatinine Clearance (Chem 56.28 [facility] Nucleated erythrocytes [Pres ence] in Blood by Automated countOrdered By: Rufino Kee on 05-19-2024 Nucleated RBC Auto Ql (Bld) 0.0 /100{WBC} 0-0.5 [facility] Platelet mean volume [Entiti c volume] in Blood by Automated countOrdered By: Rufino Kee on 05-19-2024 Platelet mean volume (Bld) [Entitic vol] 8.3 fL Normal 6.6-10.1 [facility] Comment on above: Performed By: #### C BC, HEPATIC, BMP, LIPASE #### [facility] [address] [place] [address] Platelets [#/volume] in Bloo d by Automated countOrdered By: Rufino Kee on 05-19-2024 Platelets (Bld) [#/Vol] 173 10*3/uL Normal 150-450 [facility] Comment on above: Performed By: #### C BC, HEPATIC, BMP, LIPASE #### [address] Potassium [Moles/volume] in Serum or PlasmaOrdered By: Rufino Kee on 05-19-2024 Potassium [Moles/Vol] 3.7 mmol/L Normal 3.5-5.1 [facility] Comment on above: Performed By: #### C BC, HEPATIC, BMP, LIPASE #### [facility] [address] [place] [address] Protein [Mass/volume] in Ser um or PlasmaOrdered By: uRfino Kee on 05-19-2024 Protein [Mass/Vol] 7.6 g/dL Normal 6.4-8.9 [facility] Comment on above: Performed By: #### C BC, HEPATIC, BMP, LIPASE #### [address] Prothrombin time (PT)Ordered By: Rufino Kee on 05-19-2024 PT Coag (PPP) [Time] 45.9 s High 9.0-12.9 [facility] Comment on above: A hematocrit value g reater than 55% may lead to inaccurate results in coagulation testing. Patients having hematocrit values >55% require a special collection tube for coagulation studies. Please contact the laboratory at [phone] for redraw instructions. Result Comment: A he matocrit value greater than 55% may lead to inaccurate results in coagulation testing. Patients having hematocrit values >55% require a special collection tube for coagulation studies. Please contact the laboratory at [phone] for redraw instructions. Performed By: #### P T #### [address] Serum globulin measurement b y calculation (mass/volume)Ordered By: Rufino Kee on 05-19-2024 Globulin (S) [Mass/Vol] 3.4 g/dL [facility] Comment on above: Performed By: #### C BC, HEPATIC, BMP, LIPASE #### [address] Serum or plasma albumin/glob ulin mass ratioOrdered By: Rufino Kee on 05-19-2024 Albumin/Globulin [Mass ratio] 1.2 {ratio} [facility] Comment on above: Performed By: #### C BC, HEPATIC, BMP, LIPASE #### [address] Serum or plasma anion gap de terminationOrdered By: Rufino Kee on 05-19-2024 Anion gap [Moles/Vol] 6.7 mmol/L Normal 6.0-15.0 [facility] Comment on above: Performed By: #### C BC, HEPATIC, BMP, LIPASE #### [address] Sodium [Moles/volume] in Ser um or PlasmaOrdered By: Rufino Kee on 05-19-2024 Sodium [Moles/Vol] 137 mmol/L Normal 136-145 [facility] Comment on above: Performed By: #### C BC, HEPATIC, BMP, LIPASE #### [address] Troponin I High Sensitivityo n 05-19-2024 Troponin I High Sensitivity 12.1 pg/mL Normal 0.0-20.0 [facility] Comment on above: Result Comment: PERF ORMED BY: [place] [address] PATHOLOGIST ENVIRONMENT COORDINATOR CHING PAREDES M.D. Performed By: #### C BC, HEPATIC, BMP, LIPASE #### [facility] [address] Troponin I.cardiac [Mass/vol ume] in Serum or Plasma by Detection limit <= 0.01 ng/Ordered By: Rufino Kee on 05-19-2024 Troponin I.cardiac DL <= 0.01 ng/mL [Mass/Vol] 12.1 pg/mL 0.0-20.0 [facility] Urea nitrogen [Mass/volume] in Serum or PlasmaOrdered By: Rufino Kee on 05-19-2024 Urea nitrogen [Mass/Vol] 40 mg/dL High 7-25 [facility] Comment on above: Performed By: #### C BC, HEPATIC, BMP, LIPASE #### [facility] [address] [place], [place] [id number] [facility] XR chest 1V portableon 05-19 XR chest 1V portable [facility] [place] [address] [place] [address] XRay Report Signed Patient: Rehan Graves MR#: [id number] : 1970 Acct:[id number] Age/Sex: 54 / M ADM Date: 05/19/24 Loc: ER Room: Type: [facility] ER Attending Dr: Copies to: Rufino [...] FINDINGS Impression dictated by: Sam Ling Jr., D.O.05/19/2024 8:36 PM Dictation Location: [place] [address] Transcribed By: [place] 05/19/242035 Dictated By: Sam Ling Jr, DO 05/19/242035 Signed By: 05/19/242035 Normal [facility] US renal BIon 05-10-2024 US renal BI [facility] [place] [address] Ultrasound Report Signed Patient: Rehan Graves MR#: [id number] : 1970 Acct:[id number] Age/Sex: 54 / M ADM Date: 05/10/24 Loc: Room: Type: [facility] Attending Dr: Karla Shoemaker MD Ordering Provider: [...] Kelsey Price M.D.05/10/2024 7:54 PM Dictation Location: [place] [address] Tech: Elisabet Shaikh Transcribed By: LETICIA 05/10/241953 Dictated By: Kelsey Price MD 05/10/24 1950 Signed By: 05/10/241953 Normal [facility] TRANSTHORACIC ECHO (TTE) [facility] 02-15-2024 TRANSTHORACIC ECHO (TTE) [address], [address] [place] [address] TRANSTHORACIC ECHOCARDIOGRAM REPORT Patient Name: REHAN GRAVES Reading Physician: [id number] Ovidio Licona MD, [facility] Study Date: 02/15/2024 Ordering Provider: [id number] OVIDIO LICONA MRN/PID: [id number] Fellow: Nurse: Niki Gr RN Date of /Age: 6 1970 / 54 years Harness Builder: Delores Beasley RD, RVT Gender: M Additional Staff: Height: 175.26 cm Admit Date: Weight: 106.14 kg Admission Status: BSA / BMI: 2.21 m2 / 34.56 kg/m2 Department Location: [facility] Blood Pressure: 114 /76 mmHg Study Type: TRANSTHORACIC ECHO (TTE) LIMITED Diagnosis/ICD: 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 Aortic Valve Replacement-2006, Atrial Fibrillation, Dyspnea, Edema, HTN, Hyperlipidemia, Obesity CPT Codes: Echo Limited-68530 Study Detail: The following Echo studies were [...] Normal Ranges: LVOT Diameter: 2.30 cm (1.8-2.4cm) [id number] Ovidio Licona MD, FACC Electronically signed on 02/16/2024 at 4:36:46 PM Final Normal [facility] Activated partial thrombopla stin time (aPTT) in platelet poor plasma by coagulation aOrdered By: Shanel Steele on 01-06-2024 aPTT Coag (PPP) [Time] 37.1 s High 25.1-36.[address] [facility] Comment on above: A hematocrit value g reater than 55% may lead to inaccurate results in coagulation testing. Patients having hematocrit values >55% require a special collection tube for coagulation studies. Please contact the laboratory at [phone] for redraw instructions. Alanine aminotransferase [En zymatic activity/volume] in Serum or PlasmaOrdered By: Shanel Steele on 01-06-2024 ALT [Catalytic activity/Vol] 36 U/L Normal [facility] Comment on above: Performed By: #### C BC, HEPATIC, BMP, LIPASE #### [address] Albumin [Mass/volume] in Ser um or Plasma by Bromocresol green (BCG) dye binding methoOrdered By: Shanel Steele on 01-06-2024 Albumin BCG dye [Mass/Vol] 4.3 g/dL 3.5-5.7 [facility] Alkaline phosphatase [Enzyma tic activity/volume] in Serum or PlasmaOrdered By: Shanel Steele on 01-06-2024 ALP [Catalytic activity/Vol] 77 U/L Normal 34-104 [facility] Comment on above: Performed By: #### C BC, HEPATIC, BMP, LIPASE #### [address] Aspartate aminotransferase [ Enzymatic activity/volume] in Serum or PlasmaOrdered By: Shanel Steele on 01-06-2024 AST [Catalytic activity/Vol] 29 U/L Normal 13-39 [facility] Comment on above: Performed By: #### C BC, HEPATIC, BMP, LIPASE #### [address] Automated basophil %Ordered By: Shanel Steele on 01-06-2024 Basophils/100 WBC (Bld) 0.9 % Normal . [facility] Comment on above: Performed By: #### C BC, HEPATIC, BMP, LIPASE #### [address] Automated basophil countOrde red By: Shanel tSeele on 01-06-2024 Basophils (Bld) [#/Vol] 0.1 10*3/uL Normal 0.0-0.2 [facility] Comment on above: Result Comment: PERF ORMED BY: [place] [address] PATHOLOGIST ENVIRONMENT COORDINATOR CHING PAREDES M.D. Performed By: #### C BC, HEPATIC, BMP, LIPASE #### [address] Automated blood monocyte cou ntOrdered By: Shanel Steele on 01-06-2024 Monocytes (Bld) [#/Vol] 0.8 10*3/uL Normal 0.0-0.8 [facility] Comment on above: Performed By: #### C BC, HEPATIC, BMP, LIPASE #### [address] Automated eosinophil %Ordere d By: Shanel Steele on 01-06-2024 Eosinophils/100 WBC (Bld) 2.2 % Normal . [facility] Comment on above: Performed By: #### C BC, HEPATIC, BMP, LIPASE #### [address] Automated eosinophil countOr dered By: Shanel Steele on 01-06-2024 Eosinophils (Bld) [#/Vol] 0.2 10*3/uL Normal 0.0-0.45 [facility] Comment on above: Performed By: #### C BC, HEPATIC, BMP, LIPASE #### [address] Automated monocyte %Ordered By: Shanel Steele on 01-06-2024 Monocytes/100 WBC (Bld) 8.0 % Normal . [facility] Comment on above: Performed By: #### C BC, HEPATIC, BMP, LIPASE #### [address] Automated neutrophil %Ordere d By: Shanel Steele on 01-06-2024 Neutrophils/100 WBC (Bld) 71.5 % Normal . [facility] Comment on above: Performed By: #### C BC, HEPATIC, BMP, LIPASE #### [address] BNP ser/plasOrdered By: Nicanor Steele on 01-06-2024 Natriuretic peptide B (Bld) [Mass/Vol] 374.0 pg/mL High 5-100 [facility] Comment on above: Result Comment: PERF ORMED BY: [place] [address] PATHOLOGIST ENVIRONMENT COORDINATOR CHING PAREDES M.D. Performed By: #### U A #### [address] Basic Metabolic Panelon 12-14 Creatinine Clr Calc Pharmacy 52.49 Normal [facility] Comment on above: Performed By: #### C BC, HEPATIC, BMP, LIPASE #### [address] GFR/1.73 sq M.predicted MDRD (S/P/Bld) [Vol rate/Area] 41.142 mL/min/{1.73_m2} Normal [facility] Comment on above: Performed By: #### C BC, HEPATIC, BMP, LIPASE #### [address] Bilirubin Test strip Ql (U)O rdered By: Shanel Steele on 01-06-2024 Bilirubin Ql (U) Negative Negative [facility] Bilirubin.direct [Mass/volum e] in Serum or PlasmaOrdered By: Shanel Steele on 01-06-2024 Bilirubin.direct [Mass/Vol] 0.20 mg/dL High 0.03-0.18 [facility] Bilirubin.total [Mass/volume ] in Serum or PlasmaOrdered By: Shanel Steele on 01-06-2024 Bilirubin [Mass/Vol] 1.1 mg/dL High 0.3-1.0 [facility] Comment on above: Performed By: #### C BC, HEPATIC, BMP, LIPASE #### [address] Calcium [Mass/volume] in Ser um or PlasmaOrdered By: Shanel Steele on 01-06-2024 Calcium [Mass/Vol] 9.0 mg/dL Normal 8.6-10.3 [facility] Comment on above: Performed By: #### C BC, HEPATIC, BMP, LIPASE #### [facility] [address] [place] [address] Carbon dioxide, total [Moles /volume] in Serum or PlasmaOrdered By: Shanel Steele on 01-06-2024 CO2 [Moles/Vol] 35.6 mmol/L High 21.0-31.0 [facility] Comment on above: Performed By: #### C BC, HEPATIC, BMP, LIPASE #### [address] Chloride [Moles/volume] in S avis or PlasmaOrdered By: Shanel Steele on 01-06-2024 Chloride [Moles/Vol] 95 mmol/L Low 98-107 [facility] Comment on above: Performed By: #### C BC, HEPATIC, BMP, LIPASE #### [address] Color of Urine by AutoOrdere d By: Shanel Steele on 01-06-2024 Color (U) Yellow Normal Yellow [facility] Comment on above: Order Comment: Name Collection Type:: Clean-Voided Midstream Performed By: #### U A #### [address] Complete Blood Count Auto Di ffon 01-06-2024 Mean Corpuscular HGB Conc 33.9 g/dL Normal 32.5-35.6 [facility] Comment on above: Performed By: #### C BC, HEPATIC, BMP, LIPASE #### [address] Monocytes/100 WBC (Bld) 18.32 % Normal 0.00-20.00 [facility] Comment on above: Performed By: #### C BC, HEPATIC, BMP, LIPASE #### [address] NRBC% 0.2 /100{WBC} Normal 0-0.5 [facility] Comment on above: Performed By: #### C BC, HEPATIC, BMP, LIPASE #### [address] Creatinine [Mass/volume] in Serum or PlasmaOrdered By: Shanel Steele on 01-06-2024 Creatinine [Mass/Vol] 1.91 mg/dL High 0.70-1.30 [facility] Comment on above: Performed By: #### C BC, HEPATIC, BMP, LIPASE #### [address] ECG 12 lead ECGon 01-06-2024 ECG 12 lead ECG [facility] [place] [address] [place] [address] Electrocardiograph Report Signed Patient: Rehan Graves MR#: [id number] : 1970 Acct:[id number] Age/Sex: 53 / M ADM Date: 01/06/24 Loc: ER Room: Type: [facility] ER Attending Dr: Ordering Provider: Shanel [...] By Shanel Steele DO 1919 Normal [facility] Erythrocyte distribution wid th [Ratio] by Automated countOrdered By: Shanel Steele on 01-06-2024 Erythrocyte distribution width (RBC) [Ratio] 15.3 % High 12.0-14.8 [facility] Comment on above: Performed By: #### C BC, HEPATIC, BMP, LIPASE #### [facility] [address] [place] [address] [place] Erythrocytes [#/volume] in B lood by Automated countOrdered By: Shanel Steele on 01-06-2024 RBC (Bld) [#/Vol] 4.19 10*6/uL Normal 3.90-5.[address] [facility] Comment on above: Performed By: #### C BC, HEPATIC, BMP, LIPASE #### [facility] [address] [place] [address] [place] Glucose [Mass/volume] in Ser um or PlasmaOrdered By: Shanel Steele on 01-06-2024 Glucose [Mass/Vol] 99 mg/dL Normal 70-100 [facility] Comment on above: ADA recommended refe rence rangeRandom Glucose Reference Range is dependent on time and content of last meal. Glucose of more than 200 mg/dL in a nonstressed, ambulatory subject supports the diagnosis of Diabetes Mellitus. Result Comment: [place] Glucose Reference Range is dependent on time and content of last meal. Glucose of more than 200 mg/dL in a nonstressed, ambulatory subject supports the diagnosis of Diabetes Mellitus. ADA recommended reference range Performed By: #### C BC, HEPATIC, BMP, LIPASE #### [address] Hematocrit [Volume Fraction] of Blood by Automated countOrdered By: Shanel Steele on 01-06-2024 Hematocrit (Bld) [Volume fraction] 38.4 % Low 38.8-50.0 [facility] Comment on above: Performed By: #### C BC, HEPATIC, BMP, LIPASE #### [address] Hemoglobin [Mass/volume] in BloodOrdered By: Shanel Steele on 01-06-2024 Hemoglobin (Bld) [Mass/Vol] 13.0 g/dL Normal 13.0-17.0 [facility] Comment on above: Performed By: #### C BC, HEPATIC, BMP, LIPASE #### [address] Hepatic Panelon 01-06-2024 Albumin [Mass/Vol] 4.3 g/dL Normal 3.5-5.7 [facility] Comment on above: Performed By: #### C BC, HEPATIC, BMP, LIPASE #### [address] Bilirubin,Indirect 0.9 mg/dL Normal [facility] Comment on above: Performed By: #### C BC, HEPATIC, BMP, LIPASE #### [address] Bilirubin.indirect [Mass/Vol] 0.20 mg/dL High 0.03-0.18 [facility] Comment on above: Performed By: #### C BC, HEPATIC, BMP, LIPASE #### [facility] [address] INR in Platelet poor plasma by Coagulation assayOrdered By: Shanel Steele on 01-06-2024 INR Coag (PPP) [Relative time] 3.9 {INR} Normal [facility] Comment on above: INR Therapeutic Rang [...] #### C BC, HEPATIC, BMP, LIPASE #### [facility] [address] Ketones Auto test strip (U) [Mass/Vol]Ordered By: Shanel Steele on 01-06-2024 Ketones (U) [Mass/Vol] Negative Negative [facility] Leukocytes [#/volume] correc shayy for nucleated erythrocytes in Blood by Automated counOrdered By: Shanel Steele on 01-06-2024 WBC corrected for nucl RBC Auto (Bld) [#/Vol] 10.5 10*3/uL 4.1-10.5 [facility] Leukocytes [#/volume] in Blo od by Automated countOrdered By: Shanel Steele on 01-06-2024 WBC (Bld) [#/Vol] 10.5 10*3/uL Normal 4.1-10.[address] [facility] Comment on above: Performed By: #### C BC, HEPATIC, BMP, LIPASE #### [address] Lipase [Enzymatic activity/v olume] in Serum or PlasmaOrdered By: Shanel Steele on 01-06-2024 Lipase [Catalytic activity/Vol] 9.0 U/L Low 11.0-82.0 [facility] Comment on above: Result Comment: PERF ORMED BY: [place] [address] PATHOLOGIST ENVIRONMENT COORDINATOR CHING PAREDES M.D. Performed By: #### C BC, HEPATIC, BMP, LIPASE #### [address] Lymphocytes [#/volume] in Bl ood by Automated countOrdered By: Shanel Steele on 01-06-2024 Lymphocytes (Bld) [#/Vol] 1.8 10*3/uL Normal 1.00-4.8 [facility] Comment on above: Performed By: #### C BC, HEPATIC, BMP, LIPASE #### [address] Lymphocytes/100 leukocytes i n Blood by Automated countOrdered By: Shanel Steele on 01-06-2024 Lymphocytes/100 WBC (Bld) 17.4 % Normal . [facility] Comment on above: Performed By: #### C BC, HEPATIC, BMP, LIPASE #### [address] MCH [Entitic mass] by Automa shayy countOrdered By: Shanel Steele on 01-06-2024 MCH (RBC) [Entitic mass] 31.1 pg Normal 27.5-35.2 [facility] Comment on above: Performed By: #### C BC, HEPATIC, BMP, LIPASE #### [address] MCHC Auto (RBC) [Mass/Vol]Or dered By: Shanel Steele on 01-06-2024 MCHC (RBC) [Mass/Vol] 33.9 g/dL 32.5-35.6 [facility] MCV [Entitic volume] by Auto mated countOrdered By: Shanel Steele on 01-06-2024 MCV (RBC) [Entitic vol] 91.8 fL Normal 83.5-101 [facility] Comment on above: Performed By: #### C BC, HEPATIC, BMP, LIPASE #### [facility] [address] [place] [address] Monocyte distribution width [Entitic volume] in Blood by AutomatedOrdered By: Shanel Steele on 01-06-2024 Monocyte distribution width Auto (Bld) [Entitic vol] 18.32 % 0.00-20.00 [facility] Neutrophils [#/volume] in Bl ood by Automated countOrdered By: Shanel Steele on 01-06-2024 Neutrophils (Bld) [#/Vol] 7.5 10*3/uL Normal 1.8-7.7 [facility] Comment on above: Performed By: #### C BC, HEPATIC, BMP, LIPASE #### [facility] [address] [place] [address] Nitrite Test strip Ql (U)Ord ered By: Shanel Steele on 01-06-2024 Nitrite Ql (U) Negative Negative [facility] No Panel InformationOrdered By: Shanel Steele on 01-06-2024 Estimated GFR (CKD-EPI) 41.142 mL/Min [facility] Creatinine Clearance (Chem 52.49 [facility] Nucleated erythrocytes [Pres ence] in Blood by Automated countOrdered By: Shanel Steele on 01-06-2024 Nucleated RBC Auto Ql (Bld) 0.2 /100{WBC} 0-0.5 [facility] Partial Thromboplastin Timeo n 01-06-2024 aPTT Coag (Bld) [Time] 37.1 s High 25.1-36.5 [facility] Comment on above: Result Comment: A he matocrit value greater than 55% may lead to inaccurate results in coagulation testing. Patients having hematocrit values >55% require a special collection tube for coagulation studies. Please contact the laboratory at [phone] for redraw instructions. PERFORMED BY: [place] [address] PATHOLOGIST ENVIRONMENT COORDINATOR CHING PAREDES M.D. Performed By: #### C BC, HEPATIC, BMP, LIPASE #### [address] Platelet mean volume [Entiti c volume] in Blood by Automated countOrdered By: Shanel Steele on 01-06-2024 Platelet mean volume (Bld) [Entitic vol] 8.3 fL Normal 6.6-10.1 [facility] Comment on above: Performed By: #### C BC, HEPATIC, BMP, LIPASE #### [address] Platelets [#/volume] in Bloo d by Automated countOrdered By: Shanel Steele on 01-06-2024 Platelets (Bld) [#/Vol] 196 10*3/uL Normal 150-450 [facility] Comment on above: Performed By: #### C BC, HEPATIC, BMP, LIPASE #### [address] Potassium [Moles/volume] in Serum or PlasmaOrdered By: Shanel Steele on 01-06-2024 Potassium [Moles/Vol] 3.7 mmol/L Normal 3.5-5.1 [facility] Comment on above: Performed By: #### C BC, HEPATIC, BMP, LIPASE #### [address] Protein Auto test strip (U) [Mass/Vol]Ordered By: Shanel Steele on 01-06-2024 Protein (U) [Mass/Vol] Negative Negative [facility] Protein [Mass/volume] in Ser um or PlasmaOrdered By: Shanel Steele on 01-06-2024 Protein [Mass/Vol] 7.3 g/dL Normal 6.4-8.9 [facility] Comment on above: Performed By: #### C BC, HEPATIC, BMP, LIPASE #### [address] Prothrombin time (PT)Ordered By: Shanel Steele on 01-06-2024 PT Coag (PPP) [Time] 42.3 s High 9.0-12.9 [facility] Comment on above: A hematocrit value g reater than 55% may lead to inaccurate results in coagulation testing. Patients having hematocrit values >55% require a special collection tube for coagulation studies. Please contact the laboratory at [phone] for redraw instructions. Result Comment: A he matocrit value greater than 55% may lead to inaccurate results in coagulation testing. Patients having hematocrit values >55% require a special collection tube for coagulation studies. Please contact the laboratory at [phone] for redraw instructions. Performed By: #### C BC, HEPATIC, BMP, LIPASE #### [address] Serum globulin measurement b y calculation (mass/volume)Ordered By: Shanel Steele on 01-06-2024 Globulin (S) [Mass/Vol] 3.0 g/dL [facility] Comment on above: Performed By: #### C BC, HEPATIC, BMP, LIPASE #### [address] Serum or plasma albumin/glob ulin mass ratioOrdered By: Shanel Steele on 01-06-2024 Albumin/Globulin [Mass ratio] 1.4 {ratio} [facility] Comment on above: Performed By: #### C BC, HEPATIC, BMP, LIPASE #### [address] Serum or plasma anion gap de terminationOrdered By: Shanel Steele on 01-06-2024 Anion gap [Moles/Vol] 10.1 mmol/L Normal 6.0-15.[address] [facility] Comment on above: Performed By: #### C BC, HEPATIC, BMP, LIPASE #### [address] Serum or plasma non-glucuron idated bilirubin measurement (mass/volume)Ordered By: Shanel Steele on 01-06-2024 Bilirubin.indirect [Mass/Vol] 0.9 mg/dL [facility] Sodium [Moles/volume] in Ser um or PlasmaOrdered By: Shanel Steele on 01-06-2024 Sodium [Moles/Vol] 137 mmol/L Normal 136-145 [facility] Comment on above: Performed By: #### C BC, HEPATIC, BMP, LIPASE #### [facility] [address] [place] [address] Specific gravity Auto test s trip (U) [Rel density]Ordered By: Shanel Steele on 01-06-2024 Specific gravity (U) [Rel density] 1.007 1.001-1.030 [facility] Troponin I High Sensitivityo n 01-06-2024 Troponin I High Sensitivity 6.6 pg/mL Normal 0.0-20.0 [facility] Comment on above: Result Comment: PERF ORMED BY: [place] [address] PATHOLOGIST ENVIRONMENT COORDINATOR CHING PAREDES M.D. Performed By: #### C BC, HEPATIC, BMP, LIPASE #### [facility] [address] [place] [address] Troponin I.cardiac [Mass/vol ume] in Serum or Plasma by Detection limit <= 0.01 ng/Ordered By: Shanel Steele on 01-06-2024 Troponin I.cardiac DL <= 0.01 ng/mL [Mass/Vol] 6.6 pg/mL 0.0-20.0 [facility] US gall bladderon 01-06-2024 US gall bladder [facility] [place] [address] Ultrasound Report Signed Patient: Rehan Graves MR#: [id number] : 1970 Acct:[id number] Age/Sex: 53 / M ADM Date: 01/06/24 Loc: ER Room: Type: [facility] ER Attending Dr: Ordering Provider: Shanel Steele DO Date of Service: 01/06/24 US/US gall bladder: ruq pain Copies to: Shanel Steele DO LIMITED ABDOMINAL ULTRASOUND: CLINICAL HISTORY: Right [...] . Impression dictated by: Sam Ling Jr., D.O.01/06/2024 6:44 PM Dictation Location: [place] [address] Tech: Elisabet Shaikh Transcribed By: [place] 01/06/241843 Dictated By: Sam Ling Jr, DO 01/06/241841 Signed By: 01/06/241843 Normal [facility] Urea nitrogen [Mass/volume] in Serum or PlasmaOrdered By: Shanel Steele on 01-06-2024 Urea nitrogen [Mass/Vol] 38 mg/dL High 03-08 [facility] Comment on above: Performed By: #### C BC, HEPATIC, BMP, LIPASE #### [place] [id number] [facility] Urinalysison 01-06-2024 Appearance (U) Clear Normal Clear [facility] Comment on above: Order Comment: Name Collection Type:: Clean-Voided Midstream Performed By: #### U A #### [place] [address] [place] Bilirubin,Urine Negative Normal Negative [facility] Comment on above: Order Comment: Name Collection Type:: Clean-Voided Midstream Performed By: #### U A #### [place] [id number] [facility] Glucose Ql (U) Normal Normal Normal [facility] Comment on above: Order Comment: Name Collection Type:: Clean-Voided Midstream Performed By: #### U A #### [place] [id number] [facility] Ketones Ql (U) Negative Normal Negative [facility] Comment on above: Order Comment: Name Collection Type:: Clean-Voided Midstream Performed By: #### U A #### [place] [id number] [facility] Leukocyte esterase Test strip Ql (U) Negative Normal Negative [facility] Comment on above: Order Comment: Name Collection Type:: Clean-Voided Midstream Performed By: #### U A #### [place] [address] [place] Nitrite,Urine Negative Normal Negative [facility] Comment on above: Order Comment: Name Collection Type:: Clean-Voided Midstream Performed By: #### U A #### [address] Occult Blood,Urine Negative Normal Negative [facility] Comment on above: Order Comment: Name Collection Type:: Clean-Voided Midstream Result Comment: PERF ORMED BY: [place] [address] PATHOLOGIST ENVIRONMENT COORDINATOR CHING PAREDES M.D. Performed By: #### U A #### [place] [address] [place] Protein,Urine Negative Normal Negative [facility] Comment on above: Order Comment: Name Collection Type:: Clean-Voided Midstream Performed By: #### U A #### [address] Specificy [place],Urine 1.007 Normal 1.001-1.030 [facility] Comment on above: Order Comment: Name Collection Type:: Clean-Voided Midstream Performed By: #### U A #### [address] Urobilinogen,Urine Normal Normal Normal [facility] Comment on above: Order Comment: Name Collection Type:: Clean-Voided Midstream Performed By: #### U A #### [place] [address] [place] Urine clarity by refractomet ry automatedOrdered By: Shanel Steele on 01-06-2024 Clarity Refractometry automated (U) Clear Clear [facility] Urine glucose measurement by automated test strip (mass/volume)Ordered By: Shanel Steele on 01-06-2024 Glucose Auto test strip (U) [Mass/Vol] Normal mg/dL Normal [facility] Urine hemoglobin detection b y automated test stripOrdered By: Shanel Steele on 01-06-2024 Hemoglobin Auto test strip Ql (U) Negative Negative [facility] Urine leukocyte esterase det ection by automated test stripOrdered By: Shanel Steele on 01-06-2024 Leukocyte esterase Auto test strip Ql (U) Negative Negative [facility] Urine pH measurement by auto mated test stripOrdered By: Shanel Steele on 01-06-2024 pH (U) 6.0 [pH] Normal 5.0-9.0 [facility] Comment on above: Order Comment: Name Collection Type:: Clean-Voided Midstream Performed By: #### U A #### [facility] [address] Urobilinogen Auto test strip (U) [Mass/Vol]Ordered By: Shanel Steele on 01-06-2024 Urobilinogen (U) [Mass/Vol] Normal mg/dL Normal [facility] Basic Metabolic Panelon 10-13 GFR/1.73 sq M.predicted MDRD (S/P/Bld) [Vol rate/Area] mL/min/{1.73_m2} Normal [facility] Comment on above: Performed By: #### B MP #### [place] [address] [place] Calcium [Mass/volume] in Ser um or PlasmaOrdered By: Ovidio Licona on 10-31-2023 Calcium [Mass/Vol] 9.2 mg/dL Normal 8.6-10.3 [facility] Comment on above: Result Comment: PERF ORMED BY: [place] [address] PATHOLOGIST ENVIRONMENT COORDINATOR CHING PAREDES M.D. Performed By: #### B MP #### [facility] [address] [place] [address] [place] Carbon dioxide, total [Moles /volume] in Serum or PlasmaOrdered By: Ovidio Licona on 10-31-2023 CO2 [Moles/Vol] 37.0 mmol/L High 21.0-31.0 [facility] Comment on above: Performed By: #### B MP #### [place] [address] [place] Chloride [Moles/volume] in S avis or PlasmaOrdered By: Ovidio Licona on 10-31-2023 Chloride [Moles/Vol] 99 mmol/L Normal 98-107 [facility] Comment on above: Performed By: #### B MP #### [facility] [address] Creatinine [Mass/volume] in Serum or PlasmaOrdered By: Ovidio Licona on 10-31-2023 Creatinine [Mass/Vol] 1.33 mg/dL High 0.70-1.30 [facility] Comment on above: Performed By: #### B MP #### [facility] [address] Glucose [Mass/volume] in Ser um or PlasmaOrdered By: Ovidio Licona on 10-31-2023 Glucose [Mass/Vol] 86 mg/dL Normal 70-100 [facility] Comment on above: ADA recommended refe rence rangeRandom Glucose Reference Range is dependent on time and content of last meal. Glucose of more than 200 mg/dL in a nonstressed, ambulatory subject supports the diagnosis of Diabetes Mellitus. Result Comment: [place] Glucose Reference Range is dependent on time and content of last meal. Glucose of more than 200 mg/dL in a nonstressed, ambulatory subject supports the diagnosis of Diabetes Mellitus. ADA recommended reference range Performed By: #### B MP #### [address] No Panel InformationOrdered By: Ovidio Licona on 10-31-2023 Estimated GFR (CKD-EPI) > 60.0 mL/Min [facility] Creatinine Clearance (Chem N/A [facility] Potassium [Moles/volume] in Serum or PlasmaOrdered By: Ovidio Licona on 10-31-2023 Potassium [Moles/Vol] 3.9 mmol/L Normal 3.5-5.1 [facility] Comment on above: Performed By: #### B MP #### [facility] [address] Serum or plasma anion gap de terminationOrdered By: Ovidio Licona on 10-31-2023 Anion gap [Moles/Vol] 7.9 mmol/L Normal 6.0-15.0 [facility] Comment on above: Performed By: #### B MP #### [facility] [address] [place] [address] [place] Sodium [Moles/volume] in Ser um or PlasmaOrdered By: Nolantoni Licona on 10-31-2023 Sodium [Moles/Vol] 140 mmol/L Normal 136-145 [facility] Comment on above: Performed By: #### B MP #### [address] Urea nitrogen [Mass/volume] in Serum or PlasmaOrdered By: Nolan Licona on 10-31-2023 Urea nitrogen [Mass/Vol] 25 mg/dL Normal 7-25 [facility] Comment on above: Performed By: #### B MP #### [address] Alanine aminotransferase [En zymatic activity/volume] in Serum or PlasmaOrdered By: Nolan Licona on 10-14-2023 ALT [Catalytic activity/Vol] 46 U/L Normal 7-52 [facility] Comment on above: Performed By: #### U A #### [address] Aspartate aminotransferase [ Enzymatic activity/volume] in Serum or PlasmaOrdered By: Nolantoni Licona on 10-14-2023 AST [Catalytic activity/Vol] 28 U/L Normal 13-39 [facility] Comment on above: Performed By: #### U A #### [address] Basic Metabolic Panelon GFR/1.73 sq M.predicted MDRD (S/P/Bld) [Vol rate/Area] 34.914 mL/min/{1.73_m2} Normal [facility] Comment on above: Performed By: #### U A #### [place] [address] [place] Calcium [Mass/volume] in Ser um or PlasmaOrdered By: Ovidio Licona on 10-14-2023 Calcium [Mass/Vol] 9.0 mg/dL Normal 8.6-10.3 [facility] Comment on above: Performed By: #### U A #### [facility] [address] [place] [address] [place] Carbon dioxide, total [Moles /volume] in Serum or PlasmaOrdered By: Ovidio Licona on 10-14-2023 CO2 [Moles/Vol] 32.6 mmol/L High 21.0-31.0 [facility] Comment on above: Performed By: #### U A #### [facility] [address] [place] [address] [place] Chloride [Moles/volume] in S avis or PlasmaOrdered By: Ovidio Licona on 10-14-2023 Chloride [Moles/Vol] 98 mmol/L Normal 98-107 [facility] Comment on above: Performed By: #### U A #### [address] Creatinine [Mass/volume] in Serum or PlasmaOrdered By: Ovidio Licona on 10-14-2023 Creatinine [Mass/Vol] 2.19 mg/dL High 0.70-1.30 [facility] Comment on above: Performed By: #### U A #### [place] [address] [place] Glucose [Mass/volume] in Ser um or PlasmaOrdered By: Ovidio Licona on 10-14-2023 Glucose [Mass/Vol] 91 mg/dL Normal 70-100 [facility] Comment on above: ADA recommended refe rence rangeRandom Glucose Reference Range is dependent on time and content of last meal. Glucose of more than 200 mg/dL in a nonstressed, ambulatory subject supports the diagnosis of Diabetes Mellitus. Result Comment: [place] Glucose Reference Range is dependent on time and content of last meal. Glucose of more than 200 mg/dL in a nonstressed, ambulatory subject supports the diagnosis of Diabetes Mellitus. ADA recommended reference range Performed By: #### U A #### [address] [place] [address] [place] No Panel InformationOrdered By: Ovidio Licona on 10-14-2023 Estimated GFR (CKD-EPI) 34.914 mL/Min [facility] Creatinine Clearance (Chem N/A [facility] Potassium [Moles/volume] in Serum or PlasmaOrdered By: Ovidio Licona on 10-14-2023 Potassium [Moles/Vol] 5.2 mmol/L High 3.5-5.1 [facility] Comment on above: Performed By: #### U A #### [facility] [address] [place] [address] Serum or plasma anion gap de terminationOrdered By: Ovidio Licona on 10-14-2023 Anion gap [Moles/Vol] 9.6 mmol/L Normal 6.0-15.0 [facility] Comment on above: Performed By: #### U A #### [facility] [address] [place] [address] Sodium [Moles/volume] in Ser um or PlasmaOrdered By: Ovidio Licona on 10-14-2023 Sodium [Moles/Vol] 135 mmol/L Low 136-145 [facility] Comment on above: Performed By: #### U A #### [address] Thyrotropin [Units/volume] i n Serum or PlasmaOrdered By: Ovidio Licona on 10-14-2023 TSH Qn 4.69 m[IU]/L Normal 0.45-5.33 [facility] Comment on above: Result Comment: PERF ORMED BY: [place] [address] PATHOLOGIST ENVIRONMENT COORDINATOR CHING PAREDES M.D. Performed By: #### U A #### [place] [address] [place] Urea nitrogen [Mass/volume] in Serum or PlasmaOrdered By: Ovidio Licona on 10-14-2023 Urea nitrogen [Mass/Vol] 58 mg/dL High 7-25 [facility] Comment on above: Performed By: #### U A #### [facility] [address] [id number] [place] XR chest 2V*on 10-14-2023 XR chest 2V* [facility] [address] [place] [address] [id number] XRay Report Signed Patient: Rehan Graves MR#: [id number] : 1970 Acct:[id number] Age/Sex: 53 / M ADM Date: 10/14/23 Loc: RT Room: Type: [facility] Attending Dr: Ovidio Licona MD Copies to: Ovidio Licona MD, [facility] Ordering Provider: Ovidio Licona MD, [facility] Date of Service: 10/14/23 XR/XR chest 2V*: [...] Jarred Anguiano M.D.10/14/2023 4:17 PM Dictation Location: [place] [address] Transcribed By: [place] 10/14/23 1617 Dictated By: Jarred Anguiano DO 10/14/23 1611 Signed By: 10/14/23 1617 Normal [facility] Basic Metabolic Panelon 09-15 GFR/1.73 sq M.predicted MDRD (S/P/Bld) [Vol rate/Area] 46.982 mL/min/{1.73_m2} Normal [facility] Comment on above: Performed By: #### B MP #### [place] [id number] [facility] Calcium [Mass/volume] in Ser um or PlasmaOrdered By: Ovidio Licona on 10-03-2023 Calcium [Mass/Vol] 9.0 mg/dL Normal 8.6-10.3 [facility] Comment on above: Result Comment: PERF ORMED BY: [place] [address] PATHOLOGIST ENVIRONMENT COORDINATOR CHING PAREDES M.D. Performed By: #### B MP #### [facility] [address] [place] [address] Carbon dioxide, total [Moles /volume] in Serum or PlasmaOrdered By: Ovidio Licona on 10-03-2023 CO2 [Moles/Vol] 38.4 mmol/L High 21.0-31.0 [facility] Comment on above: Performed By: #### B MP #### [address] Chloride [Moles/volume] in S avis or PlasmaOrdered By: Ovidio Licona on 10-03-2023 Chloride [Moles/Vol] 95 mmol/L Low 98-107 [facility] Comment on above: Performed By: #### B MP #### [address] Creatinine [Mass/volume] in Serum or PlasmaOrdered By: Ovidio Licona on 10-03-2023 Creatinine [Mass/Vol] 1.71 mg/dL High 0.70-1.30 [facility] Comment on above: Performed By: #### B MP #### [address] ECG 12 Leadon 10-03-2023 ECG revealed normal sinus rhythm with right bundle branch block [facility] Work Phone: [facility] Work Phone: Glucose [Mass/volume] in Ser um or PlasmaOrdered By: Ovidio Licona on 10-03-2023 Glucose [Mass/Vol] 109 mg/dL High 70-100 [facility] Comment on above: ADA recommended refe rence rangeRandom Glucose Reference Range is dependent on time and content of last meal. Glucose of more than 200 mg/dL in a nonstressed, ambulatory subject supports the diagnosis of Diabetes Mellitus. Result Comment: [place] Glucose Reference Range is dependent on time and content of last meal. Glucose of more than 200 mg/dL in a nonstressed, ambulatory subject supports the diagnosis of Diabetes Mellitus. ADA recommended reference range Performed By: #### B MP #### [address] INR in Platelet poor plasma by Coagulation assayOrdered By: Ovidio Licona on 10-03-2023 INR Coag (PPP) [Relative time] 2.0 {INR} Normal [facility] Comment on above: INR Therapeutic Rang [...] heart valves: 3 - 4.5 PERFORMED BY: [place] [address] PATHOLOGIST ENVIRONMENT COORDINATOR CHING PAREDES M.D. Performed By: #### B MP #### [address] No Panel InformationOrdered By: Ovidio Licona on 10-03-2023 Estimated GFR (CKD-EPI) 46.982 mL/Min [facility] Creatinine Clearance (Chem N/A [facility] Potassium [Moles/volume] in Serum or PlasmaOrdered By: Ovidio Licona on 10-03-2023 Potassium [Moles/Vol] 4.9 mmol/L Normal 3.5-5.1 [facility] Comment on above: Performed By: #### B MP #### [address] Prothrombin time (PT)Ordered By: Ovidio Licona on 10-03-2023 PT Coag (PPP) [Time] 23.1 s High 9.0-12.9 [facility] Comment on above: A hematocrit value g reater than 55% may lead to inaccurate results in coagulation testing. Patients having hematocrit values >55% require a special collection tube for coagulation studies. Please contact the laboratory at [phone] for redraw instructions. Order Comment: List the anticoagulant: COUMADIN/WARFARIN Result Comment: A he matocrit value greater than 55% may lead to inaccurate results in coagulation testing. Patients having hematocrit values >55% require a special collection tube for coagulation studies. Please contact the laboratory at [phone] for redraw instructions. Performed By: #### B MP #### [address] Serum or plasma anion gap de terminationOrdered By: Ovidio Licona on 10-03-2023 Anion gap [Moles/Vol] 9.5 mmol/L Normal 6.0-15.0 [facility] Comment on above: Performed By: #### B MP #### [address] Sodium [Moles/volume] in Ser um or PlasmaOrdered By: Ovidio Licona on 10-03-2023 Sodium [Moles/Vol] 138 mmol/L Normal 136-145 [facility] Comment on above: Performed By: #### B MP #### [address] Urea nitrogen [Mass/volume] in Serum or PlasmaOrdered By: Ovidio Licona on 10-03-2023 Urea nitrogen [Mass/Vol] 25 mg/dL Normal 7-25 [facility] Comment on above: Performed By: #### B MP #### [place] [address] [place] Carbon dioxide, total [Moles /volume] in Serum or PlasmaOrdered By: Ovidio Licona on 09-29-2023 CO2 [Moles/Vol] 34.3 mmol/L High 21.0-31.0 [facility] Comment on above: Performed By: #### L YTES #### [facility] [address] [place] [address] Chloride [Moles/volume] in S avis or PlasmaOrdered By: Ovidio Licona on 09-29-2023 Chloride [Moles/Vol] 99 mmol/L Normal 98-107 [facility] Comment on above: Performed By: #### L YTES #### [facility] [address] [place] [address] ECG 12 lead ECGon 09-29-2023 ECG 12 [place] [address] Electrocardiograph Report Signed Patient: Rehan Graves MR#: [id number] : 1970 Acct:[id number] Age/Sex: 53 / M ADM Date: 09/29/23 Loc: Room: Type: [facility] Attending Dr: Ovidio Licona MD Ordering Provider: Ovidio Licona MD, [facility] Date of Service: 09/29/23 ECG/ECG 12 lead [...] bundle branch block Confirmed by Frank Saba ([id number]) on 09/30/2023 6:31:19 PM Referred By: Ovidio Licona Electronically Signed By:Frank Saba Transcribed By: MUS Signed By Frank Saba MD 09/30/23 1831 Normal [facility] ECG post procedureon 024 ECG post procedure [facility] [place] [address] Electrocardiograph Report Signed Patient: Rehan Graves MR#: [id number] : 1970 Acct:[id number] Age/Sex: 53 / M ADM Date: 09/29/23 Loc: Room: Type: [facility] Attending Dr: Ovidio Licona MD Ordering Provider: Ovidio Licona MD, [facility] Date of Service: 09/29/23/ ECG/ECG post procedure: [...] are now present Confirmed by Frank Saba ([id number]) on 09/30/2023 6:31:48 PM Referred By: Ovidio Licona Electronically Signed By:Frank Saba Transcribed By: MUS Signed By Frank Saba MD 09/30/23 1831 Normal [facility] INR in Platelet poor plasma by Coagulation assayOrdered By: Rod Benitez on 09-29-2023 INR Coag (PPP) [Relative time] 2.4 {INR} Normal [facility] Comment on above: INR Therapeutic Rang [...] heart valves: 3 - 4.5 PERFORMED BY: [place] [address] PATHOLOGIST ENVIRONMENT COORDINATOR CHING PAREDES M.D. Performed By: #### P T #### [facility] [address] [place], [place] [id number] [facility] PT Coag (Bld) [Time]on 09-29 INR Coag (PPP) [Relative time] 2.4 {INR} [facility] Comment on above: INR Therapeutic Rang e [...] Interpretation and review of laboratory results Abnormal [facility] PT Coag (PPP) [Time] 26.6 s High 9.0 - 1 2.9 s [facility] Comment on above: A hematocrit value g reater than 55% may lead to inaccurate results in coagulation testing. Patients having hematocrit values >55% require a special collection tube for coagulation studies. Please contact the laboratory at [phone] for redraw instructions. REDRAW [facility] Potassium [Moles/volume] in Serum or PlasmaOrdered By: Ovidio Licona on 09-29-2023 Potassium [Moles/Vol] 4.7 mmol/L Normal 3.5-5.1 [facility] Comment on above: Performed By: #### L YTES #### [facility] [address] [place], [place] [id number] [facility] Prothrombin time (PT)Ordered By: Rod Benitez on 09-29-2023 PT Coag (PPP) [Time] 26.6 s High 9.0-12.9 [facility] Comment on above: A hematocrit value g reater than 55% may lead to inaccurate results in coagulation testing. Patients having hematocrit values >55% require a special collection tube for coagulation studies. Please contact the laboratory at [phone] for redraw instructions. Order Comment: REDRA W Result Comment: A he matocrit value greater than 55% may lead to inaccurate results in coagulation testing. Patients having hematocrit values >55% require a special collection tube for coagulation studies. Please contact the laboratory at [phone] for redraw instructions. Performed By: #### P T #### [address] Serum or plasma anion gap de terminationOrdered By: Ovidio Licona on 09-29-2023 Anion gap [Moles/Vol] 10.4 mmol/L Normal 6.0-15.[address] [facility] Comment on above: Result Comment: PERF ORMED BY: [place] [address] PATHOLOGIST ENVIRONMENT COORDINATOR CHING PAREDES M.D. Performed By: #### L YTES #### [facility] [address] [place] [address] Sodium [Moles/volume] in Ser um or PlasmaOrdered By: Ovidio Licona on 09-29-2023 Sodium [Moles/Vol] 139 mmol/L Normal 136-145 [facility] Comment on above: Performed By: #### L YTES #### [address] INR in Platelet poor plasma by Coagulation assayOrdered By: Ovidio Licona on 09-26-2023 INR Coag (PPP) [Relative time] 2.1 {INR} Normal [facility] Comment on above: INR Therapeutic Rang [...] heart valves: 3 - 4.5 PERFORMED BY: [address] [place] [address] PATHOLOGIST ENVIRONMENT COORDINATOR CHING PAREDES M.D. Performed By: #### P T #### [address] Prothrombin time (PT)Ordered By: Ovidio Licona on 09-26-2023 PT Coag (PPP) [Time] 24.1 s High 9.0-12.9 [facility] Comment on above: A hematocrit value g reater than 55% may lead to inaccurate results in coagulation testing. Patients having hematocrit values >55% require a special collection tube for coagulation studies. Please contact the laboratory at [phone] for redraw instructions. Order Comment: List the anticoagulant: COUMADIN/WARFARIN Result Comment: A he matocrit value greater than 55% may lead to inaccurate results in coagulation testing. Patients having hematocrit values >55% require a special collection tube for coagulation studies. Please contact the laboratory at [phone] for redraw instructions. Performed By: #### P T #### [address] Automated basophil %Ordered By: Ovidio Licona on 09-22-2023 Basophils/100 WBC (Bld) 0.5 % Normal . [facility] Comment on above: Performed By: #### C BC, HEPATIC, BMP, LIPASE #### [address] Automated basophil countOrde red By: Ovidio Licona on 09-22-2023 Basophils (Bld) [#/Vol] 0.1 10*3/uL Normal 0.0-0.2 [facility] Comment on above: Result Comment: PERF ORMED BY: [place] [address] PATHOLOGIST ENVIRONMENT COORDINATOR CHING PAREDES M.D. Performed By: #### C BC, HEPATIC, BMP, LIPASE #### [address] Automated blood monocyte cou ntOrdered By: Ovidio Licona on 09-22-2023 Monocytes (Bld) [#/Vol] 1.0 10*3/uL High 0.0-0.8 [facility] Comment on above: Performed By: #### C BC, HEPATIC, BMP, LIPASE #### [address] Automated eosinophil %Ordere d By: Ovidio Licona on 09-22-2023 Eosinophils/100 WBC (Bld) 1.2 % Normal . [facility] Comment on above: Performed By: #### C BC, HEPATIC, BMP, LIPASE #### [address] Automated eosinophil countOr dered By: Ovidio Licona on 09-22-2023 Eosinophils (Bld) [#/Vol] 0.1 10*3/uL Normal 0.0-0.45 [facility] Comment on above: Performed By: #### C BC, HEPATIC, BMP, LIPASE #### [address] Automated monocyte %Ordered By: Ovidio Licona on 09-22-2023 Monocytes/100 WBC (Bld) 8.5 % Normal . [facility] Comment on above: Performed By: #### C BC, HEPATIC, BMP, LIPASE #### [address] Automated neutrophil %Ordere d By: Ovidio Licona on 09-22-2023 Neutrophils/100 WBC (Bld) 79.9 % Normal . [facility] Comment on above: Performed By: #### C BC, HEPATIC, BMP, LIPASE #### [address] Basic Metabolic Panelon GFR/1.73 sq M.predicted MDRD (S/P/Bld) [Vol rate/Area] mL/min/{1.73_m2} Normal [facility] Comment on above: Performed By: #### C BC, HEPATIC, BMP, LIPASE #### [address] Calcium [Mass/volume] in Ser um or PlasmaOrdered By: Ovidio Licona on 09-22-2023 Calcium [Mass/Vol] 7.9 mg/dL Low 8.6-10.3 [facility] Comment on above: Result Comment: PERF ORMED BY: [place] [address] PATHOLOGIST ENVIRONMENT COORDINATOR CHING PAREDES M.D. Performed By: #### C BC, HEPATIC, BMP, LIPASE #### [address] Carbon dioxide, total [Moles /volume] in Serum or PlasmaOrdered By: Ovidio Licona on 09-22-2023 CO2 [Moles/Vol] 29.1 mmol/L Normal 21.0-31.0 [facility] Comment on above: Performed By: #### C BC, HEPATIC, BMP, LIPASE #### [address] Chloride [Moles/volume] in S avis or PlasmaOrdered By: Ovidio Licona on 09-22-2023 Chloride [Moles/Vol] 107 mmol/L Normal 98-107 [facility] Comment on above: Performed By: #### C BC, HEPATIC, BMP, LIPASE #### [address] Complete Blood Count Auto Di ffon 09-22-2023 Mean Corpuscular HGB Conc 32.6 g/dL Normal 32.5-35.6 [facility] Comment on above: Performed By: #### C BC, HEPATIC, BMP, LIPASE #### [address] NRBC% 0.2 /100{WBC} Normal 0-0.5 [facility] Comment on above: Performed By: #### C BC, HEPATIC, BMP, LIPASE #### [address] Creatinine [Mass/volume] in Serum or PlasmaOrdered By: Ovidio Licona on 09-22-2023 Creatinine [Mass/Vol] 1.17 mg/dL Normal 0.70-1.30 [facility] Comment on above: Performed By: #### C BC, HEPATIC, BMP, LIPASE #### [facility] [address] [id number] [facility] echo transthoracicon [facility] echo transthoracic [facility] [address] [place] [address] [place] [address] Echocardiogram Signed Patient: Rehan Graves MR#: [id number] : 1970 Acct:[id number] Age/Sex: 53 / M ADM Date: 09/22/23 Loc: Room: Type: [facility] Attending Dr: Ovidio Licona MD Ordering Provider: Ovidio Licona MD, [facility] Date of Service: 09/22/23/ [facility] echo transthoracic: AFLUTTER,HISTORY OF AVR, HTN Copies to: Ovidio Licona MD, [facility] Liseth Carlson MD Weight: 240 lb Performed By: Holly Amos [facility] BSA: 2.2 m2 BP: 139/93 mmHg HR: [...] cm (more content not included)... Normal [facility] Erythrocyte distribution wid th [Ratio] by Automated countOrdered By: Ovidio Licona on 09-22-2023 Erythrocyte distribution width (RBC) [Ratio] 15.6 % High 12.0-14.8 [facility] Comment on above: Performed By: #### C BC, HEPATIC, BMP, LIPASE #### [facility] [address] Erythrocytes [#/volume] in B lood by Automated countOrdered By: Ovidio Licona on 09-22-2023 RBC (Bld) [#/Vol] 3.98 10*6/uL Normal 3.90-5.[address] [facility] Comment on above: Performed By: #### C BC, HEPATIC, BMP, LIPASE #### [facility] [address] Glucose [Mass/volume] in Ser um or PlasmaOrdered By: Ovidio Licona on 09-22-2023 Glucose [Mass/Vol] 98 mg/dL Normal 70-100 [facility] Comment on above: ADA recommended refe rence rangeRandom Glucose Reference Range is dependent on time and content of last meal. Glucose of more than 200 mg/dL in a nonstressed, ambulatory subject supports the diagnosis of Diabetes Mellitus. Result Comment: [place] om Glucose Reference Range is dependent on time and content of last meal. Glucose of more than 200 mg/dL in a nonstressed, ambulatory subject supports the diagnosis of Diabetes Mellitus. ADA recommended reference range Performed By: #### C BC, HEPATIC, BMP, LIPASE #### [address] Hematocrit [Volume Fraction] of Blood by Automated countOrdered By: Ovidio Licona on 09-22-2023 Hematocrit (Bld) [Volume fraction] 37.0 % Low 38.8-50.0 [facility] Comment on above: Performed By: #### C BC, HEPATIC, BMP, LIPASE #### [facility] [address] Hemoglobin [Mass/volume] in BloodOrdered By: Ovidio Licona on 09-22-2023 Hemoglobin (Bld) [Mass/Vol] 12.1 g/dL Low 13.0-17.0 [facility] Comment on above: Performed By: #### C BC, HEPATIC, BMP, LIPASE #### [facility] [address] INR in Platelet poor plasma by Coagulation assayOrdered By: Ovidio Licona on 09-22-2023 INR Coag (PPP) [Relative time] 13.1 {INR} Off scale high [facility] Comment on above: Critical valueresult calledat [...] heart valves: 3 - 4.5 PERFORMED BY: [place] [address] PATHOLOGIST ENVIRONMENT COORDINATOR CHING PAREDES M.D. Performed By: #### C BC, HEPATIC, BMP, LIPASE #### [facility] [address] [place] [address] Leukocytes [#/volume] correc shayy for nucleated erythrocytes in Blood by Automated counOrdered By: Ovidio Licona on 09-22-2023 WBC corrected for nucl RBC Auto (Bld) [#/Vol] 11.9 10*3/uL 4.1-10.5 [facility] Leukocytes [#/volume] in Blo od by Automated countOrdered By: Ovidio Licona on 09-22-2023 WBC (Bld) [#/Vol] 11.9 10*3/uL [facility] 4.1-10.[address] [facility] Comment on above: Performed By: #### C BC, HEPATIC, BMP, LIPASE #### [facility] [address] [place] [address] [place] Lymphocytes [#/volume] in Bl ood by Automated countOrdered By: Ovidio Licona on 09-22-2023 Lymphocytes (Bld) [#/Vol] 1.2 10*3/uL Normal 1.00-4.8 [facility] Comment on above: Performed By: #### C BC, HEPATIC, BMP, LIPASE #### [facility] [address] Lymphocytes/100 leukocytes i n Blood by Automated countOrdered By: Ovidio Licona on 09-22-2023 Lymphocytes/100 WBC (Bld) 9.9 % Normal . [facility] Comment on above: Performed By: #### C BC, HEPATIC, BMP, LIPASE #### [address] MCH [Entitic mass] by Automa shayy countOrdered By: Ovidio Licona on 09-22-2023 MCH (RBC) [Entitic mass] 30.3 pg Normal 27.5-35.2 [facility] Comment on above: Performed By: #### C BC, HEPATIC, BMP, LIPASE #### [address] MCHC Auto (RBC) [Mass/Vol]Or dered By: Ovidio iLcona on 09-22-2023 MCHC (RBC) [Mass/Vol] 32.6 g/dL 32.5-35.6 [facility] MCV [Entitic volume] by Auto mated countOrdered By: Ovidio Licona on 09-22-2023 MCV (RBC) [Entitic vol] 93.0 fL Normal 83.5-101 [facility] Comment on above: Performed By: #### C BC, HEPATIC, BMP, LIPASE #### [address] Neutrophils [#/volume] in Bl ood by Automated countOrdered By: Ovidio Licona on 09-22-2023 Neutrophils (Bld) [#/Vol] 9.5 10*3/uL High 1.8-7.7 [facility] Comment on above: Performed By: #### C BC, HEPATIC, BMP, LIPASE #### [facility] [address] No Panel InformationOrdered By: Ovidio Licona on 09-22-2023 Estimated GFR (CKD-EPI) > 60.0 mL/Min [facility] Creatinine Clearance (Chem N/A [facility] Nucleated erythrocytes [Pres ence] in Blood by Automated countOrdered By: Ovidio Licona on 09-22-2023 Nucleated RBC Auto Ql (Bld) 0.2 /100{WBC} 0-0.5 [facility] Platelet mean volume [Entiti c volume] in Blood by Automated countOrdered By: Ovidio Licona on 09-22-2023 Platelet mean volume (Bld) [Entitic vol] 8.7 fL Normal 6.6-10.1 [facility] Comment on above: Performed By: #### C BC, HEPATIC, BMP, LIPASE #### [facility] [address] [place] [address] Platelets [#/volume] in Bloo d by Automated countOrdered By: Ovidio Licona on 09-22-2023 Platelets (Bld) [#/Vol] 203 10*3/uL Normal 150-450 [facility] Comment on above: Performed By: #### C BC, HEPATIC, BMP, LIPASE #### [address] Potassium [Moles/volume] in Serum or PlasmaOrdered By: Ovidio Licona on 09-22-2023 Potassium [Moles/Vol] 4.0 mmol/L Normal 3.5-5.1 [facility] Comment on above: Performed By: #### C BC, HEPATIC, BMP, LIPASE #### [address] Prothrombin time (PT)Ordered By: Ovidio Licona on 09-22-2023 PT Coag (PPP) [Time] 141.5 s High 9.0-12.9 [facility] Comment on above: A hematocrit value g reater than 55% may lead to inaccurate results in coagulation testing. Patients having hematocrit values >55% require a special collection tube for coagulation studies. Please contact the laboratory at [phone] for redraw instructions. Order Comment: List the anticoagulant: COUMADIN/WARFARIN Result Comment: A he matocrit value greater than 55% may lead to inaccurate results in coagulation testing. Patients having hematocrit values >55% require a special collection tube for coagulation studies. Please contact the laboratory at [phone] for redraw instructions. Performed By: #### C BC, HEPATIC, BMP, LIPASE #### [address] Serum or plasma anion gap de terminationOrdered By: Ovidio Licona on 09-22-2023 Anion gap [Moles/Vol] 5.9 mmol/L Low 6.0-15.0 [facility] Comment on above: Performed By: #### C BC, HEPATIC, BMP, LIPASE #### [address] Sodium [Moles/volume] in Ser um or PlasmaOrdered By: Ovidio Licona on 09-22-2023 Sodium [Moles/Vol] 138 mmol/L Normal 136-145 [facility] Comment on above: Performed By: #### C BC, HEPATIC, BMP, LIPASE #### [address] Urea nitrogen [Mass/volume] in Serum or PlasmaOrdered By: Ovidio Licona on 09-22-2023 Urea nitrogen [Mass/Vol] 21 mg/dL Normal 7-25 [facility] Comment on above: Performed By: #### C BC, HEPATIC, BMP, LIPASE #### [address] XR chest 2V*on 09-22-2023 XR chest 2V* [facility] [place] [address] XRay Report Signed Patient: Rehan Graves MR#: [id number] : 1970 Acct:[id number] Age/Sex: 53 / M ADM Date: 09/22/23 Loc: Room: Type: [facility] Attending Dr: Ovidio Licona MD Copies to: Ovidio Licona MD, FACC Ordering Provider: Ovidio Licona MD, [facility] Date of Service: 09/22/23 XR/XR chest 2V*: [...] Kelsey Price M.D.09/22/2023 4:15 PM Dictation Location: [facility] Transcribed By: [place] 09/22/23 1615 Dictated By: Kelsey Price MD 09/22/23 1611 Signed By: 09/22/23 1615 Normal [facility] Office Visit (Cardiology)on 09-22-2022 Follow-up [...] in adult Healthy Weight Tips; Status:Complete; Done: [id number] Some eating tips that can help you [...] down to 170 pounds Ovidio Licona MD, [facility] Surgical History Problems History of [...] Oral TabletTAKE 1 TABLET DAILY- Managed by [facility] Allergies Medication Altace CAPS Adverse [...] negative for complaint. Vitals Vital Signs Recorded: [id number] 11:17AM Heart Rate88, L Radial Bnroxyrc319, LUE, Sitting Soulylaew47, LUE, Sitting Height5 ft 9 in Klsezn184 lb BMI Cgpubtzhey76.75 kg/m2 BSA Calculated2.13 Tobacco Useb) No PHQ-2 #1. Over the last 2 weeks have you felt down, depressed or hopeless? (If yes, answer PHQ-9 below)No PHQ-2 #2. Over the last 2 weeks have you felt little i (more content not included)... Normal AutoAlert Tobacco Screening.on 023 Adult depression screening assessment No [facility]Sandu miryam 250 DO Work Phone: Fall risk assessment c) Not medically indicated [facility]Periu miryam 250 DO Work Phone: Tobacco use status [facility] b) No [facility]Sandu miryam 250 DO Work Phone: Vital Signs Date Time Vital Sign Value Performing Clinician Facility 08-14-2024 11:16-0500 Body height 175.3 cm Ovidio Licona MD Work Phone: [facility] 08-14-2024 11:16-0500 Body mass index (BMI) [Ratio] 34.56 kg/m2 Ovidio Licona MD Work Phone: [facility] 08-14-2024 11:16-0500 Body weight 106.14 kg Ovidio Licona MD Work Phone: [facility] 08-14-2024 11:16-0500 Diastolic blood pressure 60 mm[Hg] Ovidio Licona MD Work Phone: [facility] 08-14-2024 11:16-0500 Heart rate 60 /min Ovidio Licona MD Work Phone: [facility] 08-14-2024 11:16-0500 Systolic blood pressure 108 mm[Hg] Ovidio Licona MD Work Phone: [facility] 06-07-2024 09:29-0400 Body height 175.26 cm MD Rod Benitez Work Phone: [facility] 06-07-2024 09:29-0400 Body mass index (BMI) [Ratio] 36.3 kg/m2 MD Rod Benitez Work Phone: [facility] 06-07-2024 09:29-0400 Body temperature 97.2 [degF] MD Rod Benitez Work Phone: [facility] 06-07-2024 09:29-0400 Body weight 111.58 kg MD Rod Benitez Work Phone: [facility] 06-07-2024 09:29-0400 Diastolic blood pressure 59 mm[Hg] MD Rod Benitez Work Phone: [facility] 06-07-2024 09:29-0400 Heart rate 58 /min MD Rod Benitez Work Phone: [facility] 06-07-2024 09:29-0400 Respiratory rate 16 /min MD Rod Benitez Work Phone: [facility] 06-07-2024 09:29-0400 SaO2% (BldA) [Mass fraction] 99 % MD Rod Benitez Work Phone: [facility] 06-07-2024 09:29-0400 Systolic blood pressure 110 mm[Hg] MD Rod Benitez Work Phone: [facility] 05-30-2024 10:58-0400 Body height 175.3 cm Rod Benitez MD Work Phone: [facility] 05-30-2024 10:58-0400 Body mass index (BMI) [Ratio] 36.62 kg/m2 Rod Benitez MD Work Phone: [facility] 05-30-2024 10:58-0400 Body temperature 97.5 [degF] Rod Benitez MD Work Phone: [facility] 05-30-2024 10:58-0400 Body weight 112.49 kg Rod Benitez MD Work Phone: [facility] 05-30-2024 10:58-0400 Diastolic blood pressure 64 mm[Hg] Rod Benitez MD Work Phone: [facility] 05-30-2024 10:58-0400 Heart rate 40 /min Rod Benitez MD Work Phone: [facility] 05-30-2024 10:58-0400 Respiratory rate 20 /min Rod Benitez MD Work Phone: [facility] 05-30-2024 10:58-0400 SaO2% (BldA) [Mass fraction] 99 % Rod Benitez MD Work Phone: [facility] 05-30-2024 10:58-0400 Systolic blood pressure 122 mm[Hg] Rod Benitez MD Work Phone: [facility] 05-22-2024 07:23-0400 Body temperature 97.5 [degF] MD Rod Benitez Work Phone: [facility] 05-22-2024 07:23-0400 Diastolic blood pressure 87 mm[Hg] MD Rod Benitez Work Phone: [facility] 05-22-2024 07:23-0400 Heart rate 56 /min MD oRd Benitez Work Phone: [facility] 05-22-2024 07:23-0400 Respiratory rate 18 /min MD Rod Benitez Work Phone: [facility] 05-22-2024 07:23-0400 SaO2% (BldA) [Mass fraction] 96 % MD Rod Benitez Work Phone: [facility] 05-22-2024 07:23-0400 Systolic blood pressure 157 mm[Hg] MD Rod Benitez Work Phone: [facility] 05-22-2024 05:44-0400 Body weight 111.6 kg MD Rod Benitez Work Phone: [facility] 05-21-2024 15:41-0400 Body height 175.26 cm MD Rod Benitez Work Phone: [facility] 05-19-2024 21:30-0400 Diastolic blood pressure 64 mm[Hg] MD Rod Benitez Work Phone: [facility] 05-19-2024 21:30-0400 Heart rate 62 /min MD Rod Benitez Work Phone: [facility] 05-19-2024 21:30-0400 Respiratory rate 20 /min MD Rod Benitez Work Phone: [facility] 05-19-2024 21:30-0400 SaO2% (BldA) [Mass fraction] 97 % MD Rod Benitez Work Phone: [facility] 05-19-2024 21:30-0400 Systolic blood pressure 130 mm[Hg] MD Rod Benitez Work Phone: [facility] 05-19-2024 18:44-0400 Body temperature 98 [degF] MD Rod Benitez Work Phone: [facility] 05-19-2024 16:54-0400 Body height 171.45 cm MD Rod Benitez Work Phone: [facility] 05-19-2024 16:54-0400 Body weight 113 kg MD Rod Benitez Work Phone: [facility] 03-08-2024 13:07-0400 Body height 175.26 cm MD Rod Benitez Work Phone: [facility] 03-08-2024 13:07-0400 Body mass index (BMI) [Ratio] 35.2 kg/m2 MD Rod Benitez Work Phone: [facility] 03-08-2024 13:07-0400 Body temperature 96.9 [degF] MD Rod Benitez Work Phone: [facility] 03-08-2024 13:07-0400 Body weight 108.01 kg MD Rod Benitez Work Phone: [facility] 03-08-2024 13:07-0400 Diastolic blood pressure 60 mm[Hg] MD Rod Benitez Work Phone: [facility] 03-08-2024 13:07-0400 Heart rate 67 /min MD Rod Benitez Work Phone: [facility] 03-08-2024 13:07-0400 Respiratory rate 18 /min MD Rod Benitez Work Phone: [facility] 03-08-2024 13:07-0400 SaO2% (BldA) [Mass fraction] 97 % MD Rod Benitez Work Phone: [facility] 03-08-2024 13:07-0400 Systolic blood pressure 110 mm[Hg] MD Rod Benitez Work Phone: [facility] 02-15-2024 12:28-0400 Body height 175.[address] 02-15-2024 12:28-0400 Body mass index (BMI) [Ratio] 34.56 kg/m2 [address] 02-15-2024 12:28-0400 Body weight 106.[address] 02-15-2024 12:28-0400 Diastolic blood pressure 76 mm[Hg] [address] 02-15-2024 12:28-0400 Systolic blood pressure 114 mm[Hg] [address] 01-19-2024 09:51-0400 Body height 175.3 cm Ovidio Licona MD Work Phone: [facility] 01-19-2024 09:51-0400 Body mass index (BMI) [Ratio] 34.56 kg/m2 Ovidio Licona MD Work Phone: [facility] 01-19-2024 09:51-0400 Body weight 106.14 kg Ovidio Licona MD Work Phone: [facility] 01-19-2024 09:51-0400 Diastolic blood pressure 78 mm[Hg] Ovidio Licona MD Work Phone: [facility] 01-19-2024 09:51-0400 Heart rate 60 /min Ovidio Licona MD Work Phone: [facility] 01-19-2024 09:51-0400 Systolic blood pressure 110 mm[Hg] Ovidio Licona MD Work Phone: [facility] 01-06-2024 18:30-0400 Diastolic blood pressure 72 mm[Hg] MD Rod Benitez Work Phone: [facility] 01-06-2024 18:30-0400 Heart rate 63 /min MD Rod Benitez Work Phone: [facility] 01-06-2024 18:30-0400 Respiratory rate 16 /min MD Rod Benitez Work Phone: [facility] 01-06-2024 18:30-0400 SaO2% (BldA) [Mass fraction] 96 % MD Rod Benitez Work Phone: [facility] 01-06-2024 18:30-0400 Systolic blood pressure 162 mm[Hg] MD Rod Benitez Work Phone: [facility] 01-06-2024 16:26-0400 Body temperature 97.4 [degF] MD Rod Benitez Work Phone: [facility] 01-06-2024 16:23-0400 Body height 175.26 cm MD Rod Benitez Work Phone: [facility] 01-06-2024 16:23-0400 Body weight 103.8 kg MD Rod Benitez Work Phone: [facility] 01-05-2024 15:26-0400 Body height 175.3 cm [facility] 01-05-2024 15:26-0400 Body mass index (BMI) [Ratio] 34.26 kg/m2 [facility] 01-05-2024 15:26-0400 Body weight 105.23 kg [facility] 01-05-2024 15:26-0400 Diastolic blood pressure 78 mm[Hg] [facility] 01-05-2024 15:26-0400 Heart rate 63 /min [facility] 01-05-2024 15:26-0400 Systolic blood pressure 110 mm[Hg] Angie Camp MA [facility] 10-12-2023 09:41-0500 Body height 175.3 cm Ovidio Licona MD Work Phone: [facility] 10-12-2023 09:41-0500 Body mass index (BMI) [Ratio] 30.57 kg/m2 Ovidio Licona MD Work Phone: [facility] 10-12-2023 09:41-0500 Body weight 93.89 kg Ovidio Licona MD Work Phone: [facility] 10-12-2023 09:41-0500 Diastolic blood pressure 62 mm[Hg] Ovidio Licona MD Work Phone: [facility] 10-12-2023 09:41-0500 Heart rate 64 /min Ovidio Licona MD Work Phone: [facility] 10-12-2023 09:41-0500 Systolic blood pressure 138 mm[Hg] Ovidio Licona MD Work Phone: [facility] 10-03-2023 14:19-0500 Body height 175.3 cm Ovidio Licona MD Work Phone: [facility] 10-03-2023 14:19-0500 Body mass index (BMI) [Ratio] 31.75 kg/m2 Ovidio Licona MD Work Phone: [facility] 10-03-2023 14:19-0500 Body weight 97.52 kg Ovidio Licona MD Work Phone: [facility] 10-03-2023 14:19-0500 Diastolic blood pressure 64 mm[Hg] Ovidio Licona MD Work Phone: [facility] 10-03-2023 14:19-0500 Heart rate 72 /min Ovidio Licona MD Work Phone: [facility] 10-03-2023 14:19-0500 Systolic blood pressure 96 mm[Hg] Ovidio Licona MD Work Phone: [facility] 09-29-2023 08:21-0500 Body height 175.26 cm MD Rod Benitez Work Phone: [facility] 09-29-2023 08:21-0500 Body weight 102.05 kg MD Rod Benitez Work Phone: [facility] 09-14-2023 14:14-0500 Body height 175.3 cm [facility] 09-14-2023 14:14-0500 Body mass index (BMI) [Ratio] 33.08 kg/m2 [facility] 09-14-2023 14:14-0500 Body weight 101.61 kg [facility] 09-14-2023 14:14-0500 Diastolic blood pressure 86 mm[Hg] [facility] 09-14-2023 14:14-0500 Heart rate 132 /min [facility] 09-14-2023 14:14-0500 Systolic blood pressure 136 mm[Hg] [facility] 09-22-2022 11:17-0500 Body height 175.26 cm Rod Benitez Work Phone: [facility] 250 DO Work Phone: 09-22-2022 11:17-0500 Body mass index (BMI) [Ratio] 31.75 kg/m2 Rod Benitez Work Phone: [facility] 250 DO Work Phone: 09-22-2022 11:17-0500 Body surface area Derived from formula 2.13 m2 Rod Benitez Work Phone: [facility] 250 DO Work Phone: 09-22-2022 11:17-0500 Body weight 97.52 kg Rod Benitez Work Phone: [facility] 250 DO Work Phone: 09-22-2022 11:17-0500 Diastolic blood pressure 82 mm[Hg] Rod Benitez Work Phone: [facility] 250 DO Work Phone: 09-22-2022 11:17-0500 Heart rate 88 /min Rod Benitez Work Phone: [facility] 250 DO Work Phone: 09-22-2022 11:17-0500 Systolic blood pressure 120 mm[Hg] Rod Stoner Work Phone: [facility] 250 DO Work Phone: Encounters Encounter Date Encounter Type Care Provider Facility Start: 08-28-2024 Non-patient / Non-visit Rod roper MD Work Phone: [facility] Work Phone: Start: 08-28-2024 End: 08-28-2024 Patient encounter procedure Rod Benitez MD Work Phone: [facility]Res[facility] Work Phone: Start: 08-28-2024 End: 08-28-2024 ambulatory Rod Benitez MD Work Phone: [facility] Work Phone: Start: 08-14-2024 End: 08-14-2024 Office outpatient visit 25 minutes Ovidio Licona MD Work Phone: [facility] Comment on above: Typical atrial flutt er (Multi) (Primary Dx); High risk medication use; History of aortic valve replacement; Essential hypertension, benign; Dissecting aortic aneurysm (Multi); Mixed hyperlipidemia; Stage 3a chronic kidney disease (Multi); Frequent nocturnal awakening; BMI 34.0-34.9,adult; Former smoker; Obstructive sleep apnea; Other fatigue Start: 08-14-2024 End: 08-14-2024 ambulatory [facility] Start: 07-04-2024 End: 07-04-2024 ambulatory Nhung Pino Facility:[facility] Start: 07-04-2024 End: 07-04-2024 Patient encounter procedure Nhung Pino [facility] Start: 06-12-2024 ambulatory Nhung Pino Facility:[facility] Start: 06-07-2024 End: 06-07-2024 ambulatory MD Rod Benitez Work Phone: [facility] Work Phone: Start: 06-07-2024 End: 06-07-2024 Patient encounter procedure MD Rod Benitez Work Phone: [facility] Work Phone: Start: 05-30-2024 End: [...] / Non-visit MD Ute Benitez Work Phone: [facility] Work Phone: Start: 05-19-2024 End: 05-22-2024 Evaluation and management of inpatient MD Rod Benitez Work Phone: [facility] [place] [facility] Work Phone: Start: 05-10-2024 End: 05-10-2024 Patient encounter procedure MD Rod Benitez Work Phone: [facility] [place] Work Phone: Start: 05-10-2024 End: 05-10-2024 ambulatory MD Rod Benitez Work Phone: [facility] Work Phone: Start: 03-08-2024 End: 03-08-2024 ambulatory MD Rod Benitez Work Phone: [facility] Work Phone: Start: 03-08-2024 End: 03-08-2024 Patient encounter procedure MD Rod Benitez Work Phone: [facility] Work Phone: Start: 02-15-2024 End: 02-15-2024 Subsequent hospital visit by physician Vicki Lofton Echo/Vasc Room 2 [facility] Comment on above: History of aortic va lve replacement Start: 02-15-2024 End: 02-15-2024 ambulatory OVIDIO LICONA [facility] Start: 01-19-2024 End: 01-19-2024 Office outpatient visit 25 minutes Ovidio Licona MD Work Phone: [facility] Comment on above: Typical atrial flutt er (Multi) (Primary Dx); Atrial fibrillation, unspecified type (Multi); Essential hypertension, benign; History of aortic valve replacement; High risk medication use; Mixed hyperlipidemia; Stage 4 chronic kidney disease (Multi); BMI 34.0-34.9,adult; Former smoker; Nonischemic cardiomyopathy (Multi); Obesity, Class I, BMI 30-34.9; Right upper quadrant abdominal pain Start: 01-19-2024 End: 01-19-2024 ambulatory [facility] Start: 01-17-2024 End: 01-17-2024 ambulatory ROD BENITEZ Not Available Start: 01-06-2024 End: 01-06-2024 Emergency department patient visit MD Rod Benitez Work Phone: [facility]Emergency Room Work Phone: Start: 01-05-2024 End: 01-05-2024 Professional / ancillary services management Angie Camp MA [facility] Comment on above: Typical atrial flutt er (Multi) Start: 01-05-2024 End: 01-05-2024 ambulatory [facility] Start: 10-31-2023 End: 10-31-2023 Patient encounter procedure MD Rod Benitez Work Phone: [facility] [place] Work Phone: Start: 10-31-2023 End: 10-31-2023 ambulatory MD Rod Benitez Work Phone: [facility] Work Phone: Start: 10-16-2023 Non-patient / Non-visit MD Ute Benitez Work Phone: [facility] Work Phone: Start: 10-14-2023 End: 10-14-2023 Patient encounter procedure MD Rod Benitez Work Phone: [facility]Res[facility] Work Phone: Start: 10-14-2023 End: 10-14-2023 ambulatory [facility] Facility:[facility] Start: 10-12-2023 End: 10-12-2023 Office outpatient visit 10 minutes Ovidio Licona MD Work Phone: [facility] Comment on above: Atrial fibrillation, unspecified type (CMS/HCC); Atrial fibrillation status post cardioversion (CMS/HCC); Essential hypertension, benign; Typical atrial flutter (CMS/HCC); High risk medication use; History of aortic valve replacement Start: 10-12-2023 End: 10-12-2023 ambulatory [facility] Start: 10-03-2023 End: 10-03-2023 ambulatory [facility] Start: 10-03-2023 End: 10-03-2023 Office outpatient visit 10 minutes Ovidio Licona MD Work Phone: [facility] Comment on above: Atrial fibrillation, unspecified type (CMS/HCC); Atrial fibrillation status post cardioversion (CMS/HCC); Essential hypertension, benign; Typical atrial flutter (CMS/HCC) Start: 10-03-2023 End: 10-03-2023 Patient encounter procedure MD Rod Benitez Work Phone: [facility] [place] Work Phone: Start: 10-03-2023 End: 10-03-2023 ambulatory MD Rod Benitez Work Phone: [facility] Work Phone: Start: 09-29-2023 External Result Encounter Rod Benitez MD Work Phone: [facility] Unsolicited Start: 09-29-2023 External Result Encounter Rod Benitez MD Work Phone: [facility] Unsolicited Start: 09-29-2023 End: 09-29-2023 Admission to same day surgery center MD Rod Benitez Work Phone: [facility]Electrodiagnostics Work Phone: Start: 09-29-2023 End: 09-29-2023 ambulatory MD Rod Benitez Work Phone: [facility] Work Phone: Start: 09-26-2023 End: 09-26-2023 Patient encounter procedure MD Rod Benitez Work Phone: [facility] [place] Work Phone: Start: 09-26-2023 End: 09-26-2023 ambulatory MD Rod Benitez Work Phone: [facility] Work Phone: Start: 09-22-2023 End: 09-22-2023 Patient encounter procedure MD Rod Benitez Work Phone: [facility]Electro[facility]ostics Work Phone: Start: 09-22-2023 End: 09-22-2023 ambulatory MD Rod Benitez Work Phone: [facility] Work Phone: Start: 09-22-2023 End: 09-22-2023 ambulatory [facility] Start: 09-14-2023 End: 09-14-2023 Professional / ancillary services management Lindsey Desai [facility] Comment on above: Persistent atrial fi brillation (CMS/HCC) Start: 09-01-2023 End: 09-01-2023 ambulatory ROD BENITEZ Not Available Start: 05-02-2023 Rx Renewal Rod Benitez Work Phone: [facility] 250 DO Work Phone: Start: 03-28-2023 Rx Renewal Rod Benitez Work Phone: [facility] 250 DO Work Phone: Start: 12-13-2022 End: 01-12-[address] ROD BENITEZ Facility:[facility] Start: 11-15-2022 End: 12-10-[address] ROD BENITEZ Facility:[facility] Start: 11-10-2022 ambulatory Ovidio Licona Facility :[id number] Start: 10-25-2022 Rx Renewal Rod Benitez Work Phone: [facility] 250 DO Work Phone: Start: 10-13-2022 End: 11-12-2022 ambulatory FRY H FAWWAD Facility:[facility] Start: 09-22-2022 Office outpatient vi sit 25 minutes Rod Benitez Work Phone: [facility] 250 DO Work Phone: Start: 09-22-2022 ambulatory [...] 04-26-2022 Rx Renewal Rod Benitez Work Phone: [facility] 250 DO Work Phone: Start: 04-15-2022 End: 05-15-2022 ambulatory FRY Adrian FAWWAD Facility:[facility] Start: 03-16-2022 AUDIT Rod Benitez Work Phone: [facility] 250 DO Work Phone: Start: 03-15-2022 End: 04-14-2022 ambulatory FRY Adrian FAWWAD Facility:[facility] Start: 02-12-2022 End: 03-12-[address] ROD BENITEZ Facility:[facility] Start: 10-23-2021 Rx Renewal Rod Benitez Work Phone: [facility] 250 DO Work Phone: Procedures Date Procedure Procedure Detail Performing Clinician Start: 08-14-2024 Ecg routine ecg w/le ast 12 lds w/i&r Ovidio Licona MD Work Phone: Start: 05-22-2024 Plain chest X-ray MD Neal oakley Neymarrenay Work Phone: Start: 05-19-2024 Plain chest X-ray MD Neal oakley Chasepete Work Phone: Start: 05-10-2024 Ultrasonography of bilateral kidneys MD Rod Benitez Work Phone: Start: 01-06-2024 US scan of gallbladder MD Rod Benitez Work Phone: Start: 10-14-2023 Plain chest X-ray MD Neal Benitez Work Phone: Start: 10-12-2023 FOLLOW UP IN CARDIOLOGY OVIDIO LICONA Start: 10-03-2023 FOLLOW UP IN CARDIOLOGY OVIDIO RUANOAHIM Start: 10-03-2023 Ecg routine ecg w/le ast 12 lds w/i&r Ovidio Licona MD Work Phone: Start: 09-29-2023 Prothrombin time Rod roper MD Work Phone: Start: 09-22-2023 Basic metabolic 2000 panel - Serum or Plasma OVIDIO RUANOAHIM Start: 09-22-2023 CBC panel - Blood by Automated count OVIDIO RUANOAHIM Start: 09-22-2023 PROTIME-INR NOLAN IBR [facility] Start: 09-22-2023 Plain chest X-ray MD Neal oakley Casey Work Phone: Start: 09-22-2023 ECG 12-LEAD NOLAN IBR [facility] Start: 11-26-2021 Colonoscopy Rod traore MD Work Phone: Coronary artery bypa ss graft Rod Benitez Work Phone: Replacement of aorti c valve Rod Benitez Work Phone: NEGATED: Highlighted row has not occurred! Total colonoscopy Rod Benitez Work Phone: Plan of Treatment Date Care Activity Detail Author Start: 11-27-2031 Screening for malignant neoplasm of colon [facility] Start: 07-19-2025 Echocardiography Echocardiogram [facility] Start: 04-09-2025 End: 04-09-2025 Patient encounter procedure 04/09/2025 9:30 AM EDT Office Visit [facility] [address] [place] [address] Ovidio Licona MD [address] [place] [address] [facility] Start: 08-30-2024 End: 08-30-2024 Patient encounter procedure 08/30/2024 9:15 AM EST Office Visit [facility] [address] [place] [id number] Rod Benitez MD [address] [place] [id number] [facility] Start: 08-14-2024 End: 08-14-2025 Complete Pulmonary Function Test (Spirometry/DLCO/Lung Volumes) Complete Pulmonary Function Test (Spirometry/DLCO/Lung Volumes) PFT Routine Typical atrial flutter (Multi) High risk medication use Expected: 08/14/2024 (Approximate), Expires: 08/14/2025 [facility] Work Phone: Comment on above: Expected: 08/14/2024 (Approximate), Expi res: 08/14/2025 Start: 08-14-2024 End: 08-14-2025 In-Center Sleep Study In-Center Sleep Study Sleep Center Routine Frequent nocturnal awakening Expected: 08/14/2024, Expires: 08/14/2025 [facility] Service Area Work Phone: Comment on above: Expected: 08/14/2024, Expires: Start: 08-14-2024 End: 08-14-2025 Thyrotropin [Units/volume] in Serum or Plasma Thyroid Stimulating Hormone Lab Routine Typical atrial flutter (Multi) High risk medication use Expected: 08/14/2024 (Approximate), Expires: 08/14/2025 [facility] Work Phone: Comment on above: Expected: 08/14/2024 (Approximate), Expi res: 08/14/2025 Start: 05-25-2024 End: 05-25-2024 Patient encounter procedure 05/25/2024 2:00 PM EDT Office Visit [facility] [address] [place] [address] Ovidio Licona MD [address] [place] [address] [facility] Start: 05-24-2024 [facility] Start: 05-23-2024 [facility] Start: 05-22-2024 End: 05-22-2024 [facility] Start: 05-21-2024 [facility] Start: 05-20-2024 aPTT in Platelet poor plasma by Coagulation assay [facility] Start: 05-20-2024 [facility] Start: 05-19-2024 Sleep disorder assessment [facility] Start: 05-19-2024 Hospital admission [facility] Start: 05-19-2024 [facility] Start: 04-15-2024 COVID-19 Vaccine ( season) COVID-19 Vaccine ( season) [facility] Start: 04-15-2024 Influenza vaccination [facility] Start: 02-15-2024 End: 02-15-2024 Patient encounter procedure 02/15/2024 12:30 PM EDT Appointment [place] [id number] [place] [address] [facility] Start: 01-19-2024 End: 01-19-2024 Patient encounter procedure 01/19/2024 9:40 AM EDT Office Visit [facility] [address] [place] [address] Ovidio Licona MD [address] [place] [address] [facility] Start: 10-25-2023 End: 10-25-2023 Patient encounter procedure 10/25/2023 12:30 PM EDT Appointment [place] [facility] [facility] [address] [address] [facility] Start: 10-12-2023 End: 10-12-2024 Alanine aminotransferase [Enzymatic activity/volume] in Serum or Plasma by With P-5'-P Alanine Aminotransferase Lab Routine High risk medication use Expected: 10/12/2023 (Approximate), Expires: 10/12/2024 [facility] Work Phone: Comment on above: Expected: 10/12/2023 (Approximate), Expi res: 10/12/2024 Start: 10-12-2023 End: 10-12-2024 Aspartate aminotransferase [Enzymatic activity/volume] in Serum or Plasma by With P-5'-P Aspartate Aminotransferase Lab Routine High risk medication use Expected: 10/12/2023 (Approximate), Expires: 10/12/2024 [facility] Work Phone: Comment on above: Expected: 10/12/2023 (Approximate), Expi res: 10/12/2024 Start: 10-12-2023 End: 10-12-2024 Basic metabolic 2000 panel - Serum or Plasma Basic Metabolic Panel Lab Routine High risk medication use Expected: 10/12/2023 (Approximate), Expires: 10/12/2024 [facility] Work Phone: Comment on above: Expected: 10/12/2023 (Approximate), Expi res: 10/12/2024 Start: 10-12-2023 End: 10-12-2024 Thyrotropin [Units/volume] in Serum or Plasma Thyroid Stimulating Hormone Lab Routine High risk medication use Expected: 10/12/2023 (Approximate), Expires: 10/12/2024 [facility] Service Area Work Phone: Comment on above: Expected: 10/12/2023 (Approximate), Expi res: 10/12/2024 Start: 10-12-2023 End: 10-12-2025 US Heart Transthoracic Transthoracic Echo Limited Echocardiography Routine History of aortic valve replacement Expected: 10/12/2023 (Approximate), Expires: 10/12/2025 [facility] Work Phone: Comment on above: Expected: 10/12/2023 (Approximate), Expi res: 10/12/2025 Start: 10-12-2023 End: 10-12-2024 XR Chest 2 Views XR chest 2 views Imaging Routine High risk medication use Expected: 10/12/2023 (Approximate), Expires: 10/12/2024 [facility] Work Phone: Comment on above: Expected: 10/12/2023 (Approximate), Expi res: 10/12/2024 Start: 10-12-2023 End: 10-12-2023 Clinical Support 10/12/2023 9:30 AM EST Clinical Support [address] [phone] [facility] Start: 10-06-2023 End: 10-06-2023 Patient encounter procedure 10/06/2023 1:15 PM EST Office Visit [facility] [address] [place] [phone] Rod Benitez MD [address] [place] [address] [facility] Start: 10-03-2023 End: 10-03-2024 Basic metabolic 2000 panel - Serum or Plasma Basic Metabolic Panel Lab Routine Essential hypertension, benign Expected: 10/03/2023 (Approximate), Expires: 10/03/2024 [facility] Service Area Work Phone: Comment on above: Expected: 10/03/2023 (Approximate), Expi res: 10/03/2024 Start: 09-29-2023 [facility] Start: 09-22-2023 FUV, Provider: Ovidio Licona, Status: Pen, Time: 10:00 AM FUV, Provider: Ovidio Licona, Status: Pen, Time: 10:00 AM [facility] [address] DO Work Phone: Start: 09-22-2023 End: 09-22-2023 Patient encounter procedure 09/22/2023 10:00 AM EST Office Visit [facility] [address] [facility] [address] [place] [address] Ovidio Licona MD [address] [facility] [address] [place] [address] [facility] Start: 04-15-2023 COVID-19 Vaccine ( season) COVID-19 Vaccine ( season) [facility] Start: 04-15-2023 Influenza vaccination Influenza Vaccine (#1) [facility] Start: 11-10-2022 ECHO, Provider: ANGELINA [facility] ULTRASOUND 01,[id number], Status: Pen, Time: 10:45 AM ECHO, Provider: ANGELINA [facility] ULTRASOUND 01,[id number], Status: Pen, Time: 10:45 AM [facility] [address] DO Work Phone: Start: 09-22-2022 FUV, Provider: Ovidio Licona, Status: Pen, Time: 10:50 AM FUV, Provider: Ovidio Licona, Status: Pen, Time: 10:50 AM [facility] 250 DO Work Phone: Start: 03-16-2022 FUV, Provider: Ovidio Licona, Status: Pen, Time: 8:50 AM FUV, Provider: Ovidio Licona, Status: Pen, Time: 8:50 AM [facility] [address] DO Work Phone: Start: 2019 Zoster Vaccines (1 of 2) Zoster Vaccines (1 of 2) [facility] Start: 1991 DTaP/Tdap/Td Vaccines (1 - Tdap) DTaP/Tdap/Td Vaccines (1 - Tdap) [facility] Start: 01-24-1988 Hepatitis B Vaccines (1 of 3 - 19+ 3-dose series) Hepatitis B Vaccines (1 of 3 - 19+ 3-dose series) [facility] Start: 01-24-1988 Pneumococcal vaccination Pneumococcal Vaccine (1 of 2 - PCV) [facility] Start: 01-24-1988 Urine screening for protein CKD: Urine Protein Screening [facility] Start: 1987 Diabetes mellitus screening Diabetes Screening [facility] Start: 1987 Hepatitis C screening Hepatitis C Screening [facility] Start: 1975 Pneumococcal Vaccine: Pediatrics (0 to 5 Years) and At-Risk Patients (6 to 64 Years) (1 of 2 - PCV) Pneumococcal Vaccine: Pediatrics (0 to 5 Years) and At-Risk Patients (6 to 64 Years) (1 of 2 - PCV) [facility] Start: 1970 MMR Vaccines (1 of 1 - Standard series) MMR Vaccines (1 of 1 - Standard series) [facility] Start: 1969 COVID-19 Vaccine (#1) COVID-19 Vaccine (#1) [facility] Start: 1969 Creatinine measurement Creatinine Level [facility] Start: 1969 Hepatitis B Vaccines (1 of 3 - 3-dose series) Hepatitis B Vaccines (1 of 3 - 3-dose series) [facility] Start: 1969 HIV screening HIV Screening [facility] Start: 1969 Lipid panel Lipid Panel [facility] Start: 1969 Potassium measurement Potassium Level [facility] Start: 1969 Screening for malignant neoplasm of colon [facility] Start: 1969 Thyroid stimulating hormone measurement TSH Level [facility] Start: 1969 Yearly Adult Physical Yearly Adult Physical [facility] ECG 12 Lead ECG 12 Lead ECG Routine Persistent atrial fibrillation (CMS/HCC) 09/14/2023 12:50 PM EST [facility] Service Area Work Phone: ECG 12 Lead ECG 12 Lead ECG Routine Typical atrial flutter (Multi) 01/05/2024 12:47 PM EDT [facility] Service Area Work Phone: Patient Education [facility] Work Phone: Patient referral [facility] Work Phone: Renal function 1999 panel - Serum or Plasma [facility] Renal function 1999 panel - Serum or Plasma [facility] End: 02-15-2024 US Heart Transthoracic [facility] Service Area Work Phone: Comment on above: Once for 1 Occurrences starting 02/15/20 24 until 02/15/2024 [facility] Immunizations Immunization Date Immunization Notes Care Provider Fa juan daniel 08-15-2010 influenza virus vaccine, unspecified formulation [facility] Work Phone: influenza virus vaccine, unspecified formulation Rod A Naderer Work Phone: [facility] 250 DO Work Phone: Comment on above: 2009 Payers Date Payer Category Payer Managed Care (Private) [facility] [id number] 2023 Self-pay 2023 Private Health Insurance [id number] 1969 Unknown [id number] 2.16.840.1.445824.3.579.2. 356 1969 Unknown [id number] 2.16.840.1.462487.3.579.2. 1068 1969 Unknown [id number] 2.16.840.1.646469.3.579.2. 593 1969 Unknown [id number] 2.16.840.1.154661.3.579.2. 593 1969 Unknown [id number] 2.16.840.1.126254.3.579.2. 593 1969 Unknown [id number] 2.16.840.1.117872.3.579.2. 593 1969 Unknown [id number] 2.16.840.1.960041.3.579.2. 593 1969 Unknown [id number] 2.16.840.1.040739.3.579.2. 593 1969 Unknown [id number] 2.16.840.1.564546.3.579.2. 593 1969 Unknown [id number] 2.16.840.1.775061.3.579.2. 593 1969 Unknown [id number] 2.16.840.1.980064.3.579.2. 593 1969 Unknown [id number] 2.16.840.1.731802.3.579.2. 593 1969 Unknown [id number] 2.16.840.1.873582.3.579.2. 593 1969 Unknown [id number] 2.16.840.1.993136.3.579.2. 727 1969 Unknown [id number] 2.16.840.1.448991.3.579.2. 1244 1959 Unknown [id number] 1959 Unknown [id number] 1959 Unknown [id number] Unknown Unknown [id number] 2.16.840.1.521242.3.579.2. 531 Unknown [id number] .840.1.269692.3.579.2. 531 Unknown [id number] 2.16.840.1.878989.3.579.2. 531 Unknown [id number] 2.16.840.1.120607.3.579.2. 531 Unknown [id number] 2.16.840.1.718929.3.579.2. 531 Unknown [id number] 2.16.840.1.525946.3.579.2. 531 Unknown [id number] 2.16.840.1.506676.3.579.2. 531 Unknown [id number] 2.16.840.1.637027.3.579.2. 531 Unknown [id number] 2.16.840.1.197193.3.579.2. 531 Unknown [id number] 2.16.840.1.035821.3.579.2. 531 Social History Date Type Detail Facility Start: 08-25-2023 End: 01-19-2024 No illicit drug use No illicit drug use -[facility] 250 DO Work Phone: Comment on above: Quit 2006; Start: 08-25-2023 End: 01-19-2024 Tobacco smoking status NHIS Ex-smoker [facility] Work Phone: Start: 08-15-1988 End: 08-15-2006 History of tobacco use Current smoker [facility] Work Phone: Start: 08-15-1988 End: 08-15-2006 History of tobacco use Cigarette Smoker [facility] Work Phone: Start: 08-25-2023 End: 08-14-2024 Alcohol intake Current drinker of alcohol (finding) [facility] Work Phone: Start: 08-25-2023 End: 01-19-2024 Tobacco use panel [facility] Work Phone: Start: 08-25-2023 Alcohol Comment rarely [facility] Work Phone: Start: 1970 Sex Assigned At Not on file [facility] Work Phone: Start: 09-04-2023 End: 08-14-2024 Exposure to SARS-CoV-2 (event) Not sure [facility] Start: 1970 Sex Assigned At Male F [facility] Start: 09-01-2023 End: 01-19-2024 Tobacco use and exposure Smokeless tobacco non-user [facility] Start: 05-20-2024 End: 06-07-2024 Tobacco smoking status NHIS Never smoked tobacco (finding) [facility] Tobacco smoking status No Smokin g Status Entered [facility] Start: 08-29-2024 Sex Male (finding) [facility] Goals Date Patient Goal Desired Activity /State Functional Status Date Assessment Result Facility 05-22-2024 Functional status Patient at Baseline [facility] Work Phone: Mental Status Date Assessment Result Facility 05-22-2024 Cognitive function Cognitive Sta tus Patient at Baseline [facility] Work Phone: Clinical Notes 09-14-2023 to 08-28-2024 Ovidio Licona MD - 08/14/2024 11:20 AM ESTPatient Instructions Note Date & Type Note Facility 08-28-2024 Procedure note [facility] 08-14-2024 History of Present illness Narrative [...] recurrences. 3. Paroxysmal atrial flutter status post lutheran of sinus rhythm with cardioversion and currently [...] powdr breath act w/sensor inhaler, Inhale. As [id number], Disp: , Rfl: amiodarone (Pacerone) 200 mg [...] signing my name below, I, Monika Braswell LPN, Scribe attest that this documentation has been [...] discussion and plan. documented in this encounter [facility] Work Phone: 08-14-2024 Instructions Monika Dominique LPN [...] routine FOLLOW UP documented in this encounter [facility] Work Phone: 06-07-2024 Evaluation note Diagnosis Onset [...] 1 through stage 4 chronic ki acute Octob er 2023 11:00am Secondary hyperparathyroidism acute May 11:00am [facility] Work Phone: 1(586) 587-229710-16-2024 History of Present illness Narrative* Rod Benitez [...] 54 y.o. male who presents for Follow-up ([facility] Hospital follow up from 05/19-05/22 [...] and check sleep study. documented [facility] [id number] Progress note Author Rafa Mendez [facility] May 21, 2024 8:50pm Note Date/Time May 21, 2024 8: 50pm [facility] [address] [place] [address] Hospitalist Progress Note Signed Patient: Rehan Graves MR#: [id number] : 1970 Acct:[id number] Age/Sex: 54 / M Adm Date: 4 Loc: Room: [address] [place] [address] Type: ADM IN Attending Dr: Rafa Mendez [...] Dose Route Start Last Admin Trade Name Geno PRN Reason Stop Dose Admin Acetaminophen 650 [...] <Electronically signed by Rafa Mendez DO> 05/21/242049 [facility] Work Phone: 1(401) 551-458310-07-2024 Progress note Author W [facility] May 21, 2024 12:42pm Note Date/Time May 21, 2024 12 :42pm [facility] [address] [place] [address] Cardiology Progress Note Signed Patient: Rehan Graves MR#: [id number] : 1970 Acct:[id number] Age/Sex: 54 / M Adm Date: 4 Loc: Room: [address] [place] [address] Type: ADM IN Attending Dr: Rafa Mendez [...] prosthesis. Plan: 1. Agree with admit to quality assurance monitor 2. Continue diuresis with Lasix 40 [...] signed by Kristen Sterling DO> 05/21/24 1242 [facility] Work Phone: 1(207) 792-798210-06-2024 Progress note Author Rafa Mendez [facility] May 20, 2024 2:27pm Note Date/Time May 20, 2024 2: 27pm [facility] [address] [place] [address] Hospitalist Progress Note Signed Patient: Rehan Graves MR#: [id number] : 1970 Acct:[id number] Age/Sex: 54 / M Adm Date: 4 Loc: 3T Room: [address] [place] [address] Type: ADM IN Attending Dr: Rafa Mendez [...] Dose Route Start Last Admin Trade Name Dennisq PRN Reason Stop Dose Admin Albuterol 1 [...] 50 Mg Tablet PO 05/20/25 20:59 BID CEE Nitroglycerin 1 inch 05/20/24 21:00 Nitroglycerin 2% Oint Packet TRANSDERML 05/20/25 20:59 BID CEE Pramipexole Dihydrochloride 1.5 mg 05/20/24 00:30 05/20/24 [...] <Electronically signed by Rafa Mendez DO> 05/20/24 1427 [facility] Work Phone: 1(447) 363-330510-06-2024 Consult note Author Kolton Bhakta [facility] May 20, 2024 12:29pm Note Date/Time May 20, 2024 12 :18pm [facility] [address] [place] [address] Cardiology Consult Note Signed Patient: Rehan Graves MR#: [id number] : 1970 Acct:[id number] Age/Sex: 54 / M Adm Date: 4 Loc: Room: [address] [place] [address] Type: ADM IN Attending Dr: Rafa Mendez [...] negative unless noted below or in HPI [facility] Medical History (Updated 05/20/24 @ 03:01 by [...] Lymph # (Auto) 1.4 1.0 (1.00-4.8) x10E3/uL [place] # (Auto) 1.0 H 0.8 (0.0-0.8) x10E3/uL [...] nonspecific abnormality, ST segment, and/or T wave IN, pacemaker, normal Normal tracing: no change compared [...] prosthesis. Plan: 1. Agree with admit to quality assurance monitor 2. Continue diuresis with Lasix 40 [...] pleasant patient. Of note Mr. Graves's primary manager of engineering is Dr. Licona with [facility]. Documented By: Kolton Bhakta MD 05/20/24 1214 Signed By: <Electronically signed by Kolton Bhakta MD> 05/20/24 9909 [facility] Work Phone: 1(163) 204-605210-06-2024 History and physical note Author Rafa Mendez [facility] May 20, 2024 3:03am Note Date/Time May 19, 2024 9: 21pm [facility] [address] [place] [address] Hospitalist H&P Signed Patient: Rehan Graves MR#: [id number] : 1970 Acct:[id number] Age/Sex: 54 / M Adm Date: 4 Loc: Room: [address] [place] [address] Type: ADM IN Attending Dr: Rafa Mendez DO Copies to: MD Rafa Lopez, ~ HPI DATE OF EXAMINATION: 05/20/24 CHIEF COMPLAINT: [...] today the overall vascular haziness and comparison [id number] seems to indicate CHF. The patient was subsequently given 40 mg IV Lasix x 1 and admitted for acute exacerbation of congestive heart failure. 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 I will hold [...] problematic and this too has been ordered. [facility] Medical History (Updated 05/20/24 @ 03:01 by [...] % (Auto) 11.7 % (.) 05/19/24 19:32 [place] % (Auto) 8.5 % (.) 05/19/24 19:32 Eos % (Auto) 2.1 % (.) 05/19/24 19:32 Baso % (Auto) 0.8 % (.) 05/19/24 19:32 Nucleat RBC Rel Count 0.0 /100 WBC (0-0.5) 05/19/24 19:32 Neut # (Auto) 9.1 x10E3/uL (1.8-7.7) H 05/19/24 19:32 Lymph # (Auto) 1.4 x10E3/uL (1.00-4.8) 05/19/24 19:32 [place] # (Auto) 1.0 x10E3/uL (0.0-0.8) H 05/19/24 [...] signed by Rafa Mendez DO> 05/20/24 0303 [facility] Work Phone: 1([phone]) 436-688606-06-2024 History of Present illness Narrative* Ovidio Licona MD - 01/19/2024 9:40 AM EDT Subjective Rehan Graves is a 53 y.o. male Chief Complaint Follow-up HPI Patient is in the office for follow-up for the problems noted below. He was in the ER last week with right upper quadrant pain, gallbladder workup was negative. He is wax pot tender in the right upper quadrant which [...] therapy. 9. Paroxysmal atrial flutter status post lutheran of sinus rhythm with cardioversion and currently [...] need to be adjusted Ovidio Licona MD, FACC Review of Systems Respiratory: Positive for shortness [...] powdr breath act w/sensor inhaler, Inhale. As [id number], Disp: , Rfl: amiodarone (Pacerone) 200 mg [...] Scribe Attestation By signing my name below, Erma Mishra LPN, Scribe attest that this documentation has been [...] exam, discussion and plan. documented in this [facility] Work Phone: 1(552) 883-242606-06-2024 Instructions* Patient Instructions* Erma Castrejon LPN - [...] through Care Everywhere. * Heart Healthy Diet (Belizean) [facility] 1(220) 934-594905-23-2024 History of Present illness Narrative* Angie Camp [...] m (5' 9 ) [facility] Work Phone: 1([phone]) 860-780402-28-2024 History of Present illness Narrative* Ovidio Licona [...] powdr breath act w/sensor inhaler, Inhale. As [id number], Disp: , Rfl: amiodarone (Pacerone) 200 mg [...] Attestation By signing my name below, Ariana MishraMychal YUNG Scribe attest that this documentation has been prepared under the direction and in the presence of Ovidio Licona MD. Provider Attestation - Scribe documentation All medical record entries made by the Scribe were at my direction and personally dictated by me. Salvador reviewed the chart and agree that the record accurately reflects my personal performance of the history, physical exam, discussion and plan. [facility] Work Phone: 1(611) 318-376102-28-2024 Instructions* Patient Instructions* Ariana Rodriguez LPN - [...] time of your visit. [facility] Work Phone: 1([phone]) 156-644902-19-2024 History of Present illness Narrative* Ovidio Licona MD - 10/03/2023 2:00 PM EST Subjective Rehan Graves is a 53 [...] powdr breath act w/sensor inhaler, Inhale. As [id number], Disp: , Rfl: amiodarone (Pacerone) 200 mg [...] Attestation By signing my name below, Ariana Mishra AGA, Scribe attest that this documentation has been [...] exam, discussion and plan. [facility] Work Phone: 1(884) 638-957802-19-2024 Instructions* Patient Instructions* Lindsey Desai LPN - [...] time of your visit. [facility] Work Phone: 1([phone]) 333-172702-15-2024 [facility] History of Present illness Narrative* Lindsey Desai [...] m (5' 9 ) documented in this [facility] Work Phone: Discharge summary Author Ovidio Licona [facility] September 29, 2023 9:53am Note Date/Time September 29, 2023 9:53am [facility] [address] [place] [address] Discharge Summary Signed Patient: Rehan Graves MR#: [id number] : 1970 Acct:[id number] Age/Sex: 53 / M Adm Date: 4 Loc: Room: Attending Dr: Ovidio Licona MD Copies to: Ovidio Licona MD, [facility] Rod Benitez MD~ Providers Date of Discharge: [...] Cancelled, INR Cancelled, Sodium 139, Potassium 4.7, [id number], Carbon Dioxide 34.3 H, Anion Gap 10.4 [...] PO DAILY Documented By: Ovidio Licona MD, [facility] 4 [phone] Signed By: <Electronically signed by [facility]> 09/29/23 0953 [facility] Work Phone: Evaluation + Plan note No data available for this section [facility] evaluation note* Diagnosis Persistent atrial fibrillation (CMS/HCC) Atrial fibrillation documented in this encounter [facility] Work Phone: Evaluation noteNo assessment information available [facility] Work Phone: Evaluation note* Diagnosis Atrial fibrillation, unspecified type (CMS/HCC) Essential hypertension, benign Typical atrial flutter (CMS/HCC) documented in this encounter [facility] Work Phone: Evaluation note* Diagnosis Atrial fibrillation, unspecified type (CMS/HCC) Essential hypertension, benign Typical atrial flutter (CMS/HCC) High risk medication use History of aortic valve replacement Heart valve replaced by other means documented in this encounter [facility] Work Phone: Evaluation note* Diagnosis Typical atrial flutter (Multi) documented in this encounter [facility] Work Phone: Evaluation note* Diagnosis Typical atrial [...] quadrant abdominal pain documented in this encounter [facility] Work Phone: Evaluation note* Diagnosis Onset Date Resolution Status Afib acute CKD (chronic kidney disease) stage 3, GFR 30-59 ml/min acute HFrEF (heart failure with reduced ejection fraction) acute Hyperlipidemia acute [id number] acute Secondary hyperparathyroidism acute [facility] Work Phone: Evaluation note* Diagnosis Onset Date Resolution Status Afib acute CKD (chronic kidney disease) stage 3, GFR 30-59 ml/min acute HFrEF (heart failure with reduced ejection fraction) acute Hyperlipidemia acute [id number] acute Secondary hyperparathyroidism acute Acute exacerbation of CHF (congestive heart failure) acute [facility] Work Phone: Evaluation note* Diagnosis Onset Date Resolution Status Afib acute CKD (chronic kidney disease) stage 3, GFR 30-59 ml/min acute HFrEF (heart failure with reduced ejection fraction) acute Hyperlipidemia acute [id number] acute Secondary hyperparathyroidism acute Acute exacerbation of CHF (congestive heart failure) acute Acute systolic heart failure due to valvular disease acute HFrEF (heart failure with reduced ejection fraction) acute HTN (hypertension) acute Mechanical heart valve present acute [facility] Work Phone: Evaluation note* Diagnosis Mild intermittent asthma with acute exacerbation (CMS/HCC)- Primary Sinus tachycardia Other specified cardiac dysrhythmias RANDELL (generalized anxiety disorder) ([facility]/HCC) Generalized anxiety disorder Leg edema- Primary Edema H/O aortic valve replacement Asymptomatic varicose veins of left lower extremity Ventral hernia without obstruction or gangrene Unspecified ventral hernia without mention of obstruction or gangrene Essential hypertension, benign (CMS/HCC) Essential hypertension, benign Chronic heart failure with preserved ejection fraction (HFpEF) ([facility])- Primary Essential hypertension, benign ([facility]) Essential hypertension, benign Hypersomnia Hypersomnia, unspecified RLS (restless legs syndrome) Restless legs syndrome (RLS) RANDELL (generalized anxiety disorder) ([facility]) Generalized anxiety disorder documented in this encounter [facility]* Diagnosis Onset Date Resolution Status HFrEF (heart failure with reduced ejection fraction) acute HTN (hypertension) acute Mechanical heart valve present acute Afib acute CKD (chronic kidney disease) stage 3, GFR 30-59 ml/min acute HFrEF (heart failure with reduced ejection fraction) acute Hyperlipidemia acute [id number] acute Secondary hyperparathyroidism acute [facility] Work Phone: Evaluation note* Diagnosis History of aortic valve replacement Heart valve replaced by other means documented in this encounter [facility] Work Phone: Evaluation note* Diagnosis Typical atrial [...] (pediatric) Other fatigue documented in this encounter [facility] Work Phone: Hospital Discharge instructions No data available for this section [facility] progress note Author Kristen Sterling [facility] May 22, 2024 4:34pm Note Date/Time May 22, 2024 4: 34pm [facility] [address] [place] [address] Cardiology Progress Note Signed Patient: Rehan Graves MR#: [id number] : 1970 Acct:[id number] Age/Sex: 54 / M Adm Date: 4 Loc: 3T Room: 6S3524-5 Type: ADM IN Attending Dr: Rafa Mendez [...] prosthesis. Plan: 1. Agree with admit to quality assurance monitor 2. Continue diuresis with Lasix 40 [...] signed by Kristen Sterling DO> 05/22/24 1634 [facility] Work Phone: Progress note No data available for this section [facility] reason for referral (narrative)* Consultation (Routine) - Authorized Specialty Diagnoses / Procedures Referred By Contlindsay t Referred To Contact Nephrology Diagnoses Stage 4 chronic kidney disease (Multi) Ovidio Licona MD [address] [place] [id number] Referral ID Status Reason Start Date Expiration Date Visits Requested Visits Authorized [id number] Authorized Specialty Services Required 01/19/2024 01/18/2025 [address] Romo * Consultation (Routine) - Authorized Specialty Diagnoses / Procedures Referred By Contac t Referred To Contact Cardiology Diagnoses Typical atrial flutter (Multi) Procedures Follow Up In Cardiology Ovidio Licona MD [address] [place] [address] Ovidio Licona MD [address] [place] [address] 2, [facility] [address] [place] [address] Referral ID Status Reason Start Date Expiration Date V isits Requested Visits Authorized [id number] Authorized 01/19/2024 01/18/2025 1 1 [facility] Work Phone: Family History No Family History [...] to 170 pounds * Ovidio Licona MD, [facility] * REHAN GRAVES is being seen for [...] to 170 pounds * Ovidio Licona MD, [facility] Summary Purpose Advance Directives No Advanced Directives [...] (heart failure with reduced ejection fraction) Hyperlipidemia [id number] Secondary hyperparathyroidism Chief Complaint RENAL I50.20 I48.91 E78.5 N25.81 I12.9 N18.30 Reason for Visit Afib CKD (chronic kidney disease) stage 3, GFR 30-59 ml/min HFrEF (heart failure with reduced ejection fraction) Hyperlipidemia [id number] Secondary hyperparathyroidism Chief Complaint RENAL I50.20 I48.91 E78.5 N25.81 I12.9 N18.30 sob, dizzy Reason for Visit Afib CKD (chronic kidney disease) stage 3, GFR 30-59 ml/min HFrEF (heart failure with reduced ejection fraction) Hyperlipidemia [id number] Secondary hyperparathyroidism Acute exacerbation of CHF (congestive heart failure) Chief Complaint RENAL I50.20 I48.91 E78.5 N25.81 I12.9 N18.30 sob, dizzy sob, dizzy Reason for Visit Afib CKD (chronic kidney disease) stage 3, GFR 30-59 ml/min HFrEF (heart failure with reduced ejection fraction) Hyperlipidemia [id number] Secondary hyperparathyroidism Acute exacerbation of CHF (congestive [...] (heart failure with reduced ejection fraction) Hyperlipidemia [id number] Secondary hyperparathyroidism Chief Complaint Admit Date RENAL [...] ECG 12 Lead Ovidio Licona MD [address] [facility] 2, [address] [address] Referral ID Status Reason Start Date Expiration Date V isits Requested Visits Authorized [id number] Authorized 10/03/2023 10/02/2024 1 1 Specialty Diagnoses / Procedures Referred By Contac t Referred To Contact Cardiology Diagnoses Atrial fibrillation, unspecified type (CMS/HCC) Atrial fibrillation status post cardioversion (CMS/HCC) Essential hypertension, benign Typical atrial flutter (CMS/HCC) Procedures Follow Up In Cardiology Ovidio Licona MD [address] [place] [address] [address], [address] [address] Referral ID Status Reason Start Date Expiration Date V isits Requested Visits Authorized [id number] Authorized 10/03/2023 10/02/2024 1 1 Specialty Diagnoses / Procedures Referred By Contac t Referred To Contact Radiology Diagnoses High risk medication use Procedures XR chest 2 views Ovidio Licona MD [address] [place] [address] [address], [address] [address] Referral ID Status Reason Start Date Expiration Date Visits Requested Visits Authorized [id number] Authorized Perform Procedure 10/12/2023 10/11/2024 1 1 Specialty Diagnoses / Procedures Referred By Contac t Referred To Contact Cardiology Diagnoses History of aortic valve replacement Procedures Transthoracic Echo Limited WI ECHO TRANSTHORC R-T 2D W/WO M-MODE REC F-UP/LMTD WI DOP ECHOCARD COLOR FLOW VELOCITY MAPPING WI DOP ECHOCARD PULSE WAVE W/SPECTRAL F-UP/LMTD STD Ovidio Licona MD [address] [place] [address] [address], [address] [address] Referral ID Status Reason Start Date Expiration Date Visits Requested Visits Authorized [id number] Pending Review Perform Procedure 10/12/2023 10/11/2024 1 1 Specialty Diagnoses / Procedures Referred By Contac t Referred To Contact Cardiology Diagnoses Atrial fibrillation, unspecified type (CMS/HCC) Procedures Follow Up In Cardiology Ovidio Licona MD [address] [facility] 2, [address] [place] [address] Ovidio Licona MD [address] [facility] 2, [address] [place] [address] Referral ID Status Reason Start Date Expiration Date V isits Requested Visits Authorized [id number] Authorized 10/12/2023 10/11/2024 1 1 Additional Source Comments (unrecognized sect ion and content) No Status Records FoundNo Status Records FoundNo Status Records FoundNo Status Records FoundNo Status Records FoundNo Status Records FoundNo Status Records FoundNo Status Records FoundNo Status Records Found INFORMATION SOURCE (unrecogn ized section and content) DATE CREATED AUTHOR 09/23/2022 [employer] DATE CREATED AUTHOR AUTHOR'S ORGANIZ ATION 11/07/2022 [facility] DATE CREATED AUTHOR AUTHOR'S ORGANIZ ATION 11/14/2022 [facility] DATE CREATED AUTHOR AUTHOR'S ORGANIZ ATION 01/21/2023 [facility] DATE CREATED AUTHOR AUTHOR'S ORGANIZ ATION 03/07/2024 [facility] DATE CREATED AUTHOR AUTHOR'S ORGANIZ ATION 06/01/2024 [facility] DATE CREATED AUTHOR AUTHOR'S ORGANIZ ATION 07/07/2024 [facility] DATE CREATED AUTHOR AUTHOR'S ORGANIZ ATION 08/31/2024 [facility] DATE CREATED AUTHOR AUTHOR'S ORGANIZ ATION 09/22/2024 [facility] Reason for Visit (unrecogniz ed section and content) Reason Comments ekg visit Specialty Diagnoses / Procedures Referred By Contlindsay t Referred To Contact Diagnoses Persistent atrial fibrillation (CMS/HCC) Procedures ECG 12 Lead Ovidio Licona MD [address] [facility] 2, [facility] [address] [place] [address] Referral ID Status Reason Start Date Expiration Date V isits Requested Visits Authorized [id number] Authorized 09/07/2023 09/06/2024 1 1 Reason Comments Hypertension Bp check with EKG, p ost Dcc Specialty Diagnoses / Procedures Referred By Contac t Referred To Contact Cardiology Diagnoses Atrial fibrillation, unspecified type (CMS/HCC) Atrial fibrillation status post cardioversion (CMS/HCC) Procedures Follow Up In Cardiology Ovidio Licona MD [address] [place] [address] Referral ID Status Reason Start Date Expiration Date V isits Requested Visits Authorized [id number] Authorized 09/29/2023 09/28/2024 1 1 Reason Comments Hypertension Blood Pressure Check Specialty Diagnoses / Procedures Referred By Contac t Referred To Contact Cardiology Diagnoses Atrial fibrillation, unspecified type (CMS/HCC) Atrial fibrillation status post cardioversion (CMS/HCC) Essential hypertension, benign Typical atrial flutter (CMS/HCC) Procedures Follow Up In Cardiology Ovidio Licona MD [address] [place] [address] Referral ID Status Reason Start Date Expiration Date V isits Requested Visits Authorized [id number] Authorized 10/03/2023 10/02/2024 1 1 Reason Comments Follow-up ekg Specialty Diagnoses / Procedures Referred By Balac t Referred To Contact Diagnoses Typical atrial flutter (Multi) Procedures ECG 12 Lead Ovidio Licona MD [address] [facility] 2, [address] [place] [address] Referral ID Status Reason Start Date Expiration Date V isits Requested Visits Authorized [id number] Authorized 01/02/2024 01/01/2025 1 1 Reason Comments Follow-up 3m echo results Specialty Diagnoses / Procedures Referred By Contac t Referred To Contact Cardiology Diagnoses Atrial fibrillation, unspecified type (Multi) Procedures Follow Up In Cardiology Ovidio Licona MD [address], [address] [place] [address] Ovidio Licona MD [address], [address] [place] [address] Referral ID Status Reason Start Date Expiration Date V isits Requested Visits Authorized [id number] Authorized 10/12/2023 10/11/2024 1 1 Reason Comments Follow-up [facility] stay Specialty Diagnoses / Procedures Referred By Contac t Referred To Contact Cardiology Diagnoses History of aortic valve replacement Procedures Transthoracic Echo Limited WI ECHO TRANSTHORC R-T 2D W/WO M-MODE REC F-UP/LMTD WI DOP ECHOCARD COLOR FLOW VELOCITY MAPPING WI DOP ECHOCARD PULSE WAVE W/SPECTRAL F-UP/LMTD STD Ovidio Licona MD 703 [facility] 2, [address] [address] Referral ID Status Reason Start Date Expiration Date Visits Requested Visits Authorized [id number] Pending Review Perform Procedure 10/12/2023 10/11/2024 1 1 Reason Comments Follow-up 4m Specialty Diagnoses / Procedures Referred By Contac t Referred To Contact Diagnoses Typical atrial flutter (Multi) Procedures ECG 12 Lead Ovidio Licona MD [address] [facility] 2, [address] [address] Phone: tel: fax: Referral ID Status Reason Start Date Expiration Date V isits Requested Visits Authorized [id number] Authorized 08/14/2024 08/14/2025 1 1 Care Teams (unrecognized sec tion and content) Sales Order Coordinator Relationship Specialty Start Date End Date Rod Benitez MD [address] [place] [address] PCP - General Family Medicine 09/14/23 Team [...] September 29, 2023 End: September 29, 2023 Sales Order Coordinator Relationship Specialty Start Date End Date Fabiola Tran NP [address], [place] [id number] PCP [facility] 11/13/22 Rod Benitez MD [address] [place] [phone] PCP - General Family Medicine 09/01/23 Sales Order Coordinator Relationship Specialty Start Date End Date Rod Benitez MD [address] [place] [phone] PCP - General Family Medicine 09/14/23 Team Status: Inactive Member Role Status Dates Rod Benitez MD Primary Care Provider Active S tart: October 03, 2023 End: October 03, 2023 Ovidio Licona MD Attending Provider Active St art: October 03, 2023 End: October 03, 2023 Sales Order Coordinator Relationship Specialty Start Date End Date Rod Benitez MD [address] [place] [phone] PCP - General Family Medicine 09/14/23 Team [...] October 31, 2023 End: October 31, 2023 Sales Order Coordinator Relationship Specialty Start Date End Date Rod Benitez MD PCP - General Family Medicine 09/14/23 Team Status: Inactive Member Role Status Dates Rod Benitez MD Primary Care Provider Active S tart: January 06, 2024 End: January 06, 2024 Shanel Steele DO Emergency Provider Active St art: January 06, 2024 End: January 06, 2024 Sales Order Coordinator Relationship Specialty Start Date End Date Rod [...] Star t: May 19, 2024 Rafa Mendez DO Admit Provider, Atte [...] Other Provider Active Start: May 20, 2024 Sales Order Coordinator Relationship Specialty Start Date End Date Rod Benitez MD [address] [place] [id number] PCP - General Family Medicine 09/01/23 Sales Order Coordinator Relationship Specialty Start Date End Date Rod Benitez MD [address] [place] [address] PCP - General Family Medicine 09/01/23 Team Status: Inactive Member Role Status Dates Rod Benitez MD Primary Care Provider Active S tart: June 07, 2024 End: June 07, 2024 Karla Shoemaker MD Attending Provider Active Start : June 07, 2024 End: June 07, 2024 Sales Order Coordinator Relationship Specialty Start Date End Date Rod Benitez MD [address] [place] [address] PCP - General Family Medicine 02/02/24 Sales Order Coordinator Relationship Specialty Start Date End Date Rod Benitez MD [address] [place] [address] PCP - General Family Medicine 02/02/24 Team [...] BE BASED ON THE PRIMARY CLINICAL RECORDS. [employer] provides no warranty or guarantee of the accuracy or completeness of information in this document.
== END 2024-09-24 10:45 | disposition home or self-care (01) ==
LOC: EC 10:44
PROVIDERS: PCP Family Medicine; Visit Provider Orthopaedic Surgery
DX: S82.832D Other fracture of upper and lower end of left fibula, subsequent encounter for closed fracture with routine healing (principal)
CPT/HCPCS: 73610

== ENCOUNTER 2024-10-01 09:05 | Outpatient (OUT) | payer OTHER, SELFPAY ==
--- NOTE | 2024-10-01 | XR_ITS ---
The [address] [address] Patient Name: DAVID GRAVES MRN: [id number] date: 1970 Sex: M Assigned Patient Location: Current Patient Location: Accession/Order Number: [id number] Exam Date: 10/01/2024 09:25 Report Date: 10/01/2024 17:27 At the request of: LEO VILLA Procedure: XR ankle LT min 3V EXAM: XR ankle LT min 3V HISTORY: LEFT ANKLE PAIN COMPARISON: 09/24/2024. TECHNIQUE: 3 views of the left ankle. FINDINGS: There is an oblique, mildly displaced fracture of the distal fibular metadiaphysis. Alignment is maintained. Subtle endosteal erosion is noted compatible with early healing change. Distal tibia is intact. Talar down appears smooth. Tibiotalar alignment appears preserved. Small plantar calcaneal spur. Soft tissue swelling of ankle and foot. No radiopaque foreign body. Arteriovascular calcification noted. XR/XR ankle LT min 3V IMPRESSION: Oblique, mildly displaced fracture of the distal fibula demonstrates similar alignment. Early healing changes are noted. Electronically authenticated by: BUTCH QUINN Date: 10/01/2024 17:27
== END 2024-10-01 09:06 | disposition home or self-care (01) ==
PROVIDERS: PCP Family Medicine; Visit Provider Orthopaedic Surgery
DX: S82.832D Other fracture of upper and lower end of left fibula, subsequent encounter for closed fracture with routine healing (principal)
CPT/HCPCS: 73610

== ENCOUNTER 2024-10-13 12:06 | Outpatient (RCR) | payer OTHER, SELFPAY | END 2024-11-09 12:32 | disposition home or self-care (01) | LOC: MM 12:06 | PROVIDERS: PCP Family Medicine; Visit Provider Internal Medicine | DX: Z51.81 Encounter for therapeutic drug level monitoring (principal); Z79.01 Long term (current) use of anticoagulants; Z95.828 Presence of other vascular implants and grafts | CPT/HCPCS: 85610; G0463 ==

== ENCOUNTER 2024-11-12 11:52 | Outpatient (OUT) | payer OTHER, SELFPAY ==
--- NOTE | 2024-11-12 | XR_ITS ---
[place] [address] Patient Name: DAVID GRAVES MRN: [id number] date: 1970 Sex: M Assigned Patient Location: Current Patient Location: Accession/Order Number: [id number] Exam Date: 11/12/2024 13:50 Report Date: 11/12/2024 13:52 At the request of: LEO VILLA MD Procedure: XR ankle LT min 3V 2 views left ankle plain film with weightbearing COMPARISON: 10/01/2024 HISTORY: Follow-up left distal fibular fracture ACUTE FINDINGS: Surrounding callus formation consistent with interval healing. Stable alignment. DEGENERATIVE CHANGE: Unremarkable SOFT TISSUE FINDINGS: Soft tissue swelling JOINT EFFUSION: None POSTOP CHANGES: None BONE MINERALIZATION: Adequate XR/XR ankle LT min 3V IMPRESSION: Healing fracture with stable alignment Impression dictated by: Jarred Anguiano M.D.11/12/2024 1:52 PM Dictation Location: [facility] V[facility] Electronically authenticated by: [id number] Y Date: 11/12/2024 13:52
== END 2024-11-12 11:53 | disposition home or self-care (01) ==
LOC: EC 11:53
PROVIDERS: PCP Family Medicine; Visit Provider Orthopaedic Surgery
DX: S82.832D Other fracture of upper and lower end of left fibula, subsequent encounter for closed fracture with routine healing (principal)
CPT/HCPCS: 73610

== ENCOUNTER 2024-11-13 05:34 | Outpatient (RCR) | payer OTHER, SELFPAY | END 2024-12-12 16:00 | disposition home or self-care (01) | LOC: MM 05:34 | PROVIDERS: PCP Family Medicine; Visit Provider Internal Medicine | DX: Z51.81 Encounter for therapeutic drug level monitoring (principal); Z79.01 Long term (current) use of anticoagulants; Z95.2 Presence of prosthetic heart valve | CPT/HCPCS: 85610; G0463 ==

== ENCOUNTER 2024-12-13 04:55 | Outpatient (RCR) | payer OTHER, SELFPAY | END 2025-01-11 15:43 | disposition home or self-care (01) | LOC: MM 04:55 | PROVIDERS: PCP Family Medicine; Visit Provider Internal Medicine | DX: Z51.81 Encounter for therapeutic drug level monitoring (principal); Z79.01 Long term (current) use of anticoagulants; Z95.2 Presence of prosthetic heart valve ==

== ENCOUNTER 2025-01-13 07:31 | Outpatient (RCR) | payer OTHER, SELFPAY | END 2025-02-07 14:33 | disposition home or self-care (01) | LOC: MM 07:31 | PROVIDERS: PCP Family Medicine; Visit Provider Internal Medicine | DX: Z51.81 Encounter for therapeutic drug level monitoring (principal); Z79.01 Long term (current) use of anticoagulants; Z95.2 Presence of prosthetic heart valve | CPT/HCPCS: 85610; G0463 ==

== ENCOUNTER 2025-02-12 02:39 | Outpatient (RCR) | payer OTHER, SELFPAY | END 2025-03-14 16:34 | disposition home or self-care (01) | LOC: MM 02:39 | PROVIDERS: PCP Family Medicine; Visit Provider Internal Medicine | DX: Z51.81 Encounter for therapeutic drug level monitoring (principal); Z79.01 Long term (current) use of anticoagulants; Z95.2 Presence of prosthetic heart valve | CPT/HCPCS: 85610; G0463 ==

== ENCOUNTER 2025-03-15 00:43 | Outpatient (RCR) | payer OTHER, SELFPAY | END 2025-04-11 12:54 | disposition home or self-care (01) | LOC: MM 00:43 | PROVIDERS: PCP Family Medicine; Visit Provider Internal Medicine | DX: Z51.81 Encounter for therapeutic drug level monitoring (principal); Z79.01 Long term (current) use of anticoagulants; Z95.4 Presence of other heart-valve replacement | CPT/HCPCS: 85610; G0463 ==

== ENCOUNTER 2025-04-15 03:15 | Outpatient (RCR) | payer OTHER, SELFPAY | END 2025-05-14 15:17 | disposition home or self-care (01) | LOC: MM 03:15 | PROVIDERS: PCP Family Medicine; Visit Provider Internal Medicine | DX: Z51.81 Encounter for therapeutic drug level monitoring (principal); Z79.01 Long term (current) use of anticoagulants; Z95.2 Presence of prosthetic heart valve | CPT/HCPCS: 85610; G0463 ==

== ENCOUNTER 2025-05-15 05:25 | Outpatient (RCR) | payer OTHER, SELFPAY | END 2025-06-14 23:59 | disposition home or self-care (01) | LOC: MM 05:25 | PROVIDERS: PCP Family Medicine; Visit Provider Internal Medicine | DX: Z51.81 Encounter for therapeutic drug level monitoring (principal); Z79.01 Long term (current) use of anticoagulants; Z95.2 Presence of prosthetic heart valve | CPT/HCPCS: 85610; G0463 ==

== ENCOUNTER 2025-06-15 | Outpatient (RCR) | payer OTHER, SELFPAY | END 2025-07-14 23:59 | disposition home or self-care (01) | LOC: MM | PROVIDERS: PCP Family Medicine; Visit Provider Internal Medicine | DX: Z51.81 Encounter for therapeutic drug level monitoring (principal); Z79.01 Long term (current) use of anticoagulants; Z95.2 Presence of prosthetic heart valve | CPT/HCPCS: 85610; G0463 ==

== ENCOUNTER 2025-07-15 12:47 | Outpatient (RCR) | payer OTHER, SELFPAY | END 2025-08-14 13:24 | disposition home or self-care (01) | LOC: MM 12:47 | PROVIDERS: PCP Family Medicine; Visit Provider Internal Medicine | DX: Z51.81 Encounter for therapeutic drug level monitoring (principal); Z79.01 Long term (current) use of anticoagulants; Z95.2 Presence of prosthetic heart valve | CPT/HCPCS: 85610; G0463 ==